=== PATIENT | female | born 1985 | race Two or more races ===

== ENCOUNTER 2023-12-24 13:05 | Inpatient (IN) | payer OTHER ==
[~2023-12-24] VITALS: Ht 172.7 cm; Wt 76.5 kg
--- NOTE | 2023-12-24 13:19 | ED.PDOC ---
GI ASSESSMENT HPI Comments HPI: Poor Historian.P 38-year-old female presents with a chief complaint of left lower quadrant pelvic pain x 1 month. Pain is constant. Patient has been taking ibuprofen at home for pain control most recently this morning, but denies any relief of symptoms. Patient denies chance of and reports that her IUD was removed x 7 months ago. Patient denies any history of sexual transmitted infections. PMHx: None PSHx: Cholecystectomy, Left Wrist Allergies: None Initial Vital Signs BP: 124/81 HR: 128 Temp: 98.9F SpO2: 97% RR: 18 REVIEW OF SYSTEMS: CONSTITUTIONAL: Denies acute: diaphoresis, HEAD: Denies acute: headache, photophobia Eyes: Denies acute: Double vision, vision loss, eye pain, eye discharge. EARS: Denies acute: tinnitus, hearing loss, ear discharge, ear pain, THROAT: Denies acute: sore throat, swelling, difficulty swallowing , pain with swallowing, change in voice. NECK: Denies acute: neck pain, neck swelling, stiff neck. HEART: Denies acute : chest pain, palpitations, LUNGS: Denies acute: SOB, wheezing, cough, hemoptysis ABDOMEN: Denies acute: diarrhea, melena , hematemesis, hematochezia SKIN: Denies acute: rash, redness, lesions, itchiness. EXTREMITIES: Denies acute: calf pain, numbness, tingling, weakness, denies pain in extremity. Denies acute: Low back pain. Neuro: Denies acute: focal neurological deficit, motor or sensory focal neurological deficit, tremors, seizure like activity, confusion, dizziness, change in mental status, loss of bowel or bladder function, cauda equina like symptoms. : Denies acute: dysuria, hematuria, flank pain, PSYCH: Denies acute: hallucination, suicidal ideation, homicidal ideation. FEMALE: Denies acute: abnormal vaginal bleeding, foul odor, unusual discharge. PHYSICAL EXAM: General: mild to moderate acute distress, awake and alert. Head: normocephalic, atraumatic. Neck: supple, trachea is midline, no swelling. Throat: Normal phonation. Eyes:, no erythema, no purulent discharge, no proptosis, no icterus. Heart: regular tachycardic, no significant murmur appreciated. Lungs: no apparent respiratory distress, Able to speak in full sentences. No wheezing, no rhonchi, no crackles. No stridors Clear to auscultation bilaterally. Abdomen: Left lower quadrant and suprapubic tender to palpation, non distended, soft, no guarding, no rebound, + bowel sounds. Neuro: Awake, Alert, oriented to name, self, situation, follows commands GCS=15. Speech is normal. Skin: no petechia, no purpura, no cyanosis, non-pale, not jaundice. Lower extremities: --no - Pitting edema no deformity, no focal swelling, no calf TTP. Makes eye contact. moves all four extremities. Face: no apparent facial droop. No CVA tenderness to percussion bilaterally. Ambulating in the ED independently. Chief Complaint: Pelvic Pain Time Seen by MD: 13:09 Reviewed Notes: Medications, Allergies Allergies: Coded Allergies: NO KNOWN ALLERGIES (Unverified , 12/24/23) Information Source: Patient Mode of Arrival: Ambulatory Was a procedure done? Was a procedure done?: No GI differential Dx Differential Diagnosis: Other (DDX include Diverticulitis, colitis, gastroenteritis, acute abdomen, SBO, enteritis, constipation, volvulus, appendicitis, Gallbladder disease, choledocolithiasis, ascending cholangitis, pancreatitis, intraAbdominal mass/neoplasm, hepatitis, UTI, pylonephritis, kidney stone, aneurysm, dissection, Inflammatory bowel disease, gastroparesis, ischemic bowel, ovarian torsion, ovarian cyst/mass, tubo-ovarian abscess, , ectopic , PID, STD.) X-Ray, Labs, Meds, VS Vital Signs Date Time Temp Pulse Resp B/P (MAP) Pulse Ox O2 Delivery O2 Flow Rate FiO2 12/24/23 19:26 102.7 12/24/23 19:00 102.7 99 16 109/68 (82) 100 102.7 12/24/23 18:25 118/71 12/24/23 15:46 106 16 100 Room Air 12/24/23 15:46 100.8 106 16 120/72 (88) 100 100.8 12/24/23 13:55 98.9 117 18 110/75 (87) 100 98.9 12/24/23 13:55 117 18 100 Room Air* 0 21 12/24/23 13:12 98.9 129 18 124/81 (95) 97 Lab Test 12/24/23 15:12 12/24/23 13:50 12/24/23 13:20 Range/Units Urine Color Yellow Yellow Urine Clarity Turbid H Clear Urine pH 6.5 5.0-9.0 Urine Specific [place] 1.021 1.001-1.035 Urine Protein Trace H Negative Urine Ketones Trace Negative Urine Blood Negative Negative /uL Urine Nitrite Negative Negative Urine Bilirubin Negative Negative Urine Urobilinogen 4 H Negative mg/dL Urine Leukocyte Esterase 1+ Negative /uL Urine RBC 3 0 - 4 /hpf Urine WBC 4 0 - 5 /hpf Urine Squamous Epithelial Cells Few <5 /hpf Urine Bacteria None seen None Seen /hpf Urine Mucus Few None Seen Urine Glucose Normal Normal mg/dL Urine Test Negative Negative Urine Opiates Screen Neg NEGATIVE Urine Fentanyl Screen Neg NEGATIVE Urine Barbiturates Screen Neg NEGATIVE Urine Phencyclidine Screen Neg NEGATIVE Urine Amphetamines Screen Neg NEGATIVE Urine Benzodiazepines Screen Neg NEGATIVE Urine Cocaine Screen Neg NEGATIVE Urine Cannabinoids Screen Pos NEGATIVE Chlamydia trachomatis (AYSHA) Pending Neisseria gonorrhoeae (AYSHA) Pending White Blood Count 23.8 H 4.4-10.8 10^3/uL Red Blood Count 3.66 L 4.0-5.20 10^6/uL Hemoglobin 9.8 L 12.2-16.2 g/dL Hematocrit 30.4 L 36.0-46.0 % Mean Corpuscular Volume 82.9 80.0-100.0 fL Mean Corpuscular Hemoglobin 26.8 L 28.0-32.0 pg Mean Corpuscular Hemoglobin Concent 32.4 32.0-36.0 g/dL Red Cell Distribution Width 14.1 11.8-14.3 % Platelet Count 466 H 140-450 10^3/uL Mean Platelet Volume 7.8 6.9-10.8 fL Neutrophils (%) (Auto) 89.6 H 37.0-80.0 % Lymphocytes (%) (Auto) 5.4 L 10.0-50.0 % Monocytes (%) (Auto) 4.3 0.0-12.0 % Eosinophils (%) (Auto) 0.4 0.0-7.0 % Basophils (%) (Auto) 0.3 0.0-2.0 % Neutrophils # (Auto) 21.3 H 1.6-8.6 10 ^3/uL Lymphocytes # (Auto) 1.3 0.4-5.4 10 ^3/uL Monocytes # (Auto) 1.0 0-1.3 10 ^3/uL Eosinophils # (Auto) 0.1 0-0.8 10 ^3/uL Basophils # (Auto) 0.1 0-0.2 10 ^3/uL Nucleated Red Blood Cells 0.0 % Erythrocyte Sedimentation Rate 105 H 0-20 mm/hr Prothrombin Time 12.1 H 9.3-11.8 sec Prothrombin Time INR 1.15 0.9-1.15 Activated Partial Thromboplast Time 32.5 24.5-34.5 SEC Sodium Level 135 L 136-145 mmol/L Potassium Level 3.8 3.5-5.1 mmol/L Chloride Level 102 98-107 mmol/L Carbon Dioxide Level 27 20-31 mmol/L Anion Gap 6 5-15 Blood Urea Nitrogen 6 L 9-23 mg/dL Creatinine 0.68 0.550-1.02 mg/dL Glomerular Filtration Rate Calc 116 >90 mL/min BUN/Creatinine Ratio 8.8 L 10.0-20.0 Serum Glucose 97 74-106 mg/dL Calcium Level 9.3 8.7-10.4 mg/dL Total Bilirubin 0.5 0.2-1.0 mg/dL Aspartate Amino Transferase (AST) 18 13-40 U/L Alanine Aminotransferase (ALT) 16 7-40 U/L Alkaline Phosphatase 101 46-116 U/L Total Protein 8.5 H 5.7-8.2 g/dL Albumin 3.8 3.2-4.8 g/dL Lipase 32 12-53 U/L Beta HCG, Quantitative 0.1 L 1.5-4.2 mIU/mL Plasma/Serum Blood Alcohol 3.3 <10 mg/dL Lactic Acid Level 0.8 0.4-2.0 mmol/L Current Medications Medications (Trade) Dose Ordered Sig/Sadia Route Start Time Stop Time Status Last Admin Sodium Chloride 1,000 ml @ 1,000 mls/hr Q1H ONCE IV 12/24/23 13:15 12/24/23 14:14 DC 12/24/23 13:53 Sodium Chloride 1,000 ml @ 1,000 mls/hr Q1H ONCE IV 12/24/23 14:45 12/24/23 15:44 DC 12/24/23 16:03 Ceftriaxone Sodium 50 ml @ 100 mls/hr ONCE ONCE IV 12/24/23 15:15 12/24/23 15:44 DC 12/24/23 16:02 Fentanyl Citrate 100 mcg ONCE ONCE IV 12/24/23 16:45 12/24/23 16:46 DC 12/24/23 18:25 Piperacillin Sod/ Tazobactam Sod 100 ml @ 100 mls/hr Q6HR IV 12/24/23 18:00 12/24/23 18:49 Acetaminophen (Tylenol Tablet) 500 mg ONCE ONCE PO 12/24/23 19:15 12/24/23 19:16 DC 12/24/23 19:26 [place] [address] Ph: [phone] DIAGNOSTIC IMAGING Diagnostic Imaging Report : [id number] Signed PATIENT: ANTON BONILLA ACCT: [id number] UNIT: [id number] : 1985 LOC: ER ROOM / BED: / AGE / SEX: 38 / F ADM STATUS: REG ER SERVICE [id number] ORDERING PHYSICIAN: GRACE CARRERO DO PROCEDURE(s): PELUS - PELVIC REASON: LLQ pain ORDER NUMBER(s): [id number], ACCESSION NUMBER(s): [id number] CLINICAL HISTORY: Lower quadrant pain. COMPARISON: None TECHNIQUE: Transabdominal grayscale sonographic imaging of the uterus and ovaries was performed, assisted by color Doppler technique. Duplex Doppler ultra sound of both ovaries was also performed. FINDINGS: The uterus measures 10.6 x 6.2 x 7.5 cm. There is mildly heterogeneous echogenicity. Endometrial thickness measures 1.2 cm, within normal limits. Right ovary measures 4.5 x 3.5 x 4.0 cm. Arterial and venous blood flow demonstrated. Simple cyst in the right ovary measures up to 2.2 cm. Heterogeneous structure in the left adnexal region measures up to 8.1 x 6.2 x 5.5 cm. There are prominent echogenic areas within the structure. Arterial and venous blood flow demonstrated. IMPRESSION: 1. Left adnexal structure, possible mass or collection. Infectious etiology not excluded. Correlate with same day CT findings and clinical findings. 2. Simple cyst in the right ovary. 3. Additional findings as described above. ATED BY: MAXIMILIANO GTZ DO DICTATED DATE/TIME: 12/24/238 SIGNED BY: MAXIMILIANO GTZ DO SIGNED DATE/TIME: 12/24/[address] [address] Ph: [phone] DIAGNOSTIC IMAGING Diagnostic Imaging Report : [id number] Signed PATIENT: ANTON BONILLA ACCT: [id number] UNIT: [id number] : 1985 LOC: ER ROOM / BED: / AGE / SEX: 38 / F ADM STATUS: REG ER SERVICE 1333 ORDERING PHYSICIAN: GRACE CARRERO DO PROCEDURE(s): ABPL - CT AB PEL WO CON-NO ORAL OR IV REASON: LLQ pain ORDER NUMBER(s): [id number], ACCESSION NUMBER(s): [id number] Exam: CT CT AB PEL WO CON-NO ORAL OR IV History: LLQ pain Comparison Study: None TECHNIQUE: Multidetector CT of the abdomen and pelvis was performed from lung bases to pubic symphysis. Imaging was performed without IV contrast. Axial, coronal, and sagittal multiplanar reformats were obtained from the axial data set by the technologist. RADIATION DOSE: DLP 435.52 mGy.cm; CTDI vol 7.89 mGy. Findings: Lungs: The lung bases are clear. Heart: The visualized heart is unremarkable. No cardiomegaly or pericardial effusion. Liver: Unremarkable. Gallbladder: Cholecystectomy. Spleen: Unremarkable Pancreas: Unremarkable Adrenals: Unremarkable Kidneys: Punctate nonobstructive left nephrolithiasis. GI tract: Unremarkable : 5.6 x 5.1 cm left adnexal lesion with thickened wall and multilocular morphology. Vasculature: Unremarkable Lymphadenopathy: Absent Peritoneum: No ascites Musculoskeletal: Unremarkable Soft tissues: Unremarkable Impression: 1. 5.6 x 5.1 cm thick walled, multilocular lesion in the left adnexa which is suspicious for a pyosalpinx, other etiologies not excluded. 2. Punctate nonobstructive left nephrolithiasis. ATED BY: MISSY LOPEZ DO DICTATED DATE/TIME: 12/24/23 1608 SIGNED BY: MISSY LOPEZ DO SIGNED DATE/TIME: 12/24/23 1608 Time of 1ST Reevaluation: 13:39 Reevaluation 1ST: Unchanged Time of 2ND Reevaluation: 16:17 (The case was discussed with the OB Gyne team (HPI, physical exam, labs and diagnostic tests that were available at the time of disposition, ED course, treatment plan) on the phone. They agreed to follow up with the patient in consult. They recommended additional doxycycline 100 mg IV and NPO after midnight at admit to the hospitalist team and they will follow in consult. Dr. Schuster. He also requested to add labs for CBC in the morning and ESR.) Time of 3RD Reevaluation: 19:50 Reevaluation 3RD: Improved Patient Education/Counseling: Diagnosis, Treatment Family Education/Counseling: No Family Present Comments Patient presented with the above HPI.--pelvic pain----workup was initiated. patient was found with the above mentioned diagnosis. Patient was given: Rocephin, doxycycline IV, pain medications, fluids, Zofran. Patient ED course and VS have been stabilized. Patient has been reassessed in the ED and remained in a stable condition. Patient/family voices understanding and is agreeable with plan. Patient has been observed in the ED adequate length of time to insure improvement/stability. patient was admitted to the medicine team for further evaluation and treatment of their presentation. OB Gyne were consulted and will follow in consult. They later added gentamicin as well. All the reports of any imaging studies that were ordered by myself were reviewed by myself. Departure 1 Departure Time of Disposition: 15:07 Impression: Primary Impression: Leukocytosis Additional Impressions: Left lower quadrant abdominal pain Adnexal mass Left pyosalpinx Disposition: ADMITTED INPATIENT Admit to: Tele Condition: Guarded Discharged With: Self Critical Care Note Critical Care Time?: Yes (45 min-critical care time only) I personally scribed for GRACE CARRERO DO ([email or web address]) on 12/24/23 at 13:19. Electronically submitted by Fritz Whitaker ([email or web address]). I personally scribed for GRACE CARRERO DO ([email or web address]) on 12/24/23 at 16:04. Electronically submitted by Fritz Whitaker ([email or web address]). I personally scribed for GRACE CARRERO DO ([email or web address]) on 12/24/23 at 16:08. Electronically submitted by Fritz Whitaker ([email or web address]). I personally scribed for GRACE CARRERO DO ([facility] on 12/24/23 at 16:11. Electronically submitted by Fritz Whitaker ([email or web address]). I personally scribed for GRACE CARRERO DO ([facility] on 12/24/23 at 16:42. Electronically submitted by Fritz Whitaker ([email or web address]). GRACE CARRERO DO Dec 24, 2023 13:19
[2023-12-24] MEDS: SODIUM CHLORIDE 0.9% 1,000 ML IV ONE ×2 (13:53→16:03)
[2023-12-24] MEDS: ONDANSETRON HCL 4 MG/2 ML VIAL IV ONE (13:54)
[2023-12-24 13:55] VITALS: PULSE 117; RESP 18; O2SAT 100
[2023-12-24 14:16] LABS: Basophils # (auto) 0.1 10 ^3/uL (0-0.2); Eosinophils # (auto) 0.1 10 ^3/uL (0-0.8); Eosinophils % (auto) 0.4 % (0.0-7.0); Neutrophils # (auto) 21.3 10 ^3/uL (1.6-8.6); Red Blood Cells 3.66 10^6/uL (4.0-5.20); Red Cell Distribution Width 14.1 % (11.8-14.3)
[2023-12-24 14:19] LABS: Basophils % (auto) 0.3 % (0.0-2.0); Hematocrit 30.4 % (36.0-46.0); Hemoglobin 9.8 g/dL (12.2-16.2); Lymphocytes # (auto) 1.3 10 ^3/uL (0.4-5.4); Lymphocytes % (auto) 5.4 % (10.0-50.0); Mean Corpuscular Hemoglobin 26.8 pg (28.0-32.0); Mean Corpuscular Hgb Conc. 32.4 g/dL (32.0-36.0); Mean Corpuscular Volume 82.9 fL (80.0-100.0); Monocytes % (auto) 4.3 % (0.0-12.0); Neutrophils % (auto) 89.6 % (37.0-80.0); Platelet Count (auto) 466 10^3/uL (140-450); White Blood Cell 23.8 10^3/uL (4.4-10.8)
[2023-12-24 14:25] LABS: Alanine Aminotransferase 16 U/L (7-40); Albumin 3.8 g/dL (3.2-4.8); Alkaline Phosphatase 101 U/L (46-116); Anion Gap 6 (5-15); Aspartate Aminotransferase 18 U/L (13-40); BUN/Creatinine Ratio 8.8 (10.0-20.0); Blood Alcohol 3.3 mg/dL (<10); Blood Urea Nitrogen 6 mg/dL (9-23); Calcium 9.3 mg/dL (8.7-10.4); Carbon Dioxide 27 mmol/L (20-31); Chloride 102 mmol/L (98-107); Glucose 97 mg/dL (74-106); Potassium 3.8 mmol/L (3.5-5.1); Sodium 135 mmol/L (136-145)
[2023-12-24 14:26] LABS: Bilirubin, Total 0.5 mg/dL (0.2-1.0); Total Protein 8.5 g/dL (5.7-8.2)
[2023-12-24 14:38] LABS: Lipase 32 U/L (12-53)
[2023-12-24 15:13] LABS: Urine Bacteria None Seen /hpf (None Seen)
[2023-12-24 15:31] LABS: Urine Blood Negative /uL (Negative); Urine Clarity Turbid (Clear); Urine Color Yellow (Yellow); Urine Mucus FEW (None Seen); Urine Protein, UAD TRACE (Negative); Urine Specific Gravity 1.021 (1.001-1.035); Urine Urobilinogen 4 mg/dL (Negative); Urine WBC 4 /hpf (0 - 5); Urine pH 6.5 (5.0-9.0)
[2023-12-24 15:50] LABS: Amphetamine Screen, Urine Neg (NEGATIVE)
[2023-12-24 15:51] LABS: Barbiturate Scree,Urine Neg (NEGATIVE); Benzodiazephine Screen, Urine Neg (NEGATIVE); Cannabinoid Screen, Urine Pos (NEGATIVE); Cocaine Screen, Urine Neg (NEGATIVE); Opiate Scree,Urine Neg (NEGATIVE); Phencyclidine Screen, Urine Neg (NEGATIVE)
--- NOTE | 2023-12-24 16:00 | DVH ---
CLINICAL HISTORY: Lower quadrant pain. COMPARISON: None TECHNIQUE: Transabdominal grayscale sonographic imaging of the uterus and ovaries was performed, assi sted by color Doppler technique. Duplex Doppler ultrasound of both ovaries was also performed. FINDINGS: The uterus measures 10.6 x 6.2 x 7.5 cm. There is mildly heterogeneous echogenicity. Endome trial thickness measures 1.2 cm, within normal limits. Right ovary measures 4.5 x 3.5 x 4.0 cm. Arterial and venous blood flow demonstrated. Simple cyst in the right ovary measures up to 2.2 cm. Heterogeneous structure in the left adnexal region measures up to 8.1 x 6.2 x 5.5 cm. There are promi nent echogenic areas within the structure. Arterial and venous blood flow demonstrated. IMPRESSION: 1. Left adnexal structure, possible mass or collection. Infectious etiology not excluded. Correlate w ith same day CT findings and clinical findings. 2. Simple cyst in the right ovary. 3. Additional findings as described above.
[2023-12-24] MEDS: cefTRIAXone 1GM/50ML D5W 50 ML IV ONE (16:02)
--- NOTE | 2023-12-24 16:10 | DVH ---
Exam: CT CT AB PEL WO CON-NO ORAL OR IV History: LLQ pain Comparison Study: None TECHNIQUE: Multidetector CT of the abdomen and pelvis was performed from lung bases to pubic symphysi s. Imaging was performed without IV contrast. Axial, coronal, and sagittal multiplanar reformats were obtained from the axial data set by the technologist. RADIATION DOSE: DLP 435.52 mGy.cm; CTDI vol 7.89 mGy. Findings: Lungs: The lung bases are clear. Heart: The visualized heart is unremarkable. No cardiomegaly or pericardial effusion. Liver: Unremarkable. Gallbladder: Cholecystectomy. Spleen: Unremarkable Pancreas: Unremarkable Adrenals: Unremarkable Kidneys: Punctate nonobstructive left nephrolithiasis. GI tract: Unremarkable : 5.6 x 5.1 cm left adnexal lesion with thickened wall and multilocular morphology. Vasculature: Unremarkable Lymphadenopathy: Absent Peritoneum: No ascites Musculoskeletal: Unremarkable Soft tissues: Unremarkable Impression: 1. 5.6 x 5.1 cm thick walled, multilocular lesion in the left adnexa which is suspicious for a pyosal pinx, other etiologies not excluded. 2. Punctate nonobstructive left nephrolithiasis.
[2023-12-24] MEDS ORDERED: DOXYCYCLINE 100MG/250ML 250 ML IV ONE (16:30)
[2023-12-24 17:12] LABS: INR 1.15 (0.9-1.15); Partial Thromboplastin Time 32.5 SEC (24.5-34.5); Prothrombin Time 12.1 sec (9.3-11.8)
[2023-12-24 17:42] LABS: Erythrocyte Sedimentation Rate 105 mm/hr (0-20)
[2023-12-24] MEDS: GENTAMICIN SULFATE 80 MG in D5W 5% 100 ML IV ONE (18:00)
[2023-12-24] MEDS ORDERED: GENTAMICIN PER PHARMACY 0 ML IV SCH (18:00)
[2023-12-24] MEDS: fentaNYL CITRATE 100 MCG/2 ML VL IV ONE (18:25)
[2023-12-24] MEDS: PIPERACILLIN-TAZOB 3.375GM 100 ML IV SCH (18:49)
[2023-12-24] MEDS: ACETAMINOPHEN 500 MG TAB PO ONE (19:26)
[2023-12-24] MEDS: GENTAMICIN SULFATE 100 MG in D5W 5% 100 ML IV SCH (21:00)
[2023-12-24] MEDS ORDERED: NITROGLYCERIN 0.4 MG SL TAB SL PRN (21:30)
[2023-12-24] MEDS ORDERED: MORPHINE SULFATE INJ 2 MG/ml SYRG IV PRN (21:30)
[2023-12-24] MEDS: SODIUM CHLOR 0.9% PF (SALINE LOCK) 10ML VIAL/SYR IV SCH (22:23)
[2023-12-24] MEDS: SODIUM CHLORIDE 0.9% 1,000 ML IV SCH (22:23)
--- NOTE | 2023-12-24 22:27 | DVHHPRES ---
History of Present Illness Resident Creating Document: CHRISTAINO BALLESTEROS RESIDENT History of Present Illness This is a 38-year-old female with past medical history of kidney stone presented to the ED with a chief complaint of intermittent left lower quadrant abdominal pain and yellowish vaginal discharge for last 1 month prior to this admission. According to the patient the left lower quadrant abdominal pain is colicky in nature 9/10 localized with no aggravating or relieving factors and associated with yellowish vaginal discharge. She had an IUD for 5 years and removed 1 month ago. She had no history of STD or multiple sexual partner before and her last Pap test was few months ago and was normal study according to the patient. She also mentioned she had history of kidney stone 3 years ago and passed 3 stones but no imaging or follow up was done after that. She denies fever, chills, sweating, nausea, vomiting, chest pain, dizziness or any change in the bowel and bladder habit. Past Medical History Kidney stone Past Surgical History None Family History None Smoke: No ALCOHOL: none Drugs: None, Marijuana Past Social History Nonsmoker, nonalcoholic and smoke weeds and lives with boyfriend Review of Systems Constitutional: No: Fever, Chills, Sweats, Weakness, Malaise, Other Eyes: No: Pain, Vision change, Conjunctivae inflammation, Eyelid inflammation, Other, Redness ENT: No: Ear pain, Ear discharge, Nose pain, Nose discharge, Nose congestion, Mouth pain, Mouth swelling, Throat pain, Throat swelling, Other Gastrointestinal: Constipation; No: Nausea, Vomiting, Abdominal Pain, Diarrhea, Melena, Hematochezia, Other Genitourinary: No Dysuria, No Frequency, No Incontinence, No Hematuria, No Ret ention, No Other Musculoskeletal: No: other, neck pain, shoulder pain, arm pain, back pain, hand pain, leg pain, foot pain Skin: No: Rash, Lesions, Jaundice, Bruising, Other Neurological: No: Weakness, Numbness, Incoordination, Change in speech, Confusion, Seizures, Other Allergies: Coded Allergies: NO KNOWN ALLERGIES (Unverified , 12/24/23) Medications Current Medications Medications Dose Ordered Sig/Sadia Route Start Time Stop Time Status Last Admin Dose Admin Piperacillin Sod/ Tazobactam Sod 100 ml @ 100 mls/hr Q6HR IV 12/24/23 18:00 12/24/23 18:49 100 MLS/HR Gentamicin Sulfate 0 ml @ 0 mls/hr PER PHARMACY IV 12/24/23 18:00 Gentamicin Sulfate 100 mg/ Dextrose 102.5 ml @ 100 mls/hr Q8H IV 12/24/23 20:00 12/24/23 21:00 100 MLS/HR Sodium Chloride 10 ml Q8HR IV 12/24/23 22:00 12/24/23 22:23 10 ML Sodium Chloride 1,000 ml @ 75 mls/hr [id number] IV 12/24/23 21:30 12/24/23 22:23 75 MLS/HR Acetaminophen 325 mg Q4HP PRN PO 12/24/23 21:30 Acetaminophen/ Hydrocodone Bitart 1 tab Q4HP PRN PO 12/24/23 21:30 Ondansetron HCl 4 mg Q4HP PRN IV 12/24/23 21:30 Nitroglycerin 0.4 mg Q5MINP PRN SL 12/24/23 21:30 Morphine Sulfate 2 mg Q30M PRN IV 12/24/23 21:30 Exam Vital Signs Vital Signs Date Time Temp Pulse Resp B/P (MAP) Pulse Ox O2 Delivery O2 Flow Rate FiO2 12/24/23 19:30 Room Air* 0 21 12/24/23 19:26 102.7 12/24/23 19:00 99 16 109/68 (82) 100 Exam Physical examination: General Appearance: Alert, Oriented X3, Cooperative, No acute distress HEENT: Atraumatic, PERRLA, EOMI, Mucous membrane moist/pink Respiratory: Clear to auscultation, Normal air movement Cardiovascular: Regular rate, Normal S1, Normal S2, No murmurs, no chest wall tenderness Abdominal: Abdomen soft and tenderness present in the left lower quadrant, no CVA tenderness, normal bowel sounds, No hepatospenomegaly, No masses Extremities: No clubbing, No cyanosis, No edema, Normal pulses, No tenderness/swelling Skin: No rashes, No breakdown, No significant lesion Neuro: Normal gait, Normal speech, Strength at 5/5 X4 ext, Normal tone, Sensation intact. Psych/Mental Status: Mental status NL, Mood NL Labs/Xrays Labs Test 12/24/23 15:12 12/24/23 13:50 12/24/23 13:20 Range/Units Urine Color Yellow Yellow Urine Clarity Turbid H Clear Urine pH 6.5 5.0-9.0 Urine Specific [place] 1.021 1.001-1.035 Urine Protein Trace H Negative Urine Ketones Trace Negative Urine Blood Negative Negative /uL Urine Nitrite Negative Negative Urine Bilirubin Negative Negative Urine Urobilinogen 4 H Negative mg/dL Urine Leukocyte Esterase 1+ Negative /uL Urine RBC 3 0 - 4 /hpf Urine WBC 4 0 - 5 /hpf Urine Squamous Epithelial Cells Few <5 /hpf Urine Bacteria None seen None Seen /hpf Urine Mucus Few None Seen Urine Glucose Normal Normal mg/dL Urine Test Negative Negative Urine Opiates Screen Neg NEGATIVE Urine Fentanyl Screen Neg NEGATIVE Urine Barbiturates Screen Neg NEGATIVE Urine Phencyclidine Screen Neg NEGATIVE Urine Amphetamines Screen Neg NEGATIVE Urine Benzodiazepines Screen Neg NEGATIVE Urine Cocaine Screen Neg NEGATIVE Urine Cannabinoids Screen Pos NEGATIVE White Blood Count 23.8 H 4.4-10.8 10^3/uL Red Blood Count 3.66 L 4.0-5.20 10^6/uL Hemoglobin 9.8 L 12.2-16.2 g/dL Hematocrit 30.4 L 36.0-46.0 % Mean Corpuscular Volume 82.9 80.0-100.0 fL Mean Corpuscular Hemoglobin 26.8 L 28.0-32.0 pg Mean Corpuscular Hemoglobin Concent 32.4 32.0-36.0 g/dL Red Cell Distribution Width 14.1 11.8-14.3 % Platelet Count 466 H 140-450 10^3/uL Mean Platelet Volume 7.8 6.9-10.8 fL Neutrophils (%) (Auto) 89.6 H 37.0-80.0 % Lymphocytes (%) (Auto) 5.4 L 10.0-50.0 % Monocytes (%) (Auto) 4.3 0.0-12.0 % Eosinophils (%) (Auto) 0.4 0.0-7.0 % Basophils (%) (Auto) 0.3 0.0-2.0 % Neutrophils # (Auto) 21.3 H 1.6-8.6 10 ^3/uL Lymphocytes # (Auto) 1.3 0.4-5.4 10 ^3/uL Monocytes # (Auto) 1.0 0-1.3 10 ^3/uL Eosinophils # (Auto) 0.1 0-0.8 10 ^3/uL Basophils # (Auto) 0.1 0-0.2 10 ^3/uL Nucleated Red Blood Cells 0.0 % Erythrocyte Sedimentation Rate 105 H 0-20 mm/hr Prothrombin Time 12.1 H 9.3-11.8 sec Prothrombin Time INR 1.15 0.9-1.15 Activated Partial Thromboplast Time 32.5 24.5-34.5 SEC Sodium Level 135 L 136-145 mmol/L Potassium Level 3.8 3.5-5.1 mmol/L Chloride Level 102 98-107 mmol/L Carbon Dioxide Level 27 20-31 mmol/L Anion Gap 6 5-15 Blood Urea Nitrogen 6 L 9-23 mg/dL Creatinine 0.68 0.550-1.02 mg/dL Glomerular Filtration Rate Calc 116 >90 mL/min BUN/Creatinine Ratio 8.8 L 10.0-20.0 Serum Glucose 97 74-106 mg/dL Calcium Level 9.3 8.7-10.4 mg/dL Total Bilirubin 0.5 0.2-1.0 mg/dL Aspartate Amino Transferase (AST) 18 13-40 U/L Alanine Aminotransferase (ALT) 16 7-40 U/L Alkaline Phosphatase 101 46-116 U/L Total Protein 8.5 H 5.7-8.2 g/dL Albumin 3.8 3.2-4.8 g/dL Lipase 32 12-53 U/L Beta HCG, Quantitative 0.1 L 1.5-4.2 mIU/mL Plasma/Serum Blood Alcohol 3.3 <10 mg/dL Lactic Acid Level 0.8 0.4-2.0 mmol/L Assessment/Plan Assessment/Plan Assessment and plan: # Left lower quadrant abdominal pain likely due to left tubo-ovarian abscess - Patient had history of IUD for 5 years and removed 1 month ago - CT abdomen demonstrated 5.6 x 5.1 cm thick walled, multilocular lesion in the left adnexa, possible left pyosalpinx - WBC is 23.8 and ESR is 105 - Pending NAAT for chlamydia and gonorrhea - pending blood culture - Ceftriaxone 2 g IV daily and doxycycline 100 mg IV b.i.d. - Consulted OBGYN # Left-sided nonobstructing renal stone - CT abdomen revealed punctating nonobstructing left sided nephrolithiasis - Follow up with outpatient urology # Possible pyuria without bacteriuria Goal of care discussed with the patient for more than 20 minutes full code Plan of treatment discussed with Dr. Joy Plan discussed with: Patient, Other My Orders Orders - CHRISTIANO BALLESTEROS RESIDENT Procedure Category Date Status Time Admit ADMIT 12/24/23 Transmitted 21:29 Allergies RHIANNA 12/24/23 In Process 21:29 Code Status CODE 12/24/23 Transmitted 21:29 Sodium Chloride Lock PHA 12/24/23 In Process (Saline Lock Ns) 22:00 Sodium Chloride 0.9% PHA 12/24/23 In Process 21:30 Oxygen Per Hour RT 12/24/23 Transmitted 21:29 Acetaminophen Tablet PHA 12/24/23 In Process (Tylenol Tablet) 21:30 Hydrocodone-Acet PHA 12/24/23 In Process 5/325mg Tab ([place] 21:30 Ondansetron Hcl PHA 12/24/23 In Process (Zofran) 21:30 Complete Blood Count LAB 12/25/23 Verified 04:00 Comprehensive LAB 12/25/23 Verified Metabolic Panel 04:00 Clear Liq Diet DIET 12/25/23 Transmitted Breakfast Nitroglycerin PHA 12/24/23 In Process Sublingual (Ntrostat 21:30 Morphine Sulfate PHA 12/24/23 In Process Injection 21:30 Oxygen By Nasal RT 12/24/23 Transmitted Cannula 21:29 Stat Ekg For Chest RHIANNA 12/24/23 In Process Pain 21:29 Notify Of Changes RHIANNA 12/24/23 In Process From Base 21:29 Branch Service Associate For RHIANNA 12/24/23 In Process 24 Hours 21:29 Emergency Dysrhythmia RHIANNA 12/24/23 In Process Protocol 21:29 Rhythm Strips Once [facility] 12/24/23 In Process Every Shift 21:29 CHRISTIANO BALLESTEROS RESIDENT Dec 24, 2023 22:27
[2023-12-25] MEDS: HYDROcodone-ACET 5/325MG TAB PO PRN (01:03)
[2023-12-25] MEDS: DOXYCYCLINE 100MG/250ML 250 ML IV SCH (01:05)
[2023-12-25 04:43] LABS: Basophils # (auto) 0 10 ^3/uL (0-0.2); Basophils % (auto) 0.2 % (0.0-2.0); Eosinophils % (auto) 0.2 % (0.0-7.0); Hematocrit 25.1 % (36.0-46.0); Neutrophils # (auto) 20.4 10 ^3/uL (1.6-8.6); Red Cell Distribution Width 14.4 % (11.8-14.3)
[2023-12-25 04:44] LABS: Eosinophils # (auto) 0.1 10 ^3/uL (0-0.8); Hemoglobin 7.9 g/dL (12.2-16.2); Lymphocytes # (auto) 1.7 10 ^3/uL (0.4-5.4); Lymphocytes % (auto) 7.2 % (10.0-50.0); Mean Corpuscular Hemoglobin 26.2 pg (28.0-32.0); Mean Corpuscular Hgb Conc. 31.4 g/dL (32.0-36.0); Mean Corpuscular Volume 83.5 fL (80.0-100.0); Monocytes # (auto) 1.3 10 ^3/uL (0-1.3); Monocytes % (auto) 5.3 % (0.0-12.0); Neutrophils % (auto) 87.1 % (37.0-80.0); Platelet Count (auto) 395 10^3/uL (140-450); Red Blood Cells 3.01 10^6/uL (4.0-5.20); White Blood Cell 23.5 10^3/uL (4.4-10.8)
[2023-12-25 05:03] LABS: Alanine Aminotransferase 12 U/L (7-40); Albumin 3.4 g/dL (3.2-4.8); Alkaline Phosphatase 86 U/L (46-116); Anion Gap 6 (5-15); Aspartate Aminotransferase 16 U/L (13-40); Calcium 8.6 mg/dL (8.7-10.4); Carbon Dioxide 26 mmol/L (20-31); Chloride 106 mmol/L (98-107); Glucose 102 mg/dL (74-106); Potassium 3.7 mmol/L (3.5-5.1); Sodium 138 mmol/L (136-145)
[2023-12-25 05:04] LABS: Bilirubin, Total 0.5 mg/dL (0.2-1.0)
[2023-12-25 05:09] LABS: BUN/Creatinine Ratio 7.7 (10.0-20.0); Blood Urea Nitrogen < 5 mg/dL (9-23)
--- NOTE | 2023-12-25 07:47 | DVHINCON2 ---
Date of service: Dec 25, 2023 Reason for Consultation TOA History of Present Illness HPI 38-year-old female, Go with past medical history of kidney stone presented to the ED with a chief complaint of intermittent left lower quadrant abdominal pain and yellowish vaginal discharge for last 1 month. She has left lower quadrant abdominal pain, colicky in nature, 9/10, localized with no aggravating or relieving factors and associated with yellowish vaginal discharge. She had an IUD for 5 years and removed 1 month ago. She has no history of STD, denies any new sexual partner or multiple sexual partners. Last Pap test was few months ago and was normal study according to the patient. . She endorses fever, chills. Denies nausea, vomiting, chest pain, dizziness or any change in bowel or bladder habits. Pelvic US and CT scan show a large approx. 8cm left adnexal inflammatory mass consistent with pyosalpinx, tubo-ovarian complex. She has been started on broad spectrum antibiotics since last night but still experiencing high fever, 102.7F and leukocytosis. Past Medical History Kidney stone Past Surgical History Family History None Smoke: No ALCOHOL: none Drugs: Marijuana use + Past Social History neg Review of Systems Review of Systems Constitutional: FEVER+ Chills, NO Sweats, Weakness, Malaise Eyes: No: Pain, Vision change, Conjunctivae inflammation, Eyelid inflammation, Other, Redness ENT: No: Ear pain, Ear discharge, Nose pain, Nose discharge, Nose congestion, Mouth pain, Mouth swelling, Throat pain, Throat swelling, Other Gastrointestinal: Constipation; No: Nausea, Vomiting, Abdominal Pain+, NO Diarrhea, Melena, Hematochezia Genitourinary: No Dysuria, No Frequency, No Incontinence, No Hematuria, No Retention Musculoskeletal: No: other, neck pain, shoulder pain, arm pain, back pain, hand pain, leg pain, foot pain Skin: No: Rash, Lesions, Jaundice, Bruising, Other Neurological: No: Weakness, Numbness, Incoordination, Change in speech, Confusion, Seizures, Other Allergies: NKDA Home Meds Reported Medications Ibuprofen (Ibuprofen) 800 Mg Tab, 800 MG PO 6XD, MG 12/25/23 Review of Systems Constitutional: Fever Ears, Nose, & Throat: No symptom reported Eyes: No symptom reported Pulmonary/Respiratory: No symptom reported Cardiovascular: No symptom reported Gastrointestinal: Abdominal Pain Genitourinary: No symptom reported Musculoskeletal: No symptom reported Skin: No symptom reported Psychiatric: No symptom reported Endocrine: No symptom reported Hemotologic/Lymphatic: No symptom reported H&P Exam Vital Signs Vital Signs Date Time Temp Pulse Resp B/P (MAP) Pulse Ox O2 Delivery O2 Flow Rate FiO2 12/25/23 07:26 98.9 119 18 121/65 (83) 96 98.9 12/24/23 19:30 Room Air* 0 21 General Appeara: Well developed, Normal Appearance, Mild distress Head Exam: Normal inspection Neck Exam: Normal inspection Eye Exam: bilateral eye PERRL Pulmonary/Respiratory: Normal inspection, Normal breath sounds Cardiovascular/Chest: Normal inspection Abdominal Exam: Other (Tenderness in LLQ on deep palpation, no peritoneal signs) Rectal Exam: Deferred Pelvic Exam: Not done [employer] Exam: Normal hearing Appearance: Appropriate appearance Eye contact/ Speech: Good eye contact, Normal speech Labs/Xrays PATIENT: ANTON BONILLA PACCT: [id number] UNIT: [id number] 3 : 1985 LOC: ER ROOM / BED: / AGE / SEX: 38 / F ADM STATUS: REG ER SERVICE 1310 ORDERING PHYSICIAN: GRACE CARRERO DO PROCEDURE(s): PELUS - PELVIC REASON: LLQ pain ORDER NUMBER(s): [id number], ACCESSION NUMBER(s): [id number] CLINICAL HISTORY: Lower quadrant pain. COMPARISON: None TECHNIQUE: Transabdominal grayscale sonographic imaging of the uterus and ovaries was performed, assisted by color Doppler technique. Duplex Doppler ultrasound of both ovaries was also performed. FINDINGS: The uterus measures 10.6 x 6.2 x 7.5 cm. There is mildly heterogeneous echogenicity. Endometrial thickness measures 1.2 cm, within normal limits. Right ovary measures 4.5 x 3.5 x 4.0 cm. Arterial and venous blood flow demon strated. Simple cyst in the right ovary measures up to 2.2 cm. Heterogeneous structure in the left adnexal region measures up to 8.1 x 6.2 x 5.5 cm. There are prominent echogenic areas within the structure. Arterial and venous blood flow demonstrated. IMPRESSION: 1. Left adnexal structure, possible mass or collection. Infectious etiology not excluded. Correlate with same day CT findings and clinical findings. (Heterogeneous structure in the left adnexal region measures up to 8.1 x 6.2 x 5.5 cm. There are prominent echogenic areas within the structure) 2. Simple cyst in the right ovary. 3. Additional findings as described above. Labs Test 12/25/23 04:19 12/24/23 15:12 12/24/23 13:50 12/24/23 13:20 Range/Units White Blood Count 23.5 H 4.4-10.8 10^3/uL Red Blood Count 3.01 L 4.0-5.20 10^6/uL Hemoglobin 7.9 #L 12.2-16.2 g/dL Hematocrit 25.1 #L 36.0-46.0 % Mean Corpuscular Volume 83.5 80.0-100.0 fL Mean Corpuscular Hemoglobin 26.2 L 28.0-32.0 pg Mean Corpuscular Hemoglobin Concent 31.4 L 32.0-36.0 g/dL Red Cell Distribution Width 14.4 H 11.8-14.3 % Platelet Count 395 140-450 10^3/uL Mean Platelet Volume 7.2 6.9-10.8 fL Neutrophils (%) (Auto) 87.1 H 37.0-80.0 % Lymphocytes (%) (Auto) 7.2 L 10.0-50.0 % Monocytes (%) (Auto) 5.3 0.0-12.0 % Eosinophils (%) (Auto) 0.2 0.0-7.0 % Basophils (%) (Auto) 0.2 0.0-2.0 % Neutrophils # (Auto) 20.4 H 1.6-8.6 10 ^3/uL Lymphocytes # (Auto) 1.7 0.4-5.4 10 ^3/uL Monocytes # (Auto) 1.3 0-1.3 10 ^3/uL Eosinophils # (Auto) 0.1 0-0.8 10 ^3/uL Basophils # (Auto) 0 0-0.2 10 ^3/uL Nucleated Red Blood Cells 0.0 % Sodium Level 138 136-145 mmol/L Potassium Level 3.7 3.5-5.1 mmol/L Chloride Level 106 98-107 mmol/L Carbon Dioxide Level 26 20-31 mmol/L Anion Gap 6 5-15 Blood Urea Nitrogen < 5 L 9-23 mg/dL Creatinine 0.65 0.550-1.02 mg/dL Glomerular Filtration Rate Calc 117 >90 mL/min BUN/Creatinine Ratio 7.7 L 10.0-20.0 Serum Glucose 102 74-106 mg/dL Calcium Level 8.6 L 8.7-10.4 mg/dL Total Bilirubin 0.5 0.2-1.0 mg/dL Aspartate Amino Transferase (AST) 16 13-40 U/L Alanine Aminotransferase (ALT) 12 7-40 U/L Alkaline Phosphatase 86 46-116 U/L Total Protein 7.0 5.7-8.2 g/dL Albumin 3.4 3.2-4.8 g/dL Urine Color Yellow Yellow Urine Clarity Turbid H Clear Urine pH 6.5 5.0-9.0 Urine Specific [place] 1.021 1.001-1.035 Urine Protein Trace H Negative Urine Ketones Trace Negative Urine Blood Negative Negative /uL Urine Nitrite Negative Negative Urine Bilirubin Negative Negative Urine Urobilinogen 4 H Negative mg/dL Urine Leukocyte Esterase 1+ Negative /uL Urine RBC 3 0 - 4 /hpf Urine WBC 4 0 - 5 /hpf Urine Squamous Epithelial Cells Few <5 /hpf Urine Bacteria None seen None Seen /hpf Urine Mucus Few None Seen Urine Glucose Normal Normal mg/dL Urine Test Negative Negative Urine Opiates Screen Neg NEGATIVE Urine Fentanyl Screen Neg NEGATIVE Urine Barbiturates Screen Neg NEGATIVE Urine Phencyclidine Screen Neg NEGATIVE Urine Amphetamines Screen Neg NEGATIVE Urine Benzodiazepines Screen Neg NEGATIVE Urine Cocaine Screen Neg NEGATIVE Urine Cannabinoids Screen Pos NEGATIVE Erythrocyte Sedimentation Rate 105 H 0-20 mm/hr Prothrombin Time 12.1 H 9.3-11.8 sec Prothrombin Time INR 1.15 0.9-1.15 Activated Partial Thromboplast Time 32.5 24.5-34.5 SEC Lipase 32 12-53 U/L Beta HCG, Quantitative 0.1 L 1.5-4.2 mIU/mL Plasma/Serum Blood Alcohol 3.3 <10 mg/dL Lactic Acid Level 0.8 0.4-2.0 mmol/L Assessment/Plan Admitting Diagnosis: 1. Sepsis due to Left adnexal 8cm TOA/Pyosalpinx (PID) 2. Normocytic anemia Plan The patient has been started on broad spectrum antibiotics (Rocephin/Doxycycline and Flagyl) Multiple therapeutic options were discussed with the patient including medical treatment with IV antibiotics until afebrile and clinically improved, followed by long-term oral antibiotics with repeat imaging in a few weeks Option for interventional procedure by IR with possible percutaneous drainage. Finally, surgical exploration with unilateral (left) salpingo-oophorectomy discussed as definitive and recommended treatment options. The patient would like to avoid surgery at this time. She would like to continue with medical management with IV antibiotics. We will consult IR for drainage. Patient declined surgery at this time. Will follow with you. Check daily CBC Plan discussed with: Patient Date of Service: Dec 25, 2023 Billing Provider: ANNALISA MANCINI DO Common Visit Codes: 00635-JWD/[id number] SAME DATE (HIGH) ANNALISA MANCINI DO Dec 25, 2023 07:47
[2023-12-25 08:21] VITALS: BP 112/64; PULSE 110; RESP 16; TEMP 99; O2SAT 97
[2023-12-25 08:27] LABS: Triglycerides 65 mg/dL (< 150)
[2023-12-25 08:28] LABS: LDL Cholesterol 66 mg/dL (< 100)
[2023-12-25 08:29] LABS: Cholesterol 99 mg/dL (< 200); HDL Cholesterol 24 mg/dL (40-59)
[2023-12-25] MEDS: ONDANSETRON HCL 4 MG/2 ML VIAL IV PRN (08:36)
[2023-12-25] MEDS: metroNIDAZOLE 500MG/100ML 100 ML IV SCH (08:39)
[2023-12-25 08:53] VITALS: BP 112/64; PULSE 110; RESP 16; TEMP 99.2; O2SAT 97
[2023-12-25] MEDS ORDERED: IBUP-1456 PO (09:45)
--- NOTE | 2023-12-25 10:46 | DVHPNRES ---
Progress Note Date Seen: Dec 25, 2023 Resident Creating Document: SHARON RAJPUT RESIDENT Has the PT tested + for MRSA If YES, has PT been informed?: No Medical Necessity Reason Pt with a Central, PICC or Fol: No Subjective Review of Systems This is a 38-year-old female with past medical history of kidney stones, who presented to the ED with a chief complaint of intermittent left lower quadrant abdominal pain and yellowish vaginal discharge for last 1 month prior to this admission. According to the patient the left lower quadrant abdominal pain is colicky in nature 9/10 localized with no specific pattern of radiation and no aggravating or relieving factors and associated with yellowish vaginal discharge. She had an IUD for 5 years and removed 1 month ago. She had no history of STD or multiple sexual partner before and her last Pap test was few months ago and was normal study according to the patient. She also mentioned she had history of kidney stone 3 years ago and passed 3 stones but no imaging or follow up was done after that. She denies fever, chills, sweating, nausea, vomiting, chest pain, dizziness or any change in the bowel and bladder habit. on my examination, the patient denies any vaginal discharge at this point. The patient is having left suprapubic abdominal tenderness rated now as 7/10 on the pain scale after pain medications were given. OBGYN was consulted which assessed and evaluated the patient. Pelvic ultrasound showed left adnexal structure, possible mass/collection. There was also a simple cyst in the right ovary. CT scan of the abdomen and pelvis showed a 5.6 x 5.1 cm thick wall multilocular lesion in the left adnexa which is suspicion for a pyosalpinx. The patient was started on IV ceftriaxone, doxycycline and IV fluids at 75 cc/hour. Patient will be admitted for further assessment and management. Patient seen and examined at bedside. The patient still complaining of moderate to severe pain localized in the left suprapubic area with no specific pattern of radiation. Patient denies nausea/vomiting or vaginal discharge at this time. OBGYN assessed and evaluated the patient and recommended possible surgical exploration with laparoscopy/laparotomy with possible unilateral left salpingo- oophorectomy. Other option of continue IV antibiotics with a possible IR drainage was mentioned it as well. Patient is currently thinking about current decision regarding surgery. We also ordered chlamydia trachomatis and Neisseria gonorrhea which are still pending. WBC is significantly elevated at 23.5 rest of the labs are grossly unremarkable. ROS Constitutional: Denies weight loss, fever and chills. HEENT: Denies changes in vision and hearing. Respiratory: Denies shortness of breath and cough Cardiovascular: Denies chest discomfort or palpitations GI: Denies abdominal pain, nausea, vomiting and diarrhea. : Reports moderate to severe left suprapubic pain. Denies vaginal discharge, dysuria, urgency Musculoskeletal: Denies myalgias and joint pain Skin: Denies rash and pruritus. Neurological: Denies dizziness, headache, vision or hearing problems Objective vital signs Vital Sign Date Time Temp Pulse Resp B/P (MAP) Pulse Ox O2 Delivery O2 Flow Rate FiO2 12/25/23 08:53 99.2 110 16 112/64 (80) 97 99.2 12/24/23 19:30 Room Air* 0 21 Total Intake and Output 12/24/23 12/24/23 12/25/23 15:00 23:00 07:00 Intake Total 200 ml 500 ml Balance 200 ml 500 ml medications Current Medications Medications Dose Ordered Sig/Sadia Route Start Time Stop Time Status Last Admin Dose Admin Sodium Chloride 10 ml Q8HR IV 12/24/23 22:00 12/25/23 05:52 10 ML Sodium Chloride 1,000 ml @ 75 mls/hr [id number] IV 12/24/23 21:30 12/25/23 08:39 75 MLS/HR Acetaminophen 325 mg Q4HP PRN PO 12/24/23 21:30 Acetaminophen/ Hydrocodone Bitart 1 tab Q4HP PRN PO 12/24/23 21:30 12/25/23 08:38 1 TAB Ondansetron HCl 4 mg Q4HP PRN IV 12/24/23 21:30 12/25/23 08:36 4 MG Nitroglycerin 0.4 mg Q5MINP PRN SL 12/24/23 21:30 Morphine Sulfate 2 mg Q30M PRN IV 12/24/23 21:30 Ceftriaxone Sodium/Dextrose 50 ml @ 50 mls/hr DAILY@1600 IV 12/25/23 16:00 Doxycycline Hyclate 250 ml @ 125 mls/hr Q12H IV 12/24/23 11:00 12/25/23 01:50 125 MLS/HR Metronidazole 100 ml @ 100 mls/hr Q12H IV 12/25/23 09:00 12/25/23 08:39 100 MLS/HR Examination Physical Examination General: Patient alert and oriented in person, place and time. Patient following commands. HEENT: Normocephalic, atraumatic, moist mucous membranes Respiratory/pulmonary: Clear lungs bilaterally, no associated crackles or wheezes. Cardiovascular: Normal heart sounds S1 and S2 with no associated murmurs Abdomen: Abdomen nondistended, there severe tenderness to palpation in the left suprapubic region, pain is localized with no specific pattern of radiation. No masses palpable at this time. Extremities: There is no peripheral edema present at the lower extremities. Peripheral Pulses: 3+ Radial (R). 3+ Radial (L). 3+ Dorsalis pedis (R). 3+ Dorsalis pedis(L) Skin: No rashes or pruritus, there is no sacral edema present at this time. Neurological: Intact cranial nerves with no focal neurologic deficits laboratory and microbiology Laboratory Tests 12/25/23 04:19 Test 12/25/23 04:19 Range/Units Serum Glucose 102 74-106 mg/dL Problem List/Assessment/Plan Problem List/Assessment/Plan Assessment/Plan Acute left suprapubic pain likely due to left tubo-ovarian abscess/pyosalpinx Possible pelvic inflammatory disease Sepsis likely due to tubo-ovarian abscess/pyosalpinx (PID) -initial WBC was 23.8, today is 23.5., patient also had fever, tachycardia -patient has a history of IUD for five years that was removed one month ago -CT of the abdomen showed a 5.6 x 5.1 cm thick walled multilocular lesion in the left adnexa which is suspicious for a pyosalpinx -continue IV ceftriaxone 2 g -continue IV doxycycline -start IV metronidazole -continue IV fluids at 75 cc/hour -NAAT for chlamydia and gonorrhea, still pending -OBGYN on board, which recommended possible surgical exploration with laparoscopy or laparotomy with possible unilateral left salpingo-oophorectomy -patient was placed NPO Left-sided nonobstructing renal stone -continue IV fluids at 75 cc/hour -CT abdomen revealed punctating nonobstructing left sided nephrolithiasis -strain urine and monitor closely -follow-up with urology as an outpatient Normocytic hypochromic anemia -ordered iron panel -ordered ferritin -last hemoglobin was 7.9 -monitor H&H closely Polysubstance abuse (cannabinoids) -urine drug screen came back positive for cannabis -senior counsel patient on drug cessation Goals of care discussed with the patient at bedside for >23min, FULL CODE Plan discussed with Dr. Olson Plan discussed with: Patient Date of Service: Dec 25, 2023 Billing Provider: NILAM OLSON MD Common Visit Codes: [id number] INP/OBS CARE(HIGH) Secondary Visit Codes: [id number] CARE PLAN 30 MINUTES SHARON RAJPUT RESIDENT Dec 25, 2023 10:46 NILAM OLSON MD Dec 25, 2023 21:42
[2023-12-25 13:00] VITALS: BP 102/67; PULSE 96; RESP 15; TEMP 98.8; O2SAT 100
[2023-12-25] MEDS: cefTRIAXone 2GM/50ML D5W 50 ML IV SCH (16:13)
[2023-12-25 17:43] VITALS: BP 123/71; PULSE 114; RESP 16; TEMP 102; O2SAT 99
[2023-12-25 20:00] VITALS: PULSE 107; RESP 18; O2SAT 97
[2023-12-25 21:00] VITALS: BP 132/69; PULSE 107; RESP 18; TEMP 99.5; O2SAT 97
[2023-12-26 01:00] VITALS: BP 122/68; PULSE 111; RESP 18; TEMP 100.9; O2SAT 96
[2023-12-26 05:12] VITALS: BP 120/63; PULSE 106; RESP 18; TEMP 100.4; O2SAT 93
[2023-12-26 05:53] LABS: Calcium 8.9 mg/dL (8.7-10.4); Chloride 104 mmol/L (98-107); Potassium 3.6 mmol/L (3.5-5.1); Sodium 135 mmol/L (136-145)
[2023-12-26 05:54] LABS: Anion Gap 5 (5-15); Carbon Dioxide 26 mmol/L (20-31); Hemoglobin 8.2 g/dL (12.2-16.2); Red Blood Cells 3.15 10^6/uL (4.0-5.20)
[2023-12-26 05:58] LABS: Hematocrit 26.2 % (36.0-46.0); Mean Corpuscular Hemoglobin 26.1 pg (28.0-32.0); Mean Corpuscular Hgb Conc. 31.4 g/dL (32.0-36.0); Mean Corpuscular Volume 83.1 fL (80.0-100.0); Platelet Count (auto) 334 10^3/uL (140-450); Red Cell Distribution Width 14.5 % (11.8-14.3)
[2023-12-26 06:16] LABS: Band Neutrophils % (manual) 0; Basophils % (manual) 0 (0.0-2.0); Blast Cells 0; Eosinophils % (manual) 0 (0-7); Metamyelocytes % 0; Myelocytes % 0; Promyelocytes % 0; Reactive Lymphocytes 0
[2023-12-26 06:48] LABS: Lymphocytes % (manual) 6 (10.0-50.0); Monocytes % (manual) 4 (0-12); Platelet Estimate Adequate
[2023-12-26 06:49] LABS: Stomatocytes Few
[2023-12-26 06:51] LABS: Glucose 97 mg/dL (74-106)
[2023-12-26 06:52] LABS: BUN/Creatinine Ratio 7.7 (10.0-20.0); Blood Urea Nitrogen < 5 mg/dL (9-23)
[2023-12-26 07:06] LABS: Chlamydia Trachomatis, NAA Negative (Negative); Neisseria gonorrhoeae, NAA Negative (Negative)
[2023-12-26 08:00] VITALS: RESP 18
[2023-12-26 08:06] LABS: RPR Non Reactive (Non Reactive)
[2023-12-26 08:40] VITALS: BP 111/63; PULSE 115; RESP 19; TEMP 97.9; O2SAT 100
[2023-12-26] MEDS: ACETAMINOPHEN 325 MG TAB PO PRN (09:50)
[2023-12-26] MEDS: GADOTERATE MEG 10 MMOL/20ml INJ (0.5MMOL/ml) IV ONE (10:23)
--- NOTE | 2023-12-26 10:33 | DVHPNRES ---
Progress Note Date Seen: Dec 26, 2023 Resident Creating Document: SHARON RAJPUT RESIDENT Has the PT tested + for MRSA If YES, has PT been informed?: No Medical Necessity Reason Pt with a Central, PICC or Fol: No Subjective Review of Systems This is a 38-year-old female with past medical history of kidney stones, who presented to the ED with a chief complaint of intermittent left lower quadrant abdominal pain and yellowish vaginal discharge for last 1 month prior to this admission. According to the patient the left lower quadrant abdominal pain is colicky in nature 9/10 localized with no specific pattern of radiation and no aggravating or relieving factors and associated with yellowish vaginal discharge. She had an IUD for 5 years and removed 1 month ago. She had no history of STD or multiple sexual partner before and her last Pap test was few months ago and was normal study according to the patient. She also mentioned she had history of kidney stone 3 years ago and passed 3 stones but no imaging or follow up was done after that. She denies fever, chills, sweating, nausea, vomiting, chest pain, dizziness or any change in the bowel and bladder habit. on my examination, the patient denies any vaginal discharge at this point. The patient is having left suprapubic abdominal tenderness rated now as 7/10 on the pain scale after pain medications were given. OBGYN was consulted which assessed and evaluated the patient. Pelvic ultrasound showed left adnexal structure, possible mass/collection. There was also a simple cyst in the right ovary. CT scan of the abdomen and pelvis showed a 5.6 x 5.1 cm thick wall multilocular lesion in the left adnexa which is suspicion for a pyosalpinx. The patient was started on IV ceftriaxone, doxycycline and IV fluids at 75 cc/hour. Patient will be admitted for further assessment and management. Patient seen and examined at bedside. Patient reports very mild left suprapubic tenderness that has improved slightly compared to yesterday. [place] [id number] despite of being on ceftriaxone, doxycycline and metronidazole. OBGYN is on board, we will continue with IV antibiotics at this time. The patient reports episode of fever overnight. MRI of the abdomen was performed showing a multiloculated cystic mass in the left adnexa likely representing tubo-ovarian abscess. Interventional Radiology was consulted for possible drainage which could be most likely performed today. Procedure was explained to the patient at bedside which agreed and understand at this time. ROS Constitutional: Denies weight loss, fever and chills. HEENT: Denies changes in vision and hearing. Respiratory: Denies shortness of breath and cough Cardiovascular: Denies chest discomfort or palpitations GI: Reports mild abdominal tenderness at the left suprapubic region. Denies nausea, vomiting or diarrhea. : Denies dysuria and urinary frequency. Musculoskeletal: Denies myalgias and joint pain Skin: Denies rash and pruritus. Neurological: Denies dizziness, headache, vision or hearing problems Objective vital signs Vital Sign Date Time Temp Pulse Resp B/P (MAP) Pulse Ox O2 Delivery O2 Flow Rate FiO2 12/26/23 08:40 97.9 115 19 111/63 (79) 100 97.9 12/25/23 20:00 Room Air* 0 21 Total Intake and Output 12/25/23 12/25/23 12/26/23 15:00 23:00 07:00 Intake Total 425 ml 1225 ml 1225 ml Balance 425 ml 1225 ml 1225 ml medications Current Medications Medications Dose Ordered Sig/Sadia Route Start Time Stop Time Status Last Admin Dose Admin Sodium Chloride 10 ml Q8HR IV 12/24/23 22:00 12/26/23 06:00 10 ML Sodium Chloride 1,000 ml @ 75 mls/hr [id number] IV 12/24/23 21:30 12/26/23 00:46 75 MLS/HR Acetaminophen 325 mg Q4HP PRN PO 12/24/23 21:30 12/26/23 09:50 325 MG Acetaminophen/ Hydrocodone Bitart 1 tab Q4HP PRN PO 12/24/23 21:30 12/26/23 00:46 1 TAB Ondansetron HCl 4 mg Q4HP PRN IV 12/24/23 21:30 12/26/23 10:04 4 MG Nitroglycerin 0.4 mg Q5MINP PRN SL 12/24/23 21:30 Morphine Sulfate 2 mg Q30M PRN IV 12/24/23 21:30 Ceftriaxone Sodium/Dextrose 50 ml @ 50 mls/hr DAILY@1600 IV 12/25/23 16:00 12/25/23 16:13 50 MLS/HR Doxycycline Hyclate 250 ml @ 125 mls/hr Q12H IV 12/24/23 11:00 12/25/23 22:36 125 MLS/HR Metronidazole 100 ml @ 100 mls/hr Q12H IV 12/25/23 09:00 12/26/23 09:50 100 MLS/HR Examination Physical Examination General: Patient alert and oriented in person, place and time. Patient following commands. HEENT: Normocephalic, atraumatic, moist mucous membranes Respiratory/pulmonary: Clear lungs bilaterally, no associated crackles or wheezes. Cardiovascular: Normal heart sounds S1 and S2 with no associated murmurs Abdomen: Abdomen nondistended, there mild to moderate tenderness to palpation in the left suprapubic region, pain is localized with no specific pattern of radiation. No masses palpable at this time. Extremities: There is no peripheral edema present at the lower extremities. Peripheral Pulses: 3+ Radial (R). 3+ Radial (L). 3+ Dorsalis pedis (R). 3+ Dorsalis pedis(L) Skin: No rashes or pruritus, there is no sacral edema present at this time. Neurological: Intact cranial nerves with no focal neurologic deficits laboratory and microbiology Laboratory Tests 12/26/23 04:40 Test 12/26/23 04:40 Range/Units Serum Glucose 97 74-106 mg/dL Microbiology Date/Time Source Procedure Growth Status 12/24/23 16:12 Blood Blood Culture - Preliminary NO GROWTH AFTER 24 HOURS OF INCUBATION. Resulted Problem List/Assessment/Plan Problem List/Assessment/Plan Assessment/Plan Acute left suprapubic pain likely due to left tubo-ovarian abscess/pyosalpinx Possible pelvic inflammatory disease Sepsis likely due to tubo-ovarian abscess/pyosalpinx (PID) -initial WBC was 23.8, 23.5., patient also had fever, tachycardia -WBC today increased to 26.000 -patient has a history of IUD for five years that was removed one month ago -CT of the abdomen showed a 5.6 x 5.1 cm thick walled multilocular lesion in the left adnexa which is suspicious for a pyosalpinx -Discontinue IV ceftriaxone 2 g -continue IV doxycycline -Continue IV metronidazole -continue IV fluids at 75 cc/hour -NAAT for chlamydia and gonorrhea, which both came back negative -OBGYN on board, which recommended possible surgical exploration with laparoscopy or laparotomy with possible unilateral left salpingo-oophorectomy -MRI of the abdomen showed a multiloculated cystic mass in the left adnexa likely representing tubo-ovarian abscess. -IR was consulted for tubo-ovarian abscess drainage which most likely will be performed today -Regular diet at this time Left-sided nonobstructing renal stone -continue IV fluids at 75 cc/hour -CT abdomen revealed punctating nonobstructing left sided nephrolithiasis -strain urine and monitor closely -follow-up with urology as an outpatient Normocytic hypochromic anemia -ordered iron panel, still pending -ordered ferritin which came back on normal range -last hemoglobin was 8.2 -monitor H&H closely Polysubstance abuse (cannabinoids) -urine drug screen came back positive for cannabis -personnel counselor patient on drug cessation Goals of care discussed with the patient at bedside for >23min, FULL CODE Plan discussed with Dr. Wise Plan discussed with: Patient My Orders My Orders Orders - SHARON RAJPUT Procedure Category Date Status Time Regular Diet DIET 12/25/23 Transmitted Dinner Date of Service: Dec 26, 2023 Billing Provider: KIRT WISE MD Common Visit Codes: [id number] INP/OBS CARE(HIGH) SHARON RAJPUT RESIDENT Dec 26, 2023 10:33 KIRT WISE MD Dec 31, 2023 07:12
--- NOTE | 2023-12-26 11:40 | DVH ---
Exam: MRI PELVIS WO W CONTRAST MRI History: PELVIC ABSCESS Comparison: None Technique: Multisequence multiplanar MRI images of the pelvis were performed. CONTRAST: Type of contrast: Gadavist Contrast injected: 10 ml Contrast ingested: 0 ml Findings: Bladder: Unremarkable. Visualized bowel: Visualized portion of the bowel is grossly unremarkable without evidence for obstru ction. Pelvic organs: The uterus appears unremarkable. There is a left adnexal multiloculated cystic mass me asuring up to 62 mm with extensive adjacent mesenteric stranding and enhancement. There is a small am ount of air in one of the fluid collections. Right ovary appears unremarkable. Lymphadenopathy: There are few prominent left iliac chain lymph nodes, largest measuring up to 10 mm in short axis. Vasculature: There is normal enhancement of the pelvic vasculature. Ascites: Small amount of free fluid in the pelvis. Musculoskeletal: The bone marrow signal is preserved. IMPRESSION: 1. Multiloculated cystic mass in the left adnexa likely represents a tubo-ovarian abscess. A maligna nt lesion with necrosis is not entirely excluded. Recommend clinical correlation and continued follo w-up. Recommend gynecologic evaluation and possible resection. HS:Y
[2023-12-26 13:06] VITALS: BP 115/68; PULSE 97; RESP 17; TEMP 98.3; O2SAT 98
[2023-12-26] MEDS: GASTROGRAFIN 30 ML SOL ONE (14:27)
[2023-12-26] MEDS: MIDAZOLAM HCL 2MG/2ML 2ml VIAL (1mg/ml) IV ONE (15:00)
[2023-12-26] MEDS: fentaNYL CITRATE 100 MCG/2 ML VL IV ONE (15:00)
--- NOTE | 2023-12-26 17:13 | DVHPN2 ---
Subjective Progress Notes Subjective PID/ Left TOA S: Patient c/o mild pain, not constant. Fever/Chills+. No N/V Planned procedure today, IR drainage of Abscess Objective PHYSICAL EXAM Physical Exam: Alert, NAD Abd: Soft, NO rebound/guarding, no peritoneal signs Ext: Neg [place]anto sign Vital Signs and I&O Vital Signs Date Time Temp Pulse Resp B/P (MAP) Pulse Ox O2 Delivery O2 Flow Rate FiO2 12/26/23 13:06 98.3 97 17 115/68 (84) 98 98.3 12/26/23 08:00 Room Air* 0 21 Intake and Output 12/26/23 07:00 Intake Total 2875 ml Balance 2875 ml Intake Oral 1050 ml IV Total 1825 ml # Voids 12 Lab results Laboratory Tests Test 12/24/23 13:20 12/24/23 13:50 12/24/23 15:12 12/25/23 04:19 Range/Units Lactic Acid Level 0.8 0.4-2.0 mmol/L White Blood Count 23.8 H 23.5 H 4.4-10.8 10^3/uL Red Blood Count 3.66 L 3.01 L 4.0-5.20 10^6/uL Hemoglobin 9.8 L 7.9 #L 12.2-16.2 g/dL Hematocrit 30.4 L 25.1 #L 36.0-46.0 % Mean Corpuscular Volume 82.9 83.5 80.0-100.0 fL Mean Corpuscular Hemoglobin 26.8 L 26.2 L 28.0-32.0 pg Mean Corpuscular Hemoglobin Concent 32.4 31.4 L 32.0-36.0 g/dL Red Cell Distribution Width 14.1 14.4 H 11.8-14.3 % Platelet Count 466 H 395 140-450 10^3/uL Mean Platelet Volume 7.8 7.2 6.9-10.8 fL Neutrophils (%) (Auto) 89.6 H 87.1 H 37.0-80.0 % Lymphocytes (%) (Auto) 5.4 L 7.2 L 10.0-50.0 % Monocytes (%) (Auto) 4.3 5.3 0.0-12.0 % Eosinophils (%) (Auto) 0.4 0.2 0.0-7.0 % Basophils (%) (Auto) 0.3 0.2 0.0-2.0 % Neutrophils # (Auto) 21.3 H 20.4 H 1.6-8.6 10 ^3/uL Lymphocytes # (Auto) 1.3 1.7 0.4-5.4 10 ^3/uL Monocytes # (Auto) 1.0 1.3 0-1.3 10 ^3/uL Eosinophils # (Auto) 0.1 0.1 0-0.8 10 ^3/uL Basophils # (Auto) 0.1 0 0-0.2 10 ^3/uL Nucleated Red Blood Cells 0.0 0.0 % Erythrocyte Sedimentation Rate 105 H 0-20 mm/hr Prothrombin Time 12.1 H 9.3-11.8 sec Prothrombin Time INR 1.15 0.9-1.15 Activated Partial Thromboplast Time 32.5 24.5-34.5 SEC Sodium Level 135 L 138 136-145 mmol/L Potassium Level 3.8 3.7 3.5-5.1 mmol/L Chloride Level 102 106 98-107 mmol/L Carbon Dioxide Level 27 26 20-31 mmol/L Anion Gap 6 6 5-15 Blood Urea Nitrogen 6 L < 5 L 9-23 mg/dL Creatinine 0.68 0.65 0.550-1.02 mg/dL Glomerular Filtration Rate Calc 116 117 >90 mL/min BUN/Creatinine Ratio 8.8 L 7.7 L 10.0-20.0 Serum Glucose 97 102 74-106 mg/dL Calcium Level 9.3 8.6 L 8.7-10.4 mg/dL Total Bilirubin 0.5 0.5 0.2-1.0 mg/dL Aspartate Amino Transferase (AST) 18 16 13-40 U/L Alanine Aminotransferase (ALT) 16 12 7-40 U/L Alkaline Phosphatase 101 86 46-116 U/L Total Protein 8.5 H 7.0 5.7-8.2 g/dL Albumin 3.8 3.4 3.2-4.8 g/dL Lipase 32 12-53 U/L Beta HCG, Quantitative 0.1 L 1.5-4.2 mIU/mL Plasma/Serum Blood Alcohol 3.3 <10 mg/dL Urine Color Yellow Yellow Urine Clarity Turbid H Clear Urine pH 6.5 5.0-9.0 Urine Specific [place] 1.021 1.001-1.035 Urine Protein Trace H Negative Urine Ketones Trace Negative Urine Blood Negative Negative /uL Urine Nitrite Negative Negative Urine Bilirubin Negative Negative Urine Urobilinogen 4 H Negative mg/dL Urine Leukocyte Esterase 1+ Negative /uL Urine RBC 3 0 - 4 /hpf Urine WBC 4 0 - 5 /hpf Urine Squamous Epithelial Cells Few <5 /hpf Urine Bacteria None seen None Seen /hpf Urine Mucus Few None Seen Urine Glucose Normal Normal mg/dL Urine Test Negative Negative Urine Opiates Screen Neg NEGATIVE Urine Fentanyl Screen Neg NEGATIVE Urine Barbiturates Screen Neg NEGATIVE Urine Phencyclidine Screen Neg NEGATIVE Urine Amphetamines Screen Neg NEGATIVE Urine Benzodiazepines Screen Neg NEGATIVE Urine Cocaine Screen Neg NEGATIVE Urine Cannabinoids Screen Pos NEGATIVE Chlamydia trachomatis (AYSHA) Negative Negative Neisseria gonorrhoeae (AYSHA) Negative Negative Ferritin 183.1 10-291 ng/mL Triglycerides Level 65 < 150 mg/dL Cholesterol Level 99 < 200 mg/dL LDL Cholesterol 66 < 100 mg/dL HDL Cholesterol 24 L 40-59 mg/dL Hepatitis C Antibody Negative Negative HIV (1&2) Antibody Negative Negative Test 12/25/23 13:42 12/26/23 04:40 Range/Units Rapid Plasma Reagin Non reactive Non Reactive White Blood Count 26.0 H 4.4-10.8 10^3/uL Red Blood Count 3.15 L 4.0-5.20 10^6/uL Hemoglobin 8.2 L 12.2-16.2 g/dL Hematocrit 26.2 L 36.0-46.0 % Mean Corpuscular Volume 83.1 80.0-100.0 fL Mean Corpuscular Hemoglobin 26.1 L 28.0-32.0 pg Mean Corpuscular Hemoglobin Concent 31.4 L 32.0-36.0 g/dL Red Cell Distribution Width 14.5 H 11.8-14.3 % Platelet Count 334 140-450 10^3/uL Mean Platelet Volume 7.4 6.9-10.8 fL Neutrophils (%) (Auto) 37.0-80.0 % Lymphocytes (%) (Auto) 10.0-50.0 % Monocytes (%) (Auto) 0.0-12.0 % Basophils (%) (Auto) 0.0-2.0 % Neutrophils # (Auto) 1.6-8.6 10 ^3/uL Lymphocytes # (Auto) 0.4-5.4 10 ^3/uL Monocytes # (Auto) 0-1.3 10 ^3/uL Differential Total Cells Counted 100.0 100 Neutrophils % (Manual) 90 H 37.0-80.0 Band Neutrophils % (Manual) 0 Lymphocytes % (Manual) 6 L 10.0-50.0 Monocytes % (Manual) 4 0-12 Eosinophils % (Manual) 0 0-7 Basophils % (Manual) 0 0.0-2.0 Metamyelocytes % (manual) 0 Myelocytes % (Manual) 0 Promyelocytes % (Manual) 0 Blast Cells % (Manual) 0 Reactive Lymphocytes 0 Platelet Estimate Adequate Clumped Platelets Moderate Stomatocytes Few Sodium Level 135 L 136-145 mmol/L Potassium Level 3.6 3.5-5.1 mmol/L Chloride Level 104 98-107 mmol/L Carbon Dioxide Level 26 20-31 mmol/L Anion Gap 5 5-15 Blood Urea Nitrogen < 5 L 9-23 mg/dL Creatinine 0.65 0.550-1.02 mg/dL Glomerular Filtration Rate Calc 117 >90 mL/min BUN/Creatinine Ratio 7.7 L 10.0-20.0 Serum Glucose 97 74-106 mg/dL Calcium Level 8.9 8.7-10.4 mg/dL Assessment and Plan ASSESSMENT AND PLAN Assessment and Plan DX: TOA/PID Plan: Continue Triple IV Abx therapy until afebrile x 48-72hr, then switch to PO Abx to complete 14d treatment IR drainage of abscess today If unable to do IR drainage, or if patient does not improve, I have advised laparoscopy poss laparotomy w/ LSO and abscess drainage. My orders: Orders - ANNALISA MANCINI DO * Area Loss Prevention Manager Consultation (12/25/23 07:08) Obtain Consent For Anesthesia (12/25/23 07:47) Metronidazole 500mg/100ml (Flagyl 500mg/ (12/25/23 09:00) * Radiologist Consult (12/25/23 12:29) Plan discussed with: Patient Date of Service: Dec 26, 2023 Billing Provider: ANNALISA MANCINI DO Common Visit Codes: [id number] INP/OBS CARE(MOD) ANNALISA MANCINI DO Dec 26, 2023 17:13
[2023-12-26] MEDS ORDERED: HYDROmorphone HCL 2 MG/ML VL/or syr IV PRN (17:15)
[2023-12-26] MEDS: HYDROmorphone HCL 2 MG/ML VL/or syr IV PRN (18:08)
--- NOTE | 2023-12-26 18:40 | DVH ---
CT GUIDED ABSCESS DRAINAGE, HISTORY: PELVIC ABSCESS DRAINAGE COMPARISON: None PROCEDURE: Informed consent was obtained. Oral contrast was given to the patient prior to the CT. The patient was placed supine on the CT scanner. IV sedation was administered. The fluid collection was localized under CT scan and the overlying skin prepped with chlorhexidine which was allowed to dry an d draped in the usual sterile fashion and infiltrated with Xylocaine. Time out was performed. With CT guidance, a 19-gauge centesis needle catheter was advanced via trans-peritoneal approach into the tyler spected tubo-ovarian abscess. Following aspiration of a small amount of fluid, a 0.035 wire was advan patricio into the fluid collection. Placement was confirmed with CT scan. After serial dilatation, a 8.5 F rench multipurpose pigtail drain was placed into the collection. Approximately 25 cc of thick foul pu rulent fluid with slight green color was aspirated, with specimen sent for appropriate laboratory/cyt ology/laboratory and cytology evaluation. The drain was sutured at the skin surface and connected to suction drainage. No immediate complication was noted. Post procedure CT imaging through the drain si te was obtained. DLP =2123 mGy-cm. SEDATION: Dr. Christiano Goldstein was personally responsible for the administration of moderate sedation during the procedure performed, including the use of an independent trained observer who had no other duties during the procedure. The drugs utilized were IV fentanyl and versed (see nursing log for details). The total time of supervision by the attending physician was approximately 45 minutes. FINDINGS: Limited CT scan of through the pelvis demonstrates a moderate sized suspected tubo-ovarian abscessfluid collection in the left hemipelvis. Collection appears complex. Post procedure scan shows pigtail drain within the collection , which is decreased in size. No immediate complication was iden tified. IMPRESSION: CT guided placement of 8.5 [place] pigtail drain into a complex suspected tubo-ovarian abscess in the left hemipelvis. 25 mL of thick foul purulent fluid with slight green color was aspirated. Interval development of a complex appearing air filled structure in the left extra-peritoneal hemipel vis, new compared to prior CT.
[2023-12-26 21:00] VITALS: BP 118/67; PULSE 125; RESP 20; TEMP 100.9; O2SAT 93
[2023-12-27 01:00] VITALS: BP 110/60; PULSE 125; RESP 19; TEMP 102.5; O2SAT 90
[2023-12-27] MEDS ORDERED: ACETAMINOPHEN 325 MG TAB PO PRN ×2 (03:30→03:45)
--- NOTE | 2023-12-27 03:53 | DVHPN2 ---
Subjective Progress Notes Subjective Patient feels better. S/P IR drainage of Left TOA Objective PHYSICAL EXAM Physical Exam: Alert, NAD Abd: Soft, NT, percutaneous drain in place Ext neg adalid sign Vital Signs and I&O Vital Signs Date Time Temp Pulse Resp B/P (MAP) Pulse Ox O2 Delivery O2 Flow Rate FiO2 12/27/23 02:56 97 20 114/64 12/27/23 01:00 102.5 90 102.5 12/26/23 20:00 Room Air* 0 21 Intake and Output 12/27/23 07:00 Intake Total 1450 ml Balance 1450 ml Intake Oral 500 ml IV Total 950 ml # Voids 5 Lab results Laboratory Tests Test 12/24/23 13:20 12/24/23 13:50 12/24/23 15:12 12/25/23 04:19 Range/Units Lactic Acid Level 0.8 0.4-2.0 mmol/L White Blood Count 23.8 H 23.5 H 4.4-10.8 10^3/uL Red Blood Count 3.66 L 3.01 L 4.0-5.20 10^6/uL Hemoglobin 9.8 L 7.9 #L 12.2-16.2 g/dL Hematocrit 30.4 L 25.1 #L 36.0-46.0 % Mean Corpuscular Volume 82.9 83.5 80.0-100.0 fL Mean Corpuscular Hemoglobin 26.8 L 26.2 L 28.0-32.0 pg Mean Corpuscular Hemoglobin Concent 32.4 31.4 L 32.0-36.0 g/dL Red Cell Distribution Width 14.1 14.4 H 11.8-14.3 % Platelet Count 466 H 395 140-450 10^3/uL Mean Platelet Volume 7.8 7.2 6.9-10.8 fL Neutrophils (%) (Auto) 89.6 H 87.1 H 37.0-80.0 % Lymphocytes (%) (Auto) 5.4 L 7.2 L 10.0-50.0 % Monocytes (%) (Auto) 4.3 5.3 0.0-12.0 % Eosinophils (%) (Auto) 0.4 0.2 0.0-7.0 % Basophils (%) (Auto) 0.3 0.2 0.0-2.0 % Neutrophils # (Auto) 21.3 H 20.4 H 1.6-8.6 10 ^3/uL Lymphocytes # (Auto) 1.3 1.7 0.4-5.4 10 ^3/uL Monocytes # (Auto) 1.0 1.3 0-1.3 10 ^3/uL Eosinophils # (Auto) 0.1 0.1 0-0.8 10 ^3/uL Basophils # (Auto) 0.1 0 0-0.2 10 ^3/uL Nucleated Red Blood Cells 0.0 0.0 % Erythrocyte Sedimentation Rate 105 H 0-20 mm/hr Prothrombin Time 12.1 H 9.3-11.8 sec Prothrombin Time INR 1.15 0.9-1.15 Activated Partial Thromboplast Time 32.5 24.5-34.5 SEC Sodium Level 135 L 138 136-145 mmol/L Potassium Level 3.8 3.7 3.5-5.1 mmol/L Chloride Level 102 106 98-107 mmol/L Carbon Dioxide Level 27 26 20-31 mmol/L Anion Gap 6 6 5-15 Blood Urea Nitrogen 6 L < 5 L 9-23 mg/dL Creatinine 0.68 0.65 0.550-1.02 mg/dL Glomerular Filtration Rate Calc 116 117 >90 mL/min BUN/Creatinine Ratio 8.8 L 7.7 L 10.0-20.0 Serum Glucose 97 102 74-106 mg/dL Calcium Level 9.3 8.6 L 8.7-10.4 mg/dL Total Bilirubin 0.5 0.5 0.2-1.0 mg/dL Aspartate Amino Transferase (AST) 18 16 13-40 U/L Alanine Aminotransferase (ALT) 16 12 7-40 U/L Alkaline Phosphatase 101 86 46-116 U/L Total Protein 8.5 H 7.0 5.7-8.2 g/dL Albumin 3.8 3.4 3.2-4.8 g/dL Lipase 32 12-53 U/L Beta HCG, Quantitative 0.1 L 1.5-4.2 mIU/mL Plasma/Serum Blood Alcohol 3.3 <10 mg/dL Urine Color Yellow Yellow Urine Clarity Turbid H Clear Urine pH 6.5 5.0-9.0 Urine Specific [place] 1.021 1.001-1.035 Urine Protein Trace H Negative Urine Ketones Trace Negative Urine Blood Negative Negative /uL Urine Nitrite Negative Negative Urine Bilirubin Negative Negative Urine Urobilinogen 4 H Negative mg/dL Urine Leukocyte Esterase 1+ Negative /uL Urine RBC 3 0 - 4 /hpf Urine WBC 4 0 - 5 /hpf Urine Squamous Epithelial Cells Few <5 /hpf Urine Bacteria None seen None Seen /hpf Urine Mucus Few None Seen Urine Glucose Normal Normal mg/dL Urine Test Negative Negative Urine Opiates Screen Neg NEGATIVE Urine Fentanyl Screen Neg NEGATIVE Urine Barbiturates Screen Neg NEGATIVE Urine Phencyclidine Screen Neg NEGATIVE Urine Amphetamines Screen Neg NEGATIVE Urine Benzodiazepines Screen Neg NEGATIVE Urine Cocaine Screen Neg NEGATIVE Urine Cannabinoids Screen Pos NEGATIVE Chlamydia trachomatis (AYSHA) Negative Negative Neisseria gonorrhoeae (AYSHA) Negative Negative Ferritin 183.1 10-291 ng/mL Triglycerides Level 65 < 150 mg/dL Cholesterol Level 99 < 200 mg/dL LDL Cholesterol 66 < 100 mg/dL HDL Cholesterol 24 L 40-59 mg/dL Hepatitis C Antibody Negative Negative HIV (1&2) Antibody Negative Negative Test 12/25/23 13:42 12/26/23 04:40 Range/Units Rapid Plasma Reagin Non reactive Non Reactive White Blood Count 26.0 H 4.4-10.8 10^3/uL Red Blood Count 3.15 L 4.0-5.20 10^6/uL Hemoglobin 8.2 L 12.2-16.2 g/dL Hematocrit 26.2 L 36.0-46.0 % Mean Corpuscular Volume 83.1 80.0-100.0 fL Mean Corpuscular Hemoglobin 26.1 L 28.0-32.0 pg Mean Corpuscular Hemoglobin Concent 31.4 L 32.0-36.0 g/dL Red Cell Distribution Width 14.5 H 11.8-14.3 % Platelet Count 334 140-450 10^3/uL Mean Platelet Volume 7.4 6.9-10.8 fL Neutrophils (%) (Auto) 37.0-80.0 % Lymphocytes (%) (Auto) 10.0-50.0 % Monocytes (%) (Auto) 0.0-12.0 % Basophils (%) (Auto) 0.0-2.0 % Neutrophils # (Auto) 1.6-8.6 10 ^3/uL Lymphocytes # (Auto) 0.4-5.4 10 ^3/uL Monocytes # (Auto) 0-1.3 10 ^3/uL Differential Total Cells Counted 100.0 100 Neutrophils % (Manual) 90 H 37.0-80.0 Band Neutrophils % (Manual) 0 Lymphocytes % (Manual) 6 L 10.0-50.0 Monocytes % (Manual) 4 0-12 Eosinophils % (Manual) 0 0-7 Basophils % (Manual) 0 0.0-2.0 Metamyelocytes % (manual) 0 Myelocytes % (Manual) 0 Promyelocytes % (Manual) 0 Blast Cells % (Manual) 0 Reactive Lymphocytes 0 Platelet Estimate Adequate Clumped Platelets Moderate Stomatocytes Few Sodium Level 135 L 136-145 mmol/L Potassium Level 3.6 3.5-5.1 mmol/L Chloride Level 104 98-107 mmol/L Carbon Dioxide Level 26 20-31 mmol/L Anion Gap 5 5-15 Blood Urea Nitrogen < 5 L 9-23 mg/dL Creatinine 0.65 0.550-1.02 mg/dL Glomerular Filtration Rate Calc 117 >90 mL/min BUN/Creatinine Ratio 7.7 L 10.0-20.0 Serum Glucose 97 74-106 mg/dL Calcium Level 8.9 8.7-10.4 mg/dL Assessment and Plan ASSESSMENT AND PLAN Assessment and Plan TOA s/p IR drainage, size decreased Plan: F/U gram stain, and culture of drained TOA fluid Pain control Continue antibiotics. My orders: Orders - ANNALISA MANCINI DO * Fireworks Maker Consultation (12/25/23 07:08) Obtain Consent For Anesthesia (12/25/23 07:47) Metronidazole 500mg/100ml (Flagyl 500mg/ (12/25/23 09:00) * Radiologist Consult (12/25/23 12:29) Plan discussed with: Patient Date of Service: Dec 27, 2023 Billing Provider: ANNALISA MANCINI DO Common Visit Codes: [id number] INP/OBS CARE(MOD) ANNALISA MANCINI DO Dec 27, 2023 03:53
[2023-12-27 05:00] VITALS: BP 102/59; PULSE 119; RESP 18; TEMP 100.3; O2SAT 92
[2023-12-27 06:34] LABS: Chloride 101 mmol/L (98-107); Potassium 3.4 mmol/L (3.5-5.1); Sodium 135 mmol/L (136-145)
[2023-12-27 06:35] LABS: Anion Gap 9 (5-15); Calcium 8.6 mg/dL (8.7-10.4); Carbon Dioxide 25 mmol/L (20-31)
[2023-12-27 06:37] LABS: Basophils # (auto) 0 10 ^3/uL (0-0.2); Basophils % (auto) 0.2 % (0.0-2.0); Eosinophils # (auto) 0 10 ^3/uL (0-0.8); Neutrophils # (auto) 26.3 10 ^3/uL (1.6-8.6); White Blood Cell 28.4 10^3/uL (4.4-10.8)
[2023-12-27 06:40] LABS: Glucose 106 mg/dL (74-106)
[2023-12-27 06:41] LABS: BUN/Creatinine Ratio 8.1 (10.0-20.0); Blood Urea Nitrogen < 5 mg/dL (9-23); Magnesium 1.8 mg/dL (1.6-2.6)
[2023-12-27 06:42] LABS: Hematocrit 26.8 % (36.0-46.0); Hemoglobin 8.6 g/dL (12.2-16.2); Lymphocytes % (auto) 3.4 % (10.0-50.0); Mean Corpuscular Hemoglobin 26.3 pg (28.0-32.0); Mean Corpuscular Hgb Conc. 31.9 g/dL (32.0-36.0); Mean Corpuscular Volume 82.5 fL (80.0-100.0); Monocytes % (auto) 3.7 % (0.0-12.0); Neutrophils % (auto) 92.7 % (37.0-80.0); Platelet Count (auto) 338 10^3/uL (140-450); Red Blood Cells 3.25 10^6/uL (4.0-5.20); Red Cell Distribution Width 14.4 % (11.8-14.3)
[2023-12-27] MEDS: POTASSIUM CHL 20 Meq TABLET PO ONE ×2 (06:57→10:18)
[2023-12-27 08:19] VITALS: BP 102/70; PULSE 107; RESP 17; TEMP 97.7; O2SAT 98
--- NOTE | 2023-12-27 10:52 | DVHPNRES ---
Progress Note Date Seen: Dec 27, 2023 Resident Creating Document: SHARON RAJPUT RESIDENT Has the PT tested + for MRSA If YES, has PT been informed?: No Medical Necessity Reason Pt with a Central, PICC or Fol: No Subjective Review of Systems This is a 38-year-old female with past medical history of kidney stones, who presented to the ED with a chief complaint of intermittent left lower quadrant abdominal pain and yellowish vaginal discharge for last 1 month prior to this admission. According to the patient the left lower quadrant abdominal pain is colicky in nature 9/10 localized with no specific pattern of radiation and no aggravating or relieving factors and associated with yellowish vaginal discharge. She had an IUD for 5 years and removed 1 month ago. She had no history of STD or multiple sexual partner before and her last Pap test was few months ago and was normal study according to the patient. She also mentioned she had history of kidney stone 3 years ago and passed 3 stones but no imaging or follow up was done after that. She denies fever, chills, sweating, nausea, vomiting, chest pain, dizziness or any change in the bowel and bladder habit. on my examination, the patient denies any vaginal discharge at this point. The patient is having left suprapubic abdominal tenderness rated now as 7/10 on the pain scale after pain medications were given. OBGYN was consulted which assessed and evaluated the patient. Pelvic ultrasound showed left adnexal structure, possible mass/collection. There was also a simple cyst in the right ovary. CT scan of the abdomen and pelvis showed a 5.6 x 5.1 cm thick wall multilocular lesion in the left adnexa which is suspicion for a pyosalpinx. The patient was started on IV ceftriaxone, doxycycline and IV fluids at 75 cc/hour. Patient will be admitted for further assessment and management. Patient seen and examined at bedside. The patient is status post drainage of Left tubo-ovarian abscess day 1. Patient still reporting moderate to severe pain in the left suprapubic region. Incision wound was not opened since it was recently package by IR team. Gauze look clean and dry with no evidence of serosanguineous fluid or any type of secretions at this time. Nurse reported episodes of fever overnight and WBC today came back higher at 28.4. We will continue IV metronidazole and doxycycline at this time. OBGYN and IR around the case, we will continue monitoring WBC clinical status if patient does not improve, she might need further surgical intervention. ROS Constitutional: Denies weight loss, fever and chills. HEENT: Denies changes in vision and hearing. Respiratory: Denies shortness of breath and cough Cardiovascular: Denies chest discomfort or palpitations GI: Reports moderate to severe left suprapubic pain. Denies nausea, vomiting or diarrhea : Denies dysuria and urinary frequency. Musculoskeletal: Denies myalgias and joint pain Skin: Denies rash and pruritus. Neurological: Denies dizziness, headache, vision or hearing problems Objective vital signs Vital Sign Date Time Temp Pulse Resp B/P (MAP) Pulse Ox O2 Delivery O2 Flow Rate FiO2 12/27/23 08:19 97.7 107 17 102/70 (81) 98 97.7 12/26/23 20:00 Room Air* 0 21 Total Intake and Output 12/26/23 12/26/23 12/27/23 15:00 23:00 07:00 Intake Total 1450 ml 800 ml Balance 1450 ml 800 ml medications Current Medications Medications Dose Ordered Sig/Sadia Route Start Time Stop Time Status Last Admin Dose Admin Sodium Chloride 10 ml Q8HR IV 12/24/23 22:00 12/27/23 06:58 10 ML Sodium Chloride 1,000 ml @ 75 mls/hr [id number] IV 12/24/23 21:30 12/27/23 02:57 75 MLS/HR Acetaminophen/ Hydrocodone Bitart 1 tab Q4HP PRN PO 12/24/23 21:30 12/26/23 00:46 1 TAB Ondansetron HCl 4 mg Q4HP PRN IV 12/24/23 21:30 12/26/23 10:04 4 MG Nitroglycerin 0.4 mg Q5MINP PRN SL 12/24/23 21:30 Morphine Sulfate 2 mg Q30M PRN IV 12/24/23 21:30 Doxycycline Hyclate 250 ml @ 125 mls/hr Q12H IV 12/24/23 11:00 12/26/23 22:44 125 MLS/HR Metronidazole 100 ml @ 100 mls/hr Q12H IV 12/25/23 09:00 12/27/23 10:17 100 MLS/HR Hydromorphone HCl 0.5 mg Q4HPRN PRN IV 12/26/23 17:45 12/27/23 07:01 0.5 MG Acetaminophen 650 mg Q4HP PRN PO 12/27/23 09:00 Examination Physical Examination General: Patient alert and oriented in person, place and time. Patient looks weak and in moderate pain. Patient following commands. HEENT: Normocephalic, atraumatic, moist mucous membranes Respiratory/pulmonary: Clear lungs bilaterally, no associated crackles or wheezes. Cardiovascular: Normal heart sounds S1 and S2 with no associated murmurs Abdomen: Abdomen nondistended, there severe tenderness to palpation in the left suprapubic region, pain is localized with no specific pattern of radiation. No masses palpable at this time. Extremities: There is no peripheral edema present at the lower extremities. Peripheral Pulses: 3+ Radial (R). 3+ Radial (L). 3+ Dorsalis pedis (R). 3+ Dorsalis pedis(L) Skin: No rashes or pruritus, there is no sacral edema present at this time. Neurological: Intact cranial nerves with no focal neurologic deficits laboratory and microbiology Laboratory Tests 12/27/23 05:04 Test 12/27/23 05:04 Range/Units Serum Glucose 106 74-106 mg/dL Microbiology Date/Time Source Procedure Growth Status 12/24/23 16:12 Blood Blood Culture - Preliminary NO GROWTH AFTER 48 HOURS OF INCUBATION. Resulted Problem List/Assessment/Plan Problem List/Assessment/Plan Assessment/Plan Acute left suprapubic pain likely due to left tubo-ovarian abscess/pyosalpinx Possible pelvic inflammatory disease Sepsis likely due to tubo-ovarian abscess/pyosalpinx (PID) S/P drainage of left tubo-ovarian abscess day 1 -initial WBC was 23.8, 23.5., patient also had fever, tachycardia -WBC today increased to 28.4 -patient has a history of IUD for five years that was removed one month ago -CT of the abdomen showed a 5.6 x 5.1 cm thick walled multilocular lesion in the left adnexa which is suspicious for a pyosalpinx -continue IV doxycycline -Continue IV metronidazole -continue IV fluids at 75 cc/hour -NAAT for chlamydia and gonorrhea, which both came back negative -OBGYN on board, which recommended possible surgical exploration with laparoscopy or laparotomy with possible unilateral left salpingo-oophorectomy if patient does not improve after drainage. -MRI of the abdomen showed a multiloculated cystic mass in the left adnexa likely representing tubo-ovarian abscess. -IR was consulted for tubo-ovarian abscess drainage which was performed yesterday, fluid was sent for culture. -Regular diet at this time Left-sided nonobstructing renal stone -continue IV fluids at 75 cc/hour -CT abdomen revealed punctating nonobstructing left sided nephrolithiasis -strain urine and monitor closely -follow-up with urology as an outpatient Normocytic hypochromic anemia -ordered iron panel, still pending -ordered ferritin which came back on normal range -last hemoglobin was 8.6 -monitor H&H closely Polysubstance abuse (cannabinoids) -urine drug screen came back positive for cannabis -senior vice president & general counsel patient on drug cessation Will continue IV abs and monitor clinical status and WBC, waiting for fluid cultures after drainage. If patient does not improve, might need further surgical intervention. Goals of care discussed with the patient at bedside for >23min, FULL CODE Plan discussed with Dr. Wise Plan discussed with: Patient My Orders My Orders Orders - SHARON RAJPUT Procedure Category Date Status Time Communication Order ORDERS 12/26/23 Transmitted 14:33 Body Fluid Culture W/ KENDRA 12/26/23 Logged GS 14:34 Hydromorphone PHA 12/26/23 In Process Injection (Dilaudid 17:45 Date of Service: Dec 27, 2023 Billing Provider: KIRT WISE MD Common Visit Codes: [id number] INP/OBS CARE(HIGH) SHARON RAJPUT RESIDENT Dec 27, 2023 10:52 KIRT WISE MD Dec 31, 2023 07:13
[2023-12-27 11:51] VITALS: BP 101/63; PULSE 107; RESP 18; TEMP 98; O2SAT 96
[2023-12-27 16:45] VITALS: BP 104/61; PULSE 112; RESP 17; TEMP 99.6; O2SAT 96
--- NOTE | 2023-12-27 17:15 | MEDREC ---
REPLACED BY [facility] Intervention Section I REPLACED BY [facility] Intervention: Review courses of therapy (PATIENT HAS HAD FEVER FOR 4 DAYS (12/23-12/26). WBC REMAINED ELEVATED. PLEASE CONSIDER ESCALATING ANTIBIOTICS TO BROAD SPECTRUM FOR BETTER EMPIRIC TREATMENTS IF NEEDED) MARLO SUGGS PHA Dec 27, 2023 17:15
[2023-12-27 22:00] VITALS: BP 112/70; PULSE 110; RESP 18; TEMP 99.6; O2SAT 96
[2023-12-28 01:00] VITALS: BP 106/66; PULSE 113; RESP 18; TEMP 99.7; O2SAT 94
[2023-12-28 04:35] LABS: Basophils # (auto) 0 10 ^3/uL (0-0.2); Basophils % (auto) 0.1 % (0.0-2.0); Hemoglobin 8.2 g/dL (12.2-16.2); Mean Corpuscular Volume 82.8 fL (80.0-100.0)
[2023-12-28 04:37] LABS: Eosinophils # (auto) 0.1 10 ^3/uL (0-0.8); Eosinophils % (auto) 0.3 % (0.0-7.0); Hematocrit 25.9 % (36.0-46.0); Lymphocytes # (auto) 1.6 10 ^3/uL (0.4-5.4); Mean Corpuscular Hemoglobin 26.3 pg (28.0-32.0); Mean Corpuscular Hgb Conc. 31.8 g/dL (32.0-36.0); Monocytes # (auto) 1.1 10 ^3/uL (0-1.3); Monocytes % (auto) 4.1 % (0.0-12.0); Neutrophils # (auto) 23.8 10 ^3/uL (1.6-8.6); Neutrophils % (auto) 89.5 % (37.0-80.0); Platelet Count (auto) 409 10^3/uL (140-450); Red Blood Cells 3.13 10^6/uL (4.0-5.20); Red Cell Distribution Width 14.8 % (11.8-14.3); White Blood Cell 26.6 10^3/uL (4.4-10.8)
[2023-12-28 04:39] LABS: Albumin 3.1 g/dL (3.2-4.8); Alkaline Phosphatase 88 U/L (46-116); Anion Gap 8 (5-15); Aspartate Aminotransferase 13 U/L (13-40); Bilirubin, Total 0.4 mg/dL (0.2-1.0); Calcium 8.7 mg/dL (8.7-10.4); Carbon Dioxide 25 mmol/L (20-31); Chloride 102 mmol/L (98-107); Glucose 92 mg/dL (74-106); Magnesium 1.9 mg/dL (1.6-2.6); Potassium 3.4 mmol/L (3.5-5.1); Sodium 135 mmol/L (136-145); Total Protein 6.7 g/dL (5.7-8.2)
[2023-12-28 04:40] LABS: Alanine Aminotransferase < 9 U/L (7-40); BUN/Creatinine Ratio 9.8 (10.0-20.0); Blood Urea Nitrogen < 5 mg/dL (9-23)
[2023-12-28 05:00] VITALS: BP 109/62; PULSE 110; RESP 17; TEMP 98.8; O2SAT 94
[2023-12-28] MEDS: POTASSIUM CHL 20 Meq TABLET PO ONE (08:06)
[2023-12-28 08:27] VITALS: BP 120/67; PULSE 104; RESP 19; TEMP 98.7; O2SAT 91
--- NOTE | 2023-12-28 10:43 | DVHPN2 ---
Chief Complaints Patient reports: Feels worse Nursing reports: No new complaints Objective Vitals Vital Signs Date Time Temp Pulse Resp B/P (MAP) Pulse Ox O2 Delivery O2 Flow Rate FiO2 12/28/23 08:30 Room Air* 0 21 12/28/23 08:27 98.7 104 19 120/67 (84) 91 98.7 Lungs: Normal Cardiovascular: Normal Abdominal: Soft Studies Laboratory Tests 12/28/23 03:28 Test 12/28/23 03:28 Range/Units Serum Glucose 92 74-106 mg/dL Ass/Plan Assessment TOA Plan NPO AFTER MIDNIGHT ,PT IS ON OR SCHED AND NOW SHE AGREES TO HAVING THE SURGERY. TRIXIE CASTILLO DO Dec 28, 2023 10:43
[2023-12-28 11:50] VITALS: BP 111/67; PULSE 92; RESP 18; TEMP 98.9; O2SAT 96
--- NOTE | 2023-12-28 14:04 | DVHPNRES ---
Progress Note Date Seen: Dec 28, 2023 Resident Creating Document: MIRELLA PARRY RESIDENT Has the PT tested + for MRSA If YES, has PT been informed?: No Medical Necessity Reason Pt with a Central, PICC or Fol: No Subjective Review of Systems This is a 38-year-old female with past medical history of kidney stones, who presented to the ED with a chief complaint of intermittent left lower quadrant abdominal pain and yellowish vaginal discharge for last 1 month prior to this admission. According to the patient the left lower quadrant abdominal pain is colicky in nature 9/10 localized with no specific pattern of radiation and no aggravating or relieving factors and associated with yellowish vaginal discharge. She had an IUD for 5 years and removed 1 month ago. She had no history of STD or multiple sexual partner before and her last Pap test was few months ago and was normal study according to the patient. She also mentioned she had history of kidney stone 3 years ago and passed 3 stones but no imaging or follow up was done after that. She denies fever, chills, sweating, nausea, vomiting, chest pain, dizziness or any change in the bowel and bladder habit. on my examination, the patient denies any vaginal discharge at this point. The patient is having left suprapubic abdominal tenderness rated now as 7/10 on the pain scale after pain medications were given. OBGYN was consulted which assessed and evaluated the patient. Pelvic ultrasound showed left adnexal structure, possible mass/collection. There was also a simple cyst in the right ovary. CT scan of the abdomen and pelvis showed a 5.6 x 5.1 cm thick wall multilocular lesion in the left adnexa which is suspicion for a pyosalpinx. The patient was started on IV ceftriaxone, doxycycline and IV fluids at 75 cc/hour. Patient will be admitted for further assessment and management. Patient was seen today for clinical evaluation. Less than chart reviewed. Patient with leukocytosis, WBC 26.6, anemia, hemoglobin 8.2. Patient still complaining of left lower quadrant pain. The patient is status post drainage of Left tubo-ovarian abscess day 2. Patient is seen by OBGYN, recommended to transfuse 2 units of blood before surgical intervention tomorrow. Plan of care was discussed with the patient and patient verbalized understanding. Order for NPO after midnight is in place. Patient on IV doxycycline and metronidazole. Tolerating well, no side effect noted. Ordered for 2 units of packed red blood cell transfusion is in place. ROS Constitutional: Denies weight loss, fever and chills. HEENT: Denies changes in vision and hearing. Respiratory: Denies shortness of breath and cough Cardiovascular: Denies chest discomfort or palpitations GI: Reports moderate to severe left suprapubic pain. Denies nausea, vomiting or diarrhea : Denies dysuria and urinary frequency. Musculoskeletal: Denies myalgias and joint pain Skin: Denies rash and pruritus. Neurological: Denies dizziness, headache, vision or hearing problems Objective vital signs Vital Sign Date Time Temp Pulse Resp B/P (MAP) Pulse Ox O2 Delivery O2 Flow Rate FiO2 12/28/23 13:30 105 16 111/73 12/28/23 11:50 98.9 96 98.9 12/28/23 08:30 Room Air* 0 21 Total Intake and Output 12/27/23 12/27/23 12/28/23 15:00 23:00 07:00 Intake Total 100 ml 2350 ml 950 ml Output Total 1000 ml Balance 100 ml 1350 ml 950 ml medications Current Medications Medications Dose Ordered Sig/Sadia Route Start Time Stop Time Status Last Admin Dose Admin Sodium Chloride 10 ml Q8HR IV 12/24/23 22:00 12/28/23 13:11 10 ML Sodium Chloride 1,000 ml @ 75 mls/hr [id number] IV 12/24/23 21:30 12/28/23 13:12 75 MLS/HR Acetaminophen/ Hydrocodone Bitart 1 tab Q4HP PRN PO 12/24/23 21:30 12/28/23 13:47 1 TAB Ondansetron HCl 4 mg Q4HP PRN IV 12/24/23 21:30 12/26/23 10:04 4 MG Nitroglycerin 0.4 mg Q5MINP PRN SL 12/24/23 21:30 Morphine Sulfate 2 mg Q30M PRN IV 12/24/23 21:30 Doxycycline Hyclate 250 ml @ 125 mls/hr Q12H IV 12/24/23 11:00 12/27/23 23:11 125 MLS/HR Metronidazole 100 ml @ 100 mls/hr Q12H IV 12/25/23 09:00 12/28/23 13:02 100 MLS/HR Hydromorphone HCl 0.5 mg Q4HPRN PRN IV 12/26/23 17:45 12/28/23 13:04 0.5 MG Acetaminophen 650 mg Q4HP PRN PO 12/27/23 09:00 Examination Physical Examination General: Patient is anemic, Patient alert and oriented in person, place and time. Patient looks weak and in moderate pain. Patient following commands. HEENT: Normocephalic, atraumatic, moist mucous membranes Respiratory/pulmonary: Clear lungs bilaterally, no associated crackles or wheezes. Cardiovascular: Normal heart sounds S1 and S2 with no associated murmurs Abdomen: Abdomen nondistended, there severe tenderness to palpation in the left lower quadrant,, pain is localized with no specific pattern of radiation. No masses palpable at this time. Extremities: There is no peripheral edema present at the lower extremities. Peripheral Pulses: 3+ Radial (R). 3+ Radial (L). 3+ Dorsalis pedis (R). 3+ Dorsalis pedis(L) Skin: No rashes or pruritus, there is no sacral edema present at this time. Neurological: Intact cranial nerves with no focal neurologic deficits laboratory and microbiology Laboratory Tests 12/28/23 03:28 Test 12/28/23 03:28 Range/Units Serum Glucose 92 74-106 mg/dL Microbiology Date/Time Source Procedure Growth Status 12/24/23 16:12 Blood Blood Culture - Preliminary NO GROWTH AFTER 72 HOURS OF INCUBATION. Resulted Problem List/Assessment/Plan Problem List/Assessment/Plan Assessment/Plan Acute left suprapubic pain likely due to left tubo-ovarian abscess/pyosalpinx Possible pelvic inflammatory disease Sepsis likely due to tubo-ovarian abscess/pyosalpinx (PID) S/P drainage of left tubo-ovarian abscess day 2 -initial WBC was 23.8, 23.5., patient also had fever, tachycardia -WBC 26.6< 28.4 -patient has a history of IUD for five years that was removed one month ago -CT of the abdomen showed a 5.6 x 5.1 cm thick walled multilocular lesion in the left adnexa which is suspicious for a pyosalpinx -continue IV doxycycline -Continue IV metronidazole -continue IV fluids at 75 cc/hour -NAAT for chlamydia and gonorrhea, which both came back negative -OBGYN on board, which recommended possible surgical exploration with laparoscopy or laparotomy with possible unilateral left salpingo-oophorectomy if patient does not improve after drainage. Recommended 2 units of blood transfusion today on 12/28/2023 before surgical intervention. -MRI of the abdomen showed a multiloculated cystic mass in the left adnexa likely representing tubo-ovarian abscess. -IR was consulted for tubo-ovarian abscess drainage which was performed on 12/26/23, fluid was sent for culture. -Regular diet at this time Left-sided nonobstructing renal stone -continue IV fluids at 75 cc/hour -CT abdomen revealed punctating nonobstructing left sided nephrolithiasis -strain urine and monitor closely -follow-up with urology as an outpatient Normocytic hypochromic anemia -ordered iron panel, still pending -ordered ferritin which came back on normal range -last hemoglobin was 8.6 -monitor H&H closely Polysubstance abuse (cannabinoids) -urine drug screen came back positive for cannabis -[facility]orial counselor patient on drug cessation Will continue IV abs and monitor clinical status and WBC, waiting for fluid cultures after drainage. Scheduled for surgical intervention tomorrow Goals of care discussed with the patient at bedside for >23min, FULL CODE Plan discussed with Dr. Wise Plan discussed with: Patient Plan discussed with: Patient (RN), Other My Orders My Orders Orders - MIRELLA PARRY Procedure Category Date Status Time Npo After Midnight DIET 12/28/23 Transmitted Breakfast Obtain Consent For: ORDERS 12/28/23 Transmitted 10:24 Type And Screen BBK 12/28/23 In Process 10:24 Administer Blood RHIANNA 12/28/23 In Process Products 10:24 Date of Service: Dec 28, 2023 Billing Provider: KIRT WISE MD Common Visit Codes: [id number] INP/OBS CARE(HIGH) MIRELLA PARRY Dec 28, 2023 14:04 KIRT WISE MD Dec 31, 2023 07:14
[2023-12-28 16:00] VITALS: BP 119/71; PULSE 101; RESP 17; TEMP 97.7; O2SAT 97
[2023-12-28 22:00] VITALS: BP 114/72; PULSE 111; RESP 18; TEMP 98.7; O2SAT 97
[2023-12-28] MEDS: ACETAMINOPHEN 325 MG TAB PO PRN (23:37)
[2023-12-29] VITALS (12 sets, daily range): BP systolic 98–115; BP diastolic 65–72; PULSE 74–109; RESP 14–18; TEMP 97.1–100; O2SAT 93–98
[2023-12-29] MEDS: ceFAZolin 2 GM/D5W100ml 100 ML IV ONE (08:28)
[2023-12-29] MEDS ORDERED: fentaNYL CITRATE 100 MCG/2 ML VL ONE ×2 (09:23→10:37)
[2023-12-29] MEDS ORDERED: MEPERIDINE HCL (50 MG/ML) 1 ML VIAL ONE ×2 (09:23→11:00)
[2023-12-29] MEDS ORDERED: MIDAZOLAM HCL 2MG/2ML 2ml VIAL (1mg/ml) ONE (09:23)
[2023-12-29] MEDS ORDERED: DexAMETHasone SOD PHOS 10MG/1ML VIAL INJ ONE (09:54)
[2023-12-29] MEDS ORDERED: PROPOFOL 10 MG/ML 20 ML IV ONE (09:54)
[2023-12-29] MEDS ORDERED: ONDANSETRON HCL 4 MG/2 ML VIAL ONE (09:54)
[2023-12-29] MEDS ORDERED: fentaNYL CITRATE 100 MCG/2 ML VL IV PRN (10:15)
[2023-12-29] MEDS ORDERED: ePHEDrine SULFATE 50 MG/ML AMP IV PRN (10:15)
[2023-12-29] MEDS: ONDANSETRON HCL 4 MG/2 ML VIAL IV ONE (10:15)
[2023-12-29] MEDS ORDERED: hydrALAZINE HCL 20 MG/ML VL IV PRN (10:15)
[2023-12-29] MEDS ORDERED: MIDAZOLAM HCL 2MG/2ML 2ml VIAL (1mg/ml) IV PRN (10:15)
[2023-12-29] MEDS: KETOROLAC TROMETH 30 MG/ML 1ML VIAL IV ONE (10:15)
[2023-12-29] MEDS ORDERED: ROCURONIUM 10MG/ML 10ML VIAL IV ONE (10:22)
[2023-12-29] MEDS ORDERED: SUGAMMADEX 200mg/2ml Vial (100MG/ML) IV ONE (12:31)
[2023-12-29] MEDS: BUPIVACAINE HCL 0.25% P/F 10 ML VIAL ONE (13:00)
[2023-12-29] MEDS: LIDOCAINE W/ EPINEPHRINE 1% 20ML VIAL ONE (13:00)
[2023-12-29] MEDS: HYDROmorphone HCL 2 MG/ML VL/or syr IV PRN ×2 (13:33→20:34)
--- NOTE | 2023-12-29 13:54 | DVHOP ---
DATE OF SURGERY: 12/29/2023 PREOPERATIVE DIAGNOSES: * Acute pelvic pain. * Left Tubo-ovarian abscess, unresponsive to IV Antibiotics and percutaneous drainage. FINAL DIAGNOSES: * Acute pelvic pain. * Left Tubo-ovarian abscess, unresponsive to IV Antibiotics and percutaneous drainage. PROCEDURES PERFORMED: * Diagnostic laparoscopy. * Exploratory laparotomy via midline incision. * Left oophorectomy. * Partial omentectomy. * Partial colon resection with primary anastomosis by Dr. Thomas, general surgeon. * Appendectomy by General Surgery. DESCRIPTION OF FINDINGS: A frozen pelvis. A large 8cm inflammatory mass in the left lower quadrant. Omental adhesions to the anterior abdominal wall. Unable to access the pelvis through laparoscopy, therefore converted to laparotomy. Involvement of the rectosigmoid colon to the inflammatory mass, necessitating partial bowel resection with primary anastomosis. Please refer to the general surgeon's dictation for that portion of the surgery. The right fallopian tube was edematous. The right ovary appeared normal. The uterus appeared normal. TECHNICAL PROCEDURE: After informed consent was obtained, the patient was taken to the operating room where she underwent smooth induction with general anesthesia. The patient was placed in dorsal lithotomy position in Dimitrios stirrups. The vagina, perineum and abdomen were thoroughly prepped and the patient sterilely draped in the usual fashion. A pelvic exam was performed under anesthesia with the above-noted findings. A weighted speculum was placed into the patient's vagina. The anterior lip of the cervix was grasped with a single-tooth tenaculum. Uterine cavity sounded to 8 cm. A HUMI uterine manipulator was placed transcervically and the balloon inflated. A transurethral Trent was placed. All instrumentation was removed from the patient's vagina. Attention was then placed to the patient's abdomen, where a 5 mm incision was made at Rodriges's point in the left upper quadrant. A 5 mm Optiview trocar was inserted through the abdominal wall, visualizing every layer of the abdomen until entry into the peritoneal cavity was confirmed directly with the laparoscope. Carbon dioxide gas was infused and pneumoperitoneum obtained. Survey of the abdomen and pelvis revealed the above-noted findings. Two additional 5mm ports were placed in the midline and to the right of midline under direct visualization. The chemist assistant and I performed sharp and blunt adhesiolysis. We removed most of the omental adhesions that was attached to the anterior abdominal wall in the left upper quadrant. However, the mass in the lower left pelvis could not be mobilized sufficiently enough to get access to the pelvis. Therefore, decision was made to convert to a laparotomy. A midline incision was made with the scalpel. The incision was carried down to the underlying fascia and peritoneum. The peritoneal incision was extended superiorly and inferiorly with good visualization of underlying organs. Upon entering the abdomen, there was a large inflammatory mass. The greater omentum contained severely infected and indurated tissue. The omentum was divided and excised using the LigaSure device, obtaining excellent hemostasis. Next, the small bowel was inspected and it appeared to be intact; There was a large inflammatory mass in the left lower quadrant. Through blunt and sharp dissection, the mass was freed. It was densely adherent to the rectosigmoid. Division of the mass with the LigaSure device demonstrated entry into the large bowel lumen. The general surgeon, Dr. Thomas was consulted and he performed a resection of the inflammatory mass in the left lower quadrant including resection of the rectosigmoid colon that was involved in the inflammatory mass. He performed a primary anastomosis, please refer to that dictation. General surgeon also performed an appendectomy, please refer to that dictation separately. We then irrigated the abdomen copiously. The abdomen was inspected for hemostasis. A OLU drain was placed in pelvis. The specimen containing the sigmoid, part of the left fallopian tube and ovary were submitted to pathology. Next, the peritoneum was closed with 2-0 Monocryl in running fashion. The rectus fascia was closed with double loop #1 PDS in continuous running fashion with good tissue approximation. The subcutaneous tissue was irrigated. Bleeding points controlled with cautery. The subcutaneous tissue was approximated with 2-0 plain gut in continuous running fashion. Next, the midline incision was closed vertically with gabriel. The OLU drain was anchored with the 2-0 Prolene stitch. The 3 laparoscopy skin incisions were closed with 3-0 Monocryl and dermabond. The incision was injected with 0.25% Marcaine, approximately 20 mL used. Finally, the uterine manipulator was removed from the patient's cervix with no bleeding noted. The patient was then taken out of lithotomy position, awakened, and taken to recovery room in stable condition. INTRAOPERATIVE COMPLICATIONS: None. ESTIMATED BLOOD LOSS: 300 mL. POSTOPERATIVE CONDITION: Guarded. SPECIMENS: * Left ovary with abscess and part of colon. * Appendix. * Part of greater omentum. * Cultures of the peritoneal fluid and abscess. DO VLADISLAV Mata/ABELARDO TID: [id number] RECEIPT: [id number] MTDD
--- NOTE | 2023-12-29 14:31 | DVHPNRES ---
Progress Note Date Seen: Dec 29, 2023 Resident Creating Document: SHARON RAJPUT RESIDENT Has the PT tested + for MRSA If YES, has PT been informed?: No Medical Necessity Reason Pt with a Central, PICC or Fol: No Subjective Review of Systems This is a 38-year-old female with past medical history of kidney stones, who presented to the ED with a chief complaint of intermittent left lower quadrant abdominal pain and yellowish vaginal discharge for last 1 month prior to this admission. According to the patient the left lower quadrant abdominal pain is colicky in nature 9/10 localized with no specific pattern of radiation and no aggravating or relieving factors and associated with yellowish vaginal discharge. She had an IUD for 5 years and removed 1 month ago. She had no history of STD or multiple sexual partner before and her last Pap test was few months ago and was normal study according to the patient. She also mentioned she had history of kidney stone 3 years ago and passed 3 stones but no imaging or follow up was done after that. She denies fever, chills, sweating, nausea, vomiting, chest pain, dizziness or any change in the bowel and bladder habit. on my examination, the patient denies any vaginal discharge at this point. The patient is having left suprapubic abdominal tenderness rated now as 7/10 on the pain scale after pain medications were given. OBGYN was consulted which assessed and evaluated the patient. Pelvic ultrasound showed left adnexal structure, possible mass/collection. There was also a simple cyst in the right ovary. CT scan of the abdomen and pelvis showed a 5.6 x 5.1 cm thick wall multilocular lesion in the left adnexa which is suspicion for a pyosalpinx. The patient was started on IV ceftriaxone, doxycycline and IV fluids at 75 cc/hour. Patient will be admitted for further assessment and management. Patient seen and examined at bedside. Patient was placed NPO after midnight yesterday for procedure today. The patient was taken to the OR by OBGYN for possible left salpingoopherectomy. Metronidazole and doxycycline were discontinued and we started IV zosyn. The patient was also started on Lactate ringer at 125cc/hr and dilaudid for pain modulation. Surgery was performed and left oophorectomy was performed, appendix and part of greater omentum were removed as well as part of the colon with anastomosis without complications. ROS Constitutional: Denies weight loss, fever and chills. HEENT: Denies changes in vision and hearing. Respiratory: Denies shortness of breath and cough Cardiovascular: Denies chest discomfort or palpitations GI: Reports lower abdominal soreness. Denies nausea, vomiting and diarrhea. : Denies dysuria and urinary frequency. Musculoskeletal: Denies myalgias and joint pain Skin: Denies rash and pruritus. Neurological: Denies dizziness, headache, vision or hearing problems Objective vital signs Vital Sign Date Time Temp Pulse Resp B/P (MAP) Pulse Ox O2 Delivery O2 Flow Rate FiO2 12/29/23 13:40 99 25 114/73 (87) 99 12/29/23 13:25 Nasal Cannula 2.0 12/29/23 13:15 98.9 98.9 12/28/23 20:00 21 Total Intake and Output 12/28/23 12/28/23 12/29/23 15:00 23:00 07:00 Intake Total 350 ml 3000 ml 600 ml Output Total 1000 ml 4 ml Balance 350 ml 2000 ml 596 ml medications Current Medications Medications Dose Ordered Sig/Sadia Route Start Time Stop Time Status Last Admin Dose Admin Sodium Chloride 10 ml Q8HR IV 12/24/23 22:00 12/29/23 06:00 10 ML Acetaminophen/ Hydrocodone Bitart 1 tab Q4HP PRN PO 12/24/23 21:30 12/28/23 22:45 1 TAB Ondansetron HCl 4 mg Q4HP PRN IV 12/24/23 21:30 12/29/23 03:36 4 MG Nitroglycerin 0.4 mg Q5MINP PRN SL 12/24/23 21:30 Hydromorphone HCl 0.5 mg Q4HPRN PRN IV 12/26/23 17:45 12/29/23 03:42 0.5 MG Acetaminophen 650 mg Q4HP PRN PO 12/27/23 09:00 12/29/23 07:28 650 MG Lactated Ringer's 1,000 ml @ 125 mls/hr Q8H IV 12/29/23 13:15 Hydromorphone HCl 1 mg Q2HPRN PRN IV 12/29/23 13:15 Piperacillin Sod/ Tazobactam Sod 100 ml @ 25 mls/hr Q6HR IV 12/29/23 18:00 Examination Physical Examination General: Patient alert and oriented in person, place and time. Patient looks weak. Patient following commands. HEENT: Normocephalic, atraumatic, moist mucous membranes Respiratory/pulmonary: Clear lungs bilaterally, no associated crackles or wheezes. Cardiovascular: Normal heart sounds S1 and S2 with no associated murmurs Abdomen: Abdomen nondistended, there severe tenderness to palpation in the left suprapubic region, pain is localized with no specific pattern of radiation. No masses palpable at this time. Extremities: There is no peripheral edema present at the lower extremities. Peripheral Pulses: 3+ Radial (R). 3+ Radial (L). 3+ Dorsalis pedis (R). 3+ Dorsalis pedis(L) Skin: No rashes or pruritus, there is no sacral edema present at this time. Neurological: Intact cranial nerves with no focal neurologic deficits laboratory and microbiology Laboratory Tests 12/28/23 03:28 Test 12/28/23 03:28 Range/Units Serum Glucose 92 74-106 mg/dL Microbiology Date/Time Source Procedure Growth Status 12/24/23 16:12 Blood Blood Culture - Preliminary NO GROWTH AFTER 72 HOURS OF INCUBATION. Resulted Problem List/Assessment/Plan Problem List/Assessment/Plan Assessment/Plan Acute left suprapubic pain likely due to left tubo-ovarian abscess/pyosalpinx Possible pelvic inflammatory disease Sepsis likely due to tubo-ovarian abscess/pyosalpinx (PID) -initial WBC was 23.8, 23.5., patient also had fever, tachycardia -Last WBC was 26.6 -patient has a history of IUD for five years that was removed one month ago -CT of the abdomen showed a 5.6 x 5.1 cm thick walled multilocular lesion in the left adnexa which is suspicious for a pyosalpinx -Discontinue IV doxycycline -Discontinue IV metronidazole -Start IV zosyn -Start lactate ringer at 125cc/hr -NAAT for chlamydia and gonorrhea, which both came back negative -IR attempted drainage of left tubo-ovarian abscess but patient kept septic so patient was escalated to surgery on 12/29/23 -OBGYN on board, which performed left oopherectomy with removal of appendix and part of greater omentum, as well as part of the colon with anastomosis without complications on 11/11/24. -MRI of the abdomen showed a multiloculated cystic mass in the left adnexa likely representing tubo-ovarian abscess. -Regular diet at this time Left-sided nonobstructing renal stone -Start IV fluids lactate ringer at 125 cc/hour -CT abdomen revealed punctating nonobstructing left sided nephrolithiasis -strain urine and monitor closely -follow-up with urology as an outpatient Normocytic hypochromic anemia -ordered iron panel, still pending -ordered ferritin which came back on normal range -last hemoglobin was 8.2 -monitor H&H closely Polysubstance abuse (cannabinoids) -urine drug screen came back positive for cannabis -certified substance abuse counselor patient on drug cessation Goals of care discussed with the patient at bedside for >23min, FULL CODE Plan discussed with Dr. Olson Plan discussed with: Patient Date of Service: Dec 29, 2023 Billing Provider: NILAM OLSON MD Common Visit Codes: [id number] INP/OBS CARE(HIGH) SHARON RAJPUT RESIDENT Dec 29, 2023 14:31 NILAM OLSON MD Dec 29, 2023 20:48
[2023-12-29] MEDS: MORPHINE SULFATE INJ 2 MG/ml SYRG ONE (14:56)
[2023-12-29] MEDS: MORPHINE SULFATE 4 MG/ML SYR/VIAL IV PRN (14:58)
[2023-12-29 16:34] LABS: Hematocrit 28.3 % (36.0-46.0); Hemoglobin 9.2 g/dL (12.2-16.2); Mean Corpuscular Hemoglobin 27.6 pg (28.0-32.0); Mean Corpuscular Hgb Conc. 32.6 g/dL (32.0-36.0); Mean Corpuscular Volume 84.6 fL (80.0-100.0); Platelet Count (auto) 380 10^3/uL (140-450); Red Blood Cells 3.34 10^6/uL (4.0-5.20); Red Cell Distribution Width 15.2 % (11.8-14.3)
[2023-12-29 16:36] LABS: Basophils % (manual) 0 (0.0-2.0); Blast Cells 0; Eosinophils % (manual) 0 (0-7); Myelocytes % 0; Promyelocytes % 0; Reactive Lymphocytes 0
[2023-12-29 16:47] LABS: Potassium 3.7 mmol/L (3.5-5.1); Sodium 139 mmol/L (136-145)
[2023-12-29 16:48] LABS: Anion Gap 3 (5-15); Carbon Dioxide 24 mmol/L (20-31)
[2023-12-29 16:49] LABS: Calcium 7.4 mg/dL (8.7-10.4)
[2023-12-29 16:53] LABS: Glucose 141 mg/dL (74-106)
[2023-12-29 16:55] LABS: BUN/Creatinine Ratio 13.2 (10.0-20.0); Blood Urea Nitrogen < 5 mg/dL (9-23); Chloride 112 mmol/L (98-107)
[2023-12-29 17:00] LABS: Band Neutrophils % (manual) 21; Lymphocytes % (manual) 1 (10.0-50.0); Metamyelocytes % 2; Monocytes % (manual) 1 (0-12)
[2023-12-29 17:01] LABS: Large Platelets FEW; Platelet Estimate Adequate
[2023-12-29] MEDS ORDERED: TPN PER PHARMACY 0 ML IV SCH (19:00)
[2023-12-29] MEDS: PIPERACILLIN-TAZOB 3.375GM 100 ML IV SCH (20:09)
[2023-12-29] MEDS: LACTATED RINGER'S 1,000 ML IV SCH (20:10)
[2023-12-29] MEDS: AMINO ACID INFUSION IN D5W 1,000 ML IV SCH (22:29)
[2023-12-30] VITALS (8 sets, daily range): BP systolic 22–110; BP diastolic 58–110; PULSE 85–110; RESP 16–22; TEMP 96.9–97.6; O2SAT 91–100
--- NOTE | 2023-12-30 00:47 | DVHPN2 ---
Subjective Progress Notes Subjective POD#1 s/p EX LAP for TOA with Left OOPHORECTOMY, appendectomy and Large Bowel Resection w/ anastomosis S: Moderate pain. No flatus no emesis. NO fever reported. Patient has NG tube and is to remain NPO Objective PHYSICAL EXAM Physical Exam: Gen: mild distress, NG tube in place Abd: Soft, NT, Non Distended. Incision C/D/I, OLU output bloody fluid Ext: Soft, neg Santo sign Vital Signs and I&O Vital Signs Date Time Temp Pulse Resp B/P (MAP) Pulse Ox O2 Delivery O2 Flow Rate FiO2 12/30/23 05:00 97.5 96 22 22/110 (81) 96 97.5 12/29/23 20:00 Room Air* 0 21 Intake and Output 12/30/23 07:00 Intake Total 1300 ml Output Total 470 ml Balance 830 ml Intake Oral 1200 ml IV Total 100 ml Output Urine Total 425 ml Drainage Total 45 ml # Voids 1 Lab results Laboratory Tests Test 12/24/23 13:20 12/24/23 13:50 12/24/23 15:12 12/25/23 04:19 Range/Units Lactic Acid Level 0.8 0.4-2.0 mmol/L White Blood Count 23.8 H 23.5 H 4.4-10.8 10^3/uL Red Blood Count 3.66 L 3.01 L 4.0-5.20 10^6/uL Hemoglobin 9.8 L 7.9 #L 12.2-16.2 g/dL Hematocrit 30.4 L 25.1 #L 36.0-46.0 % Mean Corpuscular Volume 82.9 83.5 80.0-100.0 fL Mean Corpuscular Hemoglobin 26.8 L 26.2 L 28.0-32.0 pg Mean Corpuscular Hemoglobin Concent 32.4 31.4 L 32.0-36.0 g/dL Red Cell Distribution Width 14.1 14.4 H 11.8-14.3 % Platelet Count 466 H 395 140-450 10^3/uL Mean Platelet Volume 7.8 7.2 6.9-10.8 fL Neutrophils (%) (Auto) 89.6 H 87.1 H 37.0-80.0 % Lymphocytes (%) (Auto) 5.4 L 7.2 L 10.0-50.0 % Monocytes (%) (Auto) 4.3 5.3 0.0-12.0 % Eosinophils (%) (Auto) 0.4 0.2 0.0-7.0 % Basophils (%) (Auto) 0.3 0.2 0.0-2.0 % Neutrophils # (Auto) 21.3 H 20.4 H 1.6-8.6 10 ^3/uL Lymphocytes # (Auto) 1.3 1.7 0.4-5.4 10 ^3/uL Monocytes # (Auto) 1.0 1.3 0-1.3 10 ^3/uL Eosinophils # (Auto) 0.1 0.1 0-0.8 10 ^3/uL Basophils # (Auto) 0.1 0 0-0.2 10 ^3/uL Nucleated Red Blood Cells 0.0 0.0 % Erythrocyte Sedimentation Rate 105 H 0-20 mm/hr Prothrombin Time 12.1 H 9.3-11.8 sec Prothrombin Time INR 1.15 0.9-1.15 Activated Partial Thromboplast Time 32.5 24.5-34.5 SEC Sodium Level 135 L 138 136-145 mmol/L Potassium Level 3.8 3.7 3.5-5.1 mmol/L Chloride Level 102 106 98-107 mmol/L Carbon Dioxide Level 27 26 20-31 mmol/L Anion Gap 6 6 5-15 Blood Urea Nitrogen 6 L < 5 L 9-23 mg/dL Creatinine 0.68 0.65 0.550-1.02 mg/dL Glomerular Filtration Rate Calc 116 117 >90 mL/min BUN/Creatinine Ratio 8.8 L 7.7 L 10.0-20.0 Serum Glucose 97 102 74-106 mg/dL Calcium Level 9.3 8.6 L 8.7-10.4 mg/dL Total Bilirubin 0.5 0.5 0.2-1.0 mg/dL Aspartate Amino Transferase (AST) 18 16 13-40 U/L Alanine Aminotransferase (ALT) 16 12 7-40 U/L Alkaline Phosphatase 101 86 46-116 U/L Total Protein 8.5 H 7.0 5.7-8.2 g/dL Albumin 3.8 3.4 3.2-4.8 g/dL Lipase 32 12-53 U/L Beta HCG, Quantitative 0.1 L 1.5-4.2 mIU/mL Plasma/Serum Blood Alcohol 3.3 <10 mg/dL Urine Color Yellow Yellow Urine Clarity Turbid H Clear Urine pH 6.5 5.0-9.0 Urine Specific Coleman 1.021 1.001-1.035 Urine Protein Trace H Negative Urine Ketones Trace Negative Urine Blood Negative Negative /uL Urine Nitrite Negative Negative Urine Bilirubin Negative Negative Urine Urobilinogen 4 H Negative mg/dL Urine Leukocyte Esterase 1+ Negative /uL Urine RBC 3 0 - 4 /hpf Urine WBC 4 0 - 5 /hpf Urine Squamous Epithelial Cells Few <5 /hpf Urine Bacteria None seen None Seen /hpf Urine Mucus Few None Seen Urine Glucose Normal Normal mg/dL Urine Test Negative Negative Urine Opiates Screen Neg NEGATIVE Urine Fentanyl Screen Neg NEGATIVE Urine Barbiturates Screen Neg NEGATIVE Urine Phencyclidine Screen Neg NEGATIVE Urine Amphetamines Screen Neg NEGATIVE Urine Benzodiazepines Screen Neg NEGATIVE Urine Cocaine Screen Neg NEGATIVE Urine Cannabinoids Screen Pos NEGATIVE Chlamydia trachomatis (AYSHA) Negative Negative Neisseria gonorrhoeae (AYSHA) Negative Negative Ferritin 183.1 10-291 ng/mL Triglycerides Level 65 < 150 mg/dL Cholesterol Level 99 < 200 mg/dL LDL Cholesterol 66 < 100 mg/dL HDL Cholesterol 24 L 40-59 mg/dL Hepatitis C Antibody Negative Negative HIV (1&2) Antibody Negative Negative Test 12/25/23 13:42 12/26/23 04:40 12/27/23 05:04 12/28/23 03:28 Range/Units Rapid Plasma Reagin Non reactive Non Reactive White Blood Count 26.0 H 28.4 H 26.6 H 4.4-10.8 10^3/uL Red Blood Count 3.15 L 3.25 L 3.13 L 4.0-5.20 10^6/uL Hemoglobin 8.2 L 8.6 L 8.2 L 12.2-16.2 g/dL Hematocrit 26.2 L 26.8 L 25.9 L 36.0-46.0 % Mean Corpuscular Volume 83.1 82.5 82.8 80.0-100.0 fL Mean Corpuscular Hemoglobin 26.1 L 26.3 L 26.3 L 28.0-32.0 pg Mean Corpuscular Hemoglobin Concent 31.4 L 31.9 L 31.8 L 32.0-36.0 g/dL Red Cell Distribution Width 14.5 H 14.4 H 14.8 H 11.8-14.3 % Platelet Count 334 338 409 140-450 10^3/uL Mean Platelet Volume 7.4 7.6 7.6 6.9-10.8 fL Neutrophils (%) (Auto) 92.7 H 89.5 H 37.0-80.0 % Lymphocytes (%) (Auto) 3.4 L 6.0 L 10.0-50.0 % Monocytes (%) (Auto) 3.7 4.1 0.0-12.0 % Basophils (%) (Auto) 0.2 0.1 0.0-2.0 % Neutrophils # (Auto) 26.3 H 23.8 H 1.6-8.6 10 ^3/uL Lymphocytes # (Auto) 1.0 1.6 0.4-5.4 10 ^3/uL Monocytes # (Auto) 1.0 1.1 0-1.3 10 ^3/uL Differential Total Cells Counted 100.0 100 Neutrophils % (Manual) 90 H 37.0-80.0 Band Neutrophils % (Manual) 0 Lymphocytes % (Manual) 6 L 10.0-50.0 Monocytes % (Manual) 4 0-12 Eosinophils % (Manual) 0 0-7 Basophils % (Manual) 0 0.0-2.0 Metamyelocytes % (manual) 0 Myelocytes % (Manual) 0 Promyelocytes % (Manual) 0 Blast Cells % (Manual) 0 Reactive Lymphocytes 0 Platelet Estimate Adequate Clumped Platelets Moderate Stomatocytes Few Sodium Level 135 L 135 L 135 L 136-145 mmol/L Potassium Level 3.6 3.4 L 3.4 L 3.5-5.1 mmol/L Chloride Level 104 101 102 98-107 mmol/L Carbon Dioxide Level 26 25 25 20-31 mmol/L Anion Gap 5 9 8 5-15 Blood Urea Nitrogen < 5 L < 5 L < 5 L 9-23 mg/dL Creatinine 0.65 0.62 0.51 L 0.550-1.02 mg/dL Glomerular Filtration Rate Calc 117 118 124 >90 mL/min BUN/Creatinine Ratio 7.7 L 8.1 L 9.8 L 10.0-20.0 Serum Glucose 97 106 92 74-106 mg/dL Calcium Level 8.9 8.6 L 8.7 8.7-10.4 mg/dL Eosinophils (%) (Auto) 0.0 0.3 0.0-7.0 % Eosinophils # (Auto) 0 0.1 0-0.8 10 ^3/uL Basophils # (Auto) 0 0 0-0.2 10 ^3/uL Nucleated Red Blood Cells 0.0 0.0 % Magnesium Level 1.8 1.9 1.6-2.6 mg/dL Total Bilirubin 0.4 0.2-1.0 mg/dL Aspartate Amino Transferase (AST) 13 13-40 U/L Alanine Aminotransferase (ALT) < 9 7-40 U/L Alkaline Phosphatase 88 46-116 U/L Total Protein 6.7 5.7-8.2 g/dL Albumin 3.1 L 3.2-4.8 g/dL Test 12/29/23 10:10 12/29/23 16:01 12/30/23 05:05 Range/Units Body Fluid Source Pending Body Fluid pH Pending Body Fluid WBC (Manual) Pending Body Fluid RBC (Manual) Pending Body Fluid Mononuclear Cells Pending Body Fluid Polymorphonuclear Cells Pending White Blood Count 29.0 H 28.0 H 4.4-10.8 10^3/uL Red Blood Count 3.34 L 3.12 L 4.0-5.20 10^6/uL Hemoglobin 9.2 L 8.3 L 12.2-16.2 g/dL Hematocrit 28.3 L 26.5 L 36.0-46.0 % Mean Corpuscular Volume 84.6 84.9 80.0-100.0 fL Mean Corpuscular Hemoglobin 27.6 L 26.6 L 28.0-32.0 pg Mean Corpuscular Hemoglobin Concent 32.6 31.4 L 32.0-36.0 g/dL Red Cell Distribution Width 15.2 H 15.4 H 11.8-14.3 % Platelet Count 380 433 140-450 10^3/uL Mean Platelet Volume 7.6 7.6 6.9-10.8 fL Neutrophils (%) (Auto) 37.0-80.0 % Lymphocytes (%) (Auto) 10.0-50.0 % Monocytes (%) (Auto) 0.0-12.0 % Basophils (%) (Auto) 0.0-2.0 % Neutrophils # (Auto) 1.6-8.6 10 ^3/uL Lymphocytes # (Auto) 0.4-5.4 10 ^3/uL Monocytes # (Auto) 0-1.3 10 ^3/uL Differential Total Cells Counted 100.0 Pending Neutrophils % (Manual) 75 Pending Band Neutrophils % (Manual) 21 Pending Lymphocytes % (Manual) 1 L Pending Monocytes % (Manual) 1 Pending Eosinophils % (Manual) 0 Pending Basophils % (Manual) 0 Pending Metamyelocytes % (manual) 2 Pending Myelocytes % (Manual) 0 Pending Promyelocytes % (Manual) 0 Pending Blast Cells % (Manual) 0 Pending Reactive Lymphocytes 0 Pending Platelet Estimate Adequate Pending Large Platelets Few Sodium Level 139 142 136-145 mmol/L Potassium Level 3.7 3.7 3.5-5.1 mmol/L Chloride Level 112 #H 108 H 98-107 mmol/L Carbon Dioxide Level 24 30 20-31 mmol/L Anion Gap 3 L 4 L 5-15 Blood Urea Nitrogen < 5 L 8 L 9-23 mg/dL Creatinine 0.38 L 0.45 L 0.550-1.02 mg/dL Glomerular Filtration Rate Calc 133 128 >90 mL/min BUN/Creatinine Ratio 13.2 17.8 10.0-20.0 Serum Glucose 141 H 140 H 74-106 mg/dL Calcium Level 7.4 L 8.3 L 8.7-10.4 mg/dL Phosphorus Level 4.8 2.4-5.1 mg/dL Magnesium Level 1.7 1.6-2.6 mg/dL Total Bilirubin 0.3 0.2-1.0 mg/dL Aspartate Amino Transferase (AST) 19 13-40 U/L Alanine Aminotransferase (ALT) < 9 7-40 U/L Alkaline Phosphatase 59 46-116 U/L Total Protein 5.6 L 5.7-8.2 g/dL Albumin 2.5 L 3.2-4.8 g/dL Triglycerides Level 81 < 150 mg/dL Assessment and Plan ASSESSMENT AND PLAN Assessment and Plan POD#1 s/p ex lap for TOA, bowel resection w/ anastomosis, appendectomy, left oophorectomy Plan: continue strict NPO - Nutrition consult for TPN NG tube - Check KUB today IV fluids, replace electrolytes as needed Check daily CBC, BMP Continue IV Zosyn, pending ID consult for recommendations on antibiotics - gram stain, wound culture results microbiology pending Pain control Incentive spirometry DVT prophylaxis w/ SCD's My orders: Orders - ANNALISA MANCINI DO * Sheet Layer Consultation (12/25/23 07:08) Obtain Consent For Anesthesia (12/25/23 07:47) * Radiologist Consult (12/25/23 12:29) Obtain Consent For: (12/29/23 07:27) Gram Stain (12/29/23 10:10) Routine Bacterial Culture (12/29/23 10:10) Anaerobic Culture (12/29/23 10:10) Strict I & O QSHIFT (12/29/23 13:06) Discontinue Trent Catheter (12/29/23 13:06) Notify L&D Md If: (12/29/23 13:06) Is At Bedside. (12/29/23 13:06) Lactated Ringer's (12/29/23 13:15) Incentive Spirometry (12/29/23 13:06) Hydromorphone Injection (Dilaudid Inject (12/29/23 13:15) Ng/Orogastric Tube To Lis (12/29/23 13:06) Piperacillin-Tazob 3.375gm (Zosyn 3.375g (12/29/23 18:00) * Infectious [place]- Dr. Lanre Castillo (12/29/23 13:18) Parenteral Nutrition (12/30/23 Breakfast) Consult For Nutrition (12/29/23 18:40) Kub Abdomen Single View (12/30/23 04:00) Plan discussed with: Patient Date of Service: Dec 30, 2023 Billing Provider: ANNALISA MANCINI DO Common Visit Codes: [id number] INP/OBS CARE(HIGH) ANNALISA MANCINI DO Dec 30, 2023 00:47
[2023-12-30 05:44] LABS: Hemoglobin 8.3 g/dL (12.2-16.2); Red Cell Distribution Width 15.4 % (11.8-14.3)
[2023-12-30 05:45] LABS: Hematocrit 26.5 % (36.0-46.0); Mean Corpuscular Hemoglobin 26.6 pg (28.0-32.0); Mean Corpuscular Hgb Conc. 31.4 g/dL (32.0-36.0); Mean Corpuscular Volume 84.9 fL (80.0-100.0); Platelet Count (auto) 433 10^3/uL (140-450); Red Blood Cells 3.12 10^6/uL (4.0-5.20)
[2023-12-30 05:52] LABS: Basophils % (manual) 0 (0.0-2.0); Blast Cells 0; Eosinophils % (manual) 0 (0-7); Monocytes % (manual) 0 (0-12); Myelocytes % 0; Promyelocytes % 0; Reactive Lymphocytes 0
--- NOTE | 2023-12-30 06:16 | DVHOP ---
DATE OF SURGERY: 12/29/2023 SURGICAL PROCEDURE PREOPERATIVE INDICATIONS: The patient is a 38-year-old female being operated on for tubo-ovarian abscess of the left adnexa by Dr. Briggs and Dr. Briggs called me and requested my assistance custodial through the procedure. DESCRIPTION OF PROCEDURE: When I reached the operating room, the patient had a laparotomy incision and there was a complete transection of the rectosigmoid colon. The distal part of the colon was inseparable from a mass that apparently is the tubo-ovarian abscess, an attempt at these structures, was unsuccessful. The pelvis was "frozen" due to much inflammatory tissue. The patient's lysis of adhesions was accomplished and the distal rectosigmoid colon was mobilized. The patient's rectosigmoid colon was placed on tension and the sigmoid colon, which was densely adherent to the colon and to the abscess mass was transected above a right angle bowel clamp, which was placed at the rectus bowel clamp, which was placed distal to this mass. The proximal bowel was mobilized. The entire length of the bowel was inspected. It appeared that the small bowel was intact. The ileocecal junction was intact. The appendix was scarred and it was removed and appendicectomy was performed. The appendiceal stump mucosa was cauterized. The appendix was amputated above ligature and removed from the field. At this point, the colon was palpated and inspected. It appeared to collapse. There was no fecal matter in the descending colon. The patient's descending sigmoid colon was then anastomosed to the remaining rectal stump with a 2-layered handsewn anastomosis utilizing 3-0 Monocryl and 3-0 Prolene sutures for the inner and outer layer respectively. The mesenteric defect was approximated using 2-0 Monocryl suture. The pelvis and abdomen were profusely irrigated, irrigant was aspirated. Hemostasis was meticulously accomplished and a size 10 mm Miky-Boetllo drain was placed to the vicinity, but not abutting against the suture line. A diverting colostomy was considered; however, due to the empty nature of the colon with no fecal material and to the fact that the patient had not been previously consented for colostomy. I decided to proceed with just primary anastomosis and asked Dr. Briggs to explain to the patient after the operation that there is a potential for a second operation needed in order to establish diversion should there be a leak from this anastomosis. The patient is to remain n.p.o. with an NG tube in place and we placed on TPN until she resumes normal bowel movements. I will follow the patient postoperatively. Marcio Thomas MD PF TID: [id number] RECEIPT: [id number]
[2023-12-30 06:47] LABS: Albumin 2.5 g/dL (3.2-4.8); Alkaline Phosphatase 59 U/L (46-116); Anion Gap 4 (5-15); Aspartate Aminotransferase 19 U/L (13-40); BUN/Creatinine Ratio 17.8 (10.0-20.0); Blood Urea Nitrogen 8 mg/dL (9-23); Calcium 8.3 mg/dL (8.7-10.4); Carbon Dioxide 30 mmol/L (20-31); Chloride 108 mmol/L (98-107); Glucose 140 mg/dL (74-106); Magnesium 1.7 mg/dL (1.6-2.6); Potassium 3.7 mmol/L (3.5-5.1); Sodium 142 mmol/L (136-145); Triglycerides 81 mg/dL (< 150)
[2023-12-30 06:49] LABS: Bilirubin, Total 0.3 mg/dL (0.2-1.0); Phosphorus 4.8 mg/dL (2.4-5.1); Total Protein 5.6 g/dL (5.7-8.2)
[2023-12-30 06:50] LABS: Alanine Aminotransferase < 9 U/L (7-40)
[2023-12-30 07:46] LABS: Band Neutrophils % (manual) 25; Lymphocytes % (manual) 3 (10.0-50.0); Metamyelocytes % 1; Platelet Estimate Adequate
--- NOTE | 2023-12-30 07:58 | DVH ---
Exam: XY KUB ABDOMEN SINGLE VIEW Indication: post op ileus Comparison: None Technique: 1 radiographic views of the abdomen. Findings: Surgical drain overlies the pelvis. Nonobstructive bowel gas pattern noted. There is no definite evidence for pneumoperitoneum. No abnormal calcifications noted. Impression: Nonobstructive bowel gas pattern noted.
[2023-12-30 08:09] LABS: INR 1.22 (0.9-1.15); Partial Thromboplastin Time 31.8 SEC (24.5-34.5); Prothrombin Time 12.7 sec (9.3-11.8)
--- NOTE | 2023-12-30 10:08 | DVHINCON2 ---
"Date of service: Dec 29, 2023 Family History: Patient reports no known family medical history. Allergies: Coded Allergies: NO KNOWN ALLERGIES (Unverified , 12/24/23) Home Meds Reported Medications Ibuprofen (Ibuprofen) 800 Mg Tab, 800 MG PO 6XD, MG 12/25/23 Current Medications Current Medications Medications (Trade) Dose Ordered Sig/Sadia Route PRN Reason Start Time Stop Time Status Last Admin Hydralazine HCl (Apresoline Injection) 5 mg Q10M PRN IV SBP>160 12/29/23 10:15 12/29/23 11:06 DC Morphine Sulfate 2 mg Q2HPRN PRN IV BREAKTHROUGH PAIN (7-10) 12/29/23 10:15 12/29/23 10:36 DC 12/29/23 14:58 Midazolam HCl (Versed Injection) 1 mg Q10M PRN IV ANXIETY 12/29/23 10:15 12/29/23 10:56 DC Ephedrine Sulfate (ePHEDrine SULFATE) 10 mg Q10M PRN IV SBP LESS THAN 90 12/29/23 10:15 12/29/23 10:56 DC Fentanyl Citrate 25 mcg Q1HP PRN IV BREAKTHROUGH PAIN (7-10) 12/29/23 10:15 12/29/23 10:36 DC Hydromorphone HCl (Dilaudid Injection) 0.5 mg Q10M PRN IV SEVERE PAIN (7-10 PAIN SCALE) 12/29/23 10:15 12/29/23 10:56 DC 12/29/23 14:42 Lactated Ringer's 1,000 ml @ 125 mls/hr Q8H IV 12/29/23 13:15 12/29/23 20:10 Hydromorphone HCl (Dilaudid Injection) 1 mg Q2HPRN PRN IV SEVERE PAIN (7-10 PAIN SCALE) 12/29/23 13:15 12/30/23 08:47 Piperacillin Sod/ Tazobactam Sod 100 ml @ 25 mls/hr Q6HR IV 12/29/23 18:00 12/30/23 06:17 Amino Acids 0 ml @ 0 mls/hr PER PHARMACY IV 12/29/23 19:00 UNV Amino Acids 1,000 ml @ 42 mls/hr [id number] IV 12/29/23 22:00 12/30/23 21:59 12/29/23 22:29 Vital Signs Vital Signs Date Time Temp Pulse Resp B/P (MAP) Pulse Ox O2 Delivery O2 Flow Rate FiO2 12/30/23 08:47 110 18 125/76 12/30/23 05:00 97.5 96 97.5 12/29/23 20:00 Room Air* 0 21 Labs/Diagnostic Data Labs Test 12/30/23 05:05 12/29/23 16:01 12/29/23 10:10 12/28/23 03:28 Range/Units White Blood Count 28.0 H 4.4-10.8 10^3/uL Red Blood Count 3.12 L 4.0-5.20 10^6/uL Hemoglobin 8.3 L 12.2-16.2 g/dL Hematocrit 26.5 L 36.0-46.0 % Mean Corpuscular Volume 84.9 80.0-100.0 fL Mean Corpuscular Hemoglobin 26.6 L 28.0-32.0 pg Mean Corpuscular Hemoglobin Concent 31.4 L 32.0-36.0 g/dL Red Cell Distribution Width 15.4 H 11.8-14.3 % Platelet Count 433 140-450 10^3/uL Mean Platelet Volume 7.6 6.9-10.8 fL Neutrophils (%) (Auto) 37.0-80.0 % Lymphocytes (%) (Auto) 10.0-50.0 % Monocytes (%) (Auto) 0.0-12.0 % Basophils (%) (Auto) 0.0-2.0 % Neutrophils # (Auto) 1.6-8.6 10 ^3/uL Lymphocytes # (Auto) 0.4-5.4 10 ^3/uL Monocytes # (Auto) 0-1.3 10 ^3/uL Differential Total Cells Counted 100.0 100 Neutrophils % (Manual) 71 37.0-80.0 Band Neutrophils % (Manual) 25 Lymphocytes % (Manual) 3 L 10.0-50.0 Monocytes % (Manual) 0 0-12 Eosinophils % (Manual) 0 0-7 Basophils % (Manual) 0 0.0-2.0 Metamyelocytes % (manual) 1 Myelocytes % (Manual) 0 Promyelocytes % (Manual) 0 Blast Cells % (Manual) 0 Reactive Lymphocytes 0 Platelet Estimate Adequate Prothrombin Time 12.7 H 9.3-11.8 sec Prothrombin Time INR 1.22 H 0.9-1.15 Activated Partial Thromboplast Time 31.8 24.5-34.5 SEC Sodium Level 142 136-145 mmol/L Potassium Level 3.7 3.5-5.1 mmol/L Chloride Level 108 H 98-107 mmol/L Carbon Dioxide Level 30 20-31 mmol/L Anion Gap 4 L 5-15 Blood Urea Nitrogen 8 L 9-23 mg/dL Creatinine 0.45 L 0.550-1.02 mg/dL Glomerular Filtration Rate Calc 128 >90 mL/min BUN/Creatinine Ratio 17.8 10.0-20.0 Serum Glucose 140 H 74-106 mg/dL Calcium Level 8.3 L 8.7-10.4 mg/dL Phosphorus Level 4.8 2.4-5.1 mg/dL Magnesium Level 1.7 1.6-2.6 mg/dL Total Bilirubin 0.3 0.2-1.0 mg/dL Aspartate Amino Transferase (AST) 19 13-40 U/L Alanine Aminotransferase (ALT) < 9 7-40 U/L Alkaline Phosphatase 59 46-116 U/L Total Protein 5.6 L 5.7-8.2 g/dL Albumin 2.5 L 3.2-4.8 g/dL Triglycerides Level 81 < 150 mg/dL Large Platelets Few Eosinophils (%) (Auto) 0.3 0.0-7.0 % Eosinophils # (Auto) 0.1 0-0.8 10 ^3/uL Basophils # (Auto) 0 0-0.2 10 ^3/uL Nucleated Red Blood Cells 0.0 % Test 12/26/23 04:40 12/25/23 13:42 12/25/23 04:19 12/24/23 15:12 Range/Units Clumped Platelets Moderate Stomatocytes Few Rapid Plasma Reagin Non reactive Non Reactive Ferritin 183.1 10-291 ng/mL Cholesterol Level 99 < 200 mg/dL LDL Cholesterol 66 < 100 mg/dL HDL Cholesterol 24 L 40-59 mg/dL Hepatitis C Antibody Negative Negative HIV (1&2) Antibody Negative Negative Urine Color Yellow Yellow Urine Clarity Turbid H Clear Urine pH 6.5 5.0-9.0 Urine Specific [place] 1.021 1.001-1.035 Urine Protein Trace H Negative Urine Ketones Trace Negative Urine Blood Negative Negative /uL Urine Nitrite Negative Negative Urine Bilirubin Negative Negative Urine Urobilinogen 4 H Negative mg/dL Urine Leukocyte Esterase 1+ Negative /uL Urine RBC 3 0 - 4 /hpf Urine WBC 4 0 - 5 /hpf Urine Squamous Epithelial Cells Few <5 /hpf Urine Bacteria None seen None Seen /hpf Urine Mucus Few None Seen Urine Glucose Normal Normal mg/dL Urine Test Negative Negative Urine Opiates Screen Neg NEGATIVE Urine Fentanyl Screen Neg NEGATIVE Urine Barbiturates Screen Neg NEGATIVE Urine Phencyclidine Screen Neg NEGATIVE Urine Amphetamines Screen Neg NEGATIVE Urine Benzodiazepines Screen Neg NEGATIVE Urine Cocaine Screen Neg NEGATIVE Urine Cannabinoids Screen Pos NEGATIVE Chlamydia trachomatis (AYSHA) Negative Negative Neisseria gonorrhoeae (AYSHA) Negative Negative Test 12/24/23 13:50 12/24/23 13:20 Range/Units Erythrocyte Sedimentation Rate 105 H 0-20 mm/hr Lipase 32 12-53 U/L Beta HCG, Quantitative 0.1 L 1.5-4.2 mIU/mL Plasma/Serum Blood Alcohol 3.3 <10 mg/dL Lactic Acid Level 0.8 0.4-2.0 mmol/L Microbiology Date/Time Source Procedure Growth Status 12/24/23 16:12 Blood Blood Culture - Final NO GROWTH AFTER 5 DAYS OF INCUBATION. Complete Problems(with codes): (1) Left pyosalpinx (2) Leukocytosis (3) Adnexal mass (4) Left lower quadrant abdominal pain Plan/Recommendation ASSESSMENT AND PLAN: ID Problem List: - Pyosalpinx - Tubo-ovarian abscess - Persistent leukocytosis - Anemia - History of kidney stones Assessment This is a 38 y.o. female with a past medical history of kidney stones (last occurrence three years ago), who presents with intermittent left lower quadrant pain and yellowish vaginal discharge for the last month. She had an intrauterine device (IUD) inserted five years ago, which was removed one month ago. She reports no multiple sexual partners and denies concern for sexually transmitted diseases. The pain is cramping in nature, rated 9 out of 10. She denies hematuria, fevers, or chills. No history of smoking or alcohol use; however, she does use marijuana occasionally. She lives with her boyfriend. Vital signs on admission revealed a temperature of 102.7F, respiratory rate of 16, blood pressure 102/68 mmHg, and oxygen saturation of 100% on room air. Physical examination was notable for tenderness in the left lower quadrant. Imaging studies include: - Pelvic ultrasound showing a left adnexal structurepossible mass or collection; infectious etiology not excluded. A simple cyst was noted in the right ovary. - CT abdomen and pelvis revealing a 5.6 x 5.1 cm thick-walled multilocular lesion of the left adnexa, suspicious for pyosalpinx; other etiologies not excluded. - Pelvic MRI demonstrating a multiloculated cystic mass in the left adnexa, likely representing a tubo-ovarian abscess; malignant lesion with necrosis not entirely excluded. On December 25, a CT-guided placement of an 8.5 mm pigtail drain was performed, yielding 25 cc of thick, foul, purulent fluid with slight green discoloration, sent for cytology and cultures. Cultures have shown no growth to date. Laboratory studies reveal a persistently elevated white blood cell count of 28,000/mm, hemoglobin of 8.2 g/dL, and platelet count of 344,000/mm. Despite drainage, the abscess remains sizable with minimal output, and the patient continues to have persistent leukocytosis. It is unclear if antibiotics alone will suffice in treating the infection. Plan: - Antibiotics: - Continue doxycycline and Flagyl (metronidazole). - Discontinue Zosyn (piperacillin-tazobactam) and initiate ceftriaxone. - Monitoring: - Monitor OLU drain output closely. - Follow up on blood cultures, cytology results, and aspirated culture results. - Interventions: - Consider additional drainage procedures. - Evaluate the need for surgical intervention if no improvement is observed. - Consults: - Coordinate with gynecology for potential surgical management. Isolation Precautions: Standard Assessment and plan were discussed with the patient as written above. Plan is subject to change pending incorporation of new incoming information/diagnostics. Updates may be added as addendum at the bottom (OR TOP) of this note. Thank you for this consult. We will continue to follow. Please contact us for any questions or concerns. Felicity Castillo M.D. [facility] Ph: ? History: The patient's chart and medications were reviewed in detail, and the patient was seen and examined. History obtained from: patient Sulma White is a 38 y.o. female with a past medical history of kidney stones (last occurrence three years ago), presenting with intermittent left lower quadrant pain and yellowish vaginal discharge for the past month. She had an IUD placed five years ago, which was removed one month prior to admission. She reports no multiple sexual partners and denies concerns for sexually transmitted diseases. The pain is cramping in nature, rated 9/10. She denies hematuria, fevers, or chills. She does not smoke or consume alcohol but does use marijuana occasionally. She lives with her boyfriend. She was started empirically on Zosyn (piperacillin-tazobactam) and gentamicin upon admission. Review of Systems: A complete 10-system review of systems was completed and negative except as noted in the HPI or here. ROS: - CONSTITUTIONAL: Denies weight loss, fevers, and chills. - HEENT: Denies changes in vision and hearing. - RESPIRATORY: Denies shortness of breath and cough. - CV: Denies palpitations and chest pain. - GI: Denies nausea, vomiting, and diarrhea. - : Reports left lower quadrant pain and yellowish vaginal discharge. - MSK: Denies myalgia and joint pain. - SKIN: Denies rash and pruritus. - NEUROLOGICAL: Denies headache and syncope. - PSYCHIATRIC: Denies recent changes in mood, anxiety, and depression. Past Medical History: Diagnosis | Date - | Kidney stones | Last occurrence 3 years ago Past Surgical History: History reviewed. No pertinent surgical history. Home Medications: Prior to Admission medications Medication | Sig - | No medications reported. | Allergies: No Known Allergies Family History: No significant family history reported. Social History: Socioeconomic History - Marital status: Lives with boyfriend - Number of children: Not on file - Years of education: Not on file - Highest education level: Not on file Occupational History - Not on file Tobacco Use - Smoking status: Never - Smokeless tobacco: Never Vaping Use - Vaping status: Never used Substance and Sexual Activity - Alcohol use: Never - Drug use: Occasional marijuana use - Sexual activity: Active; monogamous relationship Social History Narrative - Lives with boyfriend. Social Determinants of Health Objective: Vital Signs on Arrival: - Temp: 102.7F - BP: 102/68 mmHg - Pulse: [Not specified] - Resp: 16 breaths/min - SpO?: 100% on room air Most Recent Vital Signs: - Temp: 97.5F - BP: 108/64 mmHg - Pulse: 78 bpm - Resp: 16 breaths/min - SpO?: 100% on room air Admission Weight: Not provided Physical Exam: - General: No acute distress - Neck: Supple. No masses. - HEENT: PERRL. Normal lids and conjunctiva. Moist mucous membranes. Oropharynx without lesions, exudates, or excessive erythema. Normal appearance of the external aspects of the nose and ears. - Heart: Regular rhythm, normal rate. No murmur. No lower extremity edema. - Lungs: Normal respiratory effort. Clear to auscultation bilaterally. No wheezes. No crackles. - Abdomen: Soft. Tenderness in the left lower quadrant. Non-distended. No masses or abdominal hernia. - Musculoskeletal: No digital cyanosis. Normal strength and tone in all 4 limbs. - Skin: Warm and dry, no rashes. - Neuro: Alert. No facial droop or slurred speech. Extra-ocular movements intact. Sensation intact to soft touch in all 4 limbs. - Psych: Appropriate mood. Full affect. Oriented to person, place, time, and situation. Lines: Active Lines Line Type | Date/Time Placed | Location | Gauge | Duration - | - | - | - | Peripheral IV Line | [Date/Time] | [Location] | [Gauge] | [Duration] Diagnostic Studies: Available diagnostic studies were reviewed personally. Significant relevant results and findings are outlined below or addressed in the Assessment and Plan above. Pertinent Imaging: Ultrasound Pelvis - Impression: - Left adnexal structurepossible mass or collection; infectious etiology not excluded. - Simple cyst in the right ovary. CT Abdomen and Pelvis - Impression: - 5.6 x 5.1 cm thick-walled multilocular lesion of the left adnexa, suspicious for pyosalpinx; other etiologies not excluded. Pelvic MRI - Impression: - Multiloculated cystic mass in the left adnexa, likely representing a tubo- ovarian abscess. - Malignant lesion with necrosis not entirely excluded. CT-Guided Drainage - On 12/26/2023, an 8.5 mm pigtail drain was placed into the left adnexal mass under CT guidance. - Findings: - Drainage of 25 cc of thick, foul, purulent fluid with slight green color. - Fluid sent for cytology and cultures. Laboratory Studies: - White Blood Cell Count: 28,000/mm (elevated) - Hemoglobin: 8.2 g/dL (low) - Platelets: 344,000/mm (within normal limits) - Blood Cultures: No growth to date Additional Notes: - Cultures from drainage: Pending results - Cytology: Pending results - [End of Note] Plan discussed with: Patient FELICITY CASTILLO MD Dec 30, 2023 10:08"
--- NOTE | 2023-12-30 13:35 | DVHPNRES ---
Progress Note Date Seen: Dec 30, 2023 Resident Creating Document: SHARON RAJPUT RESIDENT Has the PT tested + for MRSA If YES, has PT been informed?: No Medical Necessity Reason Pt with a Central, PICC or Fol: No Subjective Review of Systems This is a 38-year-old female with past medical history of kidney stones, who presented to the ED with a chief complaint of intermittent left lower quadrant abdominal pain and yellowish vaginal discharge for last 1 month prior to this admission. According to the patient the left lower quadrant abdominal pain is colicky in nature 9/10 localized with no specific pattern of radiation and no aggravating or relieving factors and associated with yellowish vaginal discharge. She had an IUD for 5 years and removed 1 month ago. She had no history of STD or multiple sexual partner before and her last Pap test was few months ago and was normal study according to the patient. She also mentioned she had history of kidney stone 3 years ago and passed 3 stones but no imaging or follow up was done after that. She denies fever, chills, sweating, nausea, vomiting, chest pain, dizziness or any change in the bowel and bladder habit. on my examination, the patient denies any vaginal discharge at this point. The patient is having left suprapubic abdominal tenderness rated now as 7/10 on the pain scale after pain medications were given. OBGYN was consulted which assessed and evaluated the patient. Pelvic ultrasound showed left adnexal structure, possible mass/collection. There was also a simple cyst in the right ovary. CT scan of the abdomen and pelvis showed a 5.6 x 5.1 cm thick wall multilocular lesion in the left adnexa which is suspicion for a pyosalpinx. The patient was started on IV ceftriaxone, doxycycline and IV fluids at 75 cc/hour. Patient will be admitted for further assessment and management. Patient seen and examined at bedside. The patient is status post left oophorectomy with appendectomy and portion of large bowel resection with anastomosis of the descending colon with the rest of the rectum. OLU drainage was placed which is draining 125 cc in the last 24 hours. The patient is complaining of moderate to severe soreness in the lower portion of the abdomen which is suspected after surgical procedure. Infectious Disease was consulted which recommended stopping IV Zosyn and restarting back the patient on metronidazole, doxycycline and ceftriaxone. We added ketorolac 15 mg IV q.6 p.r.n. to modulate pain with Dilaudid as well. Kidney function is unremarkable. The patient is currently NPO and we will be NPO until bowel movement start to occur. Meanwhile we will continue the patient on TPN. Patient denies bowel movements at this point. ROS Constitutional: Denies weight loss, fever and chills. HEENT: Denies changes in vision and hearing. Respiratory: Denies shortness of breath and cough Cardiovascular: Denies chest discomfort or palpitations GI: Reports moderate to severe lower abdominal soreness/tenderness. Denies nausea/vomiting or diarrhea. : Denies dysuria and urinary frequency. Musculoskeletal: Denies myalgias and joint pain Skin: Denies rash and pruritus. Neurological: Denies dizziness, headache, vision or hearing problems Objective vital signs Vital Sign Date Time Temp Pulse Resp B/P (MAP) Pulse Ox O2 Delivery O2 Flow Rate FiO2 12/30/23 11:45 90 16 108/70 12/30/23 09:00 96 12/30/23 05:00 97.5 97.5 12/29/23 20:00 Room Air* 0 21 Total Intake and Output 12/29/23 12/29/23 12/30/23 15:00 23:00 07:00 Intake Total 100 ml 0 ml 1550 ml Output Total 205 ml 15 ml 250 ml Balance -105 ml -15 ml 1300 ml medications Current Medications Medications Dose Ordered Sig/Sadia Route Start Time Stop Time Status Last Admin Dose Admin Sodium Chloride 10 ml Q8HR IV 12/24/23 22:00 12/30/23 06:17 10 ML Ondansetron HCl 4 mg Q4HP PRN IV 12/24/23 21:30 12/29/23 03:36 4 MG Nitroglycerin 0.4 mg Q5MINP PRN SL 12/24/23 21:30 Lactated Ringer's 1,000 ml @ 125 mls/hr Q8H IV 12/29/23 13:15 12/29/23 20:10 125 MLS/HR Hydromorphone HCl 1 mg Q2HPRN PRN IV 12/29/23 13:15 12/30/23 11:45 1 MG Amino Acids 0 ml @ 0 mls/hr PER PHARMACY IV 12/29/23 19:00 Amino Acids 1,000 ml @ 42 mls/hr [id number] IV 12/29/23 22:00 12/30/23 21:59 12/29/23 22:29 42 MLS/HR Metronidazole 100 ml @ 100 mls/hr Q8HR IV 12/30/23 14:00 Doxycycline Hyclate 250 ml @ 125 mls/hr Q12H IV 12/30/23 12:45 UNV Fat Emulsion Intravenous 50 ml/ Potassium Chloride 20 meq/ Magnesium Sulfate 10 meq/ Multivitamins 10 ml/Chromium/ Copper/Manganese/ Zinc 1 ml/Amino Acids/Dextrose 873.5 ml @ 36 mls/hr [id number] IV 12/30/23 22:00 12/31/23 22:15 Examination Physical Examination General: Patient alert and oriented in person, place and time. Patient looks weak. Patient following commands. HEENT: Normocephalic, atraumatic, moist mucous membranes Respiratory/pulmonary: Clear lungs bilaterally, no associated crackles or wheezes. Cardiovascular: Normal heart sounds S1 and S2 with no associated murmurs Abdomen: Abdomen nondistended, there severe moderate to tenderness in the lower abdomen which is expected after surgical procedure. Abdominal incisions covered with gauze which looked clean and dry on inspection, wounds not exposed at this time since was recently placed. No masses palpable at this time. Extremities: There is no peripheral edema present at the lower extremities. Peripheral Pulses: 3+ Radial (R). 3+ Radial (L). 3+ Dorsalis pedis (R). 3+ Dorsalis pedis(L) Skin: No rashes or pruritus, there is no sacral edema present at this time. Neurological: Intact cranial nerves with no focal neurologic deficits laboratory and microbiology Laboratory Tests 12/30/23 05:05 Test 12/30/23 05:05 Range/Units Serum Glucose 140 H 74-106 mg/dL Microbiology Date/Time Source Procedure Growth Status 12/29/23 10:10 Peritoneal Fluid Gram Stain - Final Resulted 12/29/23 10:10 Peritoneal Fluid Anaerobic Culture Pending Resulted 12/29/23 10:10 Peritoneal Fluid Aerobic Culture - Preliminary Resulted 12/24/23 16:12 Blood Blood Culture - Final NO GROWTH AFTER 5 DAYS OF INCUBATION. Complete Problem List/Assessment/Plan Problem List/Assessment/Plan Assessment/Plan Acute left suprapubic pain likely due to left tubo-ovarian abscess/pyosalpinx Possible pelvic inflammatory disease Sepsis likely due to tubo-ovarian abscess/pyosalpinx (PID) S/P left oophorectomy with appendectomy and bowel resection with anastomosis of the descending colon with rectum Day 1 -initial WBC was 23.8, 23.5., patient also had fever, tachycardia -Last WBC was 28.0 -patient has a history of IUD for five years that was removed one month ago -CT of the abdomen showed a 5.6 x 5.1 cm thick walled multilocular lesion in the left adnexa which is suspicious for a pyosalpinx -Start IV metronidazole -Start IV doxycycline -Start ceftriaxone -Discontinue IV zosyn -continue lactate ringer at 125cc/hr -NAAT for chlamydia and gonorrhea, which both came back negative -IR attempted drainage of left tubo-ovarian abscess but patient kept septic so patient was escalated to surgery on 12/29/23 -OBGYN on board, which performed left oopherectomy with removal of appendix and part of greater omentum, as well as part of the colon with anastomosis without complications on 12/29/23. -MRI of the abdomen showed a multiloculated cystic mass in the left adnexa likely representing tubo-ovarian abscess. -patient is NPO -continue TPN -infectious disease on board which recommended restarting the patient back on metronidazole, doxycycline and ceftriaxone -OLU drainage, draining aprox 125cc/24hr -continue nasogastric negative suction. -patient still reports no bowel movements. Left-sided nonobstructing renal stone -continue IV fluids lactate ringer at 125 cc/hour -CT abdomen revealed punctating nonobstructing left sided nephrolithiasis -strain urine and monitor closely -follow-up with urology as an outpatient Normocytic hypochromic anemia -ordered iron panel, still pending -ordered ferritin which came back on normal range -last hemoglobin was 8.3 -monitor H&H closely Polysubstance abuse (cannabinoids) -urine drug screen came back positive for cannabis -genetic counsellor patient on drug cessation Goals of care discussed with the patient at bedside for >23min, FULL CODE Plan discussed with Dr. Olson Plan discussed with: Patient My Orders My Orders Orders - SHARON RAJPUT RESIDENT Procedure Category Date Status Time Npo (Nothing By DIET 12/30/23 Transmitted Mouth) Diet Lunch Metronidazole PHA 12/30/23 In Process 500mg/100ml (Flagyl 14:00 Doxycycline PHA 12/30/23 Logged 100mg/250ml 12:45 Ceftriaxone 2gm/50ml PHA 12/30/23 In Process D5w (Rocephin 2gm/5 12:45 Date of Service: Dec 30, 2023 Billing Provider: NILAM OLSON MD Common Visit Codes: 84501-[id number] INP/OBS CARE(HIGH) SHARON RAJPUT RESIDENT Dec 30, 2023 13:35 NILAM OLSON MD Dec 30, 2023 20:52
--- NOTE | 2023-12-30 13:59 | DVHPN2 ---
Progress Note Date Seen: Dec 30, 2023 Has the PT tested + for MRSA If YES, has PT been informed?: No Medical Necessity Reason Pt with a Central, PICC or Fol: No Objective vital signs Vital Sign Date Time Temp Pulse Resp B/P (MAP) Pulse Ox O2 Delivery O2 Flow Rate FiO2 12/30/23 11:45 90 16 108/70 12/30/23 09:00 96 12/30/23 05:00 97.5 97.5 12/29/23 20:00 Room Air* 0 21 Total Intake and Output 12/29/23 12/29/23 12/30/23 15:00 23:00 07:00 Intake Total 100 ml 0 ml 1550 ml Output Total 205 ml 15 ml 250 ml Balance -105 ml -15 ml 1300 ml medications Current Medications Medications Dose Ordered Sig/Sadia Route Start Time Stop Time Status Last Admin Dose Admin Sodium Chloride 10 ml Q8HR IV 12/24/23 22:00 12/30/23 06:17 10 ML Ondansetron HCl 4 mg Q4HP PRN IV 12/24/23 21:30 12/29/23 03:36 4 MG Nitroglycerin 0.4 mg Q5MINP PRN SL 12/24/23 21:30 Lactated Ringer's 1,000 ml @ 125 mls/hr Q8H IV 12/29/23 13:15 12/29/23 20:10 125 MLS/HR Hydromorphone HCl 1 mg Q2HPRN PRN IV 12/29/23 13:15 12/30/23 11:45 1 MG Amino Acids 0 ml @ 0 mls/hr PER PHARMACY IV 12/29/23 19:00 Amino Acids 1,000 ml @ 42 mls/hr [id number] IV 12/29/23 22:00 12/30/23 21:59 12/29/23 22:29 42 MLS/HR Metronidazole 100 ml @ 100 mls/hr Q8HR IV 12/30/23 14:00 Doxycycline Hyclate 250 ml @ 125 mls/hr Q12H IV 12/30/23 12:45 Fat Emulsion Intravenous 50 ml/ Potassium Chloride 20 meq/ Magnesium Sulfate 10 meq/ Multivitamins 10 ml/Chromium/ Copper/Manganese/ Zinc 1 ml/Amino Acids/Dextrose 873.5 ml @ 36 mls/hr [id number] IV 12/30/23 22:00 12/31/23 22:15 Ketorolac Tromethamine 15 mg Q6HPRN PRN IV 12/30/23 13:30 01/04/24 13:29 UNV Sodium Chloride 10 ml QSHIFT@10,22 IV 12/30/23 22:00 UNV laboratory and microbiology Laboratory Tests 12/30/23 05:05 Test 12/30/23 05:05 Range/Units Serum Glucose 140 H 74-106 mg/dL Problem List/Assessment/Plan Problem List/Assessment/Plan 12/30/23 patient's mother qat bedside. operative findings explained, patient understands that colostomy is a possibility if the anastomosis does not heal properly. ngt needs to remain till patient has a bowel movement Plan discussed with: Patient, Other ZAINA PEARCE MD Dec 30, 2023 13:59
[2023-12-30] MEDS: metroNIDAZOLE 500MG/100ML 100 ML IV SCH (14:23)
[2023-12-30] MEDS: MAGNESIUM SULFATE 1GM/100ML 100 ML IV ONE (14:33)
[2023-12-30] MEDS: cefTRIAXone 2GM/50ML D5W 50 ML IV ONE (15:56)
[2023-12-30] MEDS: DOXYCYCLINE 100MG/250ML 250 ML IV SCH (15:59)
--- NOTE | 2023-12-30 19:47 | DVH ---
CHEST RADIOGRAPH Indication:correct NG tube placement Technique: Single frontal view of the chest was obtained Comparison: None FINDINGS: Lines and Tubes: Enteric tube within the stomach however the proximal side port is at the gastroesoph ageal junction recommend advancement 2-3 cm. Lungs: No focal consolidation. Pleura: No effusion. No pneumothorax. Cardiomediastinal contours: Unremarkable Bones: No acute osseous abnormality. IMPRESSION: 1. Enteric tube in the stomach however the proximal side port is at the GE junction recommend advance ment 2-3 cm.
--- NOTE | 2023-12-30 21:18 | DVHPN2 ---
Consult Progress Note Date Seen: Dec 30, 2023 Subjective Patient reports: Feels worse (back after surgery and is still lethargic and tired, NPO , required 2 units of blood after procedure. Wound is clean dry and intact, OLU drain in the lower left quadrant thats draining bloody output) Objective vital signs Vital Sign Date Time Temp Pulse Resp B/P (MAP) Pulse Ox O2 Delivery O2 Flow Rate FiO2 12/30/23 20:58 97.6 86 19 91/62 (72) 100 97.6 12/30/23 08:00 Room Air* 0 21 Total Intake and Output 12/29/23 12/29/23 12/30/23 15:00 23:00 07:00 Intake Total 100 ml 0 ml 1550 ml Output Total 205 ml 15 ml 250 ml Balance -105 ml -15 ml 1300 ml medications Current Medications Medications Dose Ordered Sig/Sadia Route Start Time Stop Time Status Last Admin Dose Admin Sodium Chloride 10 ml Q8HR IV 12/24/23 22:00 12/30/23 14:00 10 ML Ondansetron HCl 4 mg Q4HP PRN IV 12/24/23 21:30 12/29/23 03:36 4 MG Nitroglycerin 0.4 mg Q5MINP PRN SL 12/24/23 21:30 Lactated Ringer's 1,000 ml @ 125 mls/hr Q8H IV 12/29/23 13:15 12/29/23 20:10 125 MLS/HR Hydromorphone HCl 1 mg Q2HPRN PRN IV 12/29/23 13:15 12/30/23 19:05 1 MG Amino Acids 0 ml @ 0 mls/hr PER PHARMACY IV 12/29/23 19:00 Amino Acids 1,000 ml @ 42 mls/hr [id number] IV 12/29/23 22:00 12/30/23 21:59 12/29/23 22:29 42 MLS/HR Metronidazole 100 ml @ 100 mls/hr Q8HR IV 12/30/23 14:00 12/30/23 14:23 100 MLS/HR Doxycycline Hyclate 250 ml @ 125 mls/hr Q12H IV 12/30/23 12:45 12/30/23 15:59 125 MLS/HR Fat Emulsion Intravenous 50 ml/ Potassium Chloride 20 meq/ Magnesium Sulfate 10 meq/ Multivitamins 10 ml/Chromium/ Copper/Manganese/ Zinc 1 ml/Amino Acids/Dextrose 873.5 ml @ 36 mls/hr [id number] IV 12/30/23 22:00 12/31/23 22:15 Ketorolac Tromethamine 15 mg Q6HPRN PRN IV 12/30/23 13:30 01/04/24 13:29 Sodium Chloride 10 ml QSHIFT@10,22 IV 12/30/23 22:00 Ceftriaxone Sodium/Dextrose 50 ml @ 50 mls/hr DAILY IV 12/31/23 10:00 Physical Exam: - General: No acute distress - Neck: Supple. No masses. - HEENT: PERRL. Normal lids and conjunctiva. Moist mucous membranes. Oropharynx without lesions, exudates, or excessive erythema. Normal appearance of the external aspects of the nose and ears. - Heart: Regular rhythm, normal rate. No murmur. No lower extremity edema. - Lungs: Normal respiratory effort. Clear to auscultation bilaterally. No wheezes. No crackles. - Abdomen: Soft. Tenderness in the left lower quadrant. distended. No masses or abdominal hernia. - Musculoskeletal: No digital cyanosis. Normal strength and tone in all 4 limbs. - Skin: Warm and dry, no rashes. - Neuro: Alert. No facial droop or slurred speech. Extra-ocular movements intact. Sensation intact to soft touch in all 4 limbs. - Psych: Appropriate mood. Full affect. Oriented to person, place, time, and situation. laboratory and microbiology Laboratory Tests 12/30/23 05:05 Test 12/30/23 05:05 Range/Units Serum Glucose 140 H 74-106 mg/dL Problem List/Assessment/Plan Problems(with codes): (1) Left pyosalpinx (2) Leukocytosis (3) Adnexal mass (4) Left lower quadrant abdominal pain Problem List/Assessment/Plan ASSESSMENT AND PLAN: ID Problem List: - Pyosalpinx - Tubo-ovarian abscess - Persistent leukocytosis - Anemia - History of kidney stones Assessment This is a 38 y.o. female with a past medical history of kidney stones (last occurrence three years ago), who presents with intermittent left lower quadrant pain and yellowish vaginal discharge for the last month. She had an intrauterine device (IUD) inserted five years ago, which was removed one month ago. She reports no multiple sexual partners and denies concern for sexually transmitted diseases. The pain is cramping in nature, rated 9 out of 10. She denies hematuria, fevers, or chills. No history of smoking or alcohol use; however, she does use marijuana occasionally. She lives with her boyfriend. Vital signs on admission revealed a temperature of 102.7F, respiratory rate of 16, blood pressure 102/68 mmHg, and oxygen saturation of 100% on room air. Physical examination was notable for tenderness in the left lower quadrant. Imaging studies include: - Pelvic ultrasound showing a left adnexal structurepossible mass or collection; infectious etiology not excluded. A simple cyst was noted in the right ovary. - CT abdomen and pelvis revealing a 5.6 x 5.1 cm thick-walled multilocular lesion of the left adnexa, suspicious for pyosalpinx; other etiologies not excluded. - Pelvic MRI demonstrating a multiloculated cystic mass in the left adnexa, likely representing a tubo-ovarian abscess; malignant lesion with necrosis not entirely excluded. On December 25, a CT-guided placement of an 8.5 mm pigtail drain was performed, yielding 25 cc of thick, foul, purulent fluid with slight green discoloration, sent for cytology and cultures. Cultures have shown no growth to date. Laboratory studies reveal a persistently elevated white blood cell count of 28,000/mm, hemoglobin of 8.2 g/dL, and platelet count of 344,000/mm. Despite drainage, the abscess remains sizable with minimal output, and the patient continues to have persistent leukocytosis. It is unclear if antibiotics alone will suffice in treating the infection. 12/29: Post op day 1 from diagnostic exploratory laparoscopy via midline incision , a left oophorectomy , a partial omentectomy, partial colon resection with primary anastomosis my Dr Strauss and an appendectomy. They found omental adhesions in the abdominal cavity , a mass in the left pelvis which could not be mobilized until the converted to an laparotomy. They found a large inflammatory mass . The greater momentum contained severely infected and indurated tissue , the momentum was divided and excised. mass was adherent to rectosigmoid and Dr Strauss was consulted. Olu drain was placed. Cultures from 12/28 and aspirated cultures from 12/25 show no growth. White count is still elevated but hemoglobin is stable Plan: - Antibiotics: - Continue doxycycline and Flagyl (metronidazole). - Continue ceftriaxone. - Monitoring: - Monitor OLU drain output closely. - Follow up on operative cultures as well as OLU drain output - blood pressure support as needed Plan discussed with: FELICITY Back MD Dec 30, 2023 21:18
[2023-12-30] MEDS: TPN PER PHARMACY IV NR (22:55)
[2023-12-30] MEDS: SODIUM CHLOR 0.9% PF (SALINE LOCK) 10ML VIAL/SYR IV SCH (23:24)
[2023-12-31] VITALS (8 sets, daily range): BP systolic 96–108; BP diastolic 61–68; PULSE 93–111; RESP 18–20; TEMP 97.5–98.6; O2SAT 91–100
[2023-12-31 07:07] LABS: Basophils # (auto) 0 10 ^3/uL (0-0.2); Basophils % (auto) 0.2 % (0.0-2.0); Eosinophils # (auto) 0 10 ^3/uL (0-0.8); Eosinophils % (auto) 0.3 % (0.0-7.0); Hemoglobin 7.9 g/dL (12.2-16.2); Lymphocytes # (auto) 1.8 10 ^3/uL (0.4-5.4); Lymphocytes % (auto) 9.3 % (10.0-50.0); Mean Corpuscular Hemoglobin 27.5 pg (28.0-32.0); Mean Corpuscular Hgb Conc. 32.8 g/dL (32.0-36.0); Mean Corpuscular Volume 83.8 fL (80.0-100.0); Monocytes # (auto) 0.9 10 ^3/uL (0-1.3); Monocytes % (auto) 4.6 % (0.0-12.0); Neutrophils # (auto) 16.8 10 ^3/uL (1.6-8.6); Neutrophils % (auto) 85.6 % (37.0-80.0); Nucleated Red Blood Cells % 0.1 %; Platelet Count (auto) 437 10^3/uL (140-450); Red Blood Cells 2.86 10^6/uL (4.0-5.20); Red Cell Distribution Width 15.8 % (11.8-14.3); White Blood Cell 19.7 10^3/uL (4.4-10.8)
[2023-12-31 07:33] LABS: Albumin 2.6 g/dL (3.2-4.8); Alkaline Phosphatase 54 U/L (46-116); Anion Gap 7 (5-15); Aspartate Aminotransferase 18 U/L (13-40); Bilirubin, Total 0.2 mg/dL (0.2-1.0); Blood Urea Nitrogen 7 mg/dL (9-23); Calcium 8.3 mg/dL (8.7-10.4); Carbon Dioxide 29 mmol/L (20-31); Chloride 104 mmol/L (98-107); Magnesium 1.9 mg/dL (1.6-2.6); Phosphorus 2.1 mg/dL (2.4-5.1); Sodium 140 mmol/L (136-145); Total Protein 5.8 g/dL (5.7-8.2)
[2023-12-31 07:42] LABS: Glucose 135 mg/dL (74-106)
[2023-12-31 07:44] LABS: Alanine Aminotransferase 9 U/L (7-40)
[2023-12-31] MEDS: cefTRIAXone 2GM/50ML D5W 50 ML IV SCH (09:58)
--- NOTE | 2023-12-31 10:25 | DVHPNRES ---
Progress Note Date Seen: Dec 31, 2023 Resident Creating Document: SHARON RAJPUT RESIDENT Has the PT tested + for MRSA If YES, has PT been informed?: No Medical Necessity Reason Pt with a Central, PICC or Fol: No Subjective Review of Systems This is a 38-year-old female with past medical history of kidney stones, who presented to the ED with a chief complaint of intermittent left lower quadrant abdominal pain and yellowish vaginal discharge for last 1 month prior to this admission. According to the patient the left lower quadrant abdominal pain is colicky in nature 9/10 localized with no specific pattern of radiation and no aggravating or relieving factors and associated with yellowish vaginal discharge. She had an IUD for 5 years and removed 1 month ago. She had no history of STD or multiple sexual partner before and her last Pap test was few months ago and was normal study according to the patient. She also mentioned she had history of kidney stone 3 years ago and passed 3 stones but no imaging or follow up was done after that. She denies fever, chills, sweating, nausea, vomiting, chest pain, dizziness or any change in the bowel and bladder habit. on my examination, the patient denies any vaginal discharge at this point. The patient is having left suprapubic abdominal tenderness rated now as 7/10 on the pain scale after pain medications were given. OBGYN was consulted which assessed and evaluated the patient. Pelvic ultrasound showed left adnexal structure, possible mass/collection. There was also a simple cyst in the right ovary. CT scan of the abdomen and pelvis showed a 5.6 x 5.1 cm thick wall multilocular lesion in the left adnexa which is suspicion for a pyosalpinx. The patient was started on IV ceftriaxone, doxycycline and IV fluids at 75 cc/hour. Patient will be admitted for further assessment and management. Patient seen and examined at bedside. The patient still reports moderate to severe abdominal tenderness in the periumbilical and hypogastric region. The patient also reports feeling minimal abdominal distention. Today, WBC came down from 20/8 to 19.7. Hemoglobin is also low at 7.9, CMP showed hypokalemia at 3.0 which was replaced. Rest of morning labs were grossly unremarkable. We will continue on IV ceftriaxone, doxycycline and metronidazole. OLU drainage is draining approximately 75cc/24hr serosanguineous fluid. Infectious Disease and OBGYN are both on board. We will continue to monitor patient closely. ROS Constitutional: Denies weight loss, fever and chills. HEENT: Denies changes in vision and hearing. Respiratory: Denies shortness of breath and cough Cardiovascular: Denies chest discomfort or palpitations GI: Reports moderate to severe abdominal tenderness at the periumbilical and hypogastric regions. Denies nausea, vomiting and diarrhea. : Denies dysuria and urinary frequency. Musculoskeletal: Denies myalgias and joint pain Skin: Denies rash and pruritus. Neurological: Denies dizziness, headache, vision or hearing problems Objective vital signs Vital Sign Date Time Temp Pulse Resp B/P (MAP) Pulse Ox O2 Delivery O2 Flow Rate FiO2 12/31/23 09:52 93 20 102/65 12/31/23 09:00 98.0 95 98.0 12/30/23 20:00 Nasal Cannula* 1 24 Total Intake and Output 12/30/23 12/30/23 12/31/23 15:00 23:00 07:00 Intake Total 2250 ml 1274 ml Balance 2250 ml 1274 ml medications Current Medications Medications Dose Ordered Sig/Sadia Route Start Time Stop Time Status Last Admin Dose Admin Sodium Chloride 10 ml Q8HR IV 12/24/23 22:00 12/31/23 06:06 10 ML Ondansetron HCl 4 mg Q4HP PRN IV 12/24/23 21:30 12/29/23 03:36 4 MG Nitroglycerin 0.4 mg Q5MINP PRN SL 12/24/23 21:30 Lactated Ringer's 1,000 ml @ 125 mls/hr Q8H IV 12/29/23 13:15 12/30/23 21:15 125 MLS/HR Hydromorphone HCl 1 mg Q2HPRN PRN IV 12/29/23 13:15 12/31/23 09:52 1 MG Amino Acids 0 ml @ 0 mls/hr PER PHARMACY IV 12/29/23 19:00 Metronidazole 100 ml @ 100 mls/hr Q8HR IV 12/30/23 14:00 12/31/23 06:16 100 MLS/HR Doxycycline Hyclate 250 ml @ 125 mls/hr Q12H IV 12/30/23 12:45 12/31/23 00:31 125 MLS/HR Fat Emulsion Intravenous 50 ml/ Potassium Chloride 20 meq/ Magnesium Sulfate 10 meq/ Multivitamins 10 ml/Chromium/ Copper/Manganese/ Zinc 1 ml/Amino Acids/Dextrose 873.5 ml @ 36 mls/hr [id number] IV 12/30/23 22:00 12/31/23 22:15 12/30/23 22:55 36 MLS/HR Ketorolac Tromethamine 15 mg Q6HPRN PRN IV 12/30/23 13:30 01/04/24 13:29 Sodium Chloride 10 ml QSHIFT@10,22 IV 12/30/23 22:00 12/30/23 23:24 10 ML Ceftriaxone Sodium/Dextrose 50 ml @ 50 mls/hr DAILY IV 12/31/23 10:00 12/31/23 09:58 50 MLS/HR Examination Physical Examination General: Patient alert and oriented in person, place and time. Patient looks weak. Patient following commands. HEENT: Normocephalic, atraumatic, moist mucous membranes Respiratory/pulmonary: Clear lungs bilaterally, no associated crackles or wheezes. Cardiovascular: Normal heart sounds S1 and S2 with no associated murmurs Abdomen: Abdomen nondistended, there severe moderate to tenderness in the lower abdomen which is expected after surgical procedure. Abdominal incisions covered with gauze which was minimally impregnated on serosanguineous fluid. No masses palpable at this time. Extremities: There is no peripheral edema present at the lower extremities. Peripheral Pulses: 3+ Radial (R). 3+ Radial (L). 3+ Dorsalis pedis (R). 3+ Dorsalis pedis(L) Skin: No rashes or pruritus, there is no sacral edema present at this time. Neurological: Intact cranial nerves with no focal neurologic deficits laboratory and microbiology Laboratory Tests 12/31/23 06:40 Test 12/31/23 06:40 Range/Units Serum Glucose 135 H 74-106 mg/dL Microbiology Date/Time Source Procedure Growth Status 12/29/23 10:10 Peritoneal Fluid Gram Stain - Final Resulted 12/29/23 10:10 Peritoneal Fluid Anaerobic Culture - Preliminary Resulted 12/29/23 10:10 Peritoneal Fluid Aerobic Culture - Preliminary Resulted 12/24/23 16:12 Blood Blood Culture - Final NO GROWTH AFTER 5 DAYS OF INCUBATION. Complete Problem List/Assessment/Plan Problem List/Assessment/Plan Assessment/Plan Acute left suprapubic pain likely due to left tubo-ovarian abscess/pyosalpinx Possible pelvic inflammatory disease Sepsis likely due to tubo-ovarian abscess/pyosalpinx (PID) S/P left oophorectomy with appendectomy and bowel resection with anastomosis of the descending colon with rectum Day 2 -initial WBC was 23.8, 23.5., patient also had fever, tachycardia -Last WBC was 28.0 -patient has a history of IUD for five years that was removed one month ago -CT of the abdomen showed a 5.6 x 5.1 cm thick walled multilocular lesion in the left adnexa which is suspicious for a pyosalpinx -continue IV metronidazole -continue IV doxycycline -continue ceftriaxone -continue lactate ringer at 125cc/hr -NAAT for chlamydia and gonorrhea, which both came back negative -IR attempted drainage of left tubo-ovarian abscess but patient kept septic so patient was escalated to surgery on 12/29/23 -OBGYN on board, which performed left oopherectomy with removal of appendix and part of greater omentum, as well as part of the colon with anastomosis without complications on 12/29/23. -MRI of the abdomen showed a multiloculated cystic mass in the left adnexa likely representing tubo-ovarian abscess. -patient is NPO -continue TPN -infectious disease on board which recommended restarting the patient back on metronidazole, doxycycline and ceftriaxone -OLU drainage, draining aprox 75cc/24hr -continue nasogastric negative suction. Left-sided nonobstructing renal stone -continue IV fluids lactate ringer at 125 cc/hour -CT abdomen revealed punctating nonobstructing left sided nephrolithiasis -strain urine and monitor closely -follow-up with urology as an outpatient Normocytic hypochromic anemia -ordered iron panel, still pending -ordered ferritin which came back on normal range -last hemoglobin was 7.9 -monitor H&H closely Polysubstance abuse (cannabinoids) -urine drug screen came back positive for cannabis -cancer genetic counselor patient on drug cessation Goals of care discussed with the patient at bedside for >23min, FULL CODE Plan discussed with Dr. Olson Plan discussed with: Patient My Orders My Orders Orders - SHARON RAJPUT RESIDENT Procedure Category Date Status Time Npo (Nothing By DIET 12/30/23 Transmitted Mouth) Diet Lunch Metronidazole [facility] 12/30/23 In Process 500mg/100ml (Flagyl 14:00 Doxycycline [facility] 12/30/23 In Process 100mg/250ml 12:45 Ketorolac Injection [facility] 12/30/23 In Process (Toradol Injection) 13:30 Change Dressing Prn [facility] 12/30/23 In Process 13:34 Sodium Chloride Lock [facility] 12/30/23 In Process (Saline Lock Ns) 22:00 Do Not Use Picc For [facility] 12/30/23 In Process Blood Cult 13:34 May Draw Blood From [facility] 12/30/23 In Process Picc 13:34 Ok To Use Picc [facility] 12/30/23 In Process 13:34 Change Picc Dressing [facility] 12/30/23 In Process Q7 Days 13:34 Us Guided Vascular US 12/30/23 Taken Access 13:34 Chest Xray 1 View XY 12/30/23 Resulted 18:52 Date of Service: Dec 31, 2023 Billing Provider: NILAM OLSON MD Common Visit Codes: [id number] INP/OBS CARE(HIGH) SHARON RAJPUT RESIDENT Dec 31, 2023 10:25 NILAM OLSON MD Jan 03, 2024 04:42
[2023-12-31] MEDS: POTASSIUM CHL 20MEQ/100ML 100 ML IV SCH (10:30)
[2023-12-31] MEDS ORDERED: DEXTROSE (50%) 50ML SYRG IV SCH (10:30)
[2023-12-31] MEDS: ACCU-CHEK COMFORT CURVE STRIP VI SCH (12:03)
[2023-12-31] MEDS: InsuLIN REG 1unit/0.01ml Soln (100units/ml) SC SCH (12:15)
--- NOTE | 2023-12-31 13:47 | DVHPN2 ---
Subjective Progress Notes Subjective POD#2 S: Patient denies flatus or BM yet TPN started yesterday. Has NG tube in place Patient is NOT ambulating yet, has SCD order for DVT prophylaxis NO N/V or fever since surgery. Objective PHYSICAL EXAM Physical Exam: Alert, NAD Abd: Incision C/D/I Abdomen non distended, soft Ext: Neg adalid sign, no edema, non tender OLU drain serosang. fluid Vital Signs and I&O Vital Signs Date Time Temp Pulse Resp B/P (MAP) Pulse Ox O2 Delivery O2 Flow Rate FiO2 12/31/23 13:11 98.6 96 20 96/61 (73) 91 98.6 12/30/23 20:00 Nasal Cannula* 1 24 Intake and Output0 12/31/23 07:00 Intake Total 3524 ml Balance 3524 ml Intake Oral 0 ml IV Total 3524 ml # Voids 2 Lab results Laboratory Tests Test 12/24/23 13:20 12/24/23 13:50 12/24/23 15:12 12/25/23 04:19 Range/Units Lactic Acid Level 0.8 0.4-2.0 mmol/L White Blood Count 23.8 H 23.5 H 4.4-10.8 10^3/uL Red Blood Count 3.66 L 3.01 L 4.0-5.20 10^6/uL Hemoglobin 9.8 L 7.9 #L 12.2-16.2 g/dL Hematocrit 30.4 L 25.1 #L 36.0-46.0 % Mean Corpuscular Volume 82.9 83.5 80.0-100.0 fL Mean Corpuscular Hemoglobin 26.8 L 26.2 L 28.0-32.0 pg Mean Corpuscular Hemoglobin Concent 32.4 31.4 L 32.0-36.0 g/dL Red Cell Distribution Width 14.1 14.4 H 11.8-14.3 % Platelet Count 466 H 395 140-450 10^3/uL Mean Platelet Volume 7.8 7.2 6.9-10.8 fL Neutrophils (%) (Auto) 89.6 H 87.1 H 37.0-80.0 % Lymphocytes (%) (Auto) 5.4 L 7.2 L 10.0-50.0 % Monocytes (%) (Auto) 4.3 5.3 0.0-12.0 % Eosinophils (%) (Auto) 0.4 0.2 0.0-7.0 % Basophils (%) (Auto) 0.3 0.2 0.0-2.0 % Neutrophils # (Auto) 21.3 H 20.4 H 1.6-8.6 10 ^3/uL Lymphocytes # (Auto) 1.3 1.7 0.4-5.4 10 ^3/uL Monocytes # (Auto) 1.0 1.3 0-1.3 10 ^3/uL Eosinophils # (Auto) 0.1 0.1 0-0.8 10 ^3/uL Basophils # (Auto) 0.1 0 0-0.2 10 ^3/uL Nucleated Red Blood Cells 0.0 0.0 % Erythrocyte Sedimentation Rate 105 H 0-20 mm/hr Prothrombin Time 12.1 H 9.3-11.8 sec Prothrombin Time INR 1.15 0.9-1.15 Activated Partial Thromboplast Time 32.5 24.5-34.5 SEC Sodium Level 135 L 138 136-145 mmol/L Potassium Level 3.8 3.7 3.5-5.1 mmol/L Chloride Level 102 106 98-107 mmol/L Carbon Dioxide Level 27 26 20-31 mmol/L Anion Gap 6 6 5-15 Blood Urea Nitrogen 6 L < 5 L 9-23 mg/dL Creatinine 0.68 0.65 0.550-1.02 mg/dL Glomerular Filtration Rate Calc 116 117 >90 mL/min BUN/Creatinine Ratio 8.8 L 7.7 L 10.0-20.0 Serum Glucose 97 102 74-106 mg/dL Calcium Level 9.3 8.6 L 8.7-10.4 mg/dL Total Bilirubin 0.5 0.5 0.2-1.0 mg/dL Aspartate Amino Transferase (AST) 18 16 13-40 U/L Alanine Aminotransferase (ALT) 16 12 7-40 U/L Alkaline Phosphatase 101 86 46-116 U/L Total Protein 8.5 H 7.0 5.7-8.2 g/dL Albumin 3.8 3.4 3.2-4.8 g/dL Lipase 32 12-53 U/L Beta HCG, Quantitative 0.1 L 1.5-4.2 mIU/mL Plasma/Serum Blood Alcohol 3.3 <10 mg/dL Urine Color Yellow Yellow Urine Clarity Turbid H Clear Urine pH 6.5 5.0-9.0 Urine Specific [place] 1.021 1.001-1.035 Urine Protein Trace H Negative Urine Ketones Trace Negative Urine Blood Negative Negative /uL Urine Nitrite Negative Negative Urine Bilirubin Negative Negative Urine Urobilinogen 4 H Negative mg/dL Urine Leukocyte Esterase 1+ Negative /uL Urine RBC 3 0 - 4 /hpf Urine WBC 4 0 - 5 /hpf Urine Squamous Epithelial Cells Few <5 /hpf Urine Bacteria None seen None Seen /hpf Urine Mucus Few None Seen Urine Glucose Normal Normal mg/dL Urine Test Negative Negative Urine Opiates Screen Neg NEGATIVE Urine Fentanyl Screen Neg NEGATIVE Urine Barbiturates Screen Neg NEGATIVE Urine Phencyclidine Screen Neg NEGATIVE Urine Amphetamines Screen Neg NEGATIVE Urine Benzodiazepines Screen Neg NEGATIVE Urine Cocaine Screen Neg NEGATIVE Urine Cannabinoids Screen Pos NEGATIVE Chlamydia trachomatis (AYSHA) Negative Negative Neisseria gonorrhoeae (AYSHA) Negative Negative Ferritin 183.1 10-291 ng/mL Triglycerides Level 65 < 150 mg/dL Cholesterol Level 99 < 200 mg/dL LDL Cholesterol 66 < 100 mg/dL HDL Cholesterol 24 L 40-59 mg/dL Hepatitis C Antibody Negative Negative HIV (1&2) Antibody Negative Negative Test 12/25/23 13:42 12/26/23 04:40 12/27/23 05:04 12/28/23 03:28 Range/Units Rapid Plasma Reagin Non reactive Non Reactive White Blood Count 26.0 H 28.4 H 26.6 H 4.4-10.8 10^3/uL Red Blood Count 3.15 L 3.25 L 3.13 L 4.0-5.20 10^6/uL Hemoglobin 8.2 L 8.6 L 8.2 L 12.2-16.2 g/dL Hematocrit 26.2 L 26.8 L 25.9 L 36.0-46.0 % Mean Corpuscular Volume 83.1 82.5 82.8 80.0-100.0 fL Mean Corpuscular Hemoglobin 26.1 L 26.3 L 26.3 L 28.0-32.0 pg Mean Corpuscular Hemoglobin Concent 31.4 L 31.9 L 31.8 L 32.0-36.0 g/dL Red Cell Distribution Width 14.5 H 14.4 H 14.8 H 11.8-14.3 % Platelet Count 334 338 409 140-450 10^3/uL Mean Platelet Volume 7.4 7.6 7.6 6.9-10.8 fL Neutrophils (%) (Auto) 92.7 H 89.5 H 37.0-80.0 % Lymphocytes (%) (Auto) 3.4 L 6.0 L 10.0-50.0 % Monocytes (%) (Auto) 3.7 4.1 0.0-12.0 % Basophils (%) (Auto) 0.2 0.1 0.0-2.0 % Neutrophils # (Auto) 26.3 H 23.8 H 1.6-8.6 10 ^3/uL Lymphocytes # (Auto) 1.0 1.6 0.4-5.4 10 ^3/uL Monocytes # (Auto) 1.0 1.1 0-1.3 10 ^3/uL Differential Total Cells Counted 100.0 100 Neutrophils % (Manual) 90 H 37.0-80.0 Band Neutrophils % (Manual) 0 Lymphocytes % (Manual) 6 L 10.0-50.0 Monocytes % (Manual) 4 0-12 Eosinophils % (Manual) 0 0-7 Basophils % (Manual) 0 0.0-2.0 Metamyelocytes % (manual) 0 Myelocytes % (Manual) 0 Promyelocytes % (Manual) 0 Blast Cells % (Manual) 0 Reactive Lymphocytes 0 Platelet Estimate Adequate Clumped Platelets Moderate Stomatocytes Few Sodium Level 135 L 135 L 135 L 136-145 mmol/L Potassium Level 3.6 3.4 L 3.4 L 3.5-5.1 mmol/L Chloride Level 104 101 102 98-107 mmol/L Carbon Dioxide Level 26 25 25 20-31 mmol/L Anion Gap 5 9 8 5-15 Blood Urea Nitrogen < 5 L < 5 L < 5 L 9-23 mg/dL Creatinine 0.65 0.62 0.51 L 0.550-1.02 mg/dL Glomerular Filtration Rate Calc 117 118 124 >90 mL/min BUN/Creatinine Ratio 7.7 L 8.1 L 9.8 L 10.0-20.0 Serum Glucose 97 106 92 74-106 mg/dL Calcium Level 8.9 8.6 L 8.7 8.7-10.4 mg/dL Eosinophils (%) (Auto) 0.0 0.3 0.0-7.0 % Eosinophils # (Auto) 0 0.1 0-0.8 10 ^3/uL Basophils # (Auto) 0 0 0-0.2 10 ^3/uL Nucleated Red Blood Cells 0.0 0.0 % Magnesium Level 1.8 1.9 1.6-2.6 mg/dL Total Bilirubin 0.4 0.2-1.0 mg/dL Aspartate Amino Transferase (AST) 13 13-40 U/L Alanine Aminotransferase (ALT) < 9 7-40 U/L Alkaline Phosphatase 88 46-116 U/L Total Protein 6.7 5.7-8.2 g/dL Albumin 3.1 L 3.2-4.8 g/dL Test 12/29/23 10:10 12/29/23 16:01 12/30/23 05:05 12/31/23 06:40 Range/Units Body Fluid Source Pending Body Fluid pH Pending Body Fluid WBC (Manual) Pending Body Fluid RBC (Manual) Pending Body Fluid Mononuclear Cells Pending Body Fluid Polymorphonuclear Cells Pending White Blood Count 29.0 H 28.0 H 19.7 #H 4.4-10.8 10^3/uL Red Blood Count 3.34 L 3.12 L 2.86 L 4.0-5.20 10^6/uL Hemoglobin 9.2 L 8.3 L 7.9 L 12.2-16.2 g/dL Hematocrit 28.3 L 26.5 L 24.0 L 36.0-46.0 % Mean Corpuscular Volume 84.6 84.9 83.8 80.0-100.0 fL Mean Corpuscular Hemoglobin 27.6 L 26.6 L 27.5 L 28.0-32.0 pg Mean Corpuscular Hemoglobin Concent 32.6 31.4 L 32.8 32.0-36.0 g/dL Red Cell Distribution Width 15.2 H 15.4 H 15.8 H 11.8-14.3 % Platelet Count 380 433 437 140-450 10^3/uL Mean Platelet Volume 7.6 7.6 7.5 6.9-10.8 fL Neutrophils (%) (Auto) 85.6 H 37.0-80.0 % Lymphocytes (%) (Auto) 9.3 L 10.0-50.0 % Monocytes (%) (Auto) 4.6 0.0-12.0 % Basophils (%) (Auto) 0.2 0.0-2.0 % Neutrophils # (Auto) 16.8 H 1.6-8.6 10 ^3/uL Lymphocytes # (Auto) 1.8 0.4-5.4 10 ^3/uL Monocytes # (Auto) 0.9 0-1.3 10 ^3/uL Differential Total Cells Counted 100.0 100.0 100 Neutrophils % (Manual) 75 71 37.0-80.0 Band Neutrophils % (Manual) 21 25 Lymphocytes % (Manual) 1 L 3 L 10.0-50.0 Monocytes % (Manual) 1 0 0-12 Eosinophils % (Manual) 0 0 0-7 Basophils % (Manual) 0 0 0.0-2.0 Metamyelocytes % (manual) 2 1 Myelocytes % (Manual) 0 0 Promyelocytes % (Manual) 0 0 Blast Cells % (Manual) 0 0 Reactive Lymphocytes 0 0 Platelet Estimate Adequate Adequate Large Platelets Few Sodium Level 139 142 140 136-145 mmol/L Potassium Level 3.7 3.7 3.0 L 3.5-5.1 mmol/L Chloride Level 112 #H 108 H 104 98-107 mmol/L Carbon Dioxide Level 24 30 29 20-31 mmol/L Anion Gap 3 L 4 L 7 5-15 Blood Urea Nitrogen < 5 L 8 L 7 L 9-23 mg/dL Creatinine 0.38 L 0.45 L 0.35 L 0.550-1.02 mg/dL Glomerular Filtration Rate Calc 133 128 136 >90 mL/min BUN/Creatinine Ratio 13.2 17.8 20.0 10.0-20.0 Serum Glucose 141 H 140 H 135 H 74-106 mg/dL Calcium Level 7.4 L 8.3 L 8.3 L 8.7-10.4 mg/dL Prothrombin Time 12.7 H 9.3-11.8 sec Prothrombin Time INR 1.22 H 0.9-1.15 Activated Partial Thromboplast Time 31.8 24.5-34.5 SEC Phosphorus Level 4.8 2.1 L 2.4-5.1 mg/dL Magnesium Level 1.7 1.9 1.6-2.6 mg/dL Total Bilirubin 0.3 0.2 0.2-1.0 mg/dL Aspartate Amino Transferase (AST) 19 18 13-40 U/L Alanine Aminotransferase (ALT) < 9 9 7-40 U/L Alkaline Phosphatase 59 54 46-116 U/L Total Protein 5.6 L 5.8 5.7-8.2 g/dL Albumin 2.5 L 2.6 L 3.2-4.8 g/dL Triglycerides Level 81 < 150 mg/dL Eosinophils (%) (Auto) 0.3 0.0-7.0 % Eosinophils # (Auto) 0 0-0.8 10 ^3/uL Basophils # (Auto) 0 0-0.2 10 ^3/uL Nucleated Red Blood Cells 0.1 % Test 12/31/23 11:42 Range/Units POC Glucose 141 H 70-106 mg/dl Assessment and Plan ASSESSMENT AND PLAN Assessment and Plan s/p Ex LAP , Left OOphorectomy, Removal of TOA/Bowel w/ anastamosis Plan: Continue current care NPO and IV fluids/ TPN, NG tube Pain control Appreciate ID consult; IV antibiotics per ID recommendations. My orders: Orders - ANNALISA MANCINI DO * Technical Training Specialist Consultation (12/25/23 07:08) Obtain Consent For Anesthesia (12/25/23 07:47) * Radiologist Consult (12/25/23 12:29) Obtain Consent For: (12/29/23 07:27) Gram Stain (12/29/23 10:10) Routine Bacterial Culture (12/29/23 10:10) Anaerobic Culture (12/29/23 10:10) Strict I & O QSHIFT (12/29/23 13:06) Discontinue Trent Catheter (12/29/23 13:06) Notify L&D Md If: (12/29/23 13:06) Is At Bedside. (12/29/23 13:06) Incentive Spirometry (12/29/23 13:06) Hydromorphone Injection (Dilaudid Inject (12/29/23 13:15) Ng/Orogastric Tube To Lis (12/29/23 13:06) * Infectious [place]- Dr. Lanre Castillo (12/29/23 13:18) Consult For Nutrition (12/29/23 18:40) Kub Abdomen Single View (12/30/23 04:00) Plan discussed with: Patient Date of Service: Dec 31, 2023 Billing Provider: ANNALISA MANCINI DO Common Visit Codes: [id number] INP/OBS CARE(MOD) ANNALISA MANCINI DO Dec 31, 2023 13:47
[2023-12-31] MEDS: TPN PER PHARMACY IV NR (21:18)
--- NOTE | 2023-12-31 22:10 | DVHPN2 ---
Consult Progress Note Date Seen: Dec 31, 2023 Subjective Patient reports: Feels better (doing well on TPN , tolerating it but no bowel movements, hypoactive bowel sounds no pain . GP drain has about another 45ccs of fluid) Objective vital signs Vital Sign Date Time Temp Pulse Resp B/P (MAP) Pulse Ox O2 Delivery O2 Flow Rate FiO2 12/31/23 19:51 99 18 100 Room Air* 0 21 12/31/23 19:00 100/68 12/31/23 17:19 97.9 97.9 Total Intake and Output 12/30/23 12/30/23 12/31/23 15:00 23:00 07:00 Intake Total 2250 ml 1274 ml Balance 2250 ml 1274 ml medications Current Medications Medications Dose Ordered Sig/Sadia Route Start Time Stop Time Status Last Admin Dose Admin Sodium Chloride 10 ml Q8HR IV 12/24/23 22:00 12/31/23 21:19 10 ML Ondansetron HCl 4 mg Q4HP PRN IV 12/24/23 21:30 12/29/23 03:36 4 MG Nitroglycerin 0.4 mg Q5MINP PRN SL 12/24/23 21:30 Hydromorphone HCl 1 mg Q2HPRN PRN IV 12/29/23 13:15 12/31/23 18:29 1 MG Amino Acids 0 ml @ 0 mls/hr PER PHARMACY IV 12/29/23 19:00 Metronidazole 100 ml @ 100 mls/hr Q8HR IV 12/30/23 14:00 12/31/23 21:32 100 MLS/HR Doxycycline Hyclate 250 ml @ 125 mls/hr Q12H IV 12/30/23 12:45 12/31/23 12:09 125 MLS/HR Fat Emulsion Intravenous 50 ml/ Potassium Chloride 20 meq/ Magnesium Sulfate 10 meq/ Multivitamins 10 ml/Chromium/ Copper/Manganese/ Zinc 1 ml/Amino Acids/Dextrose 873.5 ml @ 36 mls/hr [id number] IV 12/30/23 22:00 12/31/23 22:15 12/30/23 22:55 36 MLS/HR Ketorolac Tromethamine 15 mg Q6HPRN PRN IV 12/30/23 13:30 01/04/24 13:29 Sodium Chloride 10 ml QSHIFT@10,22 IV 12/30/23 22:00 12/31/23 21:19 10 ML Ceftriaxone Sodium/Dextrose 50 ml @ 50 mls/hr DAILY IV 12/31/23 10:00 12/31/23 09:58 50 MLS/HR Diagnostic Test (Pha) 1 strip Q6HR 12/31/23 12:00 12/31/23 18:00 1 STRIP Insulin Human Regular FOLLOW SLIDING SCALE Q6HR SC 12/31/23 12:00 12/31/23 12:15 2 UNITS Dextrose 50 ml UD IV 12/31/23 10:30 Fat Emulsion Intravenous 100 ml/Sodium Phosphate 40 meq/ Potassium Chloride 40 meq/ Magnesium Sulfate 14 meq/ Multivitamins 10 ml/Chromium/ Copper/Manganese/ Zinc 1 ml/Amino Acids/Dextrose 1,094.5 ml @ 45 mls/hr [id number] IV 12/31/23 22:00 01/01/24 22:19 12/31/23 21:18 45 MLS/HR Physical Exam: - General: No acute distress - Neck: Supple. No masses. - HEENT: PERRL. Normal lids and conjunctiva. Moist mucous membranes. Oropharynx without lesions, exudates, or excessive erythema. Normal appearance of the external aspects of the nose and ears. - Heart: Regular rhythm, normal rate. No murmur. No lower extremity edema. - Lungs: Normal respiratory effort. Clear to auscultation bilaterally. No wheezes. No crackles. - Abdomen: Soft. Tenderness in the left lower quadrant. distended. No masses or abdominal hernia. - Musculoskeletal: No digital cyanosis. Normal strength and tone in all 4 limbs. - Skin: Warm and dry, no rashes. - Neuro: Alert. No facial droop or slurred speech. Extra-ocular movements intact. Sensation intact to soft touch in all 4 limbs. - Psych: Appropriate mood. Full affect. Oriented to person, place, time, and situation. laboratory and microbiology Laboratory Tests 12/31/23 20:58 12/31/23 06:40 Test 12/31/23 06:40 Range/Units Serum Glucose 135 H 74-106 mg/dL Problem List/Assessment/Plan Problems(with codes): (1) Left pyosalpinx (2) Leukocytosis (3) Adnexal mass (4) Left lower quadrant abdominal pain Problem List/Assessment/Plan ASSESSMENT AND PLAN: ID Problem List: - Pyosalpinx - Tubo-ovarian abscess - Persistent leukocytosis - Anemia - History of kidney stones - itraabdominal mass -inflammed appendix Assessment This is a 38 y.o. female with a past medical history of kidney stones (last occurrence three years ago), who presents with intermittent left lower quadrant pain and yellowish vaginal discharge for the last month. She had an intrauterine device (IUD) inserted five years ago, which was removed one month ago. She reports no multiple sexual partners and denies concern for sexually transmitted diseases. The pain is cramping in nature, rated 9 out of 10. She denies hematuria, fevers, or chills. No history of smoking or alcohol use; however, she does use marijuana occasionally. She lives with her boyfriend. Vital signs on admission revealed a temperature of 102.7F, respiratory rate of 16, blood pressure 102/68 mmHg, and oxygen saturation of 100% on room air. Physical examination was notable for tenderness in the left lower quadrant. Imaging studies include: - Pelvic ultrasound showing a left adnexal structurepossible mass or collection; infectious etiology not excluded. A simple cyst was noted in the right ovary. - CT abdomen and pelvis revealing a 5.6 x 5.1 cm thick-walled multilocular lesion of the left adnexa, suspicious for pyosalpinx; other etiologies not excluded. - Pelvic MRI demonstrating a multiloculated cystic mass in the left adnexa, likely representing a tubo-ovarian abscess; malignant lesion with necrosis not entirely excluded. On December 25, a CT-guided placement of an 8.5 mm pigtail drain was performed, yielding 25 cc of thick, foul, purulent fluid with slight green discoloration, sent for cytology and cultures. Cultures have shown no growth to date. Laboratory studies reveal a persistently elevated white blood cell count of 28,000/mm, hemoglobin of 8.2 g/dL, and platelet count of 344,000/mm. Despite drainage, the abscess remains sizable with minimal output, and the patient continues to have persistent leukocytosis. It is unclear if antibiotics alone will suffice in treating the infection. 12/29: Post op day 1 from diagnostic exploratory laparoscopy via midline incision , a left oophorectomy , a partial omentectomy, partial colon resection with primary anastomosis my Dr Strauss and an appendectomy. They found omental adhesions in the abdominal cavity , a mass in the left pelvis which could not be mobilized until the converted to an laparotomy. They found a large inflammatory mass . The greater momentum contained severely infected and indurated tissue , the momentum was divided and excised. mass was adherent to rectosigmoid and Dr Strauss was consulted. Olu drain was placed. Cultures from 12/28 and aspirated cultures from 12/25 show no growth. White count is still elevated but hemoglobin is stable 12/30: white count has gone down to 19.7, chest x-ray shows a need to advance anterior tube in the stomach about 2 cm. cultures from asprite from the IR drainage revealed anerococcus and the peritoneal fluid cultures are still pending Plan: - follow up on biopsy results of mass - Antibiotics: - Continue doxycycline and Flagyl (metronidazole). - Continue ceftriaxone. - Monitoring: - Monitor OLU drain output closely. - Follow up on operative cultures as well as OLU drain output - blood pressure support as needed Plan discussed with: Other Dietary Evaluation Review Comments: 1) Increase TPN to meet at least 75% of estimated needs 2) Advance pt diet when medically feasible 3) Continue current plan of care Expected Outcomes/Goals: 1) Pt diet to advance 2) F/U in 2-3 days FELICITY MEMBRENO MD Dec 31, 2023 22:10
[2023-12-31] MEDS: POTASSIUM PHOSPHATE 26.4 MEQ in SODIUM CHL 0.9% 100 ML IV ONE (23:05)
[2024-01-01] VITALS (11 sets, daily range): BP systolic 107–118; BP diastolic 53–75; PULSE 97–111; RESP 16–20; TEMP 97.6–98.5; O2SAT 90–100
[2024-01-01 06:30] LABS: Basophils # (auto) 0 10 ^3/uL (0-0.2); Eosinophils # (auto) 0.1 10 ^3/uL (0-0.8); Neutrophils # (auto) 14.6 10 ^3/uL (1.6-8.6); Red Cell Distribution Width 15.9 % (11.8-14.3)
[2024-01-01 06:33] LABS: Basophils % (auto) 0.2 % (0.0-2.0); Eosinophils % (auto) 0.7 % (0.0-7.0); Hematocrit 25.2 % (36.0-46.0); Hemoglobin 8.2 g/dL (12.2-16.2); Lymphocytes # (auto) 1.9 10 ^3/uL (0.4-5.4); Lymphocytes % (auto) 10.7 % (10.0-50.0); Mean Corpuscular Hemoglobin 27.5 pg (28.0-32.0); Mean Corpuscular Hgb Conc. 32.4 g/dL (32.0-36.0); Mean Corpuscular Volume 84.9 fL (80.0-100.0); Monocytes % (auto) 5.6 % (0.0-12.0); Neutrophils % (auto) 82.8 % (37.0-80.0); Nucleated Red Blood Cells % 0.2 %; Platelet Count (auto) 506 10^3/uL (140-450); Red Blood Cells 2.97 10^6/uL (4.0-5.20); White Blood Cell 17.6 10^3/uL (4.4-10.8)
[2024-01-01 06:50] LABS: Alanine Aminotransferase 10 U/L (7-40); Albumin 2.9 g/dL (3.2-4.8); Alkaline Phosphatase 71 U/L (46-116); Anion Gap 10 (5-15); Aspartate Aminotransferase 31 U/L (13-40); BUN/Creatinine Ratio 21.6 (10.0-20.0); Bilirubin, Total 0.2 mg/dL (0.2-1.0); Blood Urea Nitrogen 8 mg/dL (9-23); Calcium 8.2 mg/dL (8.7-10.4); Carbon Dioxide 27 mmol/L (20-31); Chloride 105 mmol/L (98-107); Glucose 100 mg/dL (74-106); Magnesium 2.1 mg/dL (1.6-2.6); Phosphorus 3.4 mg/dL (2.4-5.1); Potassium 3.3 mmol/L (3.5-5.1); Sodium 142 mmol/L (136-145); Total Protein 6.1 g/dL (5.7-8.2)
--- NOTE | 2024-01-01 08:45 | DVHPN2 ---
Progress Note Date Seen: Jan 01, 2024 Has the PT tested + for MRSA If YES, has PT been informed?: No Medical Necessity Reason Pt with a Central, PICC or Fol: No Objective vital signs Vital Sign Date Time Temp Pulse Resp B/P (MAP) Pulse Ox O2 Delivery O2 Flow Rate FiO2 01/01/24 05:00 98.0 103 20 110/60 (77) 97 98.0 12/31/23 19:51 Room Air* 0 21 Total Intake and Output 12/31/23 12/31/23 01/01/24 15:00 23:00 07:00 Intake Total 600 ml 849.5 ml 456 ml Balance 600 ml 849.5 ml 456 ml medications Current Medications Medications Dose Ordered Sig/Sadia Route Start Time Stop Time Status Last Admin Dose Admin Sodium Chloride 10 ml Q8HR IV 12/24/23 22:00 01/01/24 05:22 10 ML Ondansetron HCl 4 mg Q4HP PRN IV 12/24/23 21:30 12/29/23 03:36 4 MG Nitroglycerin 0.4 mg Q5MINP PRN SL 12/24/23 21:30 Hydromorphone HCl 1 mg Q2HPRN PRN IV 12/29/23 13:15 01/01/24 01:14 1 MG Amino Acids 0 ml @ 0 mls/hr PER PHARMACY IV 12/29/23 19:00 Metronidazole 100 ml @ 100 mls/hr Q8HR IV 12/30/23 14:00 01/01/24 05:22 100 MLS/HR Doxycycline Hyclate 250 ml @ 125 mls/hr Q12H IV 12/30/23 12:45 01/01/24 01:02 125 MLS/HR Ketorolac Tromethamine 15 mg Q6HPRN PRN IV 12/30/23 13:30 01/04/24 13:29 Sodium Chloride 10 ml QSHIFT@10,22 IV 12/30/23 22:00 12/31/23 21:19 10 ML Ceftriaxone Sodium/Dextrose 50 ml @ 50 mls/hr DAILY IV 12/31/23 10:00 12/31/23 09:58 50 MLS/HR Diagnostic Test (Pha) 1 strip Q6HR 12/31/23 12:00 01/01/24 05:22 1 STRIP Insulin Human Regular FOLLOW SLIDING SCALE Q6HR SC 12/31/23 12:00 12/31/23 12:15 2 UNITS Dextrose 50 ml UD IV 12/31/23 10:30 Fat Emulsion Intravenous 100 ml/Sodium Phosphate 40 meq/ Potassium Chloride 40 meq/ Magnesium Sulfate 14 meq/ Multivitamins 10 ml/Chromium/ Copper/Manganese/ Zinc 1 ml/Amino Acids/Dextrose 1,094.5 ml @ 45 mls/hr [id number] IV 12/31/23 22:00 01/01/24 22:19 12/31/23 21:18 45 MLS/HR laboratory and microbiology Laboratory Tests 01/01/24 05:40 Test 01/01/24 05:40 Range/Units Serum Glucose 100 74-106 mg/dL Problem List/Assessment/Plan Problem List/Assessment/Plan 12/30/23 patient's mother qat bedside. operative findings explained, patient understands that colostomy is a possibility if the anastomosis does not heal properly. ngt needs to remain till patient has a bowel movement 01/01/24 PATIENT GAGGING AND RETCHING DUE TO NGT IRRITATION, WILL DC NGT BUT SHE MUST REMAIN NPO. ABDOMEN APPROPRIATELY TENDER, WOUND CLEAN AND WELL APPROXIMATED. NEEDS TO AMBULATE Plan discussed with: Patient Dietary Evaluation Review Comments: 1) Increase TPN to meet at least 75% of estimated needs 2) Advance pt diet when medically feasible 3) Continue current plan of care Expected Outcomes/Goals: 1) Pt diet to advance 2) F/U in 2-3 days ZAINA PEARCE MD Jan 01, 2024 08:45
--- NOTE | 2024-01-01 10:25 | DVHPNRES ---
Progress Note Date Seen: Jan 01, 2024 Resident Creating Document: SHARON RAJPUT RESIDENT Has the PT tested + for MRSA If YES, has PT been informed?: No Medical Necessity Reason Pt with a Central, PICC or Fol: No Subjective Review of Systems This is a 38-year-old female with past medical history of kidney stones, who presented to the ED with a chief complaint of intermittent left lower quadrant abdominal pain and yellowish vaginal discharge for last 1 month prior to this admission. According to the patient the left lower quadrant abdominal pain is colicky in nature 9/10 localized with no specific pattern of radiation and no aggravating or relieving factors and associated with yellowish vaginal discharge. She had an IUD for 5 years and removed 1 month ago. She had no history of STD or multiple sexual partner before and her last Pap test was few months ago and was normal study according to the patient. She also mentioned she had history of kidney stone 3 years ago and passed 3 stones but no imaging or follow up was done after that. She denies fever, chills, sweating, nausea, vomiting, chest pain, dizziness or any change in the bowel and bladder habit. on my examination, the patient denies any vaginal discharge at this point. The patient is having left suprapubic abdominal tenderness rated now as 7/10 on the pain scale after pain medications were given. OBGYN was consulted which assessed and evaluated the patient. Pelvic ultrasound showed left adnexal structure, possible mass/collection. There was also a simple cyst in the right ovary. CT scan of the abdomen and pelvis showed a 5.6 x 5.1 cm thick wall multilocular lesion in the left adnexa which is suspicion for a pyosalpinx. The patient was started on IV ceftriaxone, doxycycline and IV fluids at 75 cc/hour. Patient will be admitted for further assessment and management. Patient seen and examined at bedside. The patient still reporting moderate to severe abdominal tenderness to palpation in the area of the incisions. OLU drain is in place draining approximately 45 cc in the last 12 hours. Patient states that she has not passed any bowel movements or gasses at this time. We will continue TPN, ceftriaxone, metronidazole and doxycycline. For pain modulation we will continue on Dilaudid and ketorolac p.r.n.. The WBC keeps coming down, today was 17.7. Potassium was slightly low which was replaced and rest of morning labs were grossly unremarkable. We will continue current medical management and monitor the patient closely. Dressing was took out this morning, wound looks dry and clean, surgery recommended no further dressings at this time. ROS Constitutional: Denies weight loss, fever and chills. HEENT: Denies changes in vision and hearing. Respiratory: Denies shortness of breath and cough Cardiovascular: Denies chest discomfort or palpitations GI: Reports moderate to severe abdominal tenderness at the level of the incision. Denies bowel movement, passing gases, nausea, vomiting or diarrhea. : Denies dysuria and urinary frequency. Musculoskeletal: Denies myalgias and joint pain Skin: Denies rash and pruritus. Neurological: Denies dizziness, headache, vision or hearing problems Objective vital signs Vital Sign Date Time Temp Pulse Resp B/P (MAP) Pulse Ox O2 Delivery O2 Flow Rate FiO2 01/01/24 08:53 98.0 99 18 113/53 (73) 90 98.0 12/31/23 19:51 Room Air* 0 21 Total Intake and Output 12/31/23 12/31/23 01/01/24 15:00 23:00 07:00 Intake Total 600 ml 849.5 ml 456 ml Balance 600 ml 849.5 ml 456 ml medications Current Medications Medications Dose Ordered Sig/Sadia Route Start Time Stop Time Status Last Admin Dose Admin Sodium Chloride 10 ml Q8HR IV 12/24/23 22:00 01/01/24 05:22 10 ML Ondansetron HCl 4 mg Q4HP PRN IV 12/24/23 21:30 12/29/23 03:36 4 MG Nitroglycerin 0.4 mg Q5MINP PRN SL 12/24/23 21:30 Hydromorphone HCl 1 mg Q2HPRN PRN IV 12/29/23 13:15 01/01/24 01:14 1 MG Amino Acids 0 ml @ 0 mls/hr PER PHARMACY IV 12/29/23 19:00 Metronidazole 100 ml @ 100 mls/hr Q8HR IV 12/30/23 14:00 01/01/24 05:22 100 MLS/HR Doxycycline Hyclate 250 ml @ 125 mls/hr Q12H IV 12/30/23 12:45 01/01/24 01:02 125 MLS/HR Ketorolac Tromethamine 15 mg Q6HPRN PRN IV 12/30/23 13:30 01/04/24 13:29 Sodium Chloride 10 ml QSHIFT@10,22 IV 12/30/23 22:00 01/01/24 10:06 10 ML Ceftriaxone Sodium/Dextrose 50 ml @ 50 mls/hr DAILY IV 12/31/23 10:00 12/31/23 09:58 50 MLS/HR Diagnostic Test (Pha) 1 strip Q6HR 12/31/23 12:00 01/01/24 05:22 1 STRIP Insulin Human Regular FOLLOW SLIDING SCALE Q6HR SC 12/31/23 12:00 12/31/23 12:15 2 UNITS Dextrose 50 ml UD IV 12/31/23 10:30 Fat Emulsion Intravenous 100 ml/Sodium Phosphate 40 meq/ Potassium Chloride 40 meq/ Magnesium Sulfate 14 meq/ Multivitamins 10 ml/Chromium/ Copper/Manganese/ Zinc 1 ml/Amino Acids/Dextrose 1,094.5 ml @ 45 mls/hr [id number] IV 12/31/23 22:00 01/01/24 22:19 12/31/23 21:18 45 MLS/HR Examination Physical Examination General: Patient alert and oriented in person, place and time. Patient looks weak. Patient following commands. HEENT: Normocephalic, atraumatic, moist mucous membranes Respiratory/pulmonary: Clear lungs bilaterally, no associated crackles or wheezes. Cardiovascular: Normal heart sounds S1 and S2 with no associated murmurs Abdomen: Abdomen nondistended, there is moderate to severe tenderness in the lower abdomen. Abdominal incisions look dry and clean. No masses palpable at this time. Extremities: There is no peripheral edema present at the lower extremities. Peripheral Pulses: 3+ Radial (R). 3+ Radial (L). 3+ Dorsalis pedis (R). 3+ Dorsalis pedis(L) Skin: No rashes or pruritus, there is no sacral edema present at this time. Neurological: Intact cranial nerves with no focal neurologic deficits laboratory and microbiology Laboratory Tests 01/01/24 05:40 Test 01/01/24 05:40 Range/Units Serum Glucose 100 74-106 mg/dL Microbiology Date/Time Source Procedure Growth Status 12/29/23 10:10 Peritoneal Fluid Gram Stain - Final Resulted 12/29/23 10:10 Peritoneal Fluid Anaerobic Culture - Preliminary Resulted 12/29/23 10:10 Peritoneal Fluid Aerobic Culture - Preliminary Resulted 12/24/23 16:12 Blood Blood Culture - Final NO GROWTH AFTER 5 DAYS OF INCUBATION. Complete Problem List/Assessment/Plan Problem List/Assessment/Plan Assessment/Plan Acute left suprapubic pain likely due to left tubo-ovarian abscess/pyosalpinx Possible pelvic inflammatory disease Sepsis likely due to tubo-ovarian abscess/pyosalpinx (PID) S/P left oophorectomy with appendectomy and bowel resection with anastomosis of the descending colon with rectum Day 3 -initial WBC was 23.8, 23.5., patient also had fever, tachycardia -Last WBC is trending down to 17.6 -patient has a history of IUD for five years that was removed one month ago -CT of the abdomen showed a 5.6 x 5.1 cm thick walled multilocular lesion in the left adnexa which is suspicious for a pyosalpinx -continue IV metronidazole -continue IV doxycycline -continue ceftriaxone -Discontinue lactate ringer -NAAT for chlamydia and gonorrhea, which both came back negative -IR attempted drainage of left tubo-ovarian abscess but patient kept septic so patient was escalated to surgery on 12/29/23 -OBGYN on board, which performed left oopherectomy with removal of appendix and part of greater omentum, as well as part of the colon with anastomosis without complications on 12/29/23. -MRI of the abdomen showed a multiloculated cystic mass in the left adnexa likely representing tubo-ovarian abscess. -patient is NPO -continue TPN -infectious disease on board which recommended restarting the patient back on metronidazole, doxycycline and ceftriaxone -OLU drainage, draining aprox 45cc/12hr -continue nasogastric negative suction. Left-sided nonobstructing renal stone -Discontinue fluids -CT abdomen revealed punctating nonobstructing left sided nephrolithiasis -strain urine and monitor closely -follow-up with urology as an outpatient Normocytic hypochromic anemia -ordered iron panel, still pending -ordered ferritin which came back on normal range -last hemoglobin was 8.2 -monitor H&H closely Polysubstance abuse (cannabinoids) -urine drug screen came back positive for cannabis -residential treatment counselor patient on drug cessation Goals of care discussed with the patient at bedside for >23min, FULL CODE Plan discussed with Dr. Olson Plan discussed with: Patient Dietary Evaluation Review Comments: 1) Increase TPN to meet at least 75% of estimated needs 2) Advance pt diet when medically feasible 3) Continue current plan of care Expected Outcomes/Goals: 1) Pt diet to advance 2) F/U in 2-3 days Date of Service: Jan 01, 2024 Billing Provider: NILMA OLSON MD Common Visit Codes: [id number] INP/OBS CARE(HIGH) SHARON RAJPUT RESIDENT Jan 01, 2024 10:25 NILAM OLSON MD Jan 03, 2024 04:42
--- NOTE | 2024-01-01 12:44 | DVHPN2 ---
Subjective Progress Notes Subjective POD#3 S: NG removed per General Surgeon's recommendation. On TPN and strict NPO Pain controlled. NO BM yet Objective PHYSICAL EXAM Physical Exam: Abdomen soft, non distended. Incision C/D/I OLU serosang. output Ext No edema or signs of DVT Vital Signs and I&O Vital Signs Date Time Temp Pulse Resp B/P (MAP) Pulse Ox O2 Delivery O2 Flow Rate FiO2 01/01/24 08:53 98.0 99 18 113/53 (73) 90 98.0 12/31/23 19:51 Room Air* 0 21 Intake and Output 01/01/24 07:00 Intake Total 1905.5 ml Balance 1905.5 ml Intake Oral 0 ml IV Total 1905.5 ml # Voids 1 Lab results Laboratory Tests Test 12/24/23 13:20 12/24/23 13:50 12/24/23 15:12 12/25/23 04:19 Range/Units Lactic Acid Level 0.8 0.4-2.0 mmol/L White Blood Count 23.8 H 23.5 H 4.4-10.8 10^3/uL Red Blood Count 3.66 L 3.01 L 4.0-5.20 10^6/uL Hemoglobin 9.8 L 7.9 #L 12.2-16.2 g/dL Hematocrit 30.4 L 25.1 #L 36.0-46.0 % Mean Corpuscular Volume 82.9 83.5 80.0-100.0 fL Mean Corpuscular Hemoglobin 26.8 L 26.2 L 28.0-32.0 pg Mean Corpuscular Hemoglobin Concent 32.4 31.4 L 32.0-36.0 g/dL Red Cell Distribution Width 14.1 14.4 H 11.8-14.3 % Platelet Count 466 H 395 140-450 10^3/uL Mean Platelet Volume 7.8 7.2 6.9-10.8 fL Neutrophils (%) (Auto) 89.6 H 87.1 H 37.0-80.0 % Lymphocytes (%) (Auto) 5.4 L 7.2 L 10.0-50.0 % Monocytes (%) (Auto) 4.3 5.3 0.0-12.0 % Eosinophils (%) (Auto) 0.4 0.2 0.0-7.0 % Basophils (%) (Auto) 0.3 0.2 0.0-2.0 % Neutrophils # (Auto) 21.3 H 20.4 H 1.6-8.6 10 ^3/uL Lymphocytes # (Auto) 1.3 1.7 0.4-5.4 10 ^3/uL Monocytes # (Auto) 1.0 1.3 0-1.3 10 ^3/uL Eosinophils # (Auto) 0.1 0.1 0-0.8 10 ^3/uL Basophils # (Auto) 0.1 0 0-0.2 10 ^3/uL Nucleated Red Blood Cells 0.0 0.0 % Erythrocyte Sedimentation Rate 105 H 0-20 mm/hr Prothrombin Time 12.1 H 9.3-11.8 sec Prothrombin Time INR 1.15 0.9-1.15 Activated Partial Thromboplast Time 32.5 24.5-34.5 SEC Sodium Level 135 L 138 136-145 mmol/L Potassium Level 3.8 3.7 3.5-5.1 mmol/L Chloride Level 102 106 98-107 mmol/L Carbon Dioxide Level 27 26 20-31 mmol/L Anion Gap 6 6 5-15 Blood Urea Nitrogen 6 L < 5 L 9-23 mg/dL Creatinine 0.68 0.65 0.550-1.02 mg/dL Glomerular Filtration Rate Calc 116 117 >90 mL/min BUN/Creatinine Ratio 8.8 L 7.7 L 10.0-20.0 Serum Glucose 97 102 74-106 mg/dL Calcium Level 9.3 8.6 L 8.7-10.4 mg/dL Total Bilirubin 0.5 0.5 0.2-1.0 mg/dL Aspartate Amino Transferase (AST) 18 16 13-40 U/L Alanine Aminotransferase (ALT) 16 12 7-40 U/L Alkaline Phosphatase 101 86 46-116 U/L Total Protein 8.5 H 7.0 5.7-8.2 g/dL Albumin 3.8 3.4 3.2-4.8 g/dL Lipase 32 12-53 U/L Beta HCG, Quantitative 0.1 L 1.5-4.2 mIU/mL Plasma/Serum Blood Alcohol 3.3 <10 mg/dL Urine Color Yellow Yellow Urine Clarity Turbid H Clear Urine pH 6.5 5.0-9.0 Urine Specific [place] 1.021 1.001-1.035 Urine Protein Trace H Negative Urine Ketones Trace Negative Urine Blood Negative Negative /uL Urine Nitrite Negative Negative Urine Bilirubin Negative Negative Urine Urobilinogen 4 H Negative mg/dL Urine Leukocyte Esterase 1+ Negative /uL Urine RBC 3 0 - 4 /hpf Urine WBC 4 0 - 5 /hpf Urine Squamous Epithelial Cells Few <5 /hpf Urine Bacteria None seen None Seen /hpf Urine Mucus Few None Seen Urine Glucose Normal Normal mg/dL Urine Test Negative Negative Urine Opiates Screen Neg NEGATIVE Urine Fentanyl Screen Neg NEGATIVE Urine Barbiturates Screen Neg NEGATIVE Urine Phencyclidine Screen Neg NEGATIVE Urine Amphetamines Screen Neg NEGATIVE Urine Benzodiazepines Screen Neg NEGATIVE Urine Cocaine Screen Neg NEGATIVE Urine Cannabinoids Screen Pos NEGATIVE Chlamydia trachomatis (AYSHA) Negative Negative Neisseria gonorrhoeae (AYSHA) Negative Negative Ferritin 183.1 10-291 ng/mL Triglycerides Level 65 < 150 mg/dL Cholesterol Level 99 < 200 mg/dL LDL Cholesterol 66 < 100 mg/dL HDL Cholesterol 24 L 40-59 mg/dL Hepatitis C Antibody Negative Negative HIV (1&2) Antibody Negative Negative Test 12/25/23 13:42 12/26/23 04:40 12/27/23 05:04 12/28/23 03:28 Range/Units Rapid Plasma Reagin Non reactive Non Reactive White Blood Count 26.0 H 28.4 H 26.6 H 4.4-10.8 10^3/uL Red Blood Count 3.15 L 3.25 L 3.13 L 4.0-5.20 10^6/uL Hemoglobin 8.2 L 8.6 L 8.2 L 12.2-16.2 g/dL Hematocrit 26.2 L 26.8 L 25.9 L 36.0-46.0 % Mean Corpuscular Volume 83.1 82.5 82.8 80.0-100.0 fL Mean Corpuscular Hemoglobin 26.1 L 26.3 L 26.3 L 28.0-32.0 pg Mean Corpuscular Hemoglobin Concent 31.4 L 31.9 L 31.8 L 32.0-36.0 g/dL Red Cell Distribution Width 14.5 H 14.4 H 14.8 H 11.8-14.3 % Platelet Count 334 338 409 140-450 10^3/uL Mean Platelet Volume 7.4 7.6 7.6 6.9-10.8 fL Neutrophils (%) (Auto) 92.7 H 89.5 H 37.0-80.0 % Lymphocytes (%) (Auto) 3.4 L 6.0 L 10.0-50.0 % Monocytes (%) (Auto) 3.7 4.1 0.0-12.0 % Basophils (%) (Auto) 0.2 0.1 0.0-2.0 % Neutrophils # (Auto) 26.3 H 23.8 H 1.6-8.6 10 ^3/uL Lymphocytes # (Auto) 1.0 1.6 0.4-5.4 10 ^3/uL Monocytes # (Auto) 1.0 1.1 0-1.3 10 ^3/uL Differential Total Cells Counted 100.0 100 Neutrophils % (Manual) 90 H 37.0-80.0 Band Neutrophils % (Manual) 0 Lymphocytes % (Manual) 6 L 10.0-50.0 Monocytes % (Manual) 4 0-12 Eosinophils % (Manual) 0 0-7 Basophils % (Manual) 0 0.0-2.0 Metamyelocytes % (manual) 0 Myelocytes % (Manual) 0 Promyelocytes % (Manual) 0 Blast Cells % (Manual) 0 Reactive Lymphocytes 0 Platelet Estimate Adequate Clumped Platelets Moderate Stomatocytes Few Sodium Level 135 L 135 L 135 L 136-145 mmol/L Potassium Level 3.6 3.4 L 3.4 L 3.5-5.1 mmol/L Chloride Level 104 101 102 98-107 mmol/L Carbon Dioxide Level 26 25 25 20-31 mmol/L Anion Gap 5 9 8 5-15 Blood Urea Nitrogen < 5 L < 5 L < 5 L 9-23 mg/dL Creatinine 0.65 0.62 0.51 L 0.550-1.02 mg/dL Glomerular Filtration Rate Calc 117 118 124 >90 mL/min BUN/Creatinine Ratio 7.7 L 8.1 L 9.8 L 10.0-20.0 Serum Glucose 97 106 92 74-106 mg/dL Calcium Level 8.9 8.6 L 8.7 8.7-10.4 mg/dL Eosinophils (%) (Auto) 0.0 0.3 0.0-7.0 % Eosinophils # (Auto) 0 0.1 0-0.8 10 ^3/uL Basophils # (Auto) 0 0 0-0.2 10 ^3/uL Nucleated Red Blood Cells 0.0 0.0 % Magnesium Level 1.8 1.9 1.6-2.6 mg/dL Total Bilirubin 0.4 0.2-1.0 mg/dL Aspartate Amino Transferase (AST) 13 13-40 U/L Alanine Aminotransferase (ALT) < 9 7-40 U/L Alkaline Phosphatase 88 46-116 U/L Total Protein 6.7 5.7-8.2 g/dL Albumin 3.1 L 3.2-4.8 g/dL Test 12/29/23 10:10 12/29/23 16:01 12/30/23 05:05 12/31/23 06:40 Range/Units Body Fluid Source Pending Body Fluid pH Pending Body Fluid WBC (Manual) Pending Body Fluid RBC (Manual) Pending Body Fluid Mononuclear Cells Pending Body Fluid Polymorphonuclear Cells Pending White Blood Count 29.0 H 28.0 H 19.7 #H 4.4-10.8 10^3/uL Red Blood Count 3.34 L 3.12 L 2.86 L 4.0-5.20 10^6/uL Hemoglobin 9.2 L 8.3 L 7.9 L 12.2-16.2 g/dL Hematocrit 28.3 L 26.5 L 24.0 L 36.0-46.0 % Mean Corpuscular Volume 84.6 84.9 83.8 80.0-100.0 fL Mean Corpuscular Hemoglobin 27.6 L 26.6 L 27.5 L 28.0-32.0 pg Mean Corpuscular Hemoglobin Concent 32.6 31.4 L 32.8 32.0-36.0 g/dL Red Cell Distribution Width 15.2 H 15.4 H 15.8 H 11.8-14.3 % Platelet Count 380 433 437 140-450 10^3/uL Mean Platelet Volume 7.6 7.6 7.5 6.9-10.8 fL Neutrophils (%) (Auto) 85.6 H 37.0-80.0 % Lymphocytes (%) (Auto) 9.3 L 10.0-50.0 % Monocytes (%) (Auto) 4.6 0.0-12.0 % Basophils (%) (Auto) 0.2 0.0-2.0 % Neutrophils # (Auto) 16.8 H 1.6-8.6 10 ^3/uL Lymphocytes # (Auto) 1.8 0.4-5.4 10 ^3/uL Monocytes # (Auto) 0.9 0-1.3 10 ^3/uL Differential Total Cells Counted 100.0 100.0 100 Neutrophils % (Manual) 75 71 37.0-80.0 Band Neutrophils % (Manual) 21 25 Lymphocytes % (Manual) 1 L 3 L 10.0-50.0 Monocytes % (Manual) 1 0 0-12 Eosinophils % (Manual) 0 0 0-7 Basophils % (Manual) 0 0 0.0-2.0 Metamyelocytes % (manual) 2 1 Myelocytes % (Manual) 0 0 Promyelocytes % (Manual) 0 0 Blast Cells % (Manual) 0 0 Reactive Lymphocytes 0 0 Platelet Estimate Adequate Adequate Large Platelets Few Sodium Level 139 142 140 136-145 mmol/L Potassium Level 3.7 3.7 3.0 L 3.5-5.1 mmol/L Chloride Level 112 #H 108 H 104 98-107 mmol/L Carbon Dioxide Level 24 30 29 20-31 mmol/L Anion Gap 3 L 4 L 7 5-15 Blood Urea Nitrogen < 5 L 8 L 7 L 9-23 mg/dL Creatinine 0.38 L 0.45 L 0.35 L 0.550-1.02 mg/dL Glomerular Filtration Rate Calc 133 128 136 >90 mL/min BUN/Creatinine Ratio 13.2 17.8 20.0 10.0-20.0 Serum Glucose 141 H 140 H 135 H 74-106 mg/dL Calcium Level 7.4 L 8.3 L 8.3 L 8.7-10.4 mg/dL Prothrombin Time 12.7 H 9.3-11.8 sec Prothrombin Time INR 1.22 H 0.9-1.15 Activated Partial Thromboplast Time 31.8 24.5-34.5 SEC Phosphorus Level 4.8 2.1 L 2.4-5.1 mg/dL Magnesium Level 1.7 1.9 1.6-2.6 mg/dL Total Bilirubin 0.3 0.2 0.2-1.0 mg/dL Aspartate Amino Transferase (AST) 19 18 13-40 U/L Alanine Aminotransferase (ALT) < 9 9 7-40 U/L Alkaline Phosphatase 59 54 46-116 U/L Total Protein 5.6 L 5.8 5.7-8.2 g/dL Albumin 2.5 L 2.6 L 3.2-4.8 g/dL Triglycerides Level 81 < 150 mg/dL Eosinophils (%) (Auto) 0.3 0.0-7.0 % Eosinophils # (Auto) 0 0-0.8 10 ^3/uL Basophils # (Auto) 0 0-0.2 10 ^3/uL Nucleated Red Blood Cells 0.1 % Test 12/31/23 11:42 12/31/23 20:58 01/01/24 01:06 01/01/24 05:40 Range/Units POC Glucose 141 H 99 70-106 mg/dl Potassium Level 3.7 3.3 L 3.5-5.1 mmol/L White Blood Count 17.6 H 4.4-10.8 10^3/uL Red Blood Count 2.97 L 4.0-5.20 10^6/uL Hemoglobin 8.2 L 12.2-16.2 g/dL Hematocrit 25.2 L 36.0-46.0 % Mean Corpuscular Volume 84.9 80.0-100.0 fL Mean Corpuscular Hemoglobin 27.5 L 28.0-32.0 pg Mean Corpuscular Hemoglobin Concent 32.4 32.0-36.0 g/dL Red Cell Distribution Width 15.9 H 11.8-14.3 % Platelet Count 506 H 140-450 10^3/uL Mean Platelet Volume 7.6 6.9-10.8 fL Neutrophils (%) (Auto) 82.8 H 37.0-80.0 % Lymphocytes (%) (Auto) 10.7 10.0-50.0 % Monocytes (%) (Auto) 5.6 0.0-12.0 % Eosinophils (%) (Auto) 0.7 0.0-7.0 % Basophils (%) (Auto) 0.2 0.0-2.0 % Neutrophils # (Auto) 14.6 H 1.6-8.6 10 ^3/uL Lymphocytes # (Auto) 1.9 0.4-5.4 10 ^3/uL Monocytes # (Auto) 1.0 0-1.3 10 ^3/uL Eosinophils # (Auto) 0.1 0-0.8 10 ^3/uL Basophils # (Auto) 0 0-0.2 10 ^3/uL Nucleated Red Blood Cells 0.2 % Sodium Level 142 136-145 mmol/L Chloride Level 105 98-107 mmol/L Carbon Dioxide Level 27 20-31 mmol/L Anion Gap 10 5-15 Blood Urea Nitrogen 8 L 9-23 mg/dL Creatinine 0.37 L 0.550-1.02 mg/dL Glomerular Filtration Rate Calc 134 >90 mL/min BUN/Creatinine Ratio 21.6 H 10.0-20.0 Serum Glucose 100 74-106 mg/dL Calcium Level 8.2 L 8.7-10.4 mg/dL Phosphorus Level 3.4 2.4-5.1 mg/dL Magnesium Level 2.1 1.6-2.6 mg/dL Total Bilirubin 0.2 0.2-1.0 mg/dL Aspartate Amino Transferase (AST) 31 13-40 U/L Alanine Aminotransferase (ALT) 10 7-40 U/L Alkaline Phosphatase 71 46-116 U/L Total Protein 6.1 5.7-8.2 g/dL Albumin 2.9 L 3.2-4.8 g/dL Assessment and Plan ASSESSMENT AND PLAN Assessment and Plan POD#3 TOA s/p Ex Lap w/ Left OOphorectomy, bowel resection and 1' Anastomosis WBC improving and no more fever since surgery Keep NPO Ambulate Supportive care. Continue IV Abx per ID consult recommendations My orders: Orders - ANNALISA MANCINI DO * Claim Agent Consultation (12/25/23 07:08) Obtain Consent For Anesthesia (12/25/23 07:47) * Radiologist Consult (12/25/23 12:29) Obtain Consent For: (12/29/23 07:27) Gram Stain (12/29/23 10:10) Routine Bacterial Culture (12/29/23 10:10) Anaerobic Culture (12/29/23 10:10) Strict I & O QSHIFT (12/29/23 13:06) Discontinue Trent Catheter (12/29/23 13:06) Notify L&D Md If: (12/29/23 13:06) Is At Bedside. (12/29/23 13:06) Incentive Spirometry (12/29/23 13:06) Hydromorphone Injection (Dilaudid Inject (12/29/23 13:15) Ng/Orogastric Tube To Lis (12/29/23 13:06) * Infectious Evi- Dr. Lanre Castillo (12/29/23 13:18) Consult For Nutrition (12/29/23 18:40) Kub Abdomen Single View (12/30/23 04:00) Plan discussed with: Patient Date of Service: Jan 01, 2024 Billing Provider: ANNALISA MANCINI DO Common Visit Codes: [id number] INP/OBS CARE(MOD) ANNALISA MANCINI DO Jan 01, 2024 12:44
[2024-01-01] MEDS: POTASSIUM CHL 20MEQ/100ML 100 ML IV SCH (15:49)
[2024-01-01] MEDS: KETOROLAC TROMETH 30 MG/ML 1ML VIAL IV PRN (18:24)
--- NOTE | 2024-01-01 21:44 | DVHPN2 ---
Consult Progress Note Date Seen: Jan 01, 2024 Subjective Patient reports: No new complaints (no bowel movements yet, tolerating TPN , having 25ccs of NG tube drain out, white count is trending down , no longer tachycardic ) Objective vital signs Vital Sign Date Time Temp Pulse Resp B/P (MAP) Pulse Ox O2 Delivery O2 Flow Rate FiO2 01/01/24 21:17 100 20 115/70 01/01/24 17:13 97.7 98 97.7 01/01/24 08:00 Room Air* 0 21 Total Intake and Output 12/31/23 12/31/23 01/01/24 15:00 23:00 07:00 Intake Total 600 ml 849.5 ml 456 ml Balance 600 ml 849.5 ml 456 ml medications Current Medications Medications Dose Ordered Sig/Sadia Route Start Time Stop Time Status Last Admin Dose Admin Sodium Chloride 10 ml Q8HR IV 12/24/23 22:00 01/01/24 14:00 10 ML Ondansetron HCl 4 mg Q4HP PRN IV 12/24/23 21:30 12/29/23 03:36 4 MG Nitroglycerin 0.4 mg Q5MINP PRN SL 12/24/23 21:30 Hydromorphone HCl 1 mg Q2HPRN PRN IV 12/29/23 13:15 01/01/24 20:47 1 MG Amino Acids 0 ml @ 0 mls/hr PER PHARMACY IV 12/29/23 19:00 Metronidazole 100 ml @ 100 mls/hr Q8HR IV 12/30/23 14:00 01/01/24 15:47 100 MLS/HR Doxycycline Hyclate 250 ml @ 125 mls/hr Q12H IV 12/30/23 12:45 01/01/24 13:17 125 MLS/HR Ketorolac Tromethamine 15 mg Q6HPRN PRN IV 12/30/23 13:30 01/04/24 13:29 01/01/24 18:24 15 MG Sodium Chloride 10 ml QSHIFT@ IV 12/30/23 22:00 01/01/24 10:06 10 ML Ceftriaxone Sodium/Dextrose 50 ml @ 50 mls/hr DAILY IV 12/31/23 10:00 01/01/24 10:00 50 MLS/HR Diagnostic Test (Pha) 1 strip Q6HR 12/31/23 12:00 01/01/24 05:22 1 STRIP Insulin Human Regular FOLLOW SLIDING SCALE Q6HR SC 12/31/23 12:00 12/31/23 12:15 2 UNITS Dextrose 50 ml UD IV 12/31/23 10:30 Fat Emulsion Intravenous 100 ml/Sodium Phosphate 40 meq/ Potassium Chloride 40 meq/ Magnesium Sulfate 14 meq/ Multivitamins 10 ml/Chromium/ Copper/Manganese/ Zinc 1 ml/Amino Acids/Dextrose 1,094.5 ml @ 45 mls/hr [id number] IV 12/31/23 22:00 01/01/24 22:19 12/31/23 21:18 45 MLS/HR Fat Emulsion Intravenous 150 ml/Potassium Chloride 40 meq/ Potassium Acetate 20 meq/Potassium Phosphate 20 meq/ Calcium Gluconate 2.3 meq/Magnesium Sulfate 12 meq/ Multivitamins 10 ml/Chromium/ Copper/Manganese/ Zinc 1 ml/Amino Acids/Dextrose 1,303.4917 ml @ 54 mls/hr Q24H9M IV 01/01/24 22:00 01/02/24 21:59 Physical Exam: - General: No acute distress - Neck: Supple. No masses. - HEENT: PERRL. Normal lids and conjunctiva. Moist mucous membranes. Oropharynx without lesions, exudates, or excessive erythema. Normal appearance of the external aspects of the nose and ears. - Heart: Regular rhythm, normal rate. No murmur. No lower extremity edema. - Lungs: Normal respiratory effort. Clear to auscultation bilaterally. No wheezes. No crackles. - Abdomen: Soft. Tenderness in the left lower quadrant. distended. No masses or abdominal hernia. - Musculoskeletal: No digital cyanosis. Normal strength and tone in all 4 limbs. - Skin: Warm and dry, no rashes. - Neuro: Alert. No facial droop or slurred speech. Extra-ocular movements intact. Sensation intact to soft touch in all 4 limbs. - Psych: Appropriate mood. Full affect. Oriented to person, place, time, and situation. laboratory and microbiology Laboratory Tests 01/01/24 05:40 Test 01/01/24 05:40 Range/Units Serum Glucose 100 74-106 mg/dL Problem List/Assessment/Plan Problems(with codes): (1) Left pyosalpinx (2) Leukocytosis (3) Adnexal mass (4) Left lower quadrant abdominal pain Problem List/Assessment/Plan ASSESSMENT AND PLAN: ID Problem List: - Pyosalpinx - Tubo-ovarian abscess - Persistent leukocytosis - Anemia - History of kidney stones - itraabdominal mass -inflammed appendix Assessment This is a 38 y.o. female with a past medical history of kidney stones (last occurrence three years ago), who presents with intermittent left lower quadrant pain and yellowish vaginal discharge for the last month. She had an intrauterine device (IUD) inserted five years ago, which was removed one month ago. She reports no multiple sexual partners and denies concern for sexually transmitted diseases. The pain is cramping in nature, rated 9 out of 10. She denies hematuria, fevers, or chills. No history of smoking or alcohol use; however, she does use marijuana occasionally. She lives with her boyfriend. Vital signs on admission revealed a temperature of 102.7F, respiratory rate of 16, blood pressure 102/68 mmHg, and oxygen saturation of 100% on room air. Physical examination was notable for tenderness in the left lower quadrant. Imaging studies include: - Pelvic ultrasound showing a left adnexal structurepossible mass or collection; infectious etiology not excluded. A simple cyst was noted in the right ovary. - CT abdomen and pelvis revealing a 5.6 x 5.1 cm thick-walled multilocular lesion of the left adnexa, suspicious for pyosalpinx; other etiologies not excluded. - Pelvic MRI demonstrating a multiloculated cystic mass in the left adnexa, likely representing a tubo-ovarian abscess; malignant lesion with necrosis not entirely excluded. On December 25, a CT-guided placement of an 8.5 mm pigtail drain was performed, yielding 25 cc of thick, foul, purulent fluid with slight green discoloration, sent for cytology and cultures. Cultures have shown no growth to date. Laboratory studies reveal a persistently elevated white blood cell count of 28,000/mm, hemoglobin of 8.2 g/dL, and platelet count of 344,000/mm. Despite drainage, the abscess remains sizable with minimal output, and the patient continues to have persistent leukocytosis. It is unclear if antibiotics alone will suffice in treating the infection. 12/29: Post op day 1 from diagnostic exploratory laparoscopy via midline incision , a left oophorectomy , a partial omentectomy, partial colon resection with primary anastomosis my Dr Strauss and an appendectomy. They found omental adhesions in the abdominal cavity , a mass in the left pelvis which could not be mobilized until the converted to an laparotomy. They found a large inflammatory mass . The greater momentum contained severely infected and indurated tissue , the momentum was divided and excised. mass was adherent to rectosigmoid and Dr Strauss was consulted. Olu drain was placed. Cultures from 12/28 and aspirated cultures from 12/25 show no growth. White count is still elevated but hemoglobin is stable 12/30: white count has gone down to 19.7, chest x-ray shows a need to advance anterior tube in the stomach about 2 cm. cultures from asprite from the IR drainage revealed anerococcus and the peritoneal fluid cultures are still pending 12/31: Aspric cultures are growing inner coccus , peritoneal fluids are growing clostridioforme Plan: - follow up on biopsy results of mass - Antibiotics: - Continue doxycycline and Flagyl (metronidazole). - Continue ceftriaxone. - Monitoring: - Monitor OLU drain output closely. - Follow up on operative cultures as well as OLU drain output - blood pressure support as needed Plan discussed with: Other Dietary Evaluation Review Comments: 1) Increase TPN to meet at least 75% of estimated needs 2) Advance pt diet when medically feasible 3) Continue current plan of care Expected Outcomes/Goals: 1) Pt diet to advance 2) F/U in 2-3 days FELICITY MEMBRENO MD Jan 01, 2024 21:44
[2024-01-01] MEDS: TPN PER PHARMACY IV NR (21:45)
[2024-01-02] VITALS (7 sets, daily range): BP systolic 106–144; BP diastolic 68–73; PULSE 92–106; RESP 18–21; TEMP 97.8–98.6; O2SAT 94–100
[2024-01-02 05:22] LABS: Basophils # (auto) 0 10 ^3/uL (0-0.2); Basophils % (auto) 0.3 % (0.0-2.0); Lymphocytes # (auto) 1.5 10 ^3/uL (0.4-5.4); Lymphocytes % (auto) 9.7 % (10.0-50.0)
[2024-01-02 05:26] LABS: Eosinophils # (auto) 0.2 10 ^3/uL (0-0.8); Eosinophils % (auto) 1.4 % (0.0-7.0); Hematocrit 22.8 % (36.0-46.0); Hemoglobin 7.5 g/dL (12.2-16.2); Mean Corpuscular Hgb Conc. 33.1 g/dL (32.0-36.0); Mean Corpuscular Volume 84.7 fL (80.0-100.0); Monocytes # (auto) 0.7 10 ^3/uL (0-1.3); Monocytes % (auto) 4.8 % (0.0-12.0); Neutrophils # (auto) 12.7 10 ^3/uL (1.6-8.6); Neutrophils % (auto) 83.8 % (37.0-80.0); Platelet Count (auto) 471 10^3/uL (140-450); Red Blood Cells 2.69 10^6/uL (4.0-5.20); White Blood Cell 15.2 10^3/uL (4.4-10.8)
[2024-01-02 05:41] LABS: Alanine Aminotransferase 15 U/L (7-40); Albumin 2.6 g/dL (3.2-4.8); Alkaline Phosphatase 75 U/L (46-116); Anion Gap 7 (5-15); Aspartate Aminotransferase 35 U/L (13-40); BUN/Creatinine Ratio 19.5 (10.0-20.0); Blood Urea Nitrogen 8 mg/dL (9-23); Calcium 8.2 mg/dL (8.7-10.4); Carbon Dioxide 28 mmol/L (20-31); Chloride 107 mmol/L (98-107); Glucose 111 mg/dL (74-106); Magnesium 2.1 mg/dL (1.6-2.6); Sodium 142 mmol/L (136-145)
[2024-01-02 05:42] LABS: Bilirubin, Total 0.2 mg/dL (0.2-1.0); Phosphorus 3.5 mg/dL (2.4-5.1); Total Protein 5.8 g/dL (5.7-8.2)
--- NOTE | 2024-01-02 10:59 | DVHPN2 ---
Progress Note Date Seen: Jan 02, 2024 Has the PT tested + for MRSA If YES, has PT been informed?: No Medical Necessity Reason Pt with a Central, PICC or Fol: No Objective vital signs Vital Sign Date Time Temp Pulse Resp B/P (MAP) Pulse Ox O2 Delivery O2 Flow Rate FiO2 01/02/24 09:54 97 18 140/55 01/02/24 05:00 98.6 94 98.6 01/01/24 20:00 Room Air* 0 21 Total Intake and Output 01/01/24 01/01/24 01/02/24 15:00 23:00 07:00 Intake Total 1300 ml 890 ml Output Total 25 ml Balance 1300 ml 865 ml medications Current Medications Medications Dose Ordered Sig/Sadia Route Start Time Stop Time Status Last Admin Dose Admin Sodium Chloride 10 ml Q8HR IV 12/24/23 22:00 01/02/24 05:33 10 ML Ondansetron HCl 4 mg Q4HP PRN IV 12/24/23 21:30 12/29/23 03:36 4 MG Nitroglycerin 0.4 mg Q5MINP PRN SL 12/24/23 21:30 Hydromorphone HCl 1 mg Q2HPRN PRN IV 12/29/23 13:15 01/02/24 09:54 1 MG Amino Acids 0 ml @ 0 mls/hr PER PHARMACY IV 12/29/23 19:00 Metronidazole 100 ml @ 100 mls/hr Q8HR IV 12/30/23 14:00 01/02/24 05:34 100 MLS/HR Doxycycline Hyclate 250 ml @ 125 mls/hr Q12H IV 12/30/23 12:45 01/02/24 01:09 125 MLS/HR Ketorolac Tromethamine 15 mg Q6HPRN PRN IV 12/30/23 13:30 01/04/24 13:29 01/01/24 18:24 15 MG Sodium Chloride 10 ml QSHIFT@10,22 IV 12/30/23 22:00 01/02/24 10:00 10 ML Ceftriaxone Sodium/Dextrose 50 ml @ 50 mls/hr DAILY IV 12/31/23 10:00 01/02/24 10:45 50 MLS/HR Diagnostic Test (Pha) 1 strip Q6HR 12/31/23 12:00 01/02/24 05:34 1 STRIP Insulin Human Regular FOLLOW SLIDING SCALE Q6HR SC 12/31/23 12:00 12/31/23 12:15 2 UNITS Dextrose 50 ml UD IV 12/31/23 10:30 Fat Emulsion Intravenous 150 ml/Potassium Chloride 40 meq/ Potassium Acetate 20 meq/Potassium Phosphate 20 meq/ Calcium Gluconate 2.3 meq/Magnesium Sulfate 12 meq/ Multivitamins 10 ml/Chromium/ Copper/Manganese/ Zinc 1 ml/Amino Acids/Dextrose 1,303.4917 ml @ 54 mls/hr Q24H9M IV 01/01/24 22:00 01/02/24 21:59 01/01/24 21:45 54 MLS/HR laboratory and microbiology Laboratory Tests 01/02/24 04:50 Test 01/02/24 04:50 Range/Units Serum Glucose 111 H 74-106 mg/dL Problem List/Assessment/Plan Problem List/Assessment/Plan 12/30/23 patient's mother qat bedside. operative findings explained, patient understands that colostomy is a possibility if the anastomosis does not heal properly. ngt needs to remain till patient has a bowel movement 01/01/24 PATIENT GAGGING AND RETCHING DUE TO NGT IRRITATION, WILL DC NGT BUT SHE MUST REMAIN NPO. ABDOMEN APPROPRIATELY TENDER, WOUND CLEAN AND WELL APPROXIMATED. NEEDS TO AMBULATE 01/02/24 passing flatus and had a BM, abdomen non distended, appropriately tender, drainage serosanguineous, start po clear liquids Plan discussed with: Patient Dietary Evaluation Review Comments: 1) Increase TPN to meet at least 75% of estimated needs 2) Advance pt diet when medically feasible 3) Continue current plan of care Expected Outcomes/Goals: 1) Pt diet to advance 2) F/U in 2-3 days ZAINA PEARCE MD Jan 02, 2024 10:59
--- NOTE | 2024-01-02 11:49 | DVHPNRES ---
Progress Note Date Seen: Jan 02, 2024 Resident Creating Document: SHRAON RAJPUT RESIDENT Has the PT tested + for MRSA If YES, has PT been informed?: No Medical Necessity Reason Pt with a Central, PICC or Fol: No Subjective Review of Systems This is a 38-year-old female with past medical history of kidney stones, who presented to the ED with a chief complaint of intermittent left lower quadrant abdominal pain and yellowish vaginal discharge for last 1 month prior to this admission. According to the patient the left lower quadrant abdominal pain is colicky in nature 9/10 localized with no specific pattern of radiation and no aggravating or relieving factors and associated with yellowish vaginal discharge. She had an IUD for 5 years and removed 1 month ago. She had no history of STD or multiple sexual partner before and her last Pap test was few months ago and was normal study according to the patient. She also mentioned she had history of kidney stone 3 years ago and passed 3 stones but no imaging or follow up was done after that. She denies fever, chills, sweating, nausea, vomiting, chest pain, dizziness or any change in the bowel and bladder habit. on my examination, the patient denies any vaginal discharge at this point. The patient is having left suprapubic abdominal tenderness rated now as 7/10 on the pain scale after pain medications were given. OBGYN was consulted which assessed and evaluated the patient. Pelvic ultrasound showed left adnexal structure, possible mass/collection. There was also a simple cyst in the right ovary. CT scan of the abdomen and pelvis showed a 5.6 x 5.1 cm thick wall multilocular lesion in the left adnexa which is suspicion for a pyosalpinx. The patient was started on IV ceftriaxone, doxycycline and IV fluids at 75 cc/hour. Patient will be admitted for further assessment and management. Patient seen and examined at bedside. Patient still feeling moderate abdominal tenderness at the hypogastric region but states that he is mildly better compared to previous days. There was no fever overnight and WBC keeps improving, today WBC was 15.2. We will continue on IV ceftriaxone, metronidazole and doxycycline. We will continue surgery recommendations and keep patient NPO with TPN at this time. Patient is currently working with physical therapy ambulating q.4 hours. OLU drainage is draining approximately 75 cc in the last 24 hours. The patient states that he is passing gases and had bowel movement but small in quantity. ROS Constitutional: Denies weight loss, fever and chills. HEENT: Denies changes in vision and hearing. Respiratory: Denies shortness of breath and cough Cardiovascular: Denies chest discomfort or palpitations GI: Reports moderate abdominal tenderness at the hypogastric region, denies nausea, vomiting or diarrhea. : Denies dysuria and urinary frequency. Musculoskeletal: Denies myalgias and joint pain Skin: Denies rash and pruritus. Neurological: Denies dizziness, headache, vision or hearing problems Objective vital signs Vital Sign Date Time Temp Pulse Resp B/P (MAP) Pulse Ox O2 Delivery O2 Flow Rate FiO2 01/02/24 09:54 97 18 140/55 01/02/24 05:00 98.6 94 98.6 01/01/24 20:00 Room Air* 0 21 Total Intake and Output 01/01/24 01/01/24 01/02/24 15:00 23:00 07:00 Intake Total 1300 ml 890 ml Output Total 25 ml Balance 1300 ml 865 ml medications Current Medications Medications Dose Ordered Sig/Sadia Route Start Time Stop Time Status Last Admin Dose Admin Sodium Chloride 10 ml Q8HR IV 12/24/23 22:00 01/02/24 05:33 10 ML Ondansetron HCl 4 mg Q4HP PRN IV 12/24/23 21:30 12/29/23 03:36 4 MG Nitroglycerin 0.4 mg Q5MINP PRN SL 12/24/23 21:30 Hydromorphone HCl 1 mg Q2HPRN PRN IV 12/29/23 13:15 01/02/24 09:54 1 MG Amino Acids 0 ml @ 0 mls/hr PER PHARMACY IV 12/29/23 19:00 Metronidazole 100 ml @ 100 mls/hr Q8HR IV 12/30/23 14:00 01/02/24 05:34 100 MLS/HR Doxycycline Hyclate 250 ml @ 125 mls/hr Q12H IV 12/30/23 12:45 01/02/24 01:09 125 MLS/HR Ketorolac Tromethamine 15 mg Q6HPRN PRN IV 12/30/23 13:30 01/04/24 13:29 01/01/24 18:24 15 MG Sodium Chloride 10 ml QSHIFT@10,22 IV 12/30/23 22:00 01/02/24 10:00 10 ML Ceftriaxone Sodium/Dextrose 50 ml @ 50 mls/hr DAILY IV 12/31/23 10:00 01/02/24 10:45 50 MLS/HR Diagnostic Test (Pha) 1 strip Q6HR 12/31/23 12:00 01/02/24 05:34 1 STRIP Insulin Human Regular FOLLOW SLIDING SCALE Q6HR SC 12/31/23 12:00 12/31/23 12:15 2 UNITS Dextrose 50 ml UD IV 12/31/23 10:30 Fat Emulsion Intravenous 150 ml/Potassium Chloride 40 meq/ Potassium Acetate 20 meq/Potassium Phosphate 20 meq/ Calcium Gluconate 2.3 meq/Magnesium Sulfate 12 meq/ Multivitamins 10 ml/Chromium/ Copper/Manganese/ Zinc 1 ml/Amino Acids/Dextrose 1,303.4917 ml @ 54 mls/hr Q24H9M IV 01/01/24 22:00 01/02/24 21:59 01/01/24 21:45 54 MLS/HR Examination Physical Examination General: Patient alert and oriented in person, place and time. Patient looks weak. Patient following commands. HEENT: Normocephalic, atraumatic, moist mucous membranes Respiratory/pulmonary: Clear lungs bilaterally, no associated crackles or wheezes. Cardiovascular: Normal heart sounds S1 and S2 with no associated murmurs Abdomen: Abdomen nondistended, there is moderate tenderness in the lower abdomen. Abdominal incisions look dry and clean. No masses palpable at this time. Extremities: There is no peripheral edema present at the lower extremities. Peripheral Pulses: 3+ Radial (R). 3+ Radial (L). 3+ Dorsalis pedis (R). 3+ Dorsalis pedis(L) Skin: No rashes or pruritus, there is no sacral edema present at this time. Neurological: Intact cranial nerves with no focal neurologic deficits laboratory and microbiology Laboratory Tests 01/02/24 04:50 Test 01/02/24 04:50 Range/Units Serum Glucose 111 H 74-106 mg/dL Microbiology Date/Time Source Procedure Growth Status 12/29/23 10:10 Peritoneal Fluid Gram Stain - Final Resulted 12/29/23 10:10 Anaerobic Culture - Final Clostridium clostridioforme Resulted 12/29/23 10:10 Peritoneal Fluid Aerobic Culture - Preliminary Resulted 12/24/23 16:12 Blood Blood Culture - Final NO GROWTH AFTER 5 DAYS OF INCUBATION. Complete Problem List/Assessment/Plan Problem List/Assessment/Plan Assessment/Plan Acute left suprapubic pain likely due to left tubo-ovarian abscess/pyosalpinx Possible pelvic inflammatory disease Sepsis likely due to tubo-ovarian abscess/pyosalpinx (PID) S/P left oophorectomy with appendectomy and bowel resection with anastomosis of the descending colon with rectum Day 4 -initial WBC was 23.8, 23.5., patient also had fever, tachycardia -Last WBC is trending down to 15.2 -patient has a history of IUD for five years that was removed one month ago -CT of the abdomen showed a 5.6 x 5.1 cm thick walled multilocular lesion in the left adnexa which is suspicious for a pyosalpinx -continue IV metronidazole -continue IV doxycycline -continue ceftriaxone -Discontinue lactate ringer -NAAT for chlamydia and gonorrhea, which both came back negative -IR attempted drainage of left tubo-ovarian abscess but patient kept septic so patient was escalated to surgery on 12/29/23 -OBGYN on board, which performed left oopherectomy with removal of appendix and part of greater omentum, as well as part of the colon with anastomosis without complications on 12/29/23. -MRI of the abdomen showed a multiloculated cystic mass in the left adnexa likely representing tubo-ovarian abscess. -Continue NPO and follow SX recommendations on diet -continue TPN -infectious disease on board which recommended restarting the patient back on metronidazole, doxycycline and ceftriaxone -OLU drainage, draining aprox 75cc/24hr -continue nasogastric negative suction. Left-sided nonobstructing renal stone -Discontinue fluids -CT abdomen revealed punctating nonobstructing left sided nephrolithiasis -strain urine and monitor closely -follow-up with urology as an outpatient Normocytic hypochromic anemia -ordered iron panel, still pending -ordered ferritin which came back on normal range -last hemoglobin was 7.5 -monitor H&H closely Polysubstance abuse (cannabinoids) -urine drug screen came back positive for cannabis -rehabilitation counsellor patient on drug cessation Goals of care discussed with the patient at bedside for >23min, FULL CODE Plan discussed with Dr. Olson Plan discussed with: Patient My Orders My Orders Orders - SHARON RAJPUT Procedure Category Date Status Time Pt Request For Service PT 01/01/24 Logged 11:51 Dietary Evaluation Review Comments: 1) Increase TPN to meet at least 75% of estimated needs 2) Advance pt diet when medically feasible 3) Continue current plan of care Expected Outcomes/Goals: 1) Pt diet to advance 2) F/U in 2-3 days Date of Service: Jan 02, 2024 Billing Provider: NILAM OLSON MD Common Visit Codes: [id number] INP/OBS CARE(HIGH) SHARON RAJPUT RESIDENT Jan 02, 2024 11:49 NILAM OLSON MD Jan 03, 2024 04:43
[2024-01-02 12:07] LABS: % Iron Saturation 8.9 % (15-50)
--- NOTE | 2024-01-02 16:43 | DVHPN2 ---
Subjective Progress Notes Subjective Patient doing better. Passing flatus and tolerating PO clear liquids Pain is under control. Denies fever/chills or vaginal bleeding. No N/V Objective PHYSICAL EXAM Physical Exam: Afeb VS stable Alert, NAD, comfortable Abd: Incision midline w/ gabriel, C/D/I. OLU output serosang fluid, minimal. Abdomen non distended, mild to moderate tenderness w/ palpation (appropriate) Ext No Cyanosis, edema, Neg Santo sign Vital Signs and I&O Vital Signs Date Time Temp Pulse Resp B/P (MAP) Pulse Ox O2 Delivery O2 Flow Rate FiO2 01/02/24 16:25 92 18 122/77 01/02/24 13:00 98.6 98 98.6 01/02/24 08:00 Room Air* 0 21 Intake and Output 01/02/24 07:00 Intake Total 2190 ml Output Total 25 ml Balance 2165 ml Intake Oral 0 ml IV Total 2190 ml Gastric Drainage Total 25 ml # Voids 5 # Bowel Movements 1 Lab results Laboratory Tests Test 12/24/23 13:20 12/24/23 13:50 12/24/23 15:12 12/25/23 04:19 Range/Units Lactic Acid Level 0.8 0.4-2.0 mmol/L White Blood Count 23.8 H 23.5 H 4.4-10.8 10^3/uL Red Blood Count 3.66 L 3.01 L 4.0-5.20 10^6/uL Hemoglobin 9.8 L 7.9 #L 12.2-16.2 g/dL Hematocrit 30.4 L 25.1 #L 36.0-46.0 % Mean Corpuscular Volume 82.9 83.5 80.0-100.0 fL Mean Corpuscular Hemoglobin 26.8 L 26.2 L 28.0-32.0 pg Mean Corpuscular Hemoglobin Concent 32.4 31.4 L 32.0-36.0 g/dL Red Cell Distribution Width 14.1 14.4 H 11.8-14.3 % Platelet Count 466 H 395 140-450 10^3/uL Mean Platelet Volume 7.8 7.2 6.9-10.8 fL Neutrophils (%) (Auto) 89.6 H 87.1 H 37.0-80.0 % Lymphocytes (%) (Auto) 5.4 L 7.2 L 10.0-50.0 % Monocytes (%) (Auto) 4.3 5.3 0.0-12.0 % Eosinophils (%) (Auto) 0.4 0.2 0.0-7.0 % Basophils (%) (Auto) 0.3 0.2 0.0-2.0 % Neutrophils # (Auto) 21.3 H 20.4 H 1.6-8.6 10 ^3/uL Lymphocytes # (Auto) 1.3 1.7 0.4-5.4 10 ^3/uL Monocytes # (Auto) 1.0 1.3 0-1.3 10 ^3/uL Eosinophils # (Auto) 0.1 0.1 0-0.8 10 ^3/uL Basophils # (Auto) 0.1 0 0-0.2 10 ^3/uL Nucleated Red Blood Cells 0.0 0.0 % Erythrocyte Sedimentation Rate 105 H 0-20 mm/hr Prothrombin Time 12.1 H 9.3-11.8 sec Prothrombin Time INR 1.15 0.9-1.15 Activated Partial Thromboplast Time 32.5 24.5-34.5 SEC Sodium Level 135 L 138 136-145 mmol/L Potassium Level 3.8 3.7 3.5-5.1 mmol/L Chloride Level 102 106 98-107 mmol/L Carbon Dioxide Level 27 26 20-31 mmol/L Anion Gap 6 6 5-15 Blood Urea Nitrogen 6 L < 5 L 9-23 mg/dL Creatinine 0.68 0.65 0.550-1.02 mg/dL Glomerular Filtration Rate Calc 116 117 >90 mL/min BUN/Creatinine Ratio 8.8 L 7.7 L 10.0-20.0 Serum Glucose 97 102 74-106 mg/dL Calcium Level 9.3 8.6 L 8.7-10.4 mg/dL Total Bilirubin 0.5 0.5 0.2-1.0 mg/dL Aspartate Amino Transferase (AST) 18 16 13-40 U/L Alanine Aminotransferase (ALT) 16 12 7-40 U/L Alkaline Phosphatase 101 86 46-116 U/L Total Protein 8.5 H 7.0 5.7-8.2 g/dL Albumin 3.8 3.4 3.2-4.8 g/dL Lipase 32 12-53 U/L Beta HCG, Quantitative 0.1 L 1.5-4.2 mIU/mL Plasma/Serum Blood Alcohol 3.3 <10 mg/dL Urine Color Yellow Yellow Urine Clarity Turbid H Clear Urine pH 6.5 5.0-9.0 Urine Specific [place] 1.021 1.001-1.035 Urine Protein Trace H Negative Urine Ketones Trace Negative Urine Blood Negative Negative /uL Urine Nitrite Negative Negative Urine Bilirubin Negative Negative Urine Urobilinogen 4 H Negative mg/dL Urine Leukocyte Esterase 1+ Negative /uL Urine RBC 3 0 - 4 /hpf Urine WBC 4 0 - 5 /hpf Urine Squamous Epithelial Cells Few <5 /hpf Urine Bacteria None seen None Seen /hpf Urine Mucus Few None Seen Urine Glucose Normal Normal mg/dL Urine Test Negative Negative Urine Opiates Screen Neg NEGATIVE Urine Fentanyl Screen Neg NEGATIVE Urine Barbiturates Screen Neg NEGATIVE Urine Phencyclidine Screen Neg NEGATIVE Urine Amphetamines Screen Neg NEGATIVE Urine Benzodiazepines Screen Neg NEGATIVE Urine Cocaine Screen Neg NEGATIVE Urine Cannabinoids Screen Pos NEGATIVE Chlamydia trachomatis (AYSHA) Negative Negative Neisseria gonorrhoeae (AYSHA) Negative Negative Ferritin 183.1 10-291 ng/mL Triglycerides Level 65 < 150 mg/dL Cholesterol Level 99 < 200 mg/dL LDL Cholesterol 66 < 100 mg/dL HDL Cholesterol 24 L 40-59 mg/dL Hepatitis C Antibody Negative Negative HIV (1&2) Antibody Negative Negative Test 12/25/23 13:42 12/26/23 04:40 12/27/23 05:04 12/28/23 03:28 Range/Units Rapid Plasma Reagin Non reactive Non Reactive White Blood Count 26.0 H 28.4 H 26.6 H 4.4-10.8 10^3/uL Red Blood Count 3.15 L 3.25 L 3.13 L 4.0-5.20 10^6/uL Hemoglobin 8.2 L 8.6 L 8.2 L 12.2-16.2 g/dL Hematocrit 26.2 L 26.8 L 25.9 L 36.0-46.0 % Mean Corpuscular Volume 83.1 82.5 82.8 80.0-100.0 fL Mean Corpuscular Hemoglobin 26.1 L 26.3 L 26.3 L 28.0-32.0 pg Mean Corpuscular Hemoglobin Concent 31.4 L 31.9 L 31.8 L 32.0-36.0 g/dL Red Cell Distribution Width 14.5 H 14.4 H 14.8 H 11.8-14.3 % Platelet Count 334 338 409 140-450 10^3/uL Mean Platelet Volume 7.4 7.6 7.6 6.9-10.8 fL Neutrophils (%) (Auto) 92.7 H 89.5 H 37.0-80.0 % Lymphocytes (%) (Auto) 3.4 L 6.0 L 10.0-50.0 % Monocytes (%) (Auto) 3.7 4.1 0.0-12.0 % Basophils (%) (Auto) 0.2 0.1 0.0-2.0 % Neutrophils # (Auto) 26.3 H 23.8 H 1.6-8.6 10 ^3/uL Lymphocytes # (Auto) 1.0 1.6 0.4-5.4 10 ^3/uL Monocytes # (Auto) 1.0 1.1 0-1.3 10 ^3/uL Differential Total Cells Counted 100.0 100 Neutrophils % (Manual) 90 H 37.0-80.0 Band Neutrophils % (Manual) 0 Lymphocytes % (Manual) 6 L 10.0-50.0 Monocytes % (Manual) 4 0-12 Eosinophils % (Manual) 0 0-7 Basophils % (Manual) 0 0.0-2.0 Metamyelocytes % (manual) 0 Myelocytes % (Manual) 0 Promyelocytes % (Manual) 0 Blast Cells % (Manual) 0 Reactive Lymphocytes 0 Platelet Estimate Adequate Clumped Platelets Moderate Stomatocytes Few Sodium Level 135 L 135 L 135 L 136-145 mmol/L Potassium Level 3.6 3.4 L 3.4 L 3.5-5.1 mmol/L Chloride Level 104 101 102 98-107 mmol/L Carbon Dioxide Level 26 25 25 20-31 mmol/L Anion Gap 5 9 8 5-15 Blood Urea Nitrogen < 5 L < 5 L < 5 L 9-23 mg/dL Creatinine 0.65 0.62 0.51 L 0.550-1.02 mg/dL Glomerular Filtration Rate Calc 117 118 124 >90 mL/min BUN/Creatinine Ratio 7.7 L 8.1 L 9.8 L 10.0-20.0 Serum Glucose 97 106 92 74-106 mg/dL Calcium Level 8.9 8.6 L 8.7 8.7-10.4 mg/dL Eosinophils (%) (Auto) 0.0 0.3 0.0-7.0 % Eosinophils # (Auto) 0 0.1 0-0.8 10 ^3/uL Basophils # (Auto) 0 0 0-0.2 10 ^3/uL Nucleated Red Blood Cells 0.0 0.0 % Magnesium Level 1.8 1.9 1.6-2.6 mg/dL Total Bilirubin 0.4 0.2-1.0 mg/dL Aspartate Amino Transferase (AST) 13 13-40 U/L Alanine Aminotransferase (ALT) < 9 7-40 U/L Alkaline Phosphatase 88 46-116 U/L Total Protein 6.7 5.7-8.2 g/dL Albumin 3.1 L 3.2-4.8 g/dL Test 12/29/23 10:10 12/29/23 16:01 12/30/23 05:05 12/31/23 06:40 Range/Units Body Fluid Source Pending Body Fluid pH Pending Body Fluid WBC (Manual) Pending Body Fluid RBC (Manual) Pending Body Fluid Mononuclear Cells Pending Body Fluid Polymorphonuclear Cells Pending White Blood Count 29.0 H 28.0 H 19.7 #H 4.4-10.8 10^3/uL Red Blood Count 3.34 L 3.12 L 2.86 L 4.0-5.20 10^6/uL Hemoglobin 9.2 L 8.3 L 7.9 L 12.2-16.2 g/dL Hematocrit 28.3 L 26.5 L 24.0 L 36.0-46.0 % Mean Corpuscular Volume 84.6 84.9 83.8 80.0-100.0 fL Mean Corpuscular Hemoglobin 27.6 L 26.6 L 27.5 L 28.0-32.0 pg Mean Corpuscular Hemoglobin Concent 32.6 31.4 L 32.8 32.0-36.0 g/dL Red Cell Distribution Width 15.2 H 15.4 H 15.8 H 11.8-14.3 % Platelet Count 380 433 437 140-450 10^3/uL Mean Platelet Volume 7.6 7.6 7.5 6.9-10.8 fL Neutrophils (%) (Auto) 85.6 H 37.0-80.0 % Lymphocytes (%) (Auto) 9.3 L 10.0-50.0 % Monocytes (%) (Auto) 4.6 0.0-12.0 % Basophils (%) (Auto) 0.2 0.0-2.0 % Neutrophils # (Auto) 16.8 H 1.6-8.6 10 ^3/uL Lymphocytes # (Auto) 1.8 0.4-5.4 10 ^3/uL Monocytes # (Auto) 0.9 0-1.3 10 ^3/uL Differential Total Cells Counted 100.0 100.0 100 Neutrophils % (Manual) 75 71 37.0-80.0 Band Neutrophils % (Manual) 21 25 Lymphocytes % (Manual) 1 L 3 L 10.0-50.0 Monocytes % (Manual) 1 0 0-12 Eosinophils % (Manual) 0 0 0-7 Basophils % (Manual) 0 0 0.0-2.0 Metamyelocytes % (manual) 2 1 Myelocytes % (Manual) 0 0 Promyelocytes % (Manual) 0 0 Blast Cells % (Manual) 0 0 Reactive Lymphocytes 0 0 Platelet Estimate Adequate Adequate Large Platelets Few Sodium Level 139 142 140 136-145 mmol/L Potassium Level 3.7 3.7 3.0 L 3.5-5.1 mmol/L Chloride Level 112 #H 108 H 104 98-107 mmol/L Carbon Dioxide Level 24 30 29 20-31 mmol/L Anion Gap 3 L 4 L 7 5-15 Blood Urea Nitrogen < 5 L 8 L 7 L 9-23 mg/dL Creatinine 0.38 L 0.45 L 0.35 L 0.550-1.02 mg/dL Glomerular Filtration Rate Calc 133 128 136 >90 mL/min BUN/Creatinine Ratio 13.2 17.8 20.0 10.0-20.0 Serum Glucose 141 H 140 H 135 H 74-106 mg/dL Calcium Level 7.4 L 8.3 L 8.3 L 8.7-10.4 mg/dL Prothrombin Time 12.7 H 9.3-11.8 sec Prothrombin Time INR 1.22 H 0.9-1.15 Activated Partial Thromboplast Time 31.8 24.5-34.5 SEC Phosphorus Level 4.8 2.1 L 2.4-5.1 mg/dL Magnesium Level 1.7 1.9 1.6-2.6 mg/dL Total Bilirubin 0.3 0.2 0.2-1.0 mg/dL Aspartate Amino Transferase (AST) 19 18 13-40 U/L Alanine Aminotransferase (ALT) < 9 9 7-40 U/L Alkaline Phosphatase 59 54 46-116 U/L Total Protein 5.6 L 5.8 5.7-8.2 g/dL Albumin 2.5 L 2.6 L 3.2-4.8 g/dL Triglycerides Level 81 < 150 mg/dL Eosinophils (%) (Auto) 0.3 0.0-7.0 % Eosinophils # (Auto) 0 0-0.8 10 ^3/uL Basophils # (Auto) 0 0-0.2 10 ^3/uL Nucleated Red Blood Cells 0.1 % Test 12/31/23 11:42 12/31/23 20:58 01/01/24 01:06 01/01/24 05:40 Range/Units POC Glucose 141 H 99 70-106 mg/dl Potassium Level 3.7 3.3 L 3.5-5.1 mmol/L White Blood Count 17.6 H 4.4-10.8 10^3/uL Red Blood Count 2.97 L 4.0-5.20 10^6/uL Hemoglobin 8.2 L 12.2-16.2 g/dL Hematocrit 25.2 L 36.0-46.0 % Mean Corpuscular Volume 84.9 80.0-100.0 fL Mean Corpuscular Hemoglobin 27.5 L 28.0-32.0 pg Mean Corpuscular Hemoglobin Concent 32.4 32.0-36.0 g/dL Red Cell Distribution Width 15.9 H 11.8-14.3 % Platelet Count 506 H 140-450 10^3/uL Mean Platelet Volume 7.6 6.9-10.8 fL Neutrophils (%) (Auto) 82.8 H 37.0-80.0 % Lymphocytes (%) (Auto) 10.7 10.0-50.0 % Monocytes (%) (Auto) 5.6 0.0-12.0 % Eosinophils (%) (Auto) 0.7 0.0-7.0 % Basophils (%) (Auto) 0.2 0.0-2.0 % Neutrophils # (Auto) 14.6 H 1.6-8.6 10 ^3/uL Lymphocytes # (Auto) 1.9 0.4-5.4 10 ^3/uL Monocytes # (Auto) 1.0 0-1.3 10 ^3/uL Eosinophils # (Auto) 0.1 0-0.8 10 ^3/uL Basophils # (Auto) 0 0-0.2 10 ^3/uL Nucleated Red Blood Cells 0.2 % Sodium Level 142 136-145 mmol/L Chloride Level 105 98-107 mmol/L Carbon Dioxide Level 27 20-31 mmol/L Anion Gap 10 5-15 Blood Urea Nitrogen 8 L 9-23 mg/dL Creatinine 0.37 L 0.550-1.02 mg/dL Glomerular Filtration Rate Calc 134 >90 mL/min BUN/Creatinine Ratio 21.6 H 10.0-20.0 Serum Glucose 100 74-106 mg/dL Calcium Level 8.2 L 8.7-10.4 mg/dL Phosphorus Level 3.4 2.4-5.1 mg/dL Magnesium Level 2.1 1.6-2.6 mg/dL Total Bilirubin 0.2 0.2-1.0 mg/dL Aspartate Amino Transferase (AST) 31 13-40 U/L Alanine Aminotransferase (ALT) 10 7-40 U/L Alkaline Phosphatase 71 46-116 U/L Total Protein 6.1 5.7-8.2 g/dL Albumin 2.9 L 3.2-4.8 g/dL Test 01/02/24 04:50 01/02/24 05:35 01/02/24 11:07 Range/Units White Blood Count 15.2 H 4.4-10.8 10^3/uL Red Blood Count 2.69 L 4.0-5.20 10^6/uL Hemoglobin 7.5 L 12.2-16.2 g/dL Hematocrit 22.8 L 36.0-46.0 % Mean Corpuscular Volume 84.7 80.0-100.0 fL Mean Corpuscular Hemoglobin 28.0 28.0-32.0 pg Mean Corpuscular Hemoglobin Concent 33.1 32.0-36.0 g/dL Red Cell Distribution Width 16.0 H 11.8-14.3 % Platelet Count 471 H 140-450 10^3/uL Mean Platelet Volume 7.3 6.9-10.8 fL Neutrophils (%) (Auto) 83.8 H 37.0-80.0 % Lymphocytes (%) (Auto) 9.7 L 10.0-50.0 % Monocytes (%) (Auto) 4.8 0.0-12.0 % Eosinophils (%) (Auto) 1.4 0.0-7.0 % Basophils (%) (Auto) 0.3 0.0-2.0 % Neutrophils # (Auto) 12.7 H 1.6-8.6 10 ^3/uL Lymphocytes # (Auto) 1.5 0.4-5.4 10 ^3/uL Monocytes # (Auto) 0.7 0-1.3 10 ^3/uL Eosinophils # (Auto) 0.2 0-0.8 10 ^3/uL Basophils # (Auto) 0 0-0.2 10 ^3/uL Nucleated Red Blood Cells 0.0 % Sodium Level 142 136-145 mmol/L Potassium Level 4.0 3.5-5.1 mmol/L Chloride Level 107 98-107 mmol/L Carbon Dioxide Level 28 20-31 mmol/L Anion Gap 7 5-15 Blood Urea Nitrogen 8 L 9-23 mg/dL Creatinine 0.41 L 0.550-1.02 mg/dL Glomerular Filtration Rate Calc 131 >90 mL/min BUN/Creatinine Ratio 19.5 10.0-20.0 Serum Glucose 111 H 74-106 mg/dL Calcium Level 8.2 L 8.7-10.4 mg/dL Phosphorus Level 3.5 2.4-5.1 mg/dL Magnesium Level 2.1 1.6-2.6 mg/dL Iron Level 17 L 50-170 ug/dL Total Iron Binding Capacity 190 L 250-425 ug/dL Percent Iron Saturation 8.9 L 15-50 % Total Bilirubin 0.2 0.2-1.0 mg/dL Aspartate Amino Transferase (AST) 35 13-40 U/L Alanine Aminotransferase (ALT) 15 7-40 U/L Alkaline Phosphatase 75 46-116 U/L Total Protein 5.8 5.7-8.2 g/dL Albumin 2.6 L 3.2-4.8 g/dL POC Glucose 112 H 97 70-106 mg/dl Assessment and Plan ASSESSMENT AND PLAN Assessment and Plan POD#4 Ex Lap, Left Oophorectomy and sigmoid resection w/ anastomosis for large TOA Plan: Advance orders Ambulate Pain control Continue Antibiotics per ID recommendations. My orders: Orders - ANNALISA MANCINI DO * Senior Engineering Team Leader Consultation (12/25/23 07:08) Obtain Consent For Anesthesia (12/25/23 07:47) * Radiologist Consult (12/25/23 12:29) Obtain Consent For: (12/29/23 07:27) Gram Stain (12/29/23 10:10) Routine Bacterial Culture (12/29/23 10:10) Anaerobic Culture (12/29/23 10:10) Strict I & O QSHIFT (12/29/23 13:06) Discontinue Trent Catheter (12/29/23 13:06) Notify L&D Md If: (12/29/23 13:06) Is At Bedside. (12/29/23 13:06) Incentive Spirometry (12/29/23 13:06) Hydromorphone Injection (Dilaudid Inject (12/29/23 13:15) Ng/Orogastric Tube To Lis (12/29/23 13:06) * Infectious [place]- Dr. Lanre Castillo (12/29/23 13:18) Consult For Nutrition (12/29/23 18:40) Kub Abdomen Single View (12/30/23 04:00) Plan discussed with: Patient Date of Service: Jan 02, 2024 Billing Provider: ANNALISA MANCINI DO Common Visit Codes: [id number] INP/OBS CARE(MOD) ANNALISA MANCINI DO Jan 02, 2024 16:43
[2024-01-02] MEDS: TPN PER PHARMACY IV NR (21:14)
[2024-01-02] MEDS: DOXYCYCLINE 100 MG TAB/CAP PO SCH (21:20)
[2024-01-02] MEDS ORDERED: TPN PER PHARMACY IV NR (22:00)
--- NOTE | 2024-01-02 22:05 | DVHPN2 ---
Consult Progress Note Date Seen: Jan 02, 2024 Subjective Patient reports: Feels better (advanced to clear liquid diet and tolerating it well , had a bowel movement. Olu drain is still putting out 55ccs of fluid) Objective vital signs Vital Sign Date Time Temp Pulse Resp B/P (MAP) Pulse Ox O2 Delivery O2 Flow Rate FiO2 01/02/24 19:33 85 18 114/71 01/02/24 17:00 98.4 99 98.4 01/02/24 08:00 Room Air* 0 21 Total Intake and Output 01/01/24 01/01/24 01/02/24 15:00 23:00 07:00 Intake Total 1300 ml 890 ml Output Total 25 ml Balance 1300 ml 865 ml medications Current Medications Medications Dose Ordered Sig/Sadia Route Start Time Stop Time Status Last Admin Dose Admin Ondansetron HCl 4 mg Q4HP PRN IV 12/24/23 21:30 12/29/23 03:36 4 MG Nitroglycerin 0.4 mg Q5MINP PRN SL 12/24/23 21:30 Hydromorphone HCl 1 mg Q2HPRN PRN IV 12/29/23 13:15 01/02/24 19:03 1 MG Amino Acids 0 ml @ 0 mls/hr PER PHARMACY IV 12/29/23 19:00 Metronidazole 100 ml @ 100 mls/hr Q8HR IV 12/30/23 14:00 01/02/24 21:20 100 MLS/HR Ketorolac Tromethamine 15 mg Q6HPRN PRN IV 12/30/23 13:30 01/04/24 13:29 01/01/24 18:24 15 MG Sodium Chloride 10 ml QSHIFT@10,22 IV 12/30/23 22:00 01/02/24 21:20 10 ML Ceftriaxone Sodium/Dextrose 50 ml @ 50 mls/hr DAILY IV 12/31/23 10:00 01/02/24 10:45 50 MLS/HR Diagnostic Test (Pha) 1 strip Q6HR 12/31/23 12:00 01/02/24 12:00 1 STRIP Insulin Human Regular FOLLOW SLIDING SCALE Q6HR SC 12/31/23 12:00 12/31/23 12:15 2 UNITS Dextrose 50 ml UD IV 12/31/23 10:30 Fat Emulsion Intravenous 150 ml/Potassium Acetate 20 meq/ Potassium Phosphate 22 meq/ Calcium Gluconate 2.3 meq/Magnesium Sulfate 12 meq/ Multivitamins 10 ml/Chromium/ Copper/Manganese/ Zinc 1 ml/Amino Acids/Dextrose 1,383.9462 ml @ 58 mls/hr [id number] IV 01/02/24 22:00 01/03/24 21:59 Cancel Fat Emulsion Intravenous 150 ml/Potassium Acetate 20 meq/ Potassium Phosphate 22 meq/ Calcium Gluconate 2.3 meq/Magnesium Sulfate 12 meq/ Multivitamins 10 ml/Chromium/ Copper/Manganese/ Zinc 1 ml/Amino Acids/Dextrose 1,383.9462 ml @ 58 mls/hr [id number] IV 01/02/24 22:00 01/03/24 21:51 01/02/24 21:14 58 MLS/HR Doxycycline Monohydrate 100 mg Q12HR PO 01/02/24 22:00 01/02/24 21:20 100 MG Physical Exam: - General: No acute distress - Neck: Supple. No masses. - HEENT: PERRL. Normal lids and conjunctiva. Moist mucous membranes. Oropharynx without lesions, exudates, or excessive erythema. Normal appearance of the external aspects of the nose and ears. - Heart: Regular rhythm, normal rate. No murmur. No lower extremity edema. - Lungs: Normal respiratory effort. Clear to auscultation bilaterally. No wheezes. No crackles. - Abdomen: Soft. Tenderness in the left lower quadrant. distended. No masses or abdominal hernia. - Musculoskeletal: No digital cyanosis. Normal strength and tone in all 4 limbs. - Skin: Warm and dry, no rashes. - Neuro: Alert. No facial droop or slurred speech. Extra-ocular movements intact. Sensation intact to soft touch in all 4 limbs. - Psych: Appropriate mood. Full affect. Oriented to person, place, time, and situation. laboratory and microbiology Laboratory Tests 01/02/24 04:50 Test 01/02/24 04:50 Range/Units Serum Glucose 111 H 74-106 mg/dL Problem List/Assessment/Plan Problems(with codes): (1) Left pyosalpinx (2) Leukocytosis (3) Adnexal mass (4) Left lower quadrant abdominal pain Problem List/Assessment/Plan ASSESSMENT AND PLAN: ID Problem List: - Pyosalpinx - Tubo-ovarian abscess - Persistent leukocytosis - Anemia - History of kidney stones - itraabdominal mass -inflammed appendix Assessment This is a 38 y.o. female with a past medical history of kidney stones (last occurrence three years ago), who presents with intermittent left lower quadrant pain and yellowish vaginal discharge for the last month. She had an intrauterine device (IUD) inserted five years ago, which was removed one month ago. She reports no multiple sexual partners and denies concern for sexually transmitted diseases. The pain is cramping in nature, rated 9 out of 10. She denies hematuria, fevers, or chills. No history of smoking or alcohol use; however, she does use marijuana occasionally. She lives with her boyfriend. Vital signs on admission revealed a temperature of 102.7F, respiratory rate of 16, blood pressure 102/68 mmHg, and oxygen saturation of 100% on room air. Physical examination was notable for tenderness in the left lower quadrant. Imaging studies include: - Pelvic ultrasound showing a left adnexal structurepossible mass or collection; infectious etiology not excluded. A simple cyst was noted in the right ovary. - CT abdomen and pelvis revealing a 5.6 x 5.1 cm thick-walled multilocular lesion of the left adnexa, suspicious for pyosalpinx; other etiologies not excluded. - Pelvic MRI demonstrating a multiloculated cystic mass in the left adnexa, likely representing a tubo-ovarian abscess; malignant lesion with necrosis not entirely excluded. On December 25, a CT-guided placement of an 8.5 mm pigtail drain was performed, yielding 25 cc of thick, foul, purulent fluid with slight green discoloration, sent for cytology and cultures. Cultures have shown no growth to date. Laboratory studies reveal a persistently elevated white blood cell count of 28,000/mm, hemoglobin of 8.2 g/dL, and platelet count of 344,000/mm. Despite drainage, the abscess remains sizable with minimal output, and the patient continues to have persistent leukocytosis. It is unclear if antibiotics alone will suffice in treating the infection. 12/29: Post op day 1 from diagnostic exploratory laparoscopy via midline incision , a left oophorectomy , a partial omentectomy, partial colon resection with primary anastomosis my Dr Strauss and an appendectomy. They found omental adhesions in the abdominal cavity , a mass in the left pelvis which could not be mobilized until the converted to an laparotomy. They found a large inflammatory mass . The greater momentum contained severely infected and indurated tissue , the momentum was divided and excised. mass was adherent to rectosigmoid and Dr Strauss was consulted. Olu drain was placed. Cultures from 12/28 and aspirated cultures from 12/25 show no growth. White count is still elevated but hemoglobin is stable 12/30: white count has gone down to 19.7, chest x-ray shows a need to advance anterior tube in the stomach about 2 cm. cultures from asprite from the IR drainage revealed anerococcus and the peritoneal fluid cultures are still pending 12/31: Aspric cultures are growing inner coccus , peritoneal fluids are growing clostridioforme 01/01: white count continues to downtrend, continue antibiotics for 14 more days Plan: - continue antibiotics , slowly transition to oral versions of these medications and assess for tolerance . First of which would be transitioning to Oral Doxycycline - follow up on biopsy results of mass - Continue doxycycline and Flagyl (metronidazole). - Continue ceftriaxone. - Monitoring: - Monitor OLU drain output closely. - Follow up on operative cultures as well as OLU drain output - blood pressure support as needed Plan discussed with: Other Dietary Evaluation Review Comments: 1) Increase TPN to meet at least 75% of estimated needs 2) Advance pt diet when medically feasible 3) Continue current plan of care Expected Outcomes/Goals: 1) Pt diet to advance 2) F/U in 2-3 days FELICITY MEMBRENO MD Jan 02, 2024 22:05
[2024-01-03] VITALS (8 sets, daily range): BP systolic 101–112; BP diastolic 60–71; PULSE 79–104; RESP 18–20; TEMP 97.7–98.7; O2SAT 95–99
[2024-01-03 07:31] LABS: Lymphocytes # (auto) 1.6 10 ^3/uL (0.4-5.4); Nucleated Red Blood Cells % 0.1 %; Red Cell Distribution Width 16.5 % (11.8-14.3); White Blood Cell 21.4 10^3/uL (4.4-10.8)
[2024-01-03 07:32] LABS: Basophils # (auto) 0 10 ^3/uL (0-0.2); Basophils % (auto) 0.2 % (0.0-2.0); Eosinophils # (auto) 0.4 10 ^3/uL (0-0.8); Hematocrit 24.7 % (36.0-46.0); Lymphocytes % (auto) 7.6 % (10.0-50.0); Mean Corpuscular Hemoglobin 28.1 pg (28.0-32.0); Mean Corpuscular Hgb Conc. 32.5 g/dL (32.0-36.0); Mean Corpuscular Volume 86.6 fL (80.0-100.0); Monocytes # (auto) 1.2 10 ^3/uL (0-1.3); Monocytes % (auto) 5.5 % (0.0-12.0); Neutrophils # (auto) 18.2 10 ^3/uL (1.6-8.6); Neutrophils % (auto) 84.7 % (37.0-80.0); Platelet Count (auto) 526 10^3/uL (140-450); Red Blood Cells 2.85 10^6/uL (4.0-5.20)
[2024-01-03 07:46] LABS: Alanine Aminotransferase 14 U/L (7-40); Alkaline Phosphatase 75 U/L (46-116); Anion Gap 7 (5-15); Aspartate Aminotransferase 27 U/L (13-40); BUN/Creatinine Ratio 15.9 (10.0-20.0); Bilirubin, Total 0.3 mg/dL (0.2-1.0); Blood Urea Nitrogen 7 mg/dL (9-23); Calcium 8.6 mg/dL (8.7-10.4); Carbon Dioxide 26 mmol/L (20-31); Chloride 105 mmol/L (98-107); Glucose 119 mg/dL (74-106); Magnesium 2.2 mg/dL (1.6-2.6); Phosphorus 3.6 mg/dL (2.4-5.1); Potassium 4.1 mmol/L (3.5-5.1); Sodium 138 mmol/L (136-145); Total Protein 6.5 g/dL (5.7-8.2)
[2024-01-03] MEDS ORDERED: VANCOMYCIN HCL 125 MG CAP PO ONE (11:00)
[2024-01-03] MEDS: GASTROGRAFIN 30 ML SOL ONE (11:12)
[2024-01-03] MEDS: IOHEXOL 300 MG/ML 100ML BOTTLE IJ ONE (11:38)
[2024-01-03] MEDS ORDERED: VANCOMYCIN HCL 125 MG CAP PO SCH (12:00)
--- NOTE | 2024-01-03 13:28 | DVH ---
Exam: CT CT AB PEL WITH IV CON ONLY History: R/O RESIDUAL INTRA ABD ABSCESS Comparison Study: CT CT AB PEL WITH ORAL CON ONLY on DOS: 12/26/23, CT CT AB PEL WO CON-NO ORAL OR IV on DOS: 12/24/23 Technique: Multidetector spiral CT of the abdomen was performed from lung bases to pubic symphysis. Imaging was performed without IV contrast. Axial, coronal and sagittal multiplanar reformats were ob tained from the axial data set by the technologist. Radiation Dose : 1. Abdomen/Pelvis: CTDIvol 22 mGy, DLP 1227.8 mGy*cm. Findings: Evaluation of solid organs is limited due to lack of intravenous contrast use. Lung Bases: No acute or significant lung base finding. Normal heart size. No pleural or pericardial effusion. Liver: The liver is normal in size. No focal lesions. Gallbladder and Biliary Tree: Gallbladder is surgically absent. Spleen: Unremarkable Pancreas: The pancreas is grossly normal in appearance. Adrenal Glands: Unremarkable Kidneys: Kidneys are grossly normal without hydronephrosis. Stable punctate left nephrolithiasis. Bladder: Grossly unremarkable for degree of distention. Bowel: The stomach is grossly normal in appearance. Small bowel and colon are normal in caliber and d istribution. The appendix is not visualized; however, no secondary findings of acute appendicitis id entified. Ascites: Absent Lymphadenopathy: No mesenteric, retroperitoneal or periportal lymphadenopathy. Abdominal Wall and Mesentery: Drainage catheter is seen in the lower midline abdomen with tip curled in the lower midline pelvis. Interval decrease in size of multiloculated pelvic abscess, the largest pocket measuring approximately 2.8 by 11.3 cm . The majority of the remaining abscess is not adjacent to the drainage catheter tip. Vasculature: The visualized abdominal aorta is normal in size and caliber. Evaluation of abdominal a nd pelvic vessels is limited due to lack of intravenous contrast. Pelvic Organs: Unremarkable Musculoskeletal: No aggressive focal bony lesions, acute fractures or dislocation. IMPRESSION: 1. Drainage catheter is seen in the lower midline abdomen with tip curled in the lower midline pelvis . Interval decrease in size of multiloculated pelvic abscess, the largest pocket now measuring approx imately 2.8 x 11.3 cm . The majority of the remaining abscess is not adjacent to the drainage cathete r tip. Consider repositioning of drainage catheter. Radiation optimization: All CT scans at this facility use at least one of these dose optimization jaziel hniques: automated exposure control mA and/or kV adjustment per patient size (includes targeted exam s where dose is matched to clinical indication) or iterative reconstruction.
--- NOTE | 2024-01-03 13:31 | DVHPNRES ---
Progress Note Date Seen: Jan 03, 2024 Resident Creating Document: SHARON RAJPUT RESIDENT Has the PT tested + for MRSA If YES, has PT been informed?: No Medical Necessity Reason Pt with a Central, PICC or Fol: No Subjective Review of Systems This is a 38-year-old female with past medical history of kidney stones, who presented to the ED with a chief complaint of intermittent left lower quadrant abdominal pain and yellowish vaginal discharge for last 1 month prior to this admission. According to the patient the left lower quadrant abdominal pain is colicky in nature 9/10 localized with no specific pattern of radiation and no aggravating or relieving factors and associated with yellowish vaginal discharge. She had an IUD for 5 years and removed 1 month ago. She had no history of STD or multiple sexual partner before and her last Pap test was few months ago and was normal study according to the patient. She also mentioned she had history of kidney stone 3 years ago and passed 3 stones but no imaging or follow up was done after that. She denies fever, chills, sweating, nausea, vomiting, chest pain, dizziness or any change in the bowel and bladder habit. on my examination, the patient denies any vaginal discharge at this point. The patient is having left suprapubic abdominal tenderness rated now as 7/10 on the pain scale after pain medications were given. OBGYN was consulted which assessed and evaluated the patient. Pelvic ultrasound showed left adnexal structure, possible mass/collection. There was also a simple cyst in the right ovary. CT scan of the abdomen and pelvis showed a 5.6 x 5.1 cm thick wall multilocular lesion in the left adnexa which is suspicion for a pyosalpinx. The patient was started on IV ceftriaxone, doxycycline and IV fluids at 75 cc/hour. Patient will be admitted for further assessment and management. Patient seen and examined at bedside. Patient still feels lower abdominal discomfort but states that he is feeling better compared to previous days. Patient reports bowel movements and passing gases at this time. Patient is also ambulating without complications and working with physical therapy. Today, WBC went up to 21.4. We ordered a CT scan of the abdomen and pelvis with IV contrast to rule out any residual abscess. The patient is currently hemodynamically stable. We will continue IV doxycycline, metronidazole, ceftriaxone. We will monitor diet closely and we will advance diet accordingly. ROS Constitutional: Denies weight loss, fever and chills. HEENT: Denies changes in vision and hearing. Respiratory: Denies shortness of breath and cough Cardiovascular: Denies chest discomfort or palpitations GI: Reports mild abdominal tenderness at the hypogastric region which has improved. Denies nausea, vomiting and diarrhea. : Denies dysuria and urinary frequency. Musculoskeletal: Denies myalgias and joint pain Skin: Denies rash and pruritus. Neurological: Denies dizziness, headache, vision or hearing problems Objective vital signs Vital Sign Date Time Temp Pulse Resp B/P (MAP) Pulse Ox O2 Delivery O2 Flow Rate FiO2 01/03/24 12:33 93 16 106/66 01/03/24 12:30 97.7 97 97.7 01/02/24 20:00 Room Air* 0 21 Total Intake and Output 01/02/24 01/02/24 01/03/24 14:59 22:59 06:59 Intake Total 1113.4917 ml 600 ml Balance 1113.4917 ml 600 ml medications Current Medications Medications Dose Ordered Sig/Sadia Route Start Time Stop Time Status Last Admin Dose Admin Ondansetron HCl 4 mg Q4HP PRN IV 12/24/23 21:30 12/29/23 03:36 4 MG Hydromorphone HCl 1 mg Q2HPRN PRN IV 12/29/23 13:15 01/03/24 12:33 1 MG Amino Acids 0 ml @ 0 mls/hr PER PHARMACY IV 12/29/23 19:00 Metronidazole 100 ml @ 100 mls/hr Q8HR IV 12/30/23 14:00 01/03/24 05:47 100 MLS/HR Sodium Chloride 10 ml QSHIFT@10,22 IV 12/30/23 22:00 01/03/24 09:35 10 ML Ceftriaxone Sodium/Dextrose 50 ml @ 50 mls/hr DAILY IV 12/31/23 10:00 01/03/24 09:31 50 MLS/HR Diagnostic Test (Pha) 1 strip Q6HR 12/31/23 12:00 01/03/24 12:39 1 STRIP Insulin Human Regular FOLLOW SLIDING SCALE Q6HR SC 12/31/23 12:00 01/03/24 05:59 2 UNITS Dextrose 50 ml UD IV 12/31/23 10:30 Fat Emulsion Intravenous 150 ml/Potassium Acetate 20 meq/ Potassium Phosphate 22 meq/ Calcium Gluconate 2.3 meq/Magnesium Sulfate 12 meq/ Multivitamins 10 ml/Chromium/ Copper/Manganese/ Zinc 1 ml/Amino Acids/Dextrose 1,383.9462 ml @ 58 mls/hr [id number] IV 01/02/24 22:00 01/03/24 21:59 Cancel Fat Emulsion Intravenous 150 ml/Potassium Acetate 20 meq/ Potassium Phosphate 22 meq/ Calcium Gluconate 2.3 meq/Magnesium Sulfate 12 meq/ Multivitamins 10 ml/Chromium/ Copper/Manganese/ Zinc 1 ml/Amino Acids/Dextrose 1,383.9462 ml @ 58 mls/hr [id number] IV 01/02/24 22:00 01/03/24 21:51 01/02/24 21:14 58 MLS/HR Doxycycline Monohydrate 100 mg Q12HR PO 01/02/24 22:00 01/03/24 09:31 100 MG Fat Emulsion Intravenous 150 ml/Sodium Acetate 20 meq/Potassium Phosphate 22 meq/ Calcium Gluconate 2.3 meq/Magnesium Sulfate 12 meq/ Multivitamins 10 ml/Chromium/ Copper/Manganese/ Zinc 1 ml/Amino Acids/Dextrose 1,483.9462 ml @ 62 mls/hr [id number] IV 01/03/24 22:00 01/04/24 19:59 Examination Physical Examination General: Patient alert and oriented in person, place and time. Patient following commands. HEENT: Normocephalic, atraumatic, moist mucous membranes Respiratory/pulmonary: Clear lungs bilaterally, no associated crackles or wheezes. Cardiovascular: Normal heart sounds S1 and S2 with no associated murmurs Abdomen: Abdomen nondistended, there is mild abdominal pain at the hypogastric region. Middle line incision and sutures are closed, dry and clean with a OLU drainage draining approximately 10 cc in the last 12 hours. No palpable masses Extremities: There is no peripheral edema present at the lower extremities. Peripheral Pulses: 3+ Radial (R). 3+ Radial (L). 3+ Dorsalis pedis (R). 3+ Dorsalis pedis(L) Skin: No rashes or pruritus, there is no sacral edema present at this time. Neurological: Intact cranial nerves with no focal neurologic deficits laboratory and microbiology Laboratory Tests 01/03/24 06:27 Test 01/03/24 06:27 Range/Units Serum Glucose 119 H 74-106 mg/dL Microbiology Date/Time Source Procedure Growth Status 12/29/23 10:10 Peritoneal Fluid Gram Stain - Final Complete 12/29/23 10:10 Anaerobic Culture - Final Clostridium clostridioforme Complete 12/29/23 10:10 Peritoneal Fluid Aerobic Culture - Final Complete 12/24/23 16:12 Blood Blood Culture - Final NO GROWTH AFTER 5 DAYS OF INCUBATION. Complete Problem List/Assessment/Plan Problem List/Assessment/Plan Assessment/Plan Acute left suprapubic pain likely due to left tubo-ovarian abscess/pyosalpinx Possible pelvic inflammatory disease Sepsis likely due to tubo-ovarian abscess/pyosalpinx (PID) S/P left oophorectomy with appendectomy and bowel resection with anastomosis of the descending colon with rectum Day 5 -initial WBC was 23.8, 23.5., patient also had fever, tachycardia -Last WBC is trending down to 15.2 -patient has a history of IUD for five years that was removed one month ago -CT of the abdomen showed a 5.6 x 5.1 cm thick walled multilocular lesion in the left adnexa which is suspicious for a pyosalpinx -continue IV metronidazole -continue IV doxycycline -continue ceftriaxone -Discontinue lactate ringer -NAAT for chlamydia and gonorrhea, which both came back negative -IR attempted drainage of left tubo-ovarian abscess but patient kept septic so patient was escalated to surgery on 12/29/23 -OBGYN on board, which performed left oopherectomy with removal of appendix and part of greater omentum, as well as part of the colon with anastomosis without complications on 12/29/23. -MRI of the abdomen showed a multiloculated cystic mass in the left adnexa likely representing tubo-ovarian abscess. -Currently toleration clear liquid diet -continue TPN -infectious disease on board which recommended restarting the patient back on metronidazole, doxycycline and ceftriaxone -OLU drainage, draining aprox 10cc/12hr -continue nasogastric negative suction. Left-sided nonobstructing renal stone -Discontinue fluids -CT abdomen revealed punctating nonobstructing left sided nephrolithiasis -strain urine and monitor closely -follow-up with urology as an outpatient Normocytic hypochromic anemia -ordered iron panel, still pending -ordered ferritin which came back on normal range -last hemoglobin was 7.5 -monitor H&H closely Polysubstance abuse (cannabinoids) -urine drug screen came back positive for cannabis -relocation counselor patient on drug cessation Goals of care discussed with the patient at bedside for >23min, FULL CODE Plan discussed with Dr. Almendarez Plan discussed with: Patient My Orders My Orders Orders - SHARON RAJPUT Procedure Category Date Status Time Ct Ab Pel With Iv Con CT 01/03/24 Taken Only 11:22 Dietary Evaluation Review Comments: 1) Increase TPN to meet at least 75% of estimated needs 2) Advance pt diet when medically feasible 3) Continue current plan of care Expected Outcomes/Goals: 1) Pt diet to advance 2) F/U in 2-3 days SHARON RAJPUT RESIDENT Jan 03, 2024 13:31
--- NOTE | 2024-01-03 22:11 | DVHPN2 ---
Consult Progress Note Date Seen: Jan 03, 2024 Subjective Patient reports: Other (having bouts of diarrhea overnoght , at least 3 bowle movements in high volume, an output of additional 20ccs form OLU drain ) Objective vital signs Vital Sign Date Time Temp Pulse Resp B/P (MAP) Pulse Ox O2 Delivery O2 Flow Rate FiO2 01/03/24 21:38 107 21 112/62 01/03/24 17:00 97.9 99 97.9 01/03/24 08:00 Room Air* 0 21 Total Intake and Output 01/02/24 01/02/24 01/03/24 15:00 23:00 07:00 Intake Total 1113.4917 ml 700 ml Balance 1113.4917 ml 700 ml medications Current Medications Medications Dose Ordered Sig/Sadia Route Start Time Stop Time Status Last Admin Dose Admin Ondansetron HCl 4 mg Q4HP PRN IV 12/24/23 21:30 01/03/24 21:33 4 MG Hydromorphone HCl 1 mg Q2HPRN PRN IV 12/29/23 13:15 01/03/24 21:38 1 MG Amino Acids 0 ml @ 0 mls/hr PER PHARMACY IV 12/29/23 19:00 Metronidazole 100 ml @ 100 mls/hr Q8HR IV 12/30/23 14:00 01/03/24 14:23 100 MLS/HR Sodium Chloride 10 ml QSHIFT@10,22 IV 12/30/23 22:00 01/03/24 09:35 10 ML Diagnostic Test (Pha) 1 strip Q6HR 12/31/23 12:00 01/03/24 18:15 1 STRIP Insulin Human Regular FOLLOW SLIDING SCALE Q6HR SC 12/31/23 12:00 01/03/24 05:59 2 UNITS Dextrose 50 ml UD IV 12/31/23 10:30 Fat Emulsion Intravenous 150 ml/Potassium Acetate 20 meq/ Potassium Phosphate 22 meq/ Calcium Gluconate 2.3 meq/Magnesium Sulfate 12 meq/ Multivitamins 10 ml/Chromium/ Copper/Manganese/ Zinc 1 ml/Amino Acids/Dextrose 1,383.9462 ml @ 58 mls/hr [id number] IV 01/02/24 22:00 01/03/24 21:59 Cancel Doxycycline Monohydrate 100 mg Q12HR PO 01/02/24 22:00 01/03/24 09:31 100 MG Fat Emulsion Intravenous 150 ml/Sodium Acetate 20 meq/Potassium Phosphate 22 meq/ Calcium Gluconate 2.3 meq/Magnesium Sulfate 12 meq/ Multivitamins 10 ml/Chromium/ Copper/Manganese/ Zinc 1 ml/Amino Acids/Dextrose 1,483.9462 ml @ 62 mls/hr [id number] IV 01/03/24 22:00 01/04/24 19:59 Cefpodoxime Proxetil 200 mg BID PO 01/03/24 22:00 Physical Exam: - General: No acute distress - Neck: Supple. No masses. - HEENT: PERRL. Normal lids and conjunctiva. Moist mucous membranes. Oropharynx without lesions, exudates, or excessive erythema. Normal appearance of the external aspects of the nose and ears. - Heart: Regular rhythm, normal rate. No murmur. No lower extremity edema. - Lungs: Normal respiratory effort. Clear to auscultation bilaterally. No wheezes. No crackles. - Abdomen: Soft. Tenderness in the left lower quadrant. distended. No masses or abdominal hernia. - Musculoskeletal: No digital cyanosis. Normal strength and tone in all 4 limbs. - Skin: Warm and dry, no rashes. - Neuro: Alert. No facial droop or slurred speech. Extra-ocular movements intact. Sensation intact to soft touch in all 4 limbs. - Psych: Appropriate mood. Full affect. Oriented to person, place, time, and situation. laboratory and microbiology Laboratory Tests 01/03/24 06:27 Test 01/03/24 06:27 Range/Units Serum Glucose 119 H 74-106 mg/dL Problem List/Assessment/Plan Problems(with codes): (1) Left pyosalpinx (2) Adnexal mass (3) Leukocytosis (4) Left lower quadrant abdominal pain Problem List/Assessment/Plan ASSESSMENT AND PLAN: ID Problem List: - Pyosalpinx - Tubo-ovarian abscess - Persistent leukocytosis - Anemia - History of kidney stones - itraabdominal mass -inflammed appendix Assessment This is a 38 y.o. female with a past medical history of kidney stones (last occurrence three years ago), who presents with intermittent left lower quadrant pain and yellowish vaginal discharge for the last month. She had an intrauterine device (IUD) inserted five years ago, which was removed one month ago. She reports no multiple sexual partners and denies concern for sexually transmitted diseases. The pain is cramping in nature, rated 9 out of 10. She denies hematuria, fevers, or chills. No history of smoking or alcohol use; however, she does use marijuana occasionally. She lives with her boyfriend. Vital signs on admission revealed a temperature of 102.7F, respiratory rate of 16, blood pressure 102/68 mmHg, and oxygen saturation of 100% on room air. Physical examination was notable for tenderness in the left lower quadrant. Imaging studies include: - Pelvic ultrasound showing a left adnexal structurepossible mass or collection; infectious etiology not excluded. A simple cyst was noted in the right ovary. - CT abdomen and pelvis revealing a 5.6 x 5.1 cm thick-walled multilocular lesion of the left adnexa, suspicious for pyosalpinx; other etiologies not excluded. - Pelvic MRI demonstrating a multiloculated cystic mass in the left adnexa, likely representing a tubo-ovarian abscess; malignant lesion with necrosis not entirely excluded. On December 25, a CT-guided placement of an 8.5 mm pigtail drain was performed, yielding 25 cc of thick, foul, purulent fluid with slight green discoloration, sent for cytology and cultures. Cultures have shown no growth to date. Laboratory studies reveal a persistently elevated white blood cell count of 28,000/mm, hemoglobin of 8.2 g/dL, and platelet count of 344,000/mm. Despite drainage, the abscess remains sizable with minimal output, and the patient continues to have persistent leukocytosis. It is unclear if antibiotics alone will suffice in treating the infection. 12/29: Post op day 1 from diagnostic exploratory laparoscopy via midline incision , a left oophorectomy , a partial omentectomy, partial colon resection with primary anastomosis my Dr Strauss and an appendectomy. They found omental adhesions in the abdominal cavity , a mass in the left pelvis which could not be mobilized until the converted to an laparotomy. They found a large inflammatory mass . The greater momentum contained severely infected and indurated tissue , the momentum was divided and excised. mass was adherent to rectosigmoid and Dr Strauss was consulted. Olu drain was placed. Cultures from 12/28 and aspirated cultures from 12/25 show no growth. White count is still elevated but hemoglobin is stable 12/30: white count has gone down to 19.7, chest x-ray shows a need to advance anterior tube in the stomach about 2 cm. cultures from asprite from the IR drainage revealed anerococcus and the peritoneal fluid cultures are still pending 12/31: Aspric cultures are growing inner coccus , peritoneal fluids are growing clostridioforme 01/01: white count continues to downtrend, continue antibiotics for 14 more days 01/02: white count is elevated and multiple bowel movements and has been on antibiotics for a considerable amount of time . Plan: - agree with C diff testin g - hold off on imperic vancomycin at this time - if diarrhea continues to progress would start oral vancomycin and IV flagell - switch to oral ceftriaxone and stop IV ceftriaxone - continue antibiotics , slowly transition to oral versions of these medications and assess for tolerance . First of which would be transitioning to Oral Doxycycline - follow up on biopsy results of mass - Continue doxycycline and Flagyl (metronidazole). - Monitoring: - Monitor OLU drain output closely. - Follow up on operative cultures as well as OLU drain output - blood pressure support as needed Plan discussed with: Other Dietary Evaluation Review Comments: 1) Increase TPN to meet at least 75% of estimated needs 2) Advance pt diet when medically feasible 3) Continue current plan of care Expected Outcomes/Goals: 1) Pt diet to advance 2) F/U in 2-3 days FELICITY MEMBRENO MD Jan 03, 2024 22:11
[2024-01-03] MEDS: TPN PER PHARMACY IV NR (22:21)
[2024-01-04] VITALS (8 sets, daily range): BP systolic 98–107; BP diastolic 59–67; PULSE 90–103; RESP 16–20; TEMP 97.8–98.5; O2SAT 95–98
[2024-01-04] MEDS: CEFPODOXIME PROXETIL 200 MG TAB PO SCH (00:22)
[2024-01-04 05:12] LABS: Basophils # (auto) 0.1 10 ^3/uL (0-0.2); Eosinophils # (auto) 0.4 10 ^3/uL (0-0.8); Lymphocytes # (auto) 1.5 10 ^3/uL (0.4-5.4); Neutrophils # (auto) 15.2 10 ^3/uL (1.6-8.6); Red Cell Distribution Width 16.9 % (11.8-14.3); White Blood Cell 18.3 10^3/uL (4.4-10.8)
[2024-01-04 05:18] LABS: Basophils % (auto) 0.4 % (0.0-2.0); Eosinophils % (auto) 2.3 % (0.0-7.0); Hematocrit 23.5 % (36.0-46.0); Hemoglobin 7.8 g/dL (12.2-16.2); Lymphocytes % (auto) 8.1 % (10.0-50.0); Mean Corpuscular Hemoglobin 28.2 pg (28.0-32.0); Mean Corpuscular Volume 85.6 fL (80.0-100.0); Monocytes # (auto) 1.1 10 ^3/uL (0-1.3); Neutrophils % (auto) 83.2 % (37.0-80.0); Platelet Count (auto) 546 10^3/uL (140-450); Red Blood Cells 2.75 10^6/uL (4.0-5.20)
[2024-01-04 05:21] LABS: Alanine Aminotransferase 13 U/L (7-40); Albumin 2.9 g/dL (3.2-4.8); Alkaline Phosphatase 67 U/L (46-116); Anion Gap 5 (5-15); Aspartate Aminotransferase 18 U/L (13-40); BUN/Creatinine Ratio 13.6 (10.0-20.0); Blood Urea Nitrogen 6 mg/dL (9-23); Calcium 8.6 mg/dL (8.7-10.4); Carbon Dioxide 28 mmol/L (20-31); Chloride 106 mmol/L (98-107); Glucose 128 mg/dL (74-106); Magnesium 2.2 mg/dL (1.6-2.6); Potassium 4.1 mmol/L (3.5-5.1); Sodium 139 mmol/L (136-145); Triglycerides 97 mg/dL (< 150)
[2024-01-04 05:22] LABS: Bilirubin, Total 0.2 mg/dL (0.2-1.0); Phosphorus 4.1 mg/dL (2.4-5.1); Total Protein 6.3 g/dL (5.7-8.2)
--- NOTE | 2024-01-04 07:46 | DVHPN2 ---
Progress Note Date Seen: Jan 04, 2024 Has the PT tested + for MRSA If YES, has PT been informed?: No Medical Necessity Reason Pt with a Central, PICC or Fol: No Objective vital signs Vital Sign Date Time Temp Pulse Resp B/P (MAP) Pulse Ox O2 Delivery O2 Flow Rate FiO2 01/04/24 06:44 100 17 107/63 01/04/24 05:00 97.9 98 97.9 01/03/24 19:30 Room Air* 0 21 Total Intake and Output 01/03/24 01/03/24 01/04/24 15:00 23:00 07:00 Intake Total 50 ml 1138 ml 520 ml Output Total 200 ml 660 ml Balance -150 ml 478 ml 520 ml medications Current Medications Medications Dose Ordered Sig/Sadia Route Start Time Stop Time Status Last Admin Dose Admin Ondansetron HCl 4 mg Q4HP PRN IV 12/24/23 21:30 01/04/24 01:50 4 MG Hydromorphone HCl 1 mg Q2HPRN PRN IV 12/29/23 13:15 01/04/24 06:14 1 MG Amino Acids 0 ml @ 0 mls/hr PER PHARMACY IV 12/29/23 19:00 Metronidazole 100 ml @ 100 mls/hr Q8HR IV 12/30/23 14:00 01/04/24 06:00 100 MLS/HR Sodium Chloride 10 ml QSHIFT@10,22 IV 12/30/23 22:00 01/03/24 22:23 10 ML Diagnostic Test (Pha) 1 strip Q6HR 12/31/23 12:00 01/04/24 05:48 1 STRIP Insulin Human Regular FOLLOW SLIDING SCALE Q6HR SC 12/31/23 12:00 01/03/24 05:59 2 UNITS Dextrose 50 ml UD IV 12/31/23 10:30 Fat Emulsion Intravenous 150 ml/Potassium Acetate 20 meq/ Potassium Phosphate 22 meq/ Calcium Gluconate 2.3 meq/Magnesium Sulfate 12 meq/ Multivitamins 10 ml/Chromium/ Copper/Manganese/ Zinc 1 ml/Amino Acids/Dextrose 1,383.9462 ml @ 58 mls/hr [id number] IV 01/02/24 22:00 01/03/24 21:59 Cancel Doxycycline Monohydrate 100 mg Q12HR PO 01/02/24 22:00 01/03/24 22:23 100 MG Fat Emulsion Intravenous 150 ml/Sodium Acetate 20 meq/Potassium Phosphate 22 meq/ Calcium Gluconate 2.3 meq/Magnesium Sulfate 12 meq/ Multivitamins 10 ml/Chromium/ Copper/Manganese/ Zinc 1 ml/Amino Acids/Dextrose 1,483.9462 ml @ 62 mls/hr [id number] IV 01/03/24 22:00 01/04/24 19:59 01/03/24 22:21 62 MLS/HR Cefpodoxime Proxetil 200 mg BID PO 01/03/24 22:00 laboratory and microbiology Laboratory Tests 01/04/24 04:25 Test 01/04/24 04:25 Range/Units Serum Glucose 128 H 74-106 mg/dL Problem List/Assessment/Plan Problem List/Assessment/Plan 12/30/23 patient's mother qat bedside. operative findings explained, patient understands that colostomy is a possibility if the anastomosis does not heal properly. ngt needs to remain till patient has a bowel movement 01/01/24 PATIENT GAGGING AND RETCHING DUE TO NGT IRRITATION, WILL DC NGT BUT SHE MUST REMAIN NPO. ABDOMEN APPROPRIATELY TENDER, WOUND CLEAN AND WELL APPROXIMATED. NEEDS TO AMBULATE 01/02/24 passing flatus and had a BM, abdomen non distended, appropriately tender, drainage serosanguineous, start po clear liquids 01/04/24 DOINF WELL, NORMAL BM'S,WOUND OK, ABDOMEN APPROPRIATELY TENDER, ADVANCE DIET, HOME IN 24 TO 48 HOURS Plan discussed with: Patient Dietary Evaluation Review Comments: 1) Increase TPN to meet at least 75% of estimated needs 2) Advance pt diet when medically feasible 3) Continue current plan of care Expected Outcomes/Goals: 1) Pt diet to advance 2) F/U in 2-3 days ZAINA PEARCE MD Jan 04, 2024 07:46
--- NOTE | 2024-01-04 10:14 | DVHPNRES ---
Progress Note Date Seen: Jan 04, 2024 Resident Creating Document: MIRELLA PARRY RESIDENT Has the PT tested + for MRSA If YES, has PT been informed?: No Medical Necessity Reason Pt with a Central, PICC or Fol: No Subjective Review of Systems This is a 38-year-old female with past medical history of kidney stones, who presented to the ED with a chief complaint of intermittent left lower quadrant abdominal pain and yellowish vaginal discharge for last 1 month prior to this admission. According to the patient the left lower quadrant abdominal pain is colicky in nature 9/10 localized with no specific pattern of radiation and no aggravating or relieving factors and associated with yellowish vaginal discharge. She had an IUD for 5 years and removed 1 month ago. She had no history of STD or multiple sexual partner before and her last Pap test was few months ago and was normal study according to the patient. She also mentioned she had history of kidney stone 3 years ago and passed 3 stones but no imaging or follow up was done after that. She denies fever, chills, sweating, nausea, vomiting, chest pain, dizziness or any change in the bowel and bladder habit. on my examination, the patient denies any vaginal discharge at this point. The patient is having left suprapubic abdominal tenderness rated now as 7/10 on the pain scale after pain medications were given. OBGYN was consulted which assessed and evaluated the patient. Pelvic ultrasound showed left adnexal structure, possible mass/collection. There was also a simple cyst in the right ovary. CT scan of the abdomen and pelvis showed a 5.6 x 5.1 cm thick wall multilocular lesion in the left adnexa which is suspicion for a pyosalpinx. The patient was started on IV ceftriaxone, doxycycline and IV fluids at 75 cc/hour. Patient will be admitted for further assessment and management. Patient was seen today for clinical evaluation. Labs and chart reviewed. Patient reports having pain 7-8 out of 10. Patient reported passing gas and having bowel movement. White cell count is trending LV down, 18.3 today, hemoglobin 7.8, 2.9. CT abdomen and pelvis on 01/03/24 reviewed Drainage catheter is seen in the lower midline abdomen with tip curled in the lower midline pelvis. Interval decrease in size of multiloculated pelvic abscess, the largest pocket now measuring approximately 2.8 x 11.3 cm . The majority of the remaining abscess is not adjacent to the drainage catheter tip. Consider repositioning of drainage catheter. Patient was seen by surgery and Gynecology and Obstetrics today. Recommendation repeat in appreciated. No new recommendation noted. Gynecology and Obstetrics recommended-Consider D/C gabriel and OLU drain in next 48-72 hrs. Surgery recommended-Increase TPN to meet at least 75% of estimated needs. .Advance pt diet when medically feasible. Peritoneal fluid culture revealed Clostridium Clostrodioformi, patient tested negative for Clostridium difficile toxin. Plan is to discontinue doxycycline as per Dr. Larsen's recommendation. Patient was also seen by infectious disease and recommended- agree with C diff testin if diarrhea continues to progress would start oral vancomycin and IV flagell, switch to oral ceftriaxone and stop IV ceftriaxone, continue antibiotics , slowly transition to oral versions of these medications and assess for tolerance . First of which would be transitioning to Oral Doxycycline, follow up on biopsy results of mass ROS Constitutional: Denies weight loss, fever and chills. HEENT: Denies changes in vision and hearing. Respiratory: Denies shortness of breath and cough Cardiovascular: Denies chest discomfort or palpitations GI: Reports mild abdominal tenderness at the hypogastric region which has improved. Denies nausea, vomiting and diarrhea. : Denies dysuria and urinary frequency. Musculoskeletal: Denies myalgias and joint pain Skin: Denies rash and pruritus. Neurological: Denies dizziness, headache, vision or hearing problems Objective vital signs Vital Sign Date Time Temp Pulse Resp B/P (MAP) Pulse Ox O2 Delivery O2 Flow Rate FiO2 01/04/24 08:34 98.3 91 16 98/59 (72) 96 98.3 01/03/24 19:30 Room Air* 0 21 Total Intake and Output 01/03/24 01/03/24 01/04/24 15:00 23:00 07:00 Intake Total 50 ml 1138 ml 520 ml Output Total 200 ml 660 ml Balance -150 ml 478 ml 520 ml medications Current Medications Medications Dose Ordered Sig/Sadia Route Start Time Stop Time Status Last Admin Dose Admin Ondansetron HCl 4 mg Q4HP PRN IV 12/24/23 21:30 01/04/24 01:50 4 MG Hydromorphone HCl 1 mg Q2HPRN PRN IV 12/29/23 13:15 01/04/24 06:14 1 MG Amino Acids 0 ml @ 0 mls/hr PER PHARMACY IV 12/29/23 19:00 Metronidazole 100 ml @ 100 mls/hr Q8HR IV 12/30/23 14:00 01/04/24 06:00 100 MLS/HR Sodium Chloride 10 ml QSHIFT@10,22 IV 12/30/23 22:00 01/03/24 22:23 10 ML Diagnostic Test (Pha) 1 strip Q6HR 12/31/23 12:00 01/04/24 05:48 1 STRIP Insulin Human Regular FOLLOW SLIDING SCALE Q6HR SC 12/31/23 12:00 01/03/24 05:59 2 UNITS Dextrose 50 ml UD IV 12/31/23 10:30 Fat Emulsion Intravenous 150 ml/Potassium Acetate 20 meq/ Potassium Phosphate 22 meq/ Calcium Gluconate 2.3 meq/Magnesium Sulfate 12 meq/ Multivitamins 10 ml/Chromium/ Copper/Manganese/ Zinc 1 ml/Amino Acids/Dextrose 1,383.9462 ml @ 58 mls/hr [id number] IV 01/02/24 22:00 01/03/24 21:59 Cancel Doxycycline Monohydrate 100 mg Q12HR PO 01/02/24 22:00 01/03/24 22:23 100 MG Fat Emulsion Intravenous 150 ml/Sodium Acetate 20 meq/Potassium Phosphate 22 meq/ Calcium Gluconate 2.3 meq/Magnesium Sulfate 12 meq/ Multivitamins 10 ml/Chromium/ Copper/Manganese/ Zinc 1 ml/Amino Acids/Dextrose 1,483.9462 ml @ 62 mls/hr [id number] IV 01/03/24 22:00 01/04/24 19:59 01/03/24 22:21 62 MLS/HR Cefpodoxime Proxetil 200 mg BID PO 01/03/24 22:00 Examination Physical Examination General: Patient alert and oriented in person, place and time. Patient following commands. HEENT: Normocephalic, atraumatic, moist mucous membranes Respiratory/pulmonary: Clear lungs bilaterally, no associated crackles or wheezes. Cardiovascular: Normal heart sounds S1 and S2 with no associated murmurs Abdomen: Abdomen nondistended, there is mild abdominal pain at the hypogastric region. Middle line incision and sutures are closed, dry and clean with a OLU drainage draining approximately 10 cc in the last 12 hours. No palpable masses Extremities: There is no peripheral edema present at the lower extremities. Peripheral Pulses: 3+ Radial (R). 3+ Radial (L). 3+ Dorsalis pedis (R). 3+ Dorsalis pedis(L) Skin: No rashes or pruritus, there is no sacral edema present at this time. Neurological: Intact cranial nerves with no focal neurologic deficits laboratory and microbiology Laboratory Tests 01/04/24 04:25 Test 01/04/24 04:25 Range/Units Serum Glucose 128 H 74-106 mg/dL Microbiology Date/Time Source Procedure Growth Status 12/29/23 10:10 Peritoneal Fluid Gram Stain - Final Complete 12/29/23 10:10 Anaerobic Culture - Final Clostridium clostridioforme Complete 12/29/23 10:10 Peritoneal Fluid Aerobic Culture - Final Complete 12/24/23 16:12 Blood Blood Culture - Final NO GROWTH AFTER 5 DAYS OF INCUBATION. Complete Problem List/Assessment/Plan Problem List/Assessment/Plan Assessment/Plan Acute left suprapubic pain likely due to left tubo-ovarian abscess/pyosalpinx Possible pelvic inflammatory disease Sepsis likely due to tubo-ovarian abscess/pyosalpinx (PID) S/P left oophorectomy with appendectomy and bowel resection with anastomosis of the descending colon with rectum Day 6 -initial WBC was 23.8, 23.5., patient also had fever, tachycardia -on 01/04/24 WBC 18.3 trending down a little bit -CT abdomen and pelvis on 01/03/24 reviewed Drainage catheter is seen in the lower midline abdomen with tip curled in the lower midline pelvis. Interval decrease in size of multiloculated pelvic abscess, the largest pocket now measuring approximately 2.8 x 11.3 cm . The majority of the remaining abscess is not adjacent to the drainage catheter tip. Consider repositioning of drainage catheter. -patient has a history of IUD for five years that was removed one month ago -previous CT of the abdomen showed a 5.6 x 5.1 cm thick walled multilocular lesion in the left adnexa which is suspicious for a pyosalpinx -NAAT for chlamydia and gonorrhea, which both came back negative -IR attempted drainage of left tubo-ovarian abscess but patient kept septic so patient was escalated to surgery on 12/29/23 -OBGYN on board, which performed left oopherectomy with removal of appendix and part of greater omentum, as well as part of the colon with anastomosis without complications on 12/29/23. -MRI of the abdomen showed a multiloculated cystic mass in the left adnexa likely representing tubo-ovarian abscess. -Currently toleration clear liquid diet - on 01/04/2024 Surgery recommended-Increase TPN to meet at least 75% of estimated needs. .Advance pt diet when medically feasible. 01/04/2024 Gynecology and Obstetrics recommended-Consider D/C gabriel and OLU drain in next 48-72 hrs. -OLU drainage, draining aprox 10cc/12hr -Patient was also seen by infectious disease and recommended- agree with C diff testin if diarrhea continues to progress would start oral vancomycin and IV flagell, switch to oral ceftriaxone and stop IV ceftriaxone, continue antibiotics , slowly transition to oral versions of these medications and assess for tolerance . First of which would be transitioning to Oral Doxycycline, follow up on biopsy results of mass - Peritoneal fluid culture revealed Clostridium Clostrodioformi, patient tested negative for Clostridium difficile toxin. discontinued doxycycline as per Dr. Larsen's recommendation on 01/04/2024 -patient on cefpodoxime 200 mg p.o. b.i.d. 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 Almendarez Plan discussed with: Patient Gynecology and Obstetrics recommended-Consider D/C gabriel and OLU drain in next 48-72 hrs. Surgery recommended-Increase TPN to meet at least 75% of estimated needs. .Advance pt diet when medically feasible. Peritoneal fluid culture revealed Clostridium Clostrodioformi, patient tested negative for Clostridium difficile toxin. discontinued doxycycline as per Dr. Larsen's recommendation Plan discussed with: Patient, Other (Mother, RN) Dietary Evaluation Review Comments: 1) Increase TPN to meet at least 75% of estimated needs 2) Advance pt diet when medically feasible 3) Continue current plan of care Expected Outcomes/Goals: 1) Pt diet to advance 2) F/U in 2-3 days MIRELLA PARRY RESIDENT Jan 04, 2024 10:13
--- NOTE | 2024-01-04 11:16 | DVHPN2 ---
Subjective Progress Notes Subjective Patient doing better, Pain controlled. NO N/V or fever + Flatus and has had couple BM's Objective PHYSICAL EXAM Physical Exam: Alert, NAD Abd Soft, Non distended Ext Soft, no edema Vital Signs and I&O Vital Signs Date Time Temp Pulse Resp B/P (MAP) Pulse Ox O2 Delivery O2 Flow Rate FiO2 01/04/24 10:14 91 16 98/59 01/04/24 08:34 98.3 96 98.3 01/03/24 19:30 Room Air* 0 21 Intake and Output 01/04/24 07:00 Intake Total 1708 ml Output Total 860 ml Balance 848 ml Intake Oral 920 ml IV Total 788 ml Output Urine Total 850 ml Drainage Total 10 ml # Voids 4 # Bowel Movements 1 Lab results Laboratory Tests Test 12/24/23 13:20 12/24/23 13:50 12/24/23 15:12 12/25/23 04:19 Range/Units Lactic Acid Level 0.8 0.4-2.0 mmol/L White Blood Count 23.8 H 23.5 H 4.4-10.8 10^3/uL Red Blood Count 3.66 L 3.01 L 4.0-5.20 10^6/uL Hemoglobin 9.8 L 7.9 #L 12.2-16.2 g/dL Hematocrit 30.4 L 25.1 #L 36.0-46.0 % Mean Corpuscular Volume 82.9 83.5 80.0-100.0 fL Mean Corpuscular Hemoglobin 26.8 L 26.2 L 28.0-32.0 pg Mean Corpuscular Hemoglobin Concent 32.4 31.4 L 32.0-36.0 g/dL Red Cell Distribution Width 14.1 14.4 H 11.8-14.3 % Platelet Count 466 H 395 140-450 10^3/uL Mean Platelet Volume 7.8 7.2 6.9-10.8 fL Neutrophils (%) (Auto) 89.6 H 87.1 H 37.0-80.0 % Lymphocytes (%) (Auto) 5.4 L 7.2 L 10.0-50.0 % Monocytes (%) (Auto) 4.3 5.3 0.0-12.0 % Eosinophils (%) (Auto) 0.4 0.2 0.0-7.0 % Basophils (%) (Auto) 0.3 0.2 0.0-2.0 % Neutrophils # (Auto) 21.3 H 20.4 H 1.6-8.6 10 ^3/uL Lymphocytes # (Auto) 1.3 1.7 0.4-5.4 10 ^3/uL Monocytes # (Auto) 1.0 1.3 0-1.3 10 ^3/uL Eosinophils # (Auto) 0.1 0.1 0-0.8 10 ^3/uL Basophils # (Auto) 0.1 0 0-0.2 10 ^3/uL Nucleated Red Blood Cells 0.0 0.0 % Erythrocyte Sedimentation Rate 105 H 0-20 mm/hr Prothrombin Time 12.1 H 9.3-11.8 sec Prothrombin Time INR 1.15 0.9-1.15 Activated Partial Thromboplast Time 32.5 24.5-34.5 SEC Sodium Level 135 L 138 136-145 mmol/L Potassium Level 3.8 3.7 3.5-5.1 mmol/L Chloride Level 102 106 98-107 mmol/L Carbon Dioxide Level 27 26 20-31 mmol/L Anion Gap 6 6 5-15 Blood Urea Nitrogen 6 L < 5 L 9-23 mg/dL Creatinine 0.68 0.65 0.550-1.02 mg/dL Glomerular Filtration Rate Calc 116 117 >90 mL/min BUN/Creatinine Ratio 8.8 L 7.7 L 10.0-20.0 Serum Glucose 97 102 74-106 mg/dL Calcium Level 9.3 8.6 L 8.7-10.4 mg/dL Total Bilirubin 0.5 0.5 0.2-1.0 mg/dL Aspartate Amino Transferase (AST) 18 16 13-40 U/L Alanine Aminotransferase (ALT) 16 12 7-40 U/L Alkaline Phosphatase 101 86 46-116 U/L Total Protein 8.5 H 7.0 5.7-8.2 g/dL Albumin 3.8 3.4 3.2-4.8 g/dL Lipase 32 12-53 U/L Beta HCG, Quantitative 0.1 L 1.5-4.2 mIU/mL Plasma/Serum Blood Alcohol 3.3 <10 mg/dL Urine Color Yellow Yellow Urine Clarity Turbid H Clear Urine pH 6.5 5.0-9.0 Urine Specific [place] 1.021 1.001-1.035 Urine Protein Trace H Negative Urine Ketones Trace Negative Urine Blood Negative Negative /uL Urine Nitrite Negative Negative Urine Bilirubin Negative Negative Urine Urobilinogen 4 H Negative mg/dL Urine Leukocyte Esterase 1+ Negative /uL Urine RBC 3 0 - 4 /hpf Urine WBC 4 0 - 5 /hpf Urine Squamous Epithelial Cells Few <5 /hpf Urine Bacteria None seen None Seen /hpf Urine Mucus Few None Seen Urine Glucose Normal Normal mg/dL Urine Test Negative Negative Urine Opiates Screen Neg NEGATIVE Urine Fentanyl Screen Neg NEGATIVE Urine Barbiturates Screen Neg NEGATIVE Urine Phencyclidine Screen Neg NEGATIVE Urine Amphetamines Screen Neg NEGATIVE Urine Benzodiazepines Screen Neg NEGATIVE Urine Cocaine Screen Neg NEGATIVE Urine Cannabinoids Screen Pos NEGATIVE Chlamydia trachomatis (AYSHA) Negative Negative Neisseria gonorrhoeae (AYSHA) Negative Negative Ferritin 183.1 10-291 ng/mL Triglycerides Level 65 < 150 mg/dL Cholesterol Level 99 < 200 mg/dL LDL Cholesterol 66 < 100 mg/dL HDL Cholesterol 24 L 40-59 mg/dL Hepatitis C Antibody Negative Negative HIV (1&2) Antibody Negative Negative Test 12/25/23 13:42 12/26/23 04:40 12/27/23 05:04 12/28/23 03:28 Range/Units Rapid Plasma Reagin Non reactive Non Reactive White Blood Count 26.0 H 28.4 H 26.6 H 4.4-10.8 10^3/uL Red Blood Count 3.15 L 3.25 L 3.13 L 4.0-5.20 10^6/uL Hemoglobin 8.2 L 8.6 L 8.2 L 12.2-16.2 g/dL Hematocrit 26.2 L 26.8 L 25.9 L 36.0-46.0 % Mean Corpuscular Volume 83.1 82.5 82.8 80.0-100.0 fL Mean Corpuscular Hemoglobin 26.1 L 26.3 L 26.3 L 28.0-32.0 pg Mean Corpuscular Hemoglobin Concent 31.4 L 31.9 L 31.8 L 32.0-36.0 g/dL Red Cell Distribution Width 14.5 H 14.4 H 14.8 H 11.8-14.3 % Platelet Count 334 338 409 140-450 10^3/uL Mean Platelet Volume 7.4 7.6 7.6 6.9-10.8 fL Neutrophils (%) (Auto) 92.7 H 89.5 H 37.0-80.0 % Lymphocytes (%) (Auto) 3.4 L 6.0 L 10.0-50.0 % Monocytes (%) (Auto) 3.7 4.1 0.0-12.0 % Basophils (%) (Auto) 0.2 0.1 0.0-2.0 % Neutrophils # (Auto) 26.3 H 23.8 H 1.6-8.6 10 ^3/uL Lymphocytes # (Auto) 1.0 1.6 0.4-5.4 10 ^3/uL Monocytes # (Auto) 1.0 1.1 0-1.3 10 ^3/uL Differential Total Cells Counted 100.0 100 Neutrophils % (Manual) 90 H 37.0-80.0 Band Neutrophils % (Manual) 0 Lymphocytes % (Manual) 6 L 10.0-50.0 Monocytes % (Manual) 4 0-12 Eosinophils % (Manual) 0 0-7 Basophils % (Manual) 0 0.0-2.0 Metamyelocytes % (manual) 0 Myelocytes % (Manual) 0 Promyelocytes % (Manual) 0 Blast Cells % (Manual) 0 Reactive Lymphocytes 0 Platelet Estimate Adequate Clumped Platelets Moderate Stomatocytes Few Sodium Level 135 L 135 L 135 L 136-145 mmol/L Potassium Level 3.6 3.4 L 3.4 L 3.5-5.1 mmol/L Chloride Level 104 101 102 98-107 mmol/L Carbon Dioxide Level 26 25 25 20-31 mmol/L Anion Gap 5 9 8 5-15 Blood Urea Nitrogen < 5 L < 5 L < 5 L 9-23 mg/dL Creatinine 0.65 0.62 0.51 L 0.550-1.02 mg/dL Glomerular Filtration Rate Calc 117 118 124 >90 mL/min BUN/Creatinine Ratio 7.7 L 8.1 L 9.8 L 10.0-20.0 Serum Glucose 97 106 92 74-106 mg/dL Calcium Level 8.9 8.6 L 8.7 8.7-10.4 mg/dL Eosinophils (%) (Auto) 0.0 0.3 0.0-7.0 % Eosinophils # (Auto) 0 0.1 0-0.8 10 ^3/uL Basophils # (Auto) 0 0 0-0.2 10 ^3/uL Nucleated Red Blood Cells 0.0 0.0 % Magnesium Level 1.8 1.9 1.6-2.6 mg/dL Total Bilirubin 0.4 0.2-1.0 mg/dL Aspartate Amino Transferase (AST) 13 13-40 U/L Alanine Aminotransferase (ALT) < 9 7-40 U/L Alkaline Phosphatase 88 46-116 U/L Total Protein 6.7 5.7-8.2 g/dL Albumin 3.1 L 3.2-4.8 g/dL Test 12/29/23 10:10 12/29/23 16:01 12/30/23 05:05 12/31/23 06:40 Range/Units Body Fluid Source Pending Body Fluid pH Pending Body Fluid WBC (Manual) Pending Body Fluid RBC (Manual) Pending Body Fluid Mononuclear Cells Pending Body Fluid Polymorphonuclear Cells Pending White Blood Count 29.0 H 28.0 H 19.7 #H 4.4-10.8 10^3/uL Red Blood Count 3.34 L 3.12 L 2.86 L 4.0-5.20 10^6/uL Hemoglobin 9.2 L 8.3 L 7.9 L 12.2-16.2 g/dL Hematocrit 28.3 L 26.5 L 24.0 L 36.0-46.0 % Mean Corpuscular Volume 84.6 84.9 83.8 80.0-100.0 fL Mean Corpuscular Hemoglobin 27.6 L 26.6 L 27.5 L 28.0-32.0 pg Mean Corpuscular Hemoglobin Concent 32.6 31.4 L 32.8 32.0-36.0 g/dL Red Cell Distribution Width 15.2 H 15.4 H 15.8 H 11.8-14.3 % Platelet Count 380 433 437 140-450 10^3/uL Mean Platelet Volume 7.6 7.6 7.5 6.9-10.8 fL Neutrophils (%) (Auto) 85.6 H 37.0-80.0 % Lymphocytes (%) (Auto) 9.3 L 10.0-50.0 % Monocytes (%) (Auto) 4.6 0.0-12.0 % Basophils (%) (Auto) 0.2 0.0-2.0 % Neutrophils # (Auto) 16.8 H 1.6-8.6 10 ^3/uL Lymphocytes # (Auto) 1.8 0.4-5.4 10 ^3/uL Monocytes # (Auto) 0.9 0-1.3 10 ^3/uL Differential Total Cells Counted 100.0 100.0 100 Neutrophils % (Manual) 75 71 37.0-80.0 Band Neutrophils % (Manual) 21 25 Lymphocytes % (Manual) 1 L 3 L 10.0-50.0 Monocytes % (Manual) 1 0 0-12 Eosinophils % (Manual) 0 0 0-7 Basophils % (Manual) 0 0 0.0-2.0 Metamyelocytes % (manual) 2 1 Myelocytes % (Manual) 0 0 Promyelocytes % (Manual) 0 0 Blast Cells % (Manual) 0 0 Reactive Lymphocytes 0 0 Platelet Estimate Adequate Adequate Large Platelets Few Sodium Level 139 142 140 136-145 mmol/L Potassium Level 3.7 3.7 3.0 L 3.5-5.1 mmol/L Chloride Level 112 #H 108 H 104 98-107 mmol/L Carbon Dioxide Level 24 30 29 20-31 mmol/L Anion Gap 3 L 4 L 7 5-15 Blood Urea Nitrogen < 5 L 8 L 7 L 9-23 mg/dL Creatinine 0.38 L 0.45 L 0.35 L 0.550-1.02 mg/dL Glomerular Filtration Rate Calc 133 128 136 >90 mL/min BUN/Creatinine Ratio 13.2 17.8 20.0 10.0-20.0 Serum Glucose 141 H 140 H 135 H 74-106 mg/dL Calcium Level 7.4 L 8.3 L 8.3 L 8.7-10.4 mg/dL Prothrombin Time 12.7 H 9.3-11.8 sec Prothrombin Time INR 1.22 H 0.9-1.15 Activated Partial Thromboplast Time 31.8 24.5-34.5 SEC Phosphorus Level 4.8 2.1 L 2.4-5.1 mg/dL Magnesium Level 1.7 1.9 1.6-2.6 mg/dL Total Bilirubin 0.3 0.2 0.2-1.0 mg/dL Aspartate Amino Transferase (AST) 19 18 13-40 U/L Alanine Aminotransferase (ALT) < 9 9 7-40 U/L Alkaline Phosphatase 59 54 46-116 U/L Total Protein 5.6 L 5.8 5.7-8.2 g/dL Albumin 2.5 L 2.6 L 3.2-4.8 g/dL Triglycerides Level 81 < 150 mg/dL Eosinophils (%) (Auto) 0.3 0.0-7.0 % Eosinophils # (Auto) 0 0-0.8 10 ^3/uL Basophils # (Auto) 0 0-0.2 10 ^3/uL Nucleated Red Blood Cells 0.1 % Test 12/31/23 11:42 12/31/23 20:58 01/01/24 01:06 01/01/24 05:40 Range/Units POC Glucose 141 H 99 70-106 mg/dl Potassium Level 3.7 3.3 L 3.5-5.1 mmol/L White Blood Count 17.6 H 4.4-10.8 10^3/uL Red Blood Count 2.97 L 4.0-5.20 10^6/uL Hemoglobin 8.2 L 12.2-16.2 g/dL Hematocrit 25.2 L 36.0-46.0 % Mean Corpuscular Volume 84.9 80.0-100.0 fL Mean Corpuscular Hemoglobin 27.5 L 28.0-32.0 pg Mean Corpuscular Hemoglobin Concent 32.4 32.0-36.0 g/dL Red Cell Distribution Width 15.9 H 11.8-14.3 % Platelet Count 506 H 140-450 10^3/uL Mean Platelet Volume 7.6 6.9-10.8 fL Neutrophils (%) (Auto) 82.8 H 37.0-80.0 % Lymphocytes (%) (Auto) 10.7 10.0-50.0 % Monocytes (%) (Auto) 5.6 0.0-12.0 % Eosinophils (%) (Auto) 0.7 0.0-7.0 % Basophils (%) (Auto) 0.2 0.0-2.0 % Neutrophils # (Auto) 14.6 H 1.6-8.6 10 ^3/uL Lymphocytes # (Auto) 1.9 0.4-5.4 10 ^3/uL Monocytes # (Auto) 1.0 0-1.3 10 ^3/uL Eosinophils # (Auto) 0.1 0-0.8 10 ^3/uL Basophils # (Auto) 0 0-0.2 10 ^3/uL Nucleated Red Blood Cells 0.2 % Sodium Level 142 136-145 mmol/L Chloride Level 105 98-107 mmol/L Carbon Dioxide Level 27 20-31 mmol/L Anion Gap 10 5-15 Blood Urea Nitrogen 8 L 9-23 mg/dL Creatinine 0.37 L 0.550-1.02 mg/dL Glomerular Filtration Rate Calc 134 >90 mL/min BUN/Creatinine Ratio 21.6 H 10.0-20.0 Serum Glucose 100 74-106 mg/dL Calcium Level 8.2 L 8.7-10.4 mg/dL Phosphorus Level 3.4 2.4-5.1 mg/dL Magnesium Level 2.1 1.6-2.6 mg/dL Total Bilirubin 0.2 0.2-1.0 mg/dL Aspartate Amino Transferase (AST) 31 13-40 U/L Alanine Aminotransferase (ALT) 10 7-40 U/L Alkaline Phosphatase 71 46-116 U/L Total Protein 6.1 5.7-8.2 g/dL Albumin 2.9 L 3.2-4.8 g/dL Test 01/02/24 04:50 01/02/24 05:35 01/02/24 11:07 01/03/24 00:36 Range/Units White Blood Count 15.2 H 4.4-10.8 10^3/uL Red Blood Count 2.69 L 4.0-5.20 10^6/uL Hemoglobin 7.5 L 12.2-16.2 g/dL Hematocrit 22.8 L 36.0-46.0 % Mean Corpuscular Volume 84.7 80.0-100.0 fL Mean Corpuscular Hemoglobin 28.0 28.0-32.0 pg Mean Corpuscular Hemoglobin Concent 33.1 32.0-36.0 g/dL Red Cell Distribution Width 16.0 H 11.8-14.3 % Platelet Count 471 H 140-450 10^3/uL Mean Platelet Volume 7.3 6.9-10.8 fL Neutrophils (%) (Auto) 83.8 H 37.0-80.0 % Lymphocytes (%) (Auto) 9.7 L 10.0-50.0 % Monocytes (%) (Auto) 4.8 0.0-12.0 % Eosinophils (%) (Auto) 1.4 0.0-7.0 % Basophils (%) (Auto) 0.3 0.0-2.0 % Neutrophils # (Auto) 12.7 H 1.6-8.6 10 ^3/uL Lymphocytes # (Auto) 1.5 0.4-5.4 10 ^3/uL Monocytes # (Auto) 0.7 0-1.3 10 ^3/uL Eosinophils # (Auto) 0.2 0-0.8 10 ^3/uL Basophils # (Auto) 0 0-0.2 10 ^3/uL Nucleated Red Blood Cells 0.0 % Sodium Level 142 136-145 mmol/L Potassium Level 4.0 3.5-5.1 mmol/L Chloride Level 107 98-107 mmol/L Carbon Dioxide Level 28 20-31 mmol/L Anion Gap 7 5-15 Blood Urea Nitrogen 8 L 9-23 mg/dL Creatinine 0.41 L 0.550-1.02 mg/dL Glomerular Filtration Rate Calc 131 >90 mL/min BUN/Creatinine Ratio 19.5 10.0-20.0 Serum Glucose 111 H 74-106 mg/dL Calcium Level 8.2 L 8.7-10.4 mg/dL Phosphorus Level 3.5 2.4-5.1 mg/dL Magnesium Level 2.1 1.6-2.6 mg/dL Iron Level 17 L 50-170 ug/dL Total Iron Binding Capacity 190 L 250-425 ug/dL Percent Iron Saturation 8.9 L 15-50 % Total Bilirubin 0.2 0.2-1.0 mg/dL Aspartate Amino Transferase (AST) 35 13-40 U/L Alanine Aminotransferase (ALT) 15 7-40 U/L Alkaline Phosphatase 75 46-116 U/L Total Protein 5.8 5.7-8.2 g/dL Albumin 2.6 L 3.2-4.8 g/dL POC Glucose 112 H 97 121 H 70-106 mg/dl Test 01/03/24 05:49 01/03/24 06:27 01/03/24 12:36 01/03/24 18:08 Range/Units POC Glucose 137 H 124 H 120 H 70-106 mg/dl White Blood Count 21.4 #H 4.4-10.8 10^3/uL Red Blood Count 2.85 L 4.0-5.20 10^6/uL Hemoglobin 8.0 L 12.2-16.2 g/dL Hematocrit 24.7 L 36.0-46.0 % Mean Corpuscular Volume 86.6 80.0-100.0 fL Mean Corpuscular Hemoglobin 28.1 28.0-32.0 pg Mean Corpuscular Hemoglobin Concent 32.5 32.0-36.0 g/dL Red Cell Distribution Width 16.5 H 11.8-14.3 % Platelet Count 526 H 140-450 10^3/uL Mean Platelet Volume 7.6 6.9-10.8 fL Neutrophils (%) (Auto) 84.7 H 37.0-80.0 % Lymphocytes (%) (Auto) 7.6 L 10.0-50.0 % Monocytes (%) (Auto) 5.5 0.0-12.0 % Eosinophils (%) (Auto) 2.0 0.0-7.0 % Basophils (%) (Auto) 0.2 0.0-2.0 % Neutrophils # (Auto) 18.2 H 1.6-8.6 10 ^3/uL Lymphocytes # (Auto) 1.6 0.4-5.4 10 ^3/uL Monocytes # (Auto) 1.2 0-1.3 10 ^3/uL Eosinophils # (Auto) 0.4 0-0.8 10 ^3/uL Basophils # (Auto) 0 0-0.2 10 ^3/uL Nucleated Red Blood Cells 0.1 % Sodium Level 138 136-145 mmol/L Potassium Level 4.1 3.5-5.1 mmol/L Chloride Level 105 98-107 mmol/L Carbon Dioxide Level 26 20-31 mmol/L Anion Gap 7 5-15 Blood Urea Nitrogen 7 L 9-23 mg/dL Creatinine 0.44 L 0.550-1.02 mg/dL Glomerular Filtration Rate Calc 128 >90 mL/min BUN/Creatinine Ratio 15.9 10.0-20.0 Serum Glucose 119 H 74-106 mg/dL Calcium Level 8.6 L 8.7-10.4 mg/dL Phosphorus Level 3.6 2.4-5.1 mg/dL Magnesium Level 2.2 1.6-2.6 mg/dL Total Bilirubin 0.3 0.2-1.0 mg/dL Aspartate Amino Transferase (AST) 27 13-40 U/L Alanine Aminotransferase (ALT) 14 7-40 U/L Alkaline Phosphatase 75 46-116 U/L Total Protein 6.5 5.7-8.2 g/dL Albumin 3.0 L 3.2-4.8 g/dL Test 01/04/24 04:25 01/04/24 05:30 Range/Units White Blood Count 18.3 H 4.4-10.8 10^3/uL Red Blood Count 2.75 L 4.0-5.20 10^6/uL Hemoglobin 7.8 L 12.2-16.2 g/dL Hematocrit 23.5 L 36.0-46.0 % Mean Corpuscular Volume 85.6 80.0-100.0 fL Mean Corpuscular Hemoglobin 28.2 28.0-32.0 pg Mean Corpuscular Hemoglobin Concent 33.0 32.0-36.0 g/dL Red Cell Distribution Width 16.9 H 11.8-14.3 % Platelet Count 546 H 140-450 10^3/uL Mean Platelet Volume 7.4 6.9-10.8 fL Neutrophils (%) (Auto) 83.2 H 37.0-80.0 % Lymphocytes (%) (Auto) 8.1 L 10.0-50.0 % Monocytes (%) (Auto) 6.0 0.0-12.0 % Eosinophils (%) (Auto) 2.3 0.0-7.0 % Basophils (%) (Auto) 0.4 0.0-2.0 % Neutrophils # (Auto) 15.2 H 1.6-8.6 10 ^3/uL Lymphocytes # (Auto) 1.5 0.4-5.4 10 ^3/uL Monocytes # (Auto) 1.1 0-1.3 10 ^3/uL Eosinophils # (Auto) 0.4 0-0.8 10 ^3/uL Basophils # (Auto) 0.1 0-0.2 10 ^3/uL Nucleated Red Blood Cells 0.0 % Sodium Level 139 136-145 mmol/L Potassium Level 4.1 3.5-5.1 mmol/L Chloride Level 106 98-107 mmol/L Carbon Dioxide Level 28 20-31 mmol/L Anion Gap 5 5-15 Blood Urea Nitrogen 6 L 9-23 mg/dL Creatinine 0.44 L 0.550-1.02 mg/dL Glomerular Filtration Rate Calc 128 >90 mL/min BUN/Creatinine Ratio 13.6 10.0-20.0 Serum Glucose 128 H 74-106 mg/dL Calcium Level 8.6 L 8.7-10.4 mg/dL Phosphorus Level 4.1 2.4-5.1 mg/dL Magnesium Level 2.2 1.6-2.6 mg/dL Total Bilirubin 0.2 0.2-1.0 mg/dL Aspartate Amino Transferase (AST) 18 13-40 U/L Alanine Aminotransferase (ALT) 13 7-40 U/L Alkaline Phosphatase 67 46-116 U/L Total Protein 6.3 5.7-8.2 g/dL Albumin 2.9 L 3.2-4.8 g/dL Triglycerides Level 97 < 150 mg/dL POC Glucose 133 H 70-106 mg/dl Assessment and Plan ASSESSMENT AND PLAN Assessment and Plan 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 (12/29/23 13:06) Incentive Spirometry (12/29/23 13:06) Hydromorphone Injection (Dilaudid Inject (12/29/23 13:15) Ng/Orogastric Tube To Lis (12/29/23 13:06) * Infectious Evi- Dr. Lanre Castillo (12/29/23 13:18) Consult For Nutrition (12/29/23 18:40) Kub Abdomen Single View (12/30/23 04:00) Plan discussed with: Patient Date of Service: Jan 04, 2024 Billing Provider: ANNALISA MANCINI DO Common Visit Codes: [id number] INP/OBS CARE(MOD) ANNALISA MANCINI DO Jan 04, 2024 11:16
[2024-01-04] MEDS: KETOROLAC TROMETH 30 MG/ML 1ML VIAL IV ONE (12:45)
[2024-01-04] MEDS: TPN PER PHARMACY IV NR (21:05)
[2024-01-05] VITALS (7 sets, daily range): BP systolic 95–111; BP diastolic 51–65; PULSE 95–105; RESP 16–18; TEMP 98–98.8; O2SAT 93–98
[2024-01-05 05:50] LABS: Basophils % (auto) 0.3 % (0.0-2.0); Eosinophils # (auto) 0.4 10 ^3/uL (0-0.8); Lymphocytes # (auto) 1.3 10 ^3/uL (0.4-5.4)
[2024-01-05 05:52] LABS: Basophils # (auto) 0 10 ^3/uL (0-0.2); Eosinophils % (auto) 2.5 % (0.0-7.0); Hematocrit 24.8 % (36.0-46.0); Lymphocytes % (auto) 7.8 % (10.0-50.0); Mean Corpuscular Hemoglobin 28.1 pg (28.0-32.0); Mean Corpuscular Hgb Conc. 32.5 g/dL (32.0-36.0); Mean Corpuscular Volume 86.6 fL (80.0-100.0); Monocytes # (auto) 1.1 10 ^3/uL (0-1.3); Monocytes % (auto) 6.4 % (0.0-12.0); Neutrophils # (auto) 14.3 10 ^3/uL (1.6-8.6); Platelet Count (auto) 586 10^3/uL (140-450); Red Blood Cells 2.86 10^6/uL (4.0-5.20); Red Cell Distribution Width 17.9 % (11.8-14.3); White Blood Cell 17.3 10^3/uL (4.4-10.8)
[2024-01-05 06:09] LABS: Alanine Aminotransferase 11 U/L (7-40); Alkaline Phosphatase 67 U/L (46-116); Anion Gap 5 (5-15); Aspartate Aminotransferase 15 U/L (13-40); BUN/Creatinine Ratio 16.7 (10.0-20.0); Blood Urea Nitrogen 8 mg/dL (9-23); Calcium 8.8 mg/dL (8.7-10.4); Carbon Dioxide 29 mmol/L (20-31); Chloride 103 mmol/L (98-107); Glucose 135 mg/dL (74-106); Magnesium 2.2 mg/dL (1.6-2.6); Potassium 4.2 mmol/L (3.5-5.1); Sodium 137 mmol/L (136-145)
[2024-01-05 06:10] LABS: Bilirubin, Total 0.3 mg/dL (0.2-1.0); Phosphorus 4.2 mg/dL (2.4-5.1); Total Protein 6.7 g/dL (5.7-8.2)
--- NOTE | 2024-01-05 06:15 | DVHPN2 ---
Subjective Progress Notes Subjective No acute changes + Flatus and BM, tolerating liquid diet Denies fever/chills Objective PHYSICAL EXAM Physical Exam: Alert, NAD Abd Soft, non distended. Incision C/D/I w/ gabriel. OLU in place, minimal output Ext Soft, neg adalid sign CT scan 01/04/24 reviewed Vital Signs and I&O Vital Signs Date Time Temp Pulse Resp B/P (MAP) Pulse Ox O2 Delivery O2 Flow Rate FiO2 01/05/24 05:00 98.6 96 17 95/58 (70) 94 98.6 01/04/24 19:30 Room Air* 0 21 l Intake and Output 01/05/24 07:00 Intake Total 3360 ml Output Total 800 ml Balance 2560 ml Intake Oral 2050 ml IV Total 1310 ml Output Urine Total 800 ml # Voids 4 # Bowel Movements 2 Lab results Laboratory Tests Test 12/24/23 13:20 12/24/23 13:50 12/24/23 15:12 12/25/23 04:19 Range/Units Lactic Acid Level 0.8 0.4-2.0 mmol/L White Blood Count 23.8 H 23.5 H 4.4-10.8 10^3/uL Red Blood Count 3.66 L 3.01 L 4.0-5.20 10^6/uL Hemoglobin 9.8 L 7.9 #L 12.2-16.2 g/dL Hematocrit 30.4 L 25.1 #L 36.0-46.0 % Mean Corpuscular Volume 82.9 83.5 80.0-100.0 fL Mean Corpuscular Hemoglobin 26.8 L 26.2 L 28.0-32.0 pg Mean Corpuscular Hemoglobin Concent 32.4 31.4 L 32.0-36.0 g/dL Red Cell Distribution Width 14.1 14.4 H 11.8-14.3 % Platelet Count 466 H 395 140-450 10^3/uL Mean Platelet Volume 7.8 7.2 6.9-10.8 fL Neutrophils (%) (Auto) 89.6 H 87.1 H 37.0-80.0 % Lymphocytes (%) (Auto) 5.4 L 7.2 L 10.0-50.0 % Monocytes (%) (Auto) 4.3 5.3 0.0-12.0 % Eosinophils (%) (Auto) 0.4 0.2 0.0-7.0 % Basophils (%) (Auto) 0.3 0.2 0.0-2.0 % Neutrophils # (Auto) 21.3 H 20.4 H 1.6-8.6 10 ^3/uL Lymphocytes # (Auto) 1.3 1.7 0.4-5.4 10 ^3/uL Monocytes # (Auto) 1.0 1.3 0-1.3 10 ^3/uL Eosinophils # (Auto) 0.1 0.1 0-0.8 10 ^3/uL Basophils # (Auto) 0.1 0 0-0.2 10 ^3/uL Nucleated Red Blood Cells 0.0 0.0 % Erythrocyte Sedimentation Rate 105 H 0-20 mm/hr Prothrombin Time 12.1 H 9.3-11.8 sec Prothrombin Time INR 1.15 0.9-1.15 Activated Partial Thromboplast Time 32.5 24.5-34.5 SEC Sodium Level 135 L 138 136-145 mmol/L Potassium Level 3.8 3.7 3.5-5.1 mmol/L Chloride Level 102 106 98-107 mmol/L Carbon Dioxide Level 27 26 20-31 mmol/L Anion Gap 6 6 5-15 Blood Urea Nitrogen 6 L < 5 L 9-23 mg/dL Creatinine 0.68 0.65 0.550-1.02 mg/dL Glomerular Filtration Rate Calc 116 117 >90 mL/min BUN/Creatinine Ratio 8.8 L 7.7 L 10.0-20.0 Serum Glucose 97 102 74-106 mg/dL Calcium Level 9.3 8.6 L 8.7-10.4 mg/dL Total Bilirubin 0.5 0.5 0.2-1.0 mg/dL Aspartate Amino Transferase (AST) 18 16 13-40 U/L Alanine Aminotransferase (ALT) 16 12 7-40 U/L Alkaline Phosphatase 101 86 46-116 U/L Total Protein 8.5 H 7.0 5.7-8.2 g/dL Albumin 3.8 3.4 3.2-4.8 g/dL Lipase 32 12-53 U/L Beta HCG, Quantitative 0.1 L 1.5-4.2 mIU/mL Plasma/Serum Blood Alcohol 3.3 <10 mg/dL Urine Color Yellow Yellow Urine Clarity Turbid H Clear Urine pH 6.5 5.0-9.0 Urine Specific [place] 1.021 1.001-1.035 Urine Protein Trace H Negative Urine Ketones Trace Negative Urine Blood Negative Negative /uL Urine Nitrite Negative Negative Urine Bilirubin Negative Negative Urine Urobilinogen 4 H Negative mg/dL Urine Leukocyte Esterase 1+ Negative /uL Urine RBC 3 0 - 4 /hpf Urine WBC 4 0 - 5 /hpf Urine Squamous Epithelial Cells Few <5 /hpf Urine Bacteria None seen None Seen /hpf Urine Mucus Few None Seen Urine Glucose Normal Normal mg/dL Urine Test Negative Negative Urine Opiates Screen Neg NEGATIVE Urine Fentanyl Screen Neg NEGATIVE Urine Barbiturates Screen Neg NEGATIVE Urine Phencyclidine Screen Neg NEGATIVE Urine Amphetamines Screen Neg NEGATIVE Urine Benzodiazepines Screen Neg NEGATIVE Urine Cocaine Screen Neg NEGATIVE Urine Cannabinoids Screen Pos NEGATIVE Chlamydia trachomatis (AYSHA) Negative Negative Neisseria gonorrhoeae (AYSHA) Negative Negative Ferritin 183.1 10-291 ng/mL Triglycerides Level 65 < 150 mg/dL Cholesterol Level 99 < 200 mg/dL LDL Cholesterol 66 < 100 mg/dL HDL Cholesterol 24 L 40-59 mg/dL Hepatitis C Antibody Negative Negative HIV (1&2) Antibody Negative Negative Test 12/25/23 13:42 12/26/23 04:40 12/27/23 05:04 12/28/23 03:28 Range/Units Rapid Plasma Reagin Non reactive Non Reactive White Blood Count 26.0 H 28.4 H 26.6 H 4.4-10.8 10^3/uL Red Blood Count 3.15 L 3.25 L 3.13 L 4.0-5.20 10^6/uL Hemoglobin 8.2 L 8.6 L 8.2 L 12.2-16.2 g/dL Hematocrit 26.2 L 26.8 L 25.9 L 36.0-46.0 % Mean Corpuscular Volume 83.1 82.5 82.8 80.0-100.0 fL Mean Corpuscular Hemoglobin 26.1 L 26.3 L 26.3 L 28.0-32.0 pg Mean Corpuscular Hemoglobin Concent 31.4 L 31.9 L 31.8 L 32.0-36.0 g/dL Red Cell Distribution Width 14.5 H 14.4 H 14.8 H 11.8-14.3 % Platelet Count 334 338 409 140-450 10^3/uL Mean Platelet Volume 7.4 7.6 7.6 6.9-10.8 fL Neutrophils (%) (Auto) 92.7 H 89.5 H 37.0-80.0 % Lymphocytes (%) (Auto) 3.4 L 6.0 L 10.0-50.0 % Monocytes (%) (Auto) 3.7 4.1 0.0-12.0 % Basophils (%) (Auto) 0.2 0.1 0.0-2.0 % Neutrophils # (Auto) 26.3 H 23.8 H 1.6-8.6 10 ^3/uL Lymphocytes # (Auto) 1.0 1.6 0.4-5.4 10 ^3/uL Monocytes # (Auto) 1.0 1.1 0-1.3 10 ^3/uL Differential Total Cells Counted 100.0 100 Neutrophils % (Manual) 90 H 37.0-80.0 Band Neutrophils % (Manual) 0 Lymphocytes % (Manual) 6 L 10.0-50.0 Monocytes % (Manual) 4 0-12 Eosinophils % (Manual) 0 0-7 Basophils % (Manual) 0 0.0-2.0 Metamyelocytes % (manual) 0 Myelocytes % (Manual) 0 Promyelocytes % (Manual) 0 Blast Cells % (Manual) 0 Reactive Lymphocytes 0 Platelet Estimate Adequate Clumped Platelets Moderate Stomatocytes Few Sodium Level 135 L 135 L 135 L 136-145 mmol/L Potassium Level 3.6 3.4 L 3.4 L 3.5-5.1 mmol/L Chloride Level 104 101 102 98-107 mmol/L Carbon Dioxide Level 26 25 25 20-31 mmol/L Anion Gap 5 9 8 5-15 Blood Urea Nitrogen < 5 L < 5 L < 5 L 9-23 mg/dL Creatinine 0.65 0.62 0.51 L 0.550-1.02 mg/dL Glomerular Filtration Rate Calc 117 118 124 >90 mL/min BUN/Creatinine Ratio 7.7 L 8.1 L 9.8 L 10.0-20.0 Serum Glucose 97 106 92 74-106 mg/dL Calcium Level 8.9 8.6 L 8.7 8.7-10.4 mg/dL Eosinophils (%) (Auto) 0.0 0.3 0.0-7.0 % Eosinophils # (Auto) 0 0.1 0-0.8 10 ^3/uL Basophils # (Auto) 0 0 0-0.2 10 ^3/uL Nucleated Red Blood Cells 0.0 0.0 % Magnesium Level 1.8 1.9 1.6-2.6 mg/dL Total Bilirubin 0.4 0.2-1.0 mg/dL Aspartate Amino Transferase (AST) 13 13-40 U/L Alanine Aminotransferase (ALT) < 9 7-40 U/L Alkaline Phosphatase 88 46-116 U/L Total Protein 6.7 5.7-8.2 g/dL Albumin 3.1 L 3.2-4.8 g/dL Test 12/29/23 10:10 12/29/23 16:01 12/30/23 05:05 12/31/23 06:40 Range/Units Body Fluid Source Pending Body Fluid pH Pending Body Fluid WBC (Manual) Pending Body Fluid RBC (Manual) Pending Body Fluid Mononuclear Cells Pending Body Fluid Polymorphonuclear Cells Pending White Blood Count 29.0 H 28.0 H 19.7 #H 4.4-10.8 10^3/uL Red Blood Count 3.34 L 3.12 L 2.86 L 4.0-5.20 10^6/uL Hemoglobin 9.2 L 8.3 L 7.9 L 12.2-16.2 g/dL Hematocrit 28.3 L 26.5 L 24.0 L 36.0-46.0 % Mean Corpuscular Volume 84.6 84.9 83.8 80.0-100.0 fL Mean Corpuscular Hemoglobin 27.6 L 26.6 L 27.5 L 28.0-32.0 pg Mean Corpuscular Hemoglobin Concent 32.6 31.4 L 32.8 32.0-36.0 g/dL Red Cell Distribution Width 15.2 H 15.4 H 15.8 H 11.8-14.3 % Platelet Count 380 433 437 140-450 10^3/uL Mean Platelet Volume 7.6 7.6 7.5 6.9-10.8 fL Neutrophils (%) (Auto) 85.6 H 37.0-80.0 % Lymphocytes (%) (Auto) 9.3 L 10.0-50.0 % Monocytes (%) (Auto) 4.6 0.0-12.0 % Basophils (%) (Auto) 0.2 0.0-2.0 % Neutrophils # (Auto) 16.8 H 1.6-8.6 10 ^3/uL Lymphocytes # (Auto) 1.8 0.4-5.4 10 ^3/uL Monocytes # (Auto) 0.9 0-1.3 10 ^3/uL Differential Total Cells Counted 100.0 100.0 100 Neutrophils % (Manual) 75 71 37.0-80.0 Band Neutrophils % (Manual) 21 25 Lymphocytes % (Manual) 1 L 3 L 10.0-50.0 Monocytes % (Manual) 1 0 0-12 Eosinophils % (Manual) 0 0 0-7 Basophils % (Manual) 0 0 0.0-2.0 Metamyelocytes % (manual) 2 1 Myelocytes % (Manual) 0 0 Promyelocytes % (Manual) 0 0 Blast Cells % (Manual) 0 0 Reactive Lymphocytes 0 0 Platelet Estimate Adequate Adequate Large Platelets Few Sodium Level 139 142 140 136-145 mmol/L Potassium Level 3.7 3.7 3.0 L 3.5-5.1 mmol/L Chloride Level 112 #H 108 H 104 98-107 mmol/L Carbon Dioxide Level 24 30 29 20-31 mmol/L Anion Gap 3 L 4 L 7 5-15 Blood Urea Nitrogen < 5 L 8 L 7 L 9-23 mg/dL Creatinine 0.38 L 0.45 L 0.35 L 0.550-1.02 mg/dL Glomerular Filtration Rate Calc 133 128 136 >90 mL/min BUN/Creatinine Ratio 13.2 17.8 20.0 10.0-20.0 Serum Glucose 141 H 140 H 135 H 74-106 mg/dL Calcium Level 7.4 L 8.3 L 8.3 L 8.7-10.4 mg/dL Prothrombin Time 12.7 H 9.3-11.8 sec Prothrombin Time INR 1.22 H 0.9-1.15 Activated Partial Thromboplast Time 31.8 24.5-34.5 SEC Phosphorus Level 4.8 2.1 L 2.4-5.1 mg/dL Magnesium Level 1.7 1.9 1.6-2.6 mg/dL Total Bilirubin 0.3 0.2 0.2-1.0 mg/dL Aspartate Amino Transferase (AST) 19 18 13-40 U/L Alanine Aminotransferase (ALT) < 9 9 7-40 U/L Alkaline Phosphatase 59 54 46-116 U/L Total Protein 5.6 L 5.8 5.7-8.2 g/dL Albumin 2.5 L 2.6 L 3.2-4.8 g/dL Triglycerides Level 81 < 150 mg/dL Eosinophils (%) (Auto) 0.3 0.0-7.0 % Eosinophils # (Auto) 0 0-0.8 10 ^3/uL Basophils # (Auto) 0 0-0.2 10 ^3/uL Nucleated Red Blood Cells 0.1 % Test 12/31/23 11:42 12/31/23 20:58 01/01/24 01:06 01/01/24 05:40 Range/Units POC Glucose 141 H 99 70-106 mg/dl Potassium Level 3.7 3.3 L 3.5-5.1 mmol/L White Blood Count 17.6 H 4.4-10.8 10^3/uL Red Blood Count 2.97 L 4.0-5.20 10^6/uL Hemoglobin 8.2 L 12.2-16.2 g/dL Hematocrit 25.2 L 36.0-46.0 % Mean Corpuscular Volume 84.9 80.0-100.0 fL Mean Corpuscular Hemoglobin 27.5 L 28.0-32.0 pg Mean Corpuscular Hemoglobin Concent 32.4 32.0-36.0 g/dL Red Cell Distribution Width 15.9 H 11.8-14.3 % Platelet Count 506 H 140-450 10^3/uL Mean Platelet Volume 7.6 6.9-10.8 fL Neutrophils (%) (Auto) 82.8 H 37.0-80.0 % Lymphocytes (%) (Auto) 10.7 10.0-50.0 % Monocytes (%) (Auto) 5.6 0.0-12.0 % Eosinophils (%) (Auto) 0.7 0.0-7.0 % Basophils (%) (Auto) 0.2 0.0-2.0 % Neutrophils # (Auto) 14.6 H 1.6-8.6 10 ^3/uL Lymphocytes # (Auto) 1.9 0.4-5.4 10 ^3/uL Monocytes # (Auto) 1.0 0-1.3 10 ^3/uL Eosinophils # (Auto) 0.1 0-0.8 10 ^3/uL Basophils # (Auto) 0 0-0.2 10 ^3/uL Nucleated Red Blood Cells 0.2 % Sodium Level 142 136-145 mmol/L Chloride Level 105 98-107 mmol/L Carbon Dioxide Level 27 20-31 mmol/L Anion Gap 10 5-15 Blood Urea Nitrogen 8 L 9-23 mg/dL Creatinine 0.37 L 0.550-1.02 mg/dL Glomerular Filtration Rate Calc 134 >90 mL/min BUN/Creatinine Ratio 21.6 H 10.0-20.0 Serum Glucose 100 74-106 mg/dL Calcium Level 8.2 L 8.7-10.4 mg/dL Phosphorus Level 3.4 2.4-5.1 mg/dL Magnesium Level 2.1 1.6-2.6 mg/dL Total Bilirubin 0.2 0.2-1.0 mg/dL Aspartate Amino Transferase (AST) 31 13-40 U/L Alanine Aminotransferase (ALT) 10 7-40 U/L Alkaline Phosphatase 71 46-116 U/L Total Protein 6.1 5.7-8.2 g/dL Albumin 2.9 L 3.2-4.8 g/dL Test 01/02/24 04:50 01/02/24 05:35 01/02/24 11:07 01/03/24 00:36 Range/Units White Blood Count 15.2 H 4.4-10.8 10^3/uL Red Blood Count 2.69 L 4.0-5.20 10^6/uL Hemoglobin 7.5 L 12.2-16.2 g/dL Hematocrit 22.8 L 36.0-46.0 % Mean Corpuscular Volume 84.7 80.0-100.0 fL Mean Corpuscular Hemoglobin 28.0 28.0-32.0 pg Mean Corpuscular Hemoglobin Concent 33.1 32.0-36.0 g/dL Red Cell Distribution Width 16.0 H 11.8-14.3 % Platelet Count 471 H 140-450 10^3/uL Mean Platelet Volume 7.3 6.9-10.8 fL Neutrophils (%) (Auto) 83.8 H 37.0-80.0 % Lymphocytes (%) (Auto) 9.7 L 10.0-50.0 % Monocytes (%) (Auto) 4.8 0.0-12.0 % Eosinophils (%) (Auto) 1.4 0.0-7.0 % Basophils (%) (Auto) 0.3 0.0-2.0 % Neutrophils # (Auto) 12.7 H 1.6-8.6 10 ^3/uL Lymphocytes # (Auto) 1.5 0.4-5.4 10 ^3/uL Monocytes # (Auto) 0.7 0-1.3 10 ^3/uL Eosinophils # (Auto) 0.2 0-0.8 10 ^3/uL Basophils # (Auto) 0 0-0.2 10 ^3/uL Nucleated Red Blood Cells 0.0 % Sodium Level 142 136-145 mmol/L Potassium Level 4.0 3.5-5.1 mmol/L Chloride Level 107 98-107 mmol/L Carbon Dioxide Level 28 20-31 mmol/L Anion Gap 7 5-15 Blood Urea Nitrogen 8 L 9-23 mg/dL Creatinine 0.41 L 0.550-1.02 mg/dL Glomerular Filtration Rate Calc 131 >90 mL/min BUN/Creatinine Ratio 19.5 10.0-20.0 Serum Glucose 111 H 74-106 mg/dL Calcium Level 8.2 L 8.7-10.4 mg/dL Phosphorus Level 3.5 2.4-5.1 mg/dL Magnesium Level 2.1 1.6-2.6 mg/dL Iron Level 17 L 50-170 ug/dL Total Iron Binding Capacity 190 L 250-425 ug/dL Percent Iron Saturation 8.9 L 15-50 % Total Bilirubin 0.2 0.2-1.0 mg/dL Aspartate Amino Transferase (AST) 35 13-40 U/L Alanine Aminotransferase (ALT) 15 7-40 U/L Alkaline Phosphatase 75 46-116 U/L Total Protein 5.8 5.7-8.2 g/dL Albumin 2.6 L 3.2-4.8 g/dL POC Glucose 112 H 97 121 H 70-106 mg/dl Test 01/03/24 05:49 01/03/24 06:27 01/03/24 12:36 01/03/24 18:08 Range/Units POC Glucose 137 H 124 H 120 H 70-106 mg/dl White Blood Count 21.4 #H 4.4-10.8 10^3/uL Red Blood Count 2.85 L 4.0-5.20 10^6/uL Hemoglobin 8.0 L 12.2-16.2 g/dL Hematocrit 24.7 L 36.0-46.0 % Mean Corpuscular Volume 86.6 80.0-100.0 fL Mean Corpuscular Hemoglobin 28.1 28.0-32.0 pg Mean Corpuscular Hemoglobin Concent 32.5 32.0-36.0 g/dL Red Cell Distribution Width 16.5 H 11.8-14.3 % Platelet Count 526 H 140-450 10^3/uL Mean Platelet Volume 7.6 6.9-10.8 fL Neutrophils (%) (Auto) 84.7 H 37.0-80.0 % Lymphocytes (%) (Auto) 7.6 L 10.0-50.0 % Monocytes (%) (Auto) 5.5 0.0-12.0 % Eosinophils (%) (Auto) 2.0 0.0-7.0 % Basophils (%) (Auto) 0.2 0.0-2.0 % Neutrophils # (Auto) 18.2 H 1.6-8.6 10 ^3/uL Lymphocytes # (Auto) 1.6 0.4-5.4 10 ^3/uL Monocytes # (Auto) 1.2 0-1.3 10 ^3/uL Eosinophils # (Auto) 0.4 0-0.8 10 ^3/uL Basophils # (Auto) 0 0-0.2 10 ^3/uL Nucleated Red Blood Cells 0.1 % Sodium Level 138 136-145 mmol/L Potassium Level 4.1 3.5-5.1 mmol/L Chloride Level 105 98-107 mmol/L Carbon Dioxide Level 26 20-31 mmol/L Anion Gap 7 5-15 Blood Urea Nitrogen 7 L 9-23 mg/dL Creatinine 0.44 L 0.550-1.02 mg/dL Glomerular Filtration Rate Calc 128 >90 mL/min BUN/Creatinine Ratio 15.9 10.0-20.0 Serum Glucose 119 H 74-106 mg/dL Calcium Level 8.6 L 8.7-10.4 mg/dL Phosphorus Level 3.6 2.4-5.1 mg/dL Magnesium Level 2.2 1.6-2.6 mg/dL Total Bilirubin 0.3 0.2-1.0 mg/dL Aspartate Amino Transferase (AST) 27 13-40 U/L Alanine Aminotransferase (ALT) 14 7-40 U/L Alkaline Phosphatase 75 46-116 U/L Total Protein 6.5 5.7-8.2 g/dL Albumin 3.0 L 3.2-4.8 g/dL Test 01/04/24 04:25 01/04/24 05:30 01/04/24 11:28 01/04/24 18:27 Range/Units White Blood Count 18.3 H 4.4-10.8 10^3/uL Red Blood Count 2.75 L 4.0-5.20 10^6/uL Hemoglobin 7.8 L 12.2-16.2 g/dL Hematocrit 23.5 L 36.0-46.0 % Mean Corpuscular Volume 85.6 80.0-100.0 fL Mean Corpuscular Hemoglobin 28.2 28.0-32.0 pg Mean Corpuscular Hemoglobin Concent 33.0 32.0-36.0 g/dL Red Cell Distribution Width 16.9 H 11.8-14.3 % Platelet Count 546 H 140-450 10^3/uL Mean Platelet Volume 7.4 6.9-10.8 fL Neutrophils (%) (Auto) 83.2 H 37.0-80.0 % Lymphocytes (%) (Auto) 8.1 L 10.0-50.0 % Monocytes (%) (Auto) 6.0 0.0-12.0 % Eosinophils (%) (Auto) 2.3 0.0-7.0 % Basophils (%) (Auto) 0.4 0.0-2.0 % Neutrophils # (Auto) 15.2 H 1.6-8.6 10 ^3/uL Lymphocytes # (Auto) 1.5 0.4-5.4 10 ^3/uL Monocytes # (Auto) 1.1 0-1.3 10 ^3/uL Eosinophils # (Auto) 0.4 0-0.8 10 ^3/uL Basophils # (Auto) 0.1 0-0.2 10 ^3/uL Nucleated Red Blood Cells 0.0 % Sodium Level 139 136-145 mmol/L Potassium Level 4.1 3.5-5.1 mmol/L Chloride Level 106 98-107 mmol/L Carbon Dioxide Level 28 20-31 mmol/L Anion Gap 5 5-15 Blood Urea Nitrogen 6 L 9-23 mg/dL Creatinine 0.44 L 0.550-1.02 mg/dL Glomerular Filtration Rate Calc 128 >90 mL/min BUN/Creatinine Ratio 13.6 10.0-20.0 Serum Glucose 128 H 74-106 mg/dL Calcium Level 8.6 L 8.7-10.4 mg/dL Phosphorus Level 4.1 2.4-5.1 mg/dL Magnesium Level 2.2 1.6-2.6 mg/dL Total Bilirubin 0.2 0.2-1.0 mg/dL Aspartate Amino Transferase (AST) 18 13-40 U/L Alanine Aminotransferase (ALT) 13 7-40 U/L Alkaline Phosphatase 67 46-116 U/L Total Protein 6.3 5.7-8.2 g/dL Albumin 2.9 L 3.2-4.8 g/dL Triglycerides Level 97 < 150 mg/dL POC Glucose 133 H 151 H 124 H 70-106 mg/dl Test 01/05/24 05:06 Range/Units White Blood Count 17.3 H 4.4-10.8 10^3/uL Red Blood Count 2.86 L 4.0-5.20 10^6/uL Hemoglobin 8.0 L 12.2-16.2 g/dL Hematocrit 24.8 L 36.0-46.0 % Mean Corpuscular Volume 86.6 80.0-100.0 fL Mean Corpuscular Hemoglobin 28.1 28.0-32.0 pg Mean Corpuscular Hemoglobin Concent 32.5 32.0-36.0 g/dL Red Cell Distribution Width 17.9 H 11.8-14.3 % Platelet Count 586 H 140-450 10^3/uL Mean Platelet Volume 7.3 6.9-10.8 fL Neutrophils (%) (Auto) 83.0 H 37.0-80.0 % Lymphocytes (%) (Auto) 7.8 L 10.0-50.0 % Monocytes (%) (Auto) 6.4 0.0-12.0 % Eosinophils (%) (Auto) 2.5 0.0-7.0 % Basophils (%) (Auto) 0.3 0.0-2.0 % Neutrophils # (Auto) 14.3 H 1.6-8.6 10 ^3/uL Lymphocytes # (Auto) 1.3 0.4-5.4 10 ^3/uL Monocytes # (Auto) 1.1 0-1.3 10 ^3/uL Eosinophils # (Auto) 0.4 0-0.8 10 ^3/uL Basophils # (Auto) 0 0-0.2 10 ^3/uL Nucleated Red Blood Cells 0.0 % Sodium Level 137 136-145 mmol/L Potassium Level 4.2 3.5-5.1 mmol/L Chloride Level 103 98-107 mmol/L Carbon Dioxide Level 29 20-31 mmol/L Anion Gap 5 5-15 Blood Urea Nitrogen 8 L 9-23 mg/dL Creatinine 0.48 L 0.550-1.02 mg/dL Glomerular Filtration Rate Calc 126 >90 mL/min BUN/Creatinine Ratio 16.7 10.0-20.0 Serum Glucose 135 H 74-106 mg/dL Calcium Level 8.8 8.7-10.4 mg/dL Phosphorus Level 4.2 2.4-5.1 mg/dL Magnesium Level 2.2 1.6-2.6 mg/dL Total Bilirubin 0.3 0.2-1.0 mg/dL Aspartate Amino Transferase (AST) 15 13-40 U/L Alanine Aminotransferase (ALT) 11 7-40 U/L Alkaline Phosphatase 67 46-116 U/L Total Protein 6.7 5.7-8.2 g/dL Albumin 3.0 L 3.2-4.8 g/dL Assessment and Plan ASSESSMENT AND PLAN Assessment and Plan s/p Ex lap, bowel resection, oophorectomy for TOA CT shows decreased size of abscess? Plan: Continue current care Advance orders, ambulate Will advance to regular diet once Gen Surgery clears for that CT scan reviewed, unlikely still has a pelvic abscess, probable inflammation and edematous residual tissue seen. My orders: Orders - ANNALISA MANCINI DO * Tank Carpenter Consultation (12/25/23 07:08) Obtain Consent For Anesthesia (12/25/23 07:47) * Radiologist Consult (12/25/23 12:29) Obtain Consent For: (12/29/23 07:27) Strict I & O QSHIFT (12/29/23 13:06) Discontinue Trent Catheter (12/29/23 13:06) Notify L&D Md If: (12/29/23 13:06) Is At Bedside. (12/29/23 13:06) Incentive Spirometry (12/29/23 13:06) Hydromorphone Injection (Dilaudid Inject (12/29/23 13:15) Ng/Orogastric Tube To Lis (12/29/23 13:06) * Infectious [facility]- Dr. Lanre Castillo (12/29/23 13:18) Consult For Nutrition (12/29/23 18:40) Kub Abdomen Single View (12/30/23 04:00) Plan discussed with: Patient Date of Service: Jan 05, 2024 Billing Provider: ANNALISA MANCINI DO Common Visit Codes: [id number] INP/OBS CARE(MOD) ANNALISA MANCINI DO Jan 05, 2024 06:15
--- NOTE | 2024-01-05 13:11 | DVHPNRES ---
Progress Note Date Seen: Jan 05, 2024 Resident Creating Document: FRANCISCA SELF RESIDENT Has the PT tested + for MRSA If YES, has PT been informed?: No Medical Necessity Reason Pt with a Central, PICC or Fol: No Subjective Review of Systems A 38-year-old female with past medical history of kidney stones, who presented to the ED with a chief complaint of intermittent left lower quadrant abdominal pain and yellowish vaginal discharge for last 1 month prior to this admission. According to the patient the left lower quadrant abdominal pain is colicky in nature 9/10 localized with no specific pattern of radiation and no aggravating or relieving factors and associated with yellowish vaginal discharge. She had an IUD for 5 years and removed 1 month ago. She had no history of STD or multiple sexual partner before and her last Pap test was few months ago and was normal study according to the patient. She also mentioned she had history of kidney stone 3 years ago and passed 3 stones but no imaging or follow up was done after that. She denies fever, chills, sweating, nausea, vomiting, chest pain, dizziness or any change in the bowel and bladder habit. on my examination, the patient denies any vaginal discharge at this point. The patient is having left suprapubic abdominal tenderness rated now as 7/10 on the pain scale after pain medications were given. OBGYN was consulted which assessed and evaluated the patient. Pelvic ultrasound showed left adnexal structure, possible mass/collection. There was also a simple cyst in the right ovary. CT scan of the abdomen and pelvis showed a 5.6 x 5.1 cm thick wall multilocular lesion in the left adnexa which is suspicion for a pyosalpinx. The patient was started on IV ceftriaxone, doxycycline and IV fluids at 75 cc/hour. Patient will be admitted for further assessment and management. Pt had surgery on dec 28: drainage of abscess, oophorectomy, colon resection and appendectomy Ct scan jan 02: pt still have collection but smaller than previous one, OLU is on place and draining Pt is on cefpodoxime + metronidazole Objective vital signs Vital Sign Date Time Temp Pulse Resp B/P (MAP) Pulse Ox O2 Delivery O2 Flow Rate FiO2 01/05/24 12:34 98.6 100 16 111/65 (80) 95 98.6 01/05/24 08:00 Room Air* 0 21 Total Intake and Output 01/04/24 01/04/24 01/05/24 15:00 23:00 07:00 Intake Total 650 ml 1894 ml 916 ml Output Total 800 ml Balance 650 ml 1894 ml 116 ml medications Current Medications Medications Dose Ordered Sig/Sadia Route Start Time Stop Time Status Last Admin Dose Admin Ondansetron HCl 4 mg Q4HP PRN IV 12/24/23 21:30 01/05/24 09:56 4 MG Hydromorphone HCl 1 mg Q2HPRN PRN IV 12/29/23 13:15 01/05/24 09:49 1 MG Amino Acids 0 ml @ 0 mls/hr PER PHARMACY IV 12/29/23 19:00 Metronidazole 100 ml @ 100 mls/hr Q8HR IV 12/30/23 14:00 01/05/24 05:16 100 MLS/HR Sodium Chloride 10 ml QSHIFT@10,22 IV 12/30/23 22:00 01/05/24 09:52 10 ML Diagnostic Test (Pha) 1 strip Q6HR 12/31/23 12:00 01/05/24 12:45 1 STRIP Insulin Human Regular FOLLOW SLIDING SCALE Q6HR SC 12/31/23 12:00 01/05/24 05:22 2 UNITS Dextrose 50 ml UD IV 12/31/23 10:30 Fat Emulsion Intravenous 150 ml/Potassium Acetate 20 meq/ Potassium Phosphate 22 meq/ Calcium Gluconate 2.3 meq/Magnesium Sulfate 12 meq/ Multivitamins 10 ml/Chromium/ Copper/Manganese/ Zinc 1 ml/Amino Acids/Dextrose 1,383.9462 ml @ 58 mls/hr [id number] IV 01/02/24 22:00 01/03/24 21:59 Cancel Cefpodoxime Proxetil 200 mg BID PO 01/03/24 22:00 01/05/24 09:50 200 MG Fat Emulsion Intravenous 150 ml/Potassium Phosphate 22 meq/ Magnesium Sulfate 12 meq/ Multivitamins 10 ml/Chromium/ Copper/Manganese/ Zinc 1 ml/Amino Acids/Dextrose 1,469 ml @ 61 mls/hr [id number] IV 01/04/24 22:00 01/05/24 19:59 01/04/24 21:05 61 MLS/HR Fat Emulsion Intravenous 150 ml/Sodium Phosphate 20 meq/ Potassium Chloride 20 meq/ Magnesium Sulfate 12 meq/ Multivitamins 10 ml/Chromium/ Copper/Manganese/ Zinc 1 ml/Amino Acids/Dextrose 1,529 ml @ 63 mls/hr [id number] IV 01/05/24 22:00 01/06/24 21:59 Examination Physical Examination General: Patient alert and oriented in person, place and time. Patient following commands. HEENT: Normocephalic, atraumatic, moist mucous membranes Respiratory/pulmonary: Clear lungs bilaterally, no associated crackles or wheezes. Cardiovascular: Normal heart sounds S1 and S2 with no associated murmurs Abdomen: Abdomen nondistended, there is mild abdominal pain at the hypogastric region. Middle line incision and sutures are closed, dry and clean with a OLU drainage draining approximately 25 cc Extremities: There is no peripheral edema present at the lower extremities. Peripheral Pulses: 3+ Radial (R). 3+ Radial (L). 3+ Dorsalis pedis (R). 3+ Dorsalis pedis(L) Skin: No rashes or pruritus, there is no sacral edema present at this time. Neurological: Intact cranial nerves with no focal neurologic deficits laboratory and microbiology Laboratory Tests 01/05/24 05:06 Test 01/05/24 05:06 Range/Units Serum Glucose 135 H 74-106 mg/dL Microbiology Date/Time Source Procedure Growth Status 01/03/24 15:25 Stool Clostridium difficile Toxin Assay - Final Complete 12/29/23 10:10 Peritoneal Fluid Gram Stain - Final Complete 12/29/23 10:10 Anaerobic Culture - Final Clostridium clostridioforme Complete 12/29/23 10:10 Peritoneal Fluid Aerobic Culture - Final Complete 12/24/23 16:12 Blood Blood Culture - Final NO GROWTH AFTER 5 DAYS OF INCUBATION. Complete Problem List/Assessment/Plan Problem List/Assessment/Plan #Acute left suprapubic pain likely due to left tubo-ovarian abscess/pyosalpinx #Possible pelvic inflammatory disease #Sepsis likely due to tubo-ovarian abscess/pyosalpinx (PID) #S/P left oophorectomy with appendectomy and bowel resection with anastomosis of the descending colon with rectum 12/29/2023 -CT abdomen and pelvis on 01/03/24 reviewed Drainage catheter is seen in the lower midline abdomen with tip curled in the lower midline pelvis. Interval decrease in size of multiloculated pelvic abscess, the largest pocket now measuring approximately 2.8 x 11.3 cm . The majority of the remaining abscess is not adjacent to the drainage catheter tip. Consider repositioning of drainage catheter. -IR was consulted: PER DR. Jacinto RIZZO EXISTING DRAIN TUBE IS IN GOOD PLACEMENT AND DOES NOT NEED TO BE REPOSITIONED AT THIS TIME. NO PROCEDURE INDICATED AT THIS TIME. -patient has a history of IUD for five years that was removed one month ago -NAAT for chlamydia and gonorrhea, which both came back negative -OBGYN on board, which performed left oopherectomy with removal of appendix and part of greater omentum, as well as part of the colon with anastomosis without complications on 12/29/23. -MRI of the abdomen showed a multiloculated cystic mass in the left adnexa likely representing tubo-ovarian abscess. - on 01/04/2024 Surgery recommended-Increase TPN to meet at least 75% of estimated needs. .Advance pt diet when medically feasible. 01/04/2024 Gynecology and Obstetrics recommended-Consider D/C gabriel and OLU drain in next 48-72 hrs. -Patient was also seen by infectious disease and recommended- agree with C diff testing if diarrhea continues to progress would start oral vancomycin and IV flagell, switch to oral ceftriaxone and stop IV ceftriaxone, continue antibiotics , slowly transition to oral versions of these medications and assess for tolerance . First of which would be transitioning to Oral Doxycycline, follow up on biopsy results of mass - Peritoneal fluid culture revealed Clostridium Clostrodioformi, -patient on cefpodoxime 200 mg p.o. b.i.d. and metronidazole 500 mg iv Q 8 H # Left-sided nonobstructing renal stone -Discontinue fluids -CT abdomen revealed punctating nonobstructing left sided nephrolithiasis -strain urine and monitor closely -follow-up with urology as an outpatient #Normocytic hypochromic anemia: iron deficiency IV iron #Polysubstance abuse (cannabinoids) -urine drug screen came back positive for cannabis -general counselor patient on drug cessation Goals of care discussed with the patient at bedside for >23min, FULL CODE Plan discussed with Dr. Whitley Plan discussed with: Patient Gynecology and Obstetrics recommended-Consider D/C gabriel and OLU drain in next 48-72 hrs. Surgery recommended-Increase TPN to meet at least 75% of estimated needs. .Advance pt diet when medically feasible. Peritoneal fluid culture revealed Clostridium Clostrodioformi, patient tested negative for Clostridium difficile toxin. Plan discussed with: Patient, Other (rn) My Orders My Orders Orders - FRANCISCA SELF RESIDENT Procedure Category Date Status Time * Radiologist Consult CONS 01/05/24 Transmitted 07:29 Dietary Evaluation Review Comments: 1) Increase TPN to meet at least 75% of estimated needs 2) Advance pt diet when medically feasible 3) Continue current plan of care Expected Outcomes/Goals: 1) Pt diet to advance 2) F/U in 2-3 days Date of Service: Jan 05, 2024 Billing Provider: CORNELIUS WHITLEY MD Common Visit Codes: [id number] INP/OBS CARE(HIGH) Coding Comment Comment Attending Attestation I saw and evaluated the patient. I reviewed the residents note and agree with findings and plan as documented in the residents note except as documented below. FRANCISCA SELF RESIDENT Jan 05, 2024 13:11 CORNELIUS WHITLEY MD Jan 05, 2024 19:12
--- NOTE | 2024-01-05 15:08 | DVHPN2 ---
Progress Note Date Seen: Jan 05, 2024 Has the PT tested + for MRSA If YES, has PT been informed?: No Medical Necessity Reason Pt with a Central, PICC or Fol: No Objective vital signs Vital Sign Date Time Temp Pulse Resp B/P (MAP) Pulse Ox O2 Delivery O2 Flow Rate FiO2 01/05/24 13:57 100 16 111/65 01/05/24 12:34 98.6 95 98.6 01/05/24 08:00 Room Air* 0 21 Total Intake and Output 01/04/24 01/04/24 01/05/24 15:00 23:00 07:00 Intake Total 650 ml 1894 ml 916 ml Output Total 800 ml Balance 650 ml 1894 ml 116 ml medications Current Medications Medications Dose Ordered Sig/Sadia Route Start Time Stop Time Status Last Admin Dose Admin Ondansetron HCl 4 mg Q4HP PRN IV 12/24/23 21:30 01/05/24 14:00 4 MG Hydromorphone HCl 1 mg Q2HPRN PRN IV 12/29/23 13:15 01/05/24 13:57 1 MG Amino Acids 0 ml @ 0 mls/hr PER PHARMACY IV 12/29/23 19:00 Metronidazole 100 ml @ 100 mls/hr Q8HR IV 12/30/23 14:00 01/05/24 13:53 100 MLS/HR Sodium Chloride 10 ml QSHIFT@10,22 IV 12/30/23 22:00 01/05/24 09:52 10 ML Diagnostic Test (Pha) 1 strip Q6HR 12/31/23 12:00 01/05/24 12:45 1 STRIP Insulin Human Regular FOLLOW SLIDING SCALE Q6HR SC 12/31/23 12:00 01/05/24 05:22 2 UNITS Dextrose 50 ml UD IV 12/31/23 10:30 Fat Emulsion Intravenous 150 ml/Potassium Acetate 20 meq/ Potassium Phosphate 22 meq/ Calcium Gluconate 2.3 meq/Magnesium Sulfate 12 meq/ Multivitamins 10 ml/Chromium/ Copper/Manganese/ Zinc 1 ml/Amino Acids/Dextrose 1,383.9462 ml @ 58 mls/hr [id number] IV 01/02/24 22:00 01/03/24 21:59 Cancel Cefpodoxime Proxetil 200 mg BID PO 01/03/24 22:00 01/05/24 09:50 200 MG Fat Emulsion Intravenous 150 ml/Potassium Phosphate 22 meq/ Magnesium Sulfate 12 meq/ Multivitamins 10 ml/Chromium/ Copper/Manganese/ Zinc 1 ml/Amino Acids/Dextrose 1,469 ml @ 61 mls/hr Q24H5M IV 01/04/24 22:00 01/05/24 19:59 01/04/24 21:05 61 MLS/HR Fat Emulsion Intravenous 150 ml/Sodium Phosphate 20 meq/ Potassium Chloride 20 meq/ Magnesium Sulfate 12 meq/ Multivitamins 10 ml/Chromium/ Copper/Manganese/ Zinc 1 ml/Amino Acids/Dextrose 1,529 ml @ 63 mls/hr [id number] IV 01/05/24 22:00 01/06/24 21:59 Enoxaparin Sodium 40 mg DAILY SC 01/06/24 10:00 laboratory and microbiology Laboratory Tests 01/05/24 05:06 Test 01/05/24 05:06 Range/Units Serum Glucose 135 H 74-106 mg/dL Problem List/Assessment/Plan Problem List/Assessment/Plan 12/30/23 patient's mother qat bedside. operative findings explained, patient understands that colostomy is a possibility if the anastomosis does not heal properly. ngt needs to remain till patient has a bowel movement 01/01/24 PATIENT GAGGING AND RETCHING DUE TO NGT IRRITATION, WILL DC NGT BUT SHE MUST REMAIN NPO. ABDOMEN APPROPRIATELY TENDER, WOUND CLEAN AND WELL APPROXIMATED. NEEDS TO AMBULATE 01/02/24 passing flatus and had a BM, abdomen non distended, appropriately tender, drainage serosanguineous, start po clear liquids 01/04/24 DOINF WELL, NORMAL BM'S,WOUND OK, ABDOMEN APPROPRIATELY TENDER, ADVANCE DIET, HOME IN 24 TO 48 HOURS Plan discussed with: Patient Dietary Evaluation Review Comments: 1) Increase TPN to meet at least 75% of estimated needs 2) Advance pt diet when medically feasible 3) Continue current plan of care Expected Outcomes/Goals: 1) Pt diet to advance 2) F/U in 2-3 days ZAINA PEARCE MD Jan 05, 2024 15:08
--- NOTE | 2024-01-05 15:49 | DVHPN2 ---
Consult Progress Note Date Seen: Jan 04, 2024 Subjective Patient reports: Feels better (BMs still loose no rash) Objective vital signs Vital Sign Date Time Temp Pulse Resp B/P (MAP) Pulse Ox O2 Delivery O2 Flow Rate FiO2 01/05/24 13:57 100 16 111/65 01/05/24 12:34 98.6 95 98.6 01/05/24 08:00 Room Air* 0 21 Total Intake and Output 01/04/24 01/04/24 01/05/24 15:00 23:00 07:00 Intake Total 650 ml 1894 ml 916 ml Output Total 800 ml Balance 650 ml 1894 ml 116 ml medications Current Medications Medications Dose Ordered Sig/Sadia Route Start Time Stop Time Status Last Admin Dose Admin Ondansetron HCl 4 mg Q4HP PRN IV 12/24/23 21:30 01/05/24 14:00 4 MG Hydromorphone HCl 1 mg Q2HPRN PRN IV 12/29/23 13:15 01/05/24 13:57 1 MG Metronidazole 100 ml @ 100 mls/hr Q8HR IV 12/30/23 14:00 01/05/24 13:53 100 MLS/HR Sodium Chloride 10 ml QSHIFT@10,22 IV 12/30/23 22:00 01/05/24 09:52 10 ML Diagnostic Test (Pha) 1 strip Q6HR 12/31/23 12:00 01/05/24 12:45 1 STRIP Insulin Human Regular FOLLOW SLIDING SCALE Q6HR SC 12/31/23 12:00 01/05/24 05:22 2 UNITS Dextrose 50 ml UD IV 12/31/23 10:30 Fat Emulsion Intravenous 150 ml/Potassium Acetate 20 meq/ Potassium Phosphate 22 meq/ Calcium Gluconate 2.3 meq/Magnesium Sulfate 12 meq/ Multivitamins 10 ml/Chromium/ Copper/Manganese/ Zinc 1 ml/Amino Acids/Dextrose 1,383.9462 ml @ 58 mls/hr [id number] IV 01/02/24 22:00 01/03/24 21:59 Cancel Cefpodoxime Proxetil 200 mg BID PO 01/03/24 22:00 01/05/24 09:50 200 MG Fat Emulsion Intravenous 150 ml/Potassium Phosphate 22 meq/ Magnesium Sulfate 12 meq/ Multivitamins 10 ml/Chromium/ Copper/Manganese/ Zinc 1 ml/Amino Acids/Dextrose 1,469 ml @ 61 mls/hr Q24H5M IV 01/04/24 22:00 01/05/24 19:59 01/04/24 21:05 61 MLS/HR Fat Emulsion Intravenous 150 ml/Sodium Phosphate 20 meq/ Potassium Chloride 20 meq/ Magnesium Sulfate 12 meq/ Multivitamins 10 ml/Chromium/ Copper/Manganese/ Zinc 1 ml/Amino Acids/Dextrose 1,529 ml @ 63 mls/hr [id number] IV 01/05/24 22:00 01/06/24 21:59 Enoxaparin Sodium 40 mg DAILY SC 01/06/24 10:00 Iron Sucrose 110 ml @ 110 mls/hr DAILY@1200 IV 01/06/24 12:00 01/10/24 12:59 PHYSICAL EXAM: - GENERAL: Alert and oriented x 3. No acute distress. Well-nourished. - EYES: EOMI. Anicteric. - HENT: Moist mucous membranes. No scleral icterus. No cervical lymphadenopathy. - LUNGS: Clear to auscultation bilaterally. No accessory muscle use. - CARDIOVASCULAR: Regular rate and rhythm. No murmur. No JVD. - ABDOMEN: Soft, non-tender and non-distended. No palpable masses. - EXTREMITIES: No edema. Non-tender.?SKIN: No rashes or lesions. Warm. - NEUROLOGIC: No focal neurological deficits. CN II-XII grossly intact, but not individually tested. - PSYCHIATRIC: Cooperative. Appropriate mood and affect. laboratory and microbiology Laboratory Tests 01/05/24 05:06 Test 01/05/24 05:06 Range/Units Serum Glucose 135 H 74-106 mg/dL Problem List/Assessment/Plan Problem List/Assessment/Plan ASSESSMENT AND PLAN: ID Problem List: - Pyosalpinx - Tubo-ovarian abscess - Persistent leukocytosis - Anemia - History of kidney stones - itraabdominal mass -inflammed appendix Assessment This is a 38 y.o. female with a past medical history of kidney stones (last occurrence three years ago), who presents with intermittent left lower quadrant pain and yellowish vaginal discharge for the last month. She had an intrauterine device (IUD) inserted five years ago, which was removed one month ago. She reports no multiple sexual partners and denies concern for sexually transmitted diseases. The pain is cramping in nature, rated 9 out of 10. She denies hematuria, fevers, or chills. No history of smoking or alcohol use; however, she does use marijuana occasionally. She lives with her boyfriend. Vital signs on admission revealed a temperature of 102.7F, respiratory rate of 16, blood pressure 102/68 mmHg, and oxygen saturation of 100% on room air. Physical examination was notable for tenderness in the left lower quadrant. Imaging studies include: - Pelvic ultrasound showing a left adnexal structurepossible mass or collection; infectious etiology not excluded. A simple cyst was noted in the right ovary. - CT abdomen and pelvis revealing a 5.6 x 5.1 cm thick-walled multilocular lesion of the left adnexa, suspicious for pyosalpinx; other etiologies not excluded. - Pelvic MRI demonstrating a multiloculated cystic mass in the left adnexa, likely representing a tubo-ovarian abscess; malignant lesion with necrosis not entirely excluded. On December 25, a CT-guided placement of an 8.5 mm pigtail drain was performed, yielding 25 cc of thick, foul, purulent fluid with slight green discoloration, sent for cytology and cultures. Cultures have shown no growth to date. Laboratory studies reveal a persistently elevated white blood cell count of 28,000/mm, hemoglobin of 8.2 g/dL, and platelet count of 344,000/mm. Despite drainage, the abscess remains sizable with minimal output, and the patient continues to have persistent leukocytosis. It is unclear if antibiotics alone will suffice in treating the infection. 12/29: Post op day 1 from diagnostic exploratory laparoscopy via midline incision , a left oophorectomy , a partial omentectomy, partial colon resection with primary anastomosis my Dr Strauss and an appendectomy. They found omental adhesions in the abdominal cavity , a mass in the left pelvis which could not be mobilized until the converted to an laparotomy. They found a large inflammatory mass . The greater momentum contained severely infected and indurated tissue , the momentum was divided and excised. mass was adherent to rectosigmoid and Dr Strauss was consulted. Olu drain was placed. Cultures from 12/28 and aspirated cultures from 12/25 show no growth. White count is still elevated but hemoglobin is stable 12/30: white count has gone down to 19.7, chest x-ray shows a need to advance anterior tube in the stomach about 2 cm. cultures from asprite from the IR drainage revealed anerococcus and the peritoneal fluid cultures are still pending 12/31: Aspric cultures are growing inner coccus , peritoneal fluids are growing clostridioforme 01/01: white count continues to downtrend, continue antibiotics for 14 more days 01/02: white count is elevated and multiple bowel movements and has been on antibiotics for a considerable amount of time . Plan: - agree with C diff testing - hold off on empiric vancomycin at this time - if diarrhea progresses would start oral vancomycin - switch to oral cefpodoxime and stop IV ceftriaxone - continue antibiotics , slowly transition to oral versions of these medications and assess for tolerance . - follow up on biopsy results of mass - Continue doxycycline and Flagyl (metronidazole). - Monitoring: - Monitor OLU drain output closely. - Follow up on operative cultures as well as OLU drain output - blood pressure support as needed Plan discussed with: Patient Dietary Evaluation Review Comments: 1) Increase TPN to meet at least 75% of estimated needs 2) Advance pt diet when medically feasible 3) Continue current plan of care Expected Outcomes/Goals: 1) Pt diet to advance 2) F/U in 2-3 days FELICITY MEMBRENO MD Jan 05, 2024 15:49
[2024-01-05] MEDS: TPN PER PHARMACY IV NR (22:06)
[2024-01-06] VITALS (8 sets, daily range): BP systolic 97–104; BP diastolic 57–66; PULSE 95–109; RESP 18–20; TEMP 97.8–98.6; O2SAT 92–97
[2024-01-06] MEDS: MELATONIN 5 MG TAB PO ONE (00:43)
[2024-01-06 06:58] LABS: Mean Corpuscular Hgb Conc. 32.6 g/dL (32.0-36.0); Red Blood Cells 2.87 10^6/uL (4.0-5.20)
[2024-01-06 07:08] LABS: Hematocrit 24.5 % (36.0-46.0); Mean Corpuscular Hemoglobin 27.9 pg (28.0-32.0); Mean Corpuscular Volume 85.4 fL (80.0-100.0); Platelet Count (auto) 601 10^3/uL (140-450); Red Cell Distribution Width 17.6 % (11.8-14.3); White Blood Cell 15.9 10^3/uL (4.4-10.8)
[2024-01-06 07:28] LABS: Alanine Aminotransferase 11 U/L (7-40); Albumin 3.2 g/dL (3.2-4.8); Alkaline Phosphatase 73 U/L (46-116); Anion Gap 7 (5-15); Aspartate Aminotransferase 16 U/L (13-40); BUN/Creatinine Ratio 16.3 (10.0-20.0); Bilirubin, Total 0.3 mg/dL (0.2-1.0); Blood Urea Nitrogen 8 mg/dL (9-23); Calcium 8.9 mg/dL (8.7-10.4); Carbon Dioxide 28 mmol/L (20-31); Chloride 103 mmol/L (98-107); Glucose 96 mg/dL (74-106); Magnesium 2.2 mg/dL (1.6-2.6); Phosphorus 4.3 mg/dL (2.4-5.1); Potassium 4.1 mmol/L (3.5-5.1); Sodium 138 mmol/L (136-145); Total Protein 6.9 g/dL (5.7-8.2)
[2024-01-06 07:29] LABS: Band Neutrophils % (manual) 0; Basophils % (manual) 0 (0.0-2.0); Blast Cells 0; Promyelocytes % 0; Reactive Lymphocytes 0
[2024-01-06 08:59] LABS: Eosinophils % (manual) 2 (0-7); Lymphocytes % (manual) 9 (10.0-50.0); Metamyelocytes % 2; Monocytes % (manual) 5 (0-12); Myelocytes % 1
[2024-01-06 09:00] LABS: Platelet Estimate Increased; RBC Morphology Normal
[2024-01-06] MEDS: ENOXAPARIN SOD 40 MG/0.4 ML SYRINGE SC SCH (10:16)
[2024-01-06] MEDS: metroNIDAZOLE 500 MG TAB PO SCH (10:17)
[2024-01-06] MEDS: DOXYCYCLINE 100 MG TAB/CAP PO SCH (10:17)
--- NOTE | 2024-01-06 12:04 | DVHPN2 ---
Progress Note Date Seen: Jan 06, 2024 Has the PT tested + for MRSA If YES, has PT been informed?: No Medical Necessity Reason Pt with a Central, PICC or Fol: No Objective vital signs Vital Sign Date Time Temp Pulse Resp B/P (MAP) Pulse Ox O2 Delivery O2 Flow Rate FiO2 01/06/24 10:00 95 19 103/61 01/06/24 09:00 98.3 96 98.3 01/06/24 08:00 Room Air* 0 21 Total Intake and Output 01/05/24 01/05/24 01/06/24 15:00 23:00 07:00 Intake Total 890 ml 2050 ml 1204 ml Output Total 15 ml 1065 ml Balance 890 ml 2035 ml 139 ml medications Current Medications Medications Dose Ordered Sig/Sadia Route Start Time Stop Time Status Last Admin Dose Admin Ondansetron HCl 4 mg Q4HP PRN IV 12/24/23 21:30 01/06/24 10:00 4 MG Hydromorphone HCl 1 mg Q2HPRN PRN IV 12/29/23 13:15 01/06/24 10:00 1 MG Sodium Chloride 10 ml QSHIFT@,22 IV 12/30/23 22:00 01/06/24 10:17 10 ML Diagnostic Test (Pha) 1 strip Q6HR 12/31/23 12:00 01/06/24 05:32 1 STRIP Insulin Human Regular FOLLOW SLIDING SCALE Q6HR SC 12/31/23 12:00 01/06/24 00:01 2 UNITS Dextrose 50 ml UD IV 12/31/23 10:30 Fat Emulsion Intravenous 150 ml/Potassium Acetate 20 meq/ Potassium Phosphate 22 meq/ Calcium Gluconate 2.3 meq/Magnesium Sulfate 12 meq/ Multivitamins 10 ml/Chromium/ Copper/Manganese/ Zinc 1 ml/Amino Acids/Dextrose 1,383.9462 ml @ 58 mls/hr [id number] IV 01/02/24 22:00 01/03/24 21:59 Cancel Cefpodoxime Proxetil 200 mg BID PO 01/03/24 22:00 01/06/24 10:17 200 MG Enoxaparin Sodium 40 mg DAILY SC 01/06/24 10:00 01/06/24 10:16 40 MG Iron Sucrose 110 ml @ 110 mls/hr DAILY@1200 IV 01/06/24 12:00 01/10/24 12:59 Metronidazole 500 mg Q12HR PO 01/06/24 10:00 01/06/24 10:17 500 MG Doxycycline Monohydrate 100 mg Q12HR PO 01/06/24 10:00 01/06/24 10:17 100 MG Acetaminophen 1,000 mg Q8HR PO 01/06/24 14:00 Enteral Nutritional Formula 240 ml BIDWM PO 01/06/24 18:00 laboratory and microbiology Laboratory Tests 01/06/24 04:57 Test 01/06/24 04:57 Range/Units Serum Glucose 96 74-106 mg/dL Problem List/Assessment/Plan Problem List/Assessment/Plan 12/30/23 patient's mother qat bedside. operative findings explained, patient understands that colostomy is a possibility if the anastomosis does not heal properly. ngt needs to remain till patient has a bowel movement 01/01/24 PATIENT GAGGING AND RETCHING DUE TO NGT IRRITATION, WILL DC NGT BUT SHE MUST REMAIN NPO. ABDOMEN APPROPRIATELY TENDER, WOUND CLEAN AND WELL APPROXIMATED. NEEDS TO AMBULATE 01/02/24 passing flatus and had a BM, abdomen non distended, appropriately tender, drainage serosanguineous, start po clear liquids 01/04/24 DOINF WELL, NORMAL BM'S,WOUND OK, ABDOMEN APPROPRIATELY TENDER, ADVANCE DIET, HOME IN 24 TO 48 HOURS 01/06/24 passing flatus and BM, abdomen non distended, appropriately tender, wound clean and well approximated, drainage sero [id number], AWAIT REMOVAL P[ICC AND SEE IF wbc DECREASES Plan discussed with: Patient Dietary Evaluation Review Comments: 1) Increase TPN to meet at least 75% of estimated needs 2) Advance pt diet when medically feasible 3) Continue current plan of care Expected Outcomes/Goals: 1) Pt diet to advance 2) F/U in 2-3 days ZAINA PEARCE MD Jan 06, 2024 12:04
--- NOTE | 2024-01-06 12:47 | DVHPNRES ---
Progress Note Date Seen: Jan 06, 2024 Resident Creating Document: FRANCISCA SELF RESIDENT Has the PT tested + for MRSA If YES, has PT been informed?: No Medical Necessity Reason Pt with a Central, PICC or Fol: No Subjective Review of Systems A 38-year-old female with past medical history of kidney stones, who presented to the ED with a chief complaint of intermittent left lower quadrant abdominal pain and yellowish vaginal discharge for last 1 month prior to this admission. According to the patient the left lower quadrant abdominal pain is colicky in nature 9/10 localized with no specific pattern of radiation and no aggravating or relieving factors and associated with yellowish vaginal discharge. She had an IUD for 5 years and removed 1 month ago. She had no history of STD or multiple sexual partner before and her last Pap test was few months ago and was normal study according to the patient. She also mentioned she had history of kidney stone 3 years ago and passed 3 stones but no imaging or follow up was done after that. She denies fever, chills, sweating, nausea, vomiting, chest pain, dizziness or any change in the bowel and bladder habit. on my examination, the patient denies any vaginal discharge at this point. The patient is having left suprapubic abdominal tenderness rated now as 7/10 on the pain scale after pain medications were given. OBGYN was consulted which assessed and evaluated the patient. Pelvic ultrasound showed left adnexal structure, possible mass/collection. There was also a simple cyst in the right ovary. CT scan of the abdomen and pelvis showed a 5.6 x 5.1 cm thick wall multilocular lesion in the left adnexa which is suspicion for a pyosalpinx. The patient was started on IV ceftriaxone, doxycycline and IV fluids at 75 cc/hour. Patient will be admitted for further assessment and management. Pt had surgery on dec 28: drainage of abscess, oophorectomy, colon resection and appendectomy Ct scan jan 02: pt still have collection but smaller than previous one, OLU is on place and draining Pt is on cefpodoxime + metronidazole + doxycycline Objective vital signs Vital Sign Date Time Temp Pulse Resp B/P (MAP) Pulse Ox O2 Delivery O2 Flow Rate FiO2 01/06/24 12:21 97.8 103 20 103/66 (78) 94 97.8 01/06/24 08:00 Room Air* 0 21 Total Intake and Output 01/05/24 01/05/24 01/06/24 15:00 23:00 07:00 Intake Total 890 ml 2050 ml 1204 ml Output Total 15 ml 1065 ml Balance 890 ml 2035 ml 139 ml medications Current Medications Medications Dose Ordered Sig/Sadia Route Start Time Stop Time Status Last Admin Dose Admin Ondansetron HCl 4 mg Q4HP PRN IV 12/24/23 21:30 01/06/24 10:00 4 MG Hydromorphone HCl 1 mg Q2HPRN PRN IV 12/29/23 13:15 01/06/24 10:00 1 MG Sodium Chloride 10 ml QSHIFT@10,22 IV 12/30/23 22:00 01/06/24 10:17 10 ML Diagnostic Test (Pha) 1 strip Q6HR 12/31/23 12:00 01/06/24 12:32 1 STRIP Insulin Human Regular FOLLOW SLIDING SCALE Q6HR SC 12/31/23 12:00 01/06/24 12:31 2 UNITS Dextrose 50 ml UD IV 12/31/23 10:30 Fat Emulsion Intravenous 150 ml/Potassium Acetate 20 meq/ Potassium Phosphate 22 meq/ Calcium Gluconate 2.3 meq/Magnesium Sulfate 12 meq/ Multivitamins 10 ml/Chromium/ Copper/Manganese/ Zinc 1 ml/Amino Acids/Dextrose 1,383.9462 ml @ 58 mls/hr [id number] IV 01/02/24 22:00 01/03/24 21:59 Cancel Cefpodoxime Proxetil 200 mg BID PO 01/03/24 22:00 01/06/24 10:17 200 MG Enoxaparin Sodium 40 mg DAILY SC 01/06/24 10:00 01/06/24 10:16 40 MG Iron Sucrose 110 ml @ 110 mls/hr DAILY@1200 IV 01/06/24 12:00 01/10/24 12:59 Metronidazole 500 mg Q12HR PO 01/06/24 10:00 01/06/24 10:17 500 MG Doxycycline Monohydrate 100 mg Q12HR PO 01/06/24 10:00 01/06/24 10:17 100 MG Acetaminophen 1,000 mg Q8HR PO 01/06/24 14:00 Enteral Nutritional Formula 240 ml BIDWM PO 01/06/24 18:00 Examination Physical Examination General: Patient alert and oriented in person, place and time. Patient following commands. HEENT: Normocephalic, atraumatic, moist mucous membranes Respiratory/pulmonary: Clear lungs bilaterally, no associated crackles or wheezes. Cardiovascular: Normal heart sounds S1 and S2 with no associated murmurs Abdomen: Abdomen nondistended, there is mild abdominal pain at the hypogastric region. Middle line incision and sutures are closed, dry and clean with a OLU drainage draining approximately 25 cc Extremities: There is no peripheral edema present at the lower extremities. Peripheral Pulses: 3+ Radial (R). 3+ Radial (L). 3+ Dorsalis pedis (R). 3+ Dorsalis pedis(L) Skin: No rashes or pruritus, there is no sacral edema present at this time. Neurological: Intact cranial nerves with no focal neurologic deficits laboratory and microbiology Laboratory Tests 01/06/24 04:57 Test 01/06/24 04:57 Range/Units Serum Glucose 96 74-106 mg/dL Microbiology Date/Time Source Procedure Growth Status 01/03/24 15:25 Stool Clostridium difficile Toxin Assay - Final Complete 12/29/23 10:10 Peritoneal Fluid Gram Stain - Final Complete 12/29/23 10:10 Anaerobic Culture - Final Clostridium clostridioforme Complete 12/29/23 10:10 Peritoneal Fluid Aerobic Culture - Final Complete 12/24/23 16:12 Blood Blood Culture - Final NO GROWTH AFTER 5 DAYS OF INCUBATION. Complete Problem List/Assessment/Plan Problem List/Assessment/Plan #Acute left suprapubic pain likely due to left tubo-ovarian abscess/pyosalpinx #Possible pelvic inflammatory disease #Sepsis likely due to tubo-ovarian abscess/pyosalpinx (PID) #S/P left oophorectomy with appendectomy and bowel resection with anastomosis of the descending colon with rectum 12/29/2023 -CT abdomen and pelvis on 01/03/24 reviewed Drainage catheter is seen in the lower midline abdomen with tip curled in the lower midline pelvis. Interval decrease in size of multiloculated pelvic abscess, the largest pocket now measuring approximately 2.8 x 11.3 cm . The majority of the remaining abscess is not adjacent to the drainage catheter tip. Consider repositioning of drainage catheter. -IR was consulted: PER DR. Jacinto RIZZO EXISTING DRAIN TUBE IS IN GOOD PLACEMENT AND DOES NOT NEED TO BE REPOSITIONED AT THIS TIME. NO PROCEDURE INDICATED AT THIS TIME. -patient has a history of IUD for five years that was removed one month ago -NAAT for chlamydia and gonorrhea, which both came back negative -OBGYN on board, which performed left oopherectomy with removal of appendix and part of greater omentum, as well as part of the colon with anastomosis without complications on 12/29/23. -MRI of the abdomen showed a multiloculated cystic mass in the left adnexa likely representing tubo-ovarian abscess. - on 01/04/2024 Surgery recommended-Increase TPN to meet at least 75% of estimated needs. .Advance pt diet when medically feasible. 01/04/2024 Gynecology and Obstetrics recommended-Consider D/C gabriel and OLU drain in next 48-72 hrs. -Patient was also seen by infectious disease and recommended- agree with C diff testing if diarrhea continues to progress would start oral vancomycin and IV flagell, switch to oral ceftriaxone and stop IV ceftriaxone, continue antibiotics , slowly transition to oral versions of these medications and assess for tolerance . First of which would be transitioning to Oral Doxycycline, follow up on biopsy results of mass - Peritoneal fluid culture revealed Clostridium Clostrodioformi, -patient on doxycycline, cefpodoxime 200 mg p.o. b.i.d. 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 Whitley Plan discussed with: Patient Gynecology and Obstetrics recommended-Consider D/C gabriel and OLU drain in next 48-72 hrs. Surgery recommended-Increase TPN to meet at least 75% of estimated needs. .Advance pt diet when medically feasible. Peritoneal fluid culture revealed Clostridium Clostrodioformi, patient tested negative for Clostridium difficile toxin. Plan discussed with: Patient, Other (rn) My Orders My Orders Orders - FRANCISCA SELF RESIDENT Procedure Category Date Status Time Enoxaparin Sodium PHA 01/06/24 In Process (Lovenox) 10:00 Iron Sucrose Complex PHA 01/06/24 In Process (Venofer) 12:00 Acetaminophen Tablet PHA 01/06/24 In Process (Tylenol Tablet) 14:00 Nutritional PHA 01/06/24 In Process Supplements (Ensure 18:00 Communication Order ORDERS 01/06/24 Transmitted 12:05 Routine Bacterial KENDRA 01/06/24 Logged Culture 12:05 Dietary Evaluation Review Comments: 1) Increase TPN to meet at least 75% of estimated needs 2) Advance pt diet when medically feasible 3) Continue current plan of care Expected Outcomes/Goals: 1) Pt diet to advance 2) F/U in 2-3 days Date of Service: Jan 06, 2024 Billing Provider: CORNELIUS WHITLEY MD Common Visit Codes: [id number] INP/OBS CARE(HIGH) Coding Comment Comment Attending Attestation I saw and evaluated the patient. I reviewed the residents note and agree with findings and plan as documented in the residents note except as documented below. Discontinue TPN c/w PT encourage oral feeding supplement with ensure FRANCISCA SELF RESIDENT Jan 06, 2024 12:47 CORNELIUS WHITLEY MD Jan 06, 2024 20:00
[2024-01-06] MEDS: IRON SUCROSE COMPLEX 110 ML IV SCH (12:59)
--- NOTE | 2024-01-06 13:32 | DVHPN2 ---
Consult Progress Note Date Seen: Jan 05, 2024 Subjective Patient reports: Feels better (persistent leukocytosis, no abdominal pain tolerating diet) Objective vital signs Vital Sign Date Time Temp Pulse Resp B/P (MAP) Pulse Ox O2 Delivery O2 Flow Rate FiO2 01/06/24 12:21 97.8 103 20 103/66 (78) 94 97.8 01/06/24 08:00 Room Air* 0 21 Total Intake and Output 01/05/24 01/05/24 01/06/24 15:00 23:00 07:00 Intake Total 890 ml 2050 ml 1204 ml Output Total 15 ml 1065 ml Balance 890 ml 2035 ml 139 ml medications Current Medications Medications Dose Ordered Sig/Sadia Route Start Time Stop Time Status Last Admin Dose Admin Ondansetron HCl 4 mg Q4HP PRN IV 12/24/23 21:30 01/06/24 10:00 4 MG Hydromorphone HCl 1 mg Q2HPRN PRN IV 12/29/23 13:15 01/06/24 10:00 1 MG Sodium Chloride 10 ml QSHIFT@ IV 12/30/23 22:00 01/06/24 10:17 10 ML Diagnostic Test (Pha) 1 strip Q6HR 12/31/23 12:00 01/06/24 12:32 1 STRIP Insulin Human Regular FOLLOW SLIDING SCALE Q6HR SC 12/31/23 12:00 01/06/24 12:31 2 UNITS Dextrose 50 ml UD IV 12/31/23 10:30 Fat Emulsion Intravenous 150 ml/Potassium Acetate 20 meq/ Potassium Phosphate 22 meq/ Calcium Gluconate 2.3 meq/Magnesium Sulfate 12 meq/ Multivitamins 10 ml/Chromium/ Copper/Manganese/ Zinc 1 ml/Amino Acids/Dextrose 1,383.9462 ml @ 58 mls/hr [id number] IV 01/02/24 22:00 01/03/24 21:59 Cancel Cefpodoxime Proxetil 200 mg BID PO 01/03/24 22:00 01/06/24 10:17 200 MG Enoxaparin Sodium 40 mg DAILY SC 01/06/24 10:00 01/06/24 10:16 40 MG Iron Sucrose 110 ml @ 110 mls/hr DAILY@1200 IV 01/06/24 12:00 01/10/24 12:59 01/06/24 12:59 110 MLS/HR Metronidazole 500 mg Q12HR PO 01/06/24 10:00 01/06/24 10:17 500 MG Doxycycline Monohydrate 100 mg Q12HR PO 01/06/24 10:00 01/06/24 10:17 100 MG Acetaminophen 1,000 mg Q8HR PO 01/06/24 14:00 Enteral Nutritional Formula 240 ml BIDWM PO 01/06/24 18:00 PHYSICAL EXAM: - GENERAL: Alert and oriented x 3. No acute distress. Well-nourished. - EYES: EOMI. Anicteric. - HENT: Moist mucous membranes. No scleral icterus. No cervical lymphadenopathy. - LUNGS: Clear to auscultation bilaterally. No accessory muscle use. - CARDIOVASCULAR: Regular rate and rhythm. No murmur. No JVD. - ABDOMEN: Soft, non-tender and non-distended. No palpable masses. - EXTREMITIES: No edema. Non-tender.SKIN: No rashes or lesions. Warm. - NEUROLOGIC: No focal neurological deficits. CN II-XII grossly intact, but not individually tested. - PSYCHIATRIC: Cooperative. Appropriate mood and affect. laboratory and microbiology Laboratory Tests 01/06/24 04:57 Test 01/06/24 04:57 Range/Units Serum Glucose 96 74-106 mg/dL Problem List/Assessment/Plan Problem List/Assessment/Plan ASSESSMENT AND PLAN: ID Problem List: - Pyosalpinx - Tubo-ovarian abscess - Persistent leukocytosis - Anemia - History of kidney stones - itraabdominal mass -inflammed appendix Assessment This is a 38 y.o. female with a past medical history of kidney stones (last occurrence three years ago), who presents with intermittent left lower quadrant pain and yellowish vaginal discharge for the last month. She had an intrauterine device (IUD) inserted five years ago, which was removed one month ago. She reports no multiple sexual partners and denies concern for sexually transmitted diseases. The pain is cramping in nature, rated 9 out of 10. She denies hematuria, fevers, or chills. No history of smoking or alcohol use; however, she does use marijuana occasionally. She lives with her boyfriend. Vital signs on admission revealed a temperature of 102.7F, respiratory rate of 16, blood pressure 102/68 mmHg, and oxygen saturation of 100% on room air. Physical examination was notable for tenderness in the left lower quadrant. Imaging studies include: - Pelvic ultrasound showing a left adnexal structurepossible mass or collection; infectious etiology not excluded. A simple cyst was noted in the right ovary. - CT abdomen and pelvis revealing a 5.6 x 5.1 cm thick-walled multilocular lesion of the left adnexa, suspicious for pyosalpinx; other etiologies not excluded. - Pelvic MRI demonstrating a multiloculated cystic mass in the left adnexa, likely representing a tubo-ovarian abscess; malignant lesion with necrosis not entirely excluded. On December 25, a CT-guided placement of an 8.5 mm pigtail drain was performed, yielding 25 cc of thick, foul, purulent fluid with slight green discoloration, sent for cytology and cultures. Cultures have shown no growth to date. Laboratory studies reveal a persistently elevated white blood cell count of 28,000/mm, hemoglobin of 8.2 g/dL, and platelet count of 344,000/mm. Despite drainage, the abscess remains sizable with minimal output, and the patient continues to have persistent leukocytosis. It is unclear if antibiotics alone will suffice in treating the infection. 12/29: Post op day 1 from diagnostic exploratory laparoscopy via midline incision , a left oophorectomy , a partial omentectomy, partial colon resection with primary anastomosis my Dr Strauss and an appendectomy. They found omental adhesions in the abdominal cavity , a mass in the left pelvis which could not be mobilized until the converted to an laparotomy. They found a large inflammatory mass . The greater momentum contained severely infected and indurated tissue , the momentum was divided and excised. mass was adherent to rectosigmoid and Dr Strauss was consulted. Olu drain was placed. Cultures from 12/28 and aspirated cultures from 12/25 show no growth. White count is still elevated but hemoglobin is stable 12/30: white count has gone down to 19.7, chest x-ray shows a need to advance anterior tube in the stomach about 2 cm. cultures from asprite from the IR drainage revealed anerococcus and the peritoneal fluid cultures are still pending 12/31: Aspric cultures are growing inner coccus , peritoneal fluids are growing clostridioforme 01/01: white count continues to downtrend, continue antibiotics for 14 more days 01/02: white count is elevated and multiple bowel movements and has been on antibiotics for a considerable amount of time . Plan: - agree with C diff testing - hold off on empiric vancomycin at this time - if diarrhea progresses would start oral vancomycin - switch to oral cefpodoxime and stop IV ceftriaxone - continue antibiotics , slowly transition to oral versions of these medications and assess for tolerance . - follow up on biopsy results of mass - Continue doxycycline and Flagyl (metronidazole). - Monitoring: - Monitor OLU drain output closely. - Follow up on operative cultures as well as OLU drain output - blood pressure support as needed Plan discussed with: Patient Dietary Evaluation Review Comments: 1) Increase TPN to meet at least 75% of estimated needs 2) Advance pt diet when medically feasible 3) Continue current plan of care Expected Outcomes/Goals: 1) Pt diet to advance 2) F/U in 2-3 days FELICITY MEMBRENO MD Jan 06, 2024 13:32
[2024-01-06] MEDS: ACETAMINOPHEN 500 MG TAB PO SCH (14:00)
[2024-01-06] MEDS: Ensure HIGH Protein Chocolate 8oz Bottle PO SCH (17:56)
--- NOTE | 2024-01-06 21:57 | DVHPN2 ---
Consult Progress Note Date Seen: Jan 06, 2024 Subjective Patient reports: Feels better (tolerating diet , wound is doing well , piccline was removed ) Objective vital signs Vital Sign Date Time Temp Pulse Resp B/P (MAP) Pulse Ox O2 Delivery O2 Flow Rate FiO2 01/06/24 18:49 100 14 99/60 01/06/24 17:00 98.0 94 98.0 01/06/24 08:00 Room Air* 0 21 Total Intake and Output 01/05/24 01/05/24 01/06/24 14:59 22:59 06:59 Intake Total 890 ml 2050 ml 1204 ml Output Total 15 ml 1065 ml Balance 890 ml 2035 ml 139 ml medications Current Medications Medications Dose Ordered Sig/Sadia Route Start Time Stop Time Status Last Admin Dose Admin Ondansetron HCl 4 mg Q4HP PRN IV 12/24/23 21:30 01/06/24 14:01 4 MG Hydromorphone HCl 1 mg Q2HPRN PRN IV 12/29/23 13:15 01/06/24 18:49 1 MG Sodium Chloride 10 ml QSHIFT@,22 IV 12/30/23 22:00 01/06/24 10:17 10 ML Diagnostic Test (Pha) 1 strip Q6HR 12/31/23 12:00 01/06/24 17:54 1 STRIP Insulin Human Regular FOLLOW SLIDING SCALE Q6HR SC 12/31/23 12:00 01/06/24 12:31 2 UNITS Dextrose 50 ml UD IV 12/31/23 10:30 Fat Emulsion Intravenous 150 ml/Potassium Acetate 20 meq/ Potassium Phosphate 22 meq/ Calcium Gluconate 2.3 meq/Magnesium Sulfate 12 meq/ Multivitamins 10 ml/Chromium/ Copper/Manganese/ Zinc 1 ml/Amino Acids/Dextrose 1,383.9462 ml @ 58 mls/hr [id number] IV 01/02/24 22:00 01/03/24 21:59 Cancel Cefpodoxime Proxetil 200 mg BID PO 01/03/24 22:00 01/06/24 10:17 200 MG Enoxaparin Sodium 40 mg DAILY SC 01/06/24 10:00 01/06/24 10:16 40 MG Iron Sucrose 110 ml @ 110 mls/hr DAILY@1200 IV 01/06/24 12:00 01/10/24 12:59 01/06/24 12:59 110 MLS/HR Metronidazole 500 mg Q12HR PO 01/06/24 10:00 01/06/24 10:17 500 MG Doxycycline Monohydrate 100 mg Q12HR PO 01/06/24 10:00 01/06/24 10:17 100 MG Acetaminophen 1,000 mg Q8HR PO 01/06/24 14:00 Enteral Nutritional Formula 240 ml BIDWM PO 01/06/24 18:00 01/06/24 17:56 240 ML Acetaminophen/ Hydrocodone Bitart 1 tab Q4HP PRN PO 01/06/24 19:00 PHYSICAL EXAM: - GENERAL: Alert and oriented x 3. No acute distress. Well-nourished. - EYES: EOMI. Anicteric. - HENT: Moist mucous membranes. No scleral icterus. No cervical lymphadenopathy. - LUNGS: Clear to auscultation bilaterally. No accessory muscle use. - CARDIOVASCULAR: Regular rate and rhythm. No murmur. No JVD. - ABDOMEN: Soft, non-tender and non-distended. No palpable masses. - EXTREMITIES: No edema. Non-tender.SKIN: No rashes or lesions. Warm. - NEUROLOGIC: No focal neurological deficits. CN II-XII grossly intact, but not individually tested. - PSYCHIATRIC: Cooperative. Appropriate mood and affect. laboratory and microbiology Laboratory Tests 01/06/24 04:57 Test 01/06/24 04:57 Range/Units Serum Glucose 96 74-106 mg/dL Problem List/Assessment/Plan Problems(with codes): (1) Left pyosalpinx (2) Leukocytosis (3) Adnexal mass (4) Left lower quadrant abdominal pain Problem List/Assessment/Plan ASSESSMENT AND PLAN: ID Problem List: - Pyosalpinx - Tubo-ovarian abscess - Persistent leukocytosis - Anemia - History of kidney stones - itraabdominal mass -inflammed appendix Assessment This is a 38 y.o. female with a past medical history of kidney stones (last occurrence three years ago), who presents with intermittent left lower quadrant pain and yellowish vaginal discharge for the last month. She had an intrauterine device (IUD) inserted five years ago, which was removed one month ago. She reports no multiple sexual partners and denies concern for sexually transmitted diseases. The pain is cramping in nature, rated 9 out of 10. She denies hematuria, fevers, or chills. No history of smoking or alcohol use; however, she does use marijuana occasionally. She lives with her boyfriend. Vital signs on admission revealed a temperature of 102.7F, respiratory rate of 16, blood pressure 102/68 mmHg, and oxygen saturation of 100% on room air. Physical examination was notable for tenderness in the left lower quadrant. Imaging studies include: - Pelvic ultrasound showing a left adnexal structurepossible mass or collection; infectious etiology not excluded. A simple cyst was noted in the right ovary. - CT abdomen and pelvis revealing a 5.6 x 5.1 cm thick-walled multilocular lesion of the left adnexa, suspicious for pyosalpinx; other etiologies not excluded. - Pelvic MRI demonstrating a multiloculated cystic mass in the left adnexa, likely representing a tubo-ovarian abscess; malignant lesion with necrosis not entirely excluded. On December 25, a CT-guided placement of an 8.5 mm pigtail drain was performed, yielding 25 cc of thick, foul, purulent fluid with slight green discoloration, sent for cytology and cultures. Cultures have shown no growth to date. Laboratory studies reveal a persistently elevated white blood cell count of 28,000/mm, hemoglobin of 8.2 g/dL, and platelet count of 344,000/mm. Despite drainage, the abscess remains sizable with minimal output, and the patient continues to have persistent leukocytosis. It is unclear if antibiotics alone will suffice in treating the infection. 12/29: Post op day 1 from diagnostic exploratory laparoscopy via midline incision , a left oophorectomy , a partial omentectomy, partial colon resection with primary anastomosis my Dr Strauss and an appendectomy. They found omental adhesions in the abdominal cavity , a mass in the left pelvis which could not be mobilized until the converted to an laparotomy. They found a large inflammatory mass . The greater momentum contained severely infected and indurated tissue , the momentum was divided and excised. mass was adherent to rectosigmoid and Dr Strauss was consulted. Olu drain was placed. Cultures from 12/28 and aspirated cultures from 12/25 show no growth. White count is still elevated but hemoglobin is stable 12/30: white count has gone down to 19.7, chest x-ray shows a need to advance anterior tube in the stomach about 2 cm. cultures from asprite from the IR drainage revealed anerococcus and the peritoneal fluid cultures are still pending 12/31: Aspric cultures are growing inner coccus , peritoneal fluids are growing clostridioforme 01/01: white count continues to downtrend, continue antibiotics for 14 more days 01/02: white count is elevated and multiple bowel movements and has been on antibiotics for a considerable amount of time . 01/05: White count is down to 15.9 , at this time would transition patient to oral medication Plan: - continue antibiotics , slowly transition to oral versions of these medications and assess for tolerance . - follow up on biopsy results of mass - Continue doxycycline and Flagyl (metronidazole) and cefpodoxime - Monitoring: - Monitor LOU drain output closely. - Follow up on operative cultures as well as OLU drain output - blood pressure support as needed Plan discussed with: Other Dietary Evaluation Review Comments: 1) Increase TPN to meet at least 75% of estimated needs 2) Advance pt diet when medically feasible 3) Continue current plan of care Expected Outcomes/Goals: 1) Pt diet to advance 2) F/U in 2-3 days FELICITY MEMBRENO MD Jan 06, 2024 21:57
[2024-01-07] VITALS (8 sets, daily range): BP systolic 96–110; BP diastolic 56–71; PULSE 78–102; RESP 16–19; TEMP 98–98.3; O2SAT 95–99
[2024-01-07] MEDS: HYDROcodone-ACET 10/325MG TAB PO PRN (05:42)
--- NOTE | 2024-01-07 12:04 | DVHPN2 ---
Subjective Progress Notes Subjective Pain controlled. Tolerating regular diet without N/V, but not much appetite Having BM, soft. C. Diff toxin neg Objective PHYSICAL EXAM Physical Exam: Alert, NAD ABD: Soft, Non DIstended, mild tenderness over incision. Incision C/D/I w/ gabriel OLU in place minimal output ext soft NT Vital Signs and I&O Vital Signs Date Time Temp Pulse Resp B/P (MAP) Pulse Ox O2 Delivery O2 Flow Rate FiO2 01/07/24 08:22 98.2 95 19 96/56 (69) 97 98.2 01/06/24 20:00 Room Air* 0 21 Intake and Output 01/07/24 07:00 Intake Total 1644.5 ml Output Total 2420 ml Balance -775.5 ml Intake Oral 1440 ml IV Total 204.5 ml Output Urine Total 2400 ml Drainage Total 20 ml Lab results Laboratory Tests Test 12/24/23 13:20 12/24/23 13:50 12/24/23 15:12 12/25/23 04:19 Range/Units Lactic Acid Level 0.8 0.4-2.0 mmol/L White Blood Count 23.8 H 23.5 H 4.4-10.8 10^3/uL Red Blood Count 3.66 L 3.01 L 4.0-5.20 10^6/uL Hemoglobin 9.8 L 7.9 #L 12.2-16.2 g/dL Hematocrit 30.4 L 25.1 #L 36.0-46.0 % Mean Corpuscular Volume 82.9 83.5 80.0-100.0 fL Mean Corpuscular Hemoglobin 26.8 L 26.2 L 28.0-32.0 pg Mean Corpuscular Hemoglobin Concent 32.4 31.4 L 32.0-36.0 g/dL Red Cell Distribution Width 14.1 14.4 H 11.8-14.3 % Platelet Count 466 H 395 140-450 10^3/uL Mean Platelet Volume 7.8 7.2 6.9-10.8 fL Neutrophils (%) (Auto) 89.6 H 87.1 H 37.0-80.0 % Lymphocytes (%) (Auto) 5.4 L 7.2 L 10.0-50.0 % Monocytes (%) (Auto) 4.3 5.3 0.0-12.0 % Eosinophils (%) (Auto) 0.4 0.2 0.0-7.0 % Basophils (%) (Auto) 0.3 0.2 0.0-2.0 % Neutrophils # (Auto) 21.3 H 20.4 H 1.6-8.6 10 ^3/uL Lymphocytes # (Auto) 1.3 1.7 0.4-5.4 10 ^3/uL Monocytes # (Auto) 1.0 1.3 0-1.3 10 ^3/uL Eosinophils # (Auto) 0.1 0.1 0-0.8 10 ^3/uL Basophils # (Auto) 0.1 0 0-0.2 10 ^3/uL Nucleated Red Blood Cells 0.0 0.0 % Erythrocyte Sedimentation Rate 105 H 0-20 mm/hr Prothrombin Time 12.1 H 9.3-11.8 sec Prothrombin Time INR 1.15 0.9-1.15 Activated Partial Thromboplast Time 32.5 24.5-34.5 SEC Sodium Level 135 L 138 136-145 mmol/L Potassium Level 3.8 3.7 3.5-5.1 mmol/L Chloride Level 102 106 98-107 mmol/L Carbon Dioxide Level 27 26 20-31 mmol/L Anion Gap 6 6 5-15 Blood Urea Nitrogen 6 L < 5 L 9-23 mg/dL Creatinine 0.68 0.65 0.550-1.02 mg/dL Glomerular Filtration Rate Calc 116 117 >90 mL/min BUN/Creatinine Ratio 8.8 L 7.7 L 10.0-20.0 Serum Glucose 97 102 74-106 mg/dL Calcium Level 9.3 8.6 L 8.7-10.4 mg/dL Total Bilirubin 0.5 0.5 0.2-1.0 mg/dL Aspartate Amino Transferase (AST) 18 16 13-40 U/L Alanine Aminotransferase (ALT) 16 12 7-40 U/L Alkaline Phosphatase 101 86 46-116 U/L Total Protein 8.5 H 7.0 5.7-8.2 g/dL Albumin 3.8 3.4 3.2-4.8 g/dL Lipase 32 12-53 U/L Beta HCG, Quantitative 0.1 L 1.5-4.2 mIU/mL Plasma/Serum Blood Alcohol 3.3 <10 mg/dL Urine Color Yellow Yellow Urine Clarity Turbid H Clear Urine pH 6.5 5.0-9.0 Urine Specific Superior 1.021 1.001-1.035 Urine Protein Trace H Negative Urine Ketones Trace Negative Urine Blood Negative Negative /uL Urine Nitrite Negative Negative Urine Bilirubin Negative Negative Urine Urobilinogen 4 H Negative mg/dL Urine Leukocyte Esterase 1+ Negative /uL Urine RBC 3 0 - 4 /hpf Urine WBC 4 0 - 5 /hpf Urine Squamous Epithelial Cells Few <5 /hpf Urine Bacteria None seen None Seen /hpf Urine Mucus Few None Seen Urine Glucose Normal Normal mg/dL Urine Test Negative Negative Urine Opiates Screen Neg NEGATIVE Urine Fentanyl Screen Neg NEGATIVE Urine Barbiturates Screen Neg NEGATIVE Urine Phencyclidine Screen Neg NEGATIVE Urine Amphetamines Screen Neg NEGATIVE Urine Benzodiazepines Screen Neg NEGATIVE Urine Cocaine Screen Neg NEGATIVE Urine Cannabinoids Screen Pos NEGATIVE Chlamydia trachomatis (AYSHA) Negative Negative Neisseria gonorrhoeae (AYSHA) Negative Negative Ferritin 183.1 10-291 ng/mL Triglycerides Level 65 < 150 mg/dL Cholesterol Level 99 < 200 mg/dL LDL Cholesterol 66 < 100 mg/dL HDL Cholesterol 24 L 40-59 mg/dL Hepatitis C Antibody Negative Negative HIV (1&2) Antibody Negative Negative Test 12/25/23 13:42 12/26/23 04:40 12/27/23 05:04 12/28/23 03:28 Range/Units Rapid Plasma Reagin Non reactive Non Reactive White Blood Count 26.0 H 28.4 H 26.6 H 4.4-10.8 10^3/uL Red Blood Count 3.15 L 3.25 L 3.13 L 4.0-5.20 10^6/uL Hemoglobin 8.2 L 8.6 L 8.2 L 12.2-16.2 g/dL Hematocrit 26.2 L 26.8 L 25.9 L 36.0-46.0 % Mean Corpuscular Volume 83.1 82.5 82.8 80.0-100.0 fL Mean Corpuscular Hemoglobin 26.1 L 26.3 L 26.3 L 28.0-32.0 pg Mean Corpuscular Hemoglobin Concent 31.4 L 31.9 L 31.8 L 32.0-36.0 g/dL Red Cell Distribution Width 14.5 H 14.4 H 14.8 H 11.8-14.3 % Platelet Count 334 338 409 140-450 10^3/uL Mean Platelet Volume 7.4 7.6 7.6 6.9-10.8 fL Neutrophils (%) (Auto) 92.7 H 89.5 H 37.0-80.0 % Lymphocytes (%) (Auto) 3.4 L 6.0 L 10.0-50.0 % Monocytes (%) (Auto) 3.7 4.1 0.0-12.0 % Basophils (%) (Auto) 0.2 0.1 0.0-2.0 % Neutrophils # (Auto) 26.3 H 23.8 H 1.6-8.6 10 ^3/uL Lymphocytes # (Auto) 1.0 1.6 0.4-5.4 10 ^3/uL Monocytes # (Auto) 1.0 1.1 0-1.3 10 ^3/uL Differential Total Cells Counted 100.0 100 Neutrophils % (Manual) 90 H 37.0-80.0 Band Neutrophils % (Manual) 0 Lymphocytes % (Manual) 6 L 10.0-50.0 Monocytes % (Manual) 4 0-12 Eosinophils % (Manual) 0 0-7 Basophils % (Manual) 0 0.0-2.0 Metamyelocytes % (manual) 0 Myelocytes % (Manual) 0 Promyelocytes % (Manual) 0 Blast Cells % (Manual) 0 Reactive Lymphocytes 0 Platelet Estimate Adequate Clumped Platelets Moderate Stomatocytes Few Sodium Level 135 L 135 L 135 L 136-145 mmol/L Potassium Level 3.6 3.4 L 3.4 L 3.5-5.1 mmol/L Chloride Level 104 101 102 98-107 mmol/L Carbon Dioxide Level 26 25 25 20-31 mmol/L Anion Gap 5 9 8 5-15 Blood Urea Nitrogen < 5 L < 5 L < 5 L 9-23 mg/dL Creatinine 0.65 0.62 0.51 L 0.550-1.02 mg/dL Glomerular Filtration Rate Calc 117 118 124 >90 mL/min BUN/Creatinine Ratio 7.7 L 8.1 L 9.8 L 10.0-20.0 Serum Glucose 97 106 92 74-106 mg/dL Calcium Level 8.9 8.6 L 8.7 8.7-10.4 mg/dL Eosinophils (%) (Auto) 0.0 0.3 0.0-7.0 % Eosinophils # (Auto) 0 0.1 0-0.8 10 ^3/uL Basophils # (Auto) 0 0 0-0.2 10 ^3/uL Nucleated Red Blood Cells 0.0 0.0 % Magnesium Level 1.8 1.9 1.6-2.6 mg/dL Total Bilirubin 0.4 0.2-1.0 mg/dL Aspartate Amino Transferase (AST) 13 13-40 U/L Alanine Aminotransferase (ALT) < 9 7-40 U/L Alkaline Phosphatase 88 46-116 U/L Total Protein 6.7 5.7-8.2 g/dL Albumin 3.1 L 3.2-4.8 g/dL Test 12/29/23 10:10 12/29/23 16:01 12/30/23 05:05 12/31/23 06:40 Range/Units Body Fluid Source Pending Body Fluid pH Pending Body Fluid WBC (Manual) Pending Body Fluid RBC (Manual) Pending Body Fluid Mononuclear Cells Pending Body Fluid Polymorphonuclear Cells Pending White Blood Count 29.0 H 28.0 H 19.7 #H 4.4-10.8 10^3/uL Red Blood Count 3.34 L 3.12 L 2.86 L 4.0-5.20 10^6/uL Hemoglobin 9.2 L 8.3 L 7.9 L 12.2-16.2 g/dL Hematocrit 28.3 L 26.5 L 24.0 L 36.0-46.0 % Mean Corpuscular Volume 84.6 84.9 83.8 80.0-100.0 fL Mean Corpuscular Hemoglobin 27.6 L 26.6 L 27.5 L 28.0-32.0 pg Mean Corpuscular Hemoglobin Concent 32.6 31.4 L 32.8 32.0-36.0 g/dL Red Cell Distribution Width 15.2 H 15.4 H 15.8 H 11.8-14.3 % Platelet Count 380 433 437 140-450 10^3/uL Mean Platelet Volume 7.6 7.6 7.5 6.9-10.8 fL Neutrophils (%) (Auto) 85.6 H 37.0-80.0 % Lymphocytes (%) (Auto) 9.3 L 10.0-50.0 % Monocytes (%) (Auto) 4.6 0.0-12.0 % Basophils (%) (Auto) 0.2 0.0-2.0 % Neutrophils # (Auto) 16.8 H 1.6-8.6 10 ^3/uL Lymphocytes # (Auto) 1.8 0.4-5.4 10 ^3/uL Monocytes # (Auto) 0.9 0-1.3 10 ^3/uL Differential Total Cells Counted 100.0 100.0 100 Neutrophils % (Manual) 75 71 37.0-80.0 Band Neutrophils % (Manual) 21 25 Lymphocytes % (Manual) 1 L 3 L 10.0-50.0 Monocytes % (Manual) 1 0 0-12 Eosinophils % (Manual) 0 0 0-7 Basophils % (Manual) 0 0 0.0-2.0 Metamyelocytes % (manual) 2 1 Myelocytes % (Manual) 0 0 Promyelocytes % (Manual) 0 0 Blast Cells % (Manual) 0 0 Reactive Lymphocytes 0 0 Platelet Estimate Adequate Adequate Large Platelets Few Sodium Level 139 142 140 136-145 mmol/L Potassium Level 3.7 3.7 3.0 L 3.5-5.1 mmol/L Chloride Level 112 #H 108 H 104 98-107 mmol/L Carbon Dioxide Level 24 30 29 20-31 mmol/L Anion Gap 3 L 4 L 7 5-15 Blood Urea Nitrogen < 5 L 8 L 7 L 9-23 mg/dL Creatinine 0.38 L 0.45 L 0.35 L 0.550-1.02 mg/dL Glomerular Filtration Rate Calc 133 128 136 >90 mL/min BUN/Creatinine Ratio 13.2 17.8 20.0 10.0-20.0 Serum Glucose 141 H 140 H 135 H 74-106 mg/dL Calcium Level 7.4 L 8.3 L 8.3 L 8.7-10.4 mg/dL Prothrombin Time 12.7 H 9.3-11.8 sec Prothrombin Time INR 1.22 H 0.9-1.15 Activated Partial Thromboplast Time 31.8 24.5-34.5 SEC Phosphorus Level 4.8 2.1 L 2.4-5.1 mg/dL Magnesium Level 1.7 1.9 1.6-2.6 mg/dL Total Bilirubin 0.3 0.2 0.2-1.0 mg/dL Aspartate Amino Transferase (AST) 19 18 13-40 U/L Alanine Aminotransferase (ALT) < 9 9 7-40 U/L Alkaline Phosphatase 59 54 46-116 U/L Total Protein 5.6 L 5.8 5.7-8.2 g/dL Albumin 2.5 L 2.6 L 3.2-4.8 g/dL Triglycerides Level 81 < 150 mg/dL Eosinophils (%) (Auto) 0.3 0.0-7.0 % Eosinophils # (Auto) 0 0-0.8 10 ^3/uL Basophils # (Auto) 0 0-0.2 10 ^3/uL Nucleated Red Blood Cells 0.1 % Test 12/31/23 11:42 12/31/23 20:58 01/01/24 01:06 01/01/24 05:40 Range/Units POC Glucose 141 H 99 70-106 mg/dl Potassium Level 3.7 3.3 L 3.5-5.1 mmol/L White Blood Count 17.6 H 4.4-10.8 10^3/uL Red Blood Count 2.97 L 4.0-5.20 10^6/uL Hemoglobin 8.2 L 12.2-16.2 g/dL Hematocrit 25.2 L 36.0-46.0 % Mean Corpuscular Volume 84.9 80.0-100.0 fL Mean Corpuscular Hemoglobin 27.5 L 28.0-32.0 pg Mean Corpuscular Hemoglobin Concent 32.4 32.0-36.0 g/dL Red Cell Distribution Width 15.9 H 11.8-14.3 % Platelet Count 506 H 140-450 10^3/uL Mean Platelet Volume 7.6 6.9-10.8 fL Neutrophils (%) (Auto) 82.8 H 37.0-80.0 % Lymphocytes (%) (Auto) 10.7 10.0-50.0 % Monocytes (%) (Auto) 5.6 0.0-12.0 % Eosinophils (%) (Auto) 0.7 0.0-7.0 % Basophils (%) (Auto) 0.2 0.0-2.0 % Neutrophils # (Auto) 14.6 H 1.6-8.6 10 ^3/uL Lymphocytes # (Auto) 1.9 0.4-5.4 10 ^3/uL Monocytes # (Auto) 1.0 0-1.3 10 ^3/uL Eosinophils # (Auto) 0.1 0-0.8 10 ^3/uL Basophils # (Auto) 0 0-0.2 10 ^3/uL Nucleated Red Blood Cells 0.2 % Sodium Level 142 136-145 mmol/L Chloride Level 105 98-107 mmol/L Carbon Dioxide Level 27 20-31 mmol/L Anion Gap 10 5-15 Blood Urea Nitrogen 8 L 9-23 mg/dL Creatinine 0.37 L 0.550-1.02 mg/dL Glomerular Filtration Rate Calc 134 >90 mL/min BUN/Creatinine Ratio 21.6 H 10.0-20.0 Serum Glucose 100 74-106 mg/dL Calcium Level 8.2 L 8.7-10.4 mg/dL Phosphorus Level 3.4 2.4-5.1 mg/dL Magnesium Level 2.1 1.6-2.6 mg/dL Total Bilirubin 0.2 0.2-1.0 mg/dL Aspartate Amino Transferase (AST) 31 13-40 U/L Alanine Aminotransferase (ALT) 10 7-40 U/L Alkaline Phosphatase 71 46-116 U/L Total Protein 6.1 5.7-8.2 g/dL Albumin 2.9 L 3.2-4.8 g/dL Test 01/02/24 04:50 01/02/24 05:35 01/02/24 11:07 01/03/24 00:36 Range/Units White Blood Count 15.2 H 4.4-10.8 10^3/uL Red Blood Count 2.69 L 4.0-5.20 10^6/uL Hemoglobin 7.5 L 12.2-16.2 g/dL Hematocrit 22.8 L 36.0-46.0 % Mean Corpuscular Volume 84.7 80.0-100.0 fL Mean Corpuscular Hemoglobin 28.0 28.0-32.0 pg Mean Corpuscular Hemoglobin Concent 33.1 32.0-36.0 g/dL Red Cell Distribution Width 16.0 H 11.8-14.3 % Platelet Count 471 H 140-450 10^3/uL Mean Platelet Volume 7.3 6.9-10.8 fL Neutrophils (%) (Auto) 83.8 H 37.0-80.0 % Lymphocytes (%) (Auto) 9.7 L 10.0-50.0 % Monocytes (%) (Auto) 4.8 0.0-12.0 % Eosinophils (%) (Auto) 1.4 0.0-7.0 % Basophils (%) (Auto) 0.3 0.0-2.0 % Neutrophils # (Auto) 12.7 H 1.6-8.6 10 ^3/uL Lymphocytes # (Auto) 1.5 0.4-5.4 10 ^3/uL Monocytes # (Auto) 0.7 0-1.3 10 ^3/uL Eosinophils # (Auto) 0.2 0-0.8 10 ^3/uL Basophils # (Auto) 0 0-0.2 10 ^3/uL Nucleated Red Blood Cells 0.0 % Sodium Level 142 136-145 mmol/L Potassium Level 4.0 3.5-5.1 mmol/L Chloride Level 107 98-107 mmol/L Carbon Dioxide Level 28 20-31 mmol/L Anion Gap 7 5-15 Blood Urea Nitrogen 8 L 9-23 mg/dL Creatinine 0.41 L 0.550-1.02 mg/dL Glomerular Filtration Rate Calc 131 >90 mL/min BUN/Creatinine Ratio 19.5 10.0-20.0 Serum Glucose 111 H 74-106 mg/dL Calcium Level 8.2 L 8.7-10.4 mg/dL Phosphorus Level 3.5 2.4-5.1 mg/dL Magnesium Level 2.1 1.6-2.6 mg/dL Iron Level 17 L 50-170 ug/dL Total Iron Binding Capacity 190 L 250-425 ug/dL Percent Iron Saturation 8.9 L 15-50 % Total Bilirubin 0.2 0.2-1.0 mg/dL Aspartate Amino Transferase (AST) 35 13-40 U/L Alanine Aminotransferase (ALT) 15 7-40 U/L Alkaline Phosphatase 75 46-116 U/L Total Protein 5.8 5.7-8.2 g/dL Albumin 2.6 L 3.2-4.8 g/dL POC Glucose 112 H 97 121 H 70-106 mg/dl Test 01/03/24 05:49 01/03/24 06:27 01/03/24 12:36 01/03/24 18:08 Range/Units POC Glucose 137 H 124 H 120 H 70-106 mg/dl White Blood Count 21.4 #H 4.4-10.8 10^3/uL Red Blood Count 2.85 L 4.0-5.20 10^6/uL Hemoglobin 8.0 L 12.2-16.2 g/dL Hematocrit 24.7 L 36.0-46.0 % Mean Corpuscular Volume 86.6 80.0-100.0 fL Mean Corpuscular Hemoglobin 28.1 28.0-32.0 pg Mean Corpuscular Hemoglobin Concent 32.5 32.0-36.0 g/dL Red Cell Distribution Width 16.5 H 11.8-14.3 % Platelet Count 526 H 140-450 10^3/uL Mean Platelet Volume 7.6 6.9-10.8 fL Neutrophils (%) (Auto) 84.7 H 37.0-80.0 % Lymphocytes (%) (Auto) 7.6 L 10.0-50.0 % Monocytes (%) (Auto) 5.5 0.0-12.0 % Eosinophils (%) (Auto) 2.0 0.0-7.0 % Basophils (%) (Auto) 0.2 0.0-2.0 % Neutrophils # (Auto) 18.2 H 1.6-8.6 10 ^3/uL Lymphocytes # (Auto) 1.6 0.4-5.4 10 ^3/uL Monocytes # (Auto) 1.2 0-1.3 10 ^3/uL Eosinophils # (Auto) 0.4 0-0.8 10 ^3/uL Basophils # (Auto) 0 0-0.2 10 ^3/uL Nucleated Red Blood Cells 0.1 % Sodium Level 138 136-145 mmol/L Potassium Level 4.1 3.5-5.1 mmol/L Chloride Level 105 98-107 mmol/L Carbon Dioxide Level 26 20-31 mmol/L Anion Gap 7 5-15 Blood Urea Nitrogen 7 L 9-23 mg/dL Creatinine 0.44 L 0.550-1.02 mg/dL Glomerular Filtration Rate Calc 128 >90 mL/min BUN/Creatinine Ratio 15.9 10.0-20.0 Serum Glucose 119 H 74-106 mg/dL Calcium Level 8.6 L 8.7-10.4 mg/dL Phosphorus Level 3.6 2.4-5.1 mg/dL Magnesium Level 2.2 1.6-2.6 mg/dL Total Bilirubin 0.3 0.2-1.0 mg/dL Aspartate Amino Transferase (AST) 27 13-40 U/L Alanine Aminotransferase (ALT) 14 7-40 U/L Alkaline Phosphatase 75 46-116 U/L Total Protein 6.5 5.7-8.2 g/dL Albumin 3.0 L 3.2-4.8 g/dL Test 01/04/24 04:25 01/04/24 05:30 01/04/24 11:28 01/04/24 18:27 Range/Units White Blood Count 18.3 H 4.4-10.8 10^3/uL Red Blood Count 2.75 L 4.0-5.20 10^6/uL Hemoglobin 7.8 L 12.2-16.2 g/dL Hematocrit 23.5 L 36.0-46.0 % Mean Corpuscular Volume 85.6 80.0-100.0 fL Mean Corpuscular Hemoglobin 28.2 28.0-32.0 pg Mean Corpuscular Hemoglobin Concent 33.0 32.0-36.0 g/dL Red Cell Distribution Width 16.9 H 11.8-14.3 % Platelet Count 546 H 140-450 10^3/uL Mean Platelet Volume 7.4 6.9-10.8 fL Neutrophils (%) (Auto) 83.2 H 37.0-80.0 % Lymphocytes (%) (Auto) 8.1 L 10.0-50.0 % Monocytes (%) (Auto) 6.0 0.0-12.0 % Eosinophils (%) (Auto) 2.3 0.0-7.0 % Basophils (%) (Auto) 0.4 0.0-2.0 % Neutrophils # (Auto) 15.2 H 1.6-8.6 10 ^3/uL Lymphocytes # (Auto) 1.5 0.4-5.4 10 ^3/uL Monocytes # (Auto) 1.1 0-1.3 10 ^3/uL Eosinophils # (Auto) 0.4 0-0.8 10 ^3/uL Basophils # (Auto) 0.1 0-0.2 10 ^3/uL Nucleated Red Blood Cells 0.0 % Sodium Level 139 136-145 mmol/L Potassium Level 4.1 3.5-5.1 mmol/L Chloride Level 106 98-107 mmol/L Carbon Dioxide Level 28 20-31 mmol/L Anion Gap 5 5-15 Blood Urea Nitrogen 6 L 9-23 mg/dL Creatinine 0.44 L 0.550-1.02 mg/dL Glomerular Filtration Rate Calc 128 >90 mL/min BUN/Creatinine Ratio 13.6 10.0-20.0 Serum Glucose 128 H 74-106 mg/dL Calcium Level 8.6 L 8.7-10.4 mg/dL Phosphorus Level 4.1 2.4-5.1 mg/dL Magnesium Level 2.2 1.6-2.6 mg/dL Total Bilirubin 0.2 0.2-1.0 mg/dL Aspartate Amino Transferase (AST) 18 13-40 U/L Alanine Aminotransferase (ALT) 13 7-40 U/L Alkaline Phosphatase 67 46-116 U/L Total Protein 6.3 5.7-8.2 g/dL Albumin 2.9 L 3.2-4.8 g/dL Triglycerides Level 97 < 150 mg/dL POC Glucose 133 H 151 H 124 H 70-106 mg/dl Test 01/05/24 05:06 01/05/24 05:14 01/05/24 12:41 01/05/24 23:58 Range/Units White Blood Count 17.3 H 4.4-10.8 10^3/uL Red Blood Count 2.86 L 4.0-5.20 10^6/uL Hemoglobin 8.0 L 12.2-16.2 g/dL Hematocrit 24.8 L 36.0-46.0 % Mean Corpuscular Volume 86.6 80.0-100.0 fL Mean Corpuscular Hemoglobin 28.1 28.0-32.0 pg Mean Corpuscular Hemoglobin Concent 32.5 32.0-36.0 g/dL Red Cell Distribution Width 17.9 H 11.8-14.3 % Platelet Count 586 H 140-450 10^3/uL Mean Platelet Volume 7.3 6.9-10.8 fL Neutrophils (%) (Auto) 83.0 H 37.0-80.0 % Lymphocytes (%) (Auto) 7.8 L 10.0-50.0 % Monocytes (%) (Auto) 6.4 0.0-12.0 % Eosinophils (%) (Auto) 2.5 0.0-7.0 % Basophils (%) (Auto) 0.3 0.0-2.0 % Neutrophils # (Auto) 14.3 H 1.6-8.6 10 ^3/uL Lymphocytes # (Auto) 1.3 0.4-5.4 10 ^3/uL Monocytes # (Auto) 1.1 0-1.3 10 ^3/uL Eosinophils # (Auto) 0.4 0-0.8 10 ^3/uL Basophils # (Auto) 0 0-0.2 10 ^3/uL Nucleated Red Blood Cells 0.0 % Sodium Level 137 136-145 mmol/L Potassium Level 4.2 3.5-5.1 mmol/L Chloride Level 103 98-107 mmol/L Carbon Dioxide Level 29 20-31 mmol/L Anion Gap 5 5-15 Blood Urea Nitrogen 8 L 9-23 mg/dL Creatinine 0.48 L 0.550-1.02 mg/dL Glomerular Filtration Rate Calc 126 >90 mL/min BUN/Creatinine Ratio 16.7 10.0-20.0 Serum Glucose 135 H 74-106 mg/dL Calcium Level 8.8 8.7-10.4 mg/dL Phosphorus Level 4.2 2.4-5.1 mg/dL Magnesium Level 2.2 1.6-2.6 mg/dL Total Bilirubin 0.3 0.2-1.0 mg/dL Aspartate Amino Transferase (AST) 15 13-40 U/L Alanine Aminotransferase (ALT) 11 7-40 U/L Alkaline Phosphatase 67 46-116 U/L Total Protein 6.7 5.7-8.2 g/dL Albumin 3.0 L 3.2-4.8 g/dL POC Glucose 153 H 123 H 143 H 70-106 mg/dl Test 01/06/24 04:57 01/06/24 17:50 01/07/24 00:18 01/07/24 12:04 Range/Units White Blood Count 15.9 H Pending Red Blood Count 2.87 L Pending Hemoglobin 8.0 L Pending Hematocrit 24.5 L Pending Mean Corpuscular Volume 85.4 Pending Mean Corpuscular Hemoglobin 27.9 L Pending Mean Corpuscular Hemoglobin Concent 32.6 Pending Red Cell Distribution Width 17.6 H Pending Platelet Count 601 H Pending Mean Platelet Volume 7.5 Pending Neutrophils (%) (Auto) Pending Lymphocytes (%) (Auto) Pending Monocytes (%) (Auto) Pending Basophils (%) (Auto) Pending Neutrophils # (Auto) Pending Lymphocytes # (Auto) Pending Monocytes # (Auto) Pending Differential Total Cells Counted 100.0 100 Neutrophils % (Manual) 81 H 37.0-80.0 Band Neutrophils % (Manual) 0 Lymphocytes % (Manual) 9 L 10.0-50.0 Monocytes % (Manual) 5 0-12 Eosinophils % (Manual) 2 0-7 Basophils % (Manual) 0 0.0-2.0 Metamyelocytes % (manual) 2 Myelocytes % (Manual) 1 Promyelocytes % (Manual) 0 Blast Cells % (Manual) 0 Reactive Lymphocytes 0 Platelet Estimate Increased Red Blood Cell Morphology Normal Sodium Level 138 136-145 mmol/L Potassium Level 4.1 3.5-5.1 mmol/L Chloride Level 103 98-107 mmol/L Carbon Dioxide Level 28 20-31 mmol/L Anion Gap 7 5-15 Blood Urea Nitrogen 8 L 9-23 mg/dL Creatinine 0.49 L 0.550-1.02 mg/dL Glomerular Filtration Rate Calc 125 >90 mL/min BUN/Creatinine Ratio 16.3 10.0-20.0 Serum Glucose 96 74-106 mg/dL Calcium Level 8.9 8.7-10.4 mg/dL Phosphorus Level 4.3 2.4-5.1 mg/dL Magnesium Level 2.2 1.6-2.6 mg/dL Total Bilirubin 0.3 0.2-1.0 mg/dL Aspartate Amino Transferase (AST) 16 13-40 U/L Alanine Aminotransferase (ALT) 11 7-40 U/L Alkaline Phosphatase 73 46-116 U/L Total Protein 6.9 5.7-8.2 g/dL Albumin 3.2 3.2-4.8 g/dL POC Glucose 87 97 70-106 mg/dl Assessment and Plan ASSESSMENT AND PLAN Assessment and Plan POST OP Stable s/p Ex Lap, LSO and 1' anastomosis sigmoid colon Plan: 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 Thomas My orders: Orders - ANNALISA MANCINI DO * Assistant Women'S Basketball Coach Consultation (12/25/23 07:08) Obtain Consent For Anesthesia (12/25/23 07:47) * Radiologist Consult (12/25/23 12:29) Obtain Consent For: (12/29/23 07:27) Strict I & O QSHIFT (12/29/23 13:06) Discontinue Trent Catheter (12/29/23 13:06) Notify L&D Md If: (12/29/23 13:06) Is At Bedside. (12/29/23 13:06) Incentive Spirometry (12/29/23 13:06) Hydromorphone Injection (Dilaudid Inject (12/29/23 13:15) Ng/Orogastric Tube To Lis (12/29/23 13:06) * Infectious Evi- Dr. Lanre Castillo (12/29/23 13:18) Consult For Nutrition (12/29/23 18:40) Kub Abdomen Single View (12/30/23 04:00) Metronidazole Tablet (Flagyl Tablet) (01/06/24 10:00) Doxycycline Tablet (Vibramycin Tablet) (01/06/24 10:00) Plan discussed with: Patient Date of Service: Jan 07, 2024 Billing Provider: ANNALISA MANCINI DO Common Visit Codes: [id number] INP/OBS CARE(MOD) ANNALISA MANCINI DO Jan 07, 2024 12:03
[2024-01-07 12:16] LABS: Basophils # (auto) 0.1 10 ^3/uL (0-0.2); Mean Corpuscular Hemoglobin 27.6 pg (28.0-32.0)
[2024-01-07 12:18] LABS: Basophils % (auto) 0.5 % (0.0-2.0); Eosinophils # (auto) 0.2 10 ^3/uL (0-0.8); Eosinophils % (auto) 1.6 % (0.0-7.0); Lymphocytes # (auto) 1.6 10 ^3/uL (0.4-5.4); Lymphocytes % (auto) 11.3 % (10.0-50.0); Mean Corpuscular Hgb Conc. 32.3 g/dL (32.0-36.0); Mean Corpuscular Volume 85.4 fL (80.0-100.0); Monocytes % (auto) 7.1 % (0.0-12.0); Neutrophils # (auto) 11.3 10 ^3/uL (1.6-8.6); Neutrophils % (auto) 79.5 % (37.0-80.0); Platelet Count (auto) 714 10^3/uL (140-450); Red Blood Cells 3.28 10^6/uL (4.0-5.20); Red Cell Distribution Width 17.2 % (11.8-14.3); White Blood Cell 14.1 10^3/uL (4.4-10.8)
--- NOTE | 2024-01-07 14:09 | DVHPNRES ---
Progress Note Date Seen: Jan 07, 2024 Resident Creating Document: FRANCISCA SELF RESIDENT Has the PT tested + for MRSA If YES, has PT been informed?: No Medical Necessity Reason Pt with a Central, PICC or Fol: No Subjective Review of Systems A 38-year-old female with past medical history of kidney stones, who presented to the ED with a chief complaint of intermittent left lower quadrant abdominal pain and yellowish vaginal discharge for last 1 month prior to this admission. According to the patient the left lower quadrant abdominal pain is colicky in nature 9/10 localized with no specific pattern of radiation and no aggravating or relieving factors and associated with yellowish vaginal discharge. She had an IUD for 5 years and removed 1 month ago. She had no history of STD or multiple sexual partner before and her last Pap test was few months ago and was normal study according to the patient. She also mentioned she had history of kidney stone 3 years ago and passed 3 stones but no imaging or follow up was done after that. She denies fever, chills, sweating, nausea, vomiting, chest pain, dizziness or any change in the bowel and bladder habit. on my examination, the patient denies any vaginal discharge at this point. The patient is having left suprapubic abdominal tenderness rated now as 7/10 on the pain scale after pain medications were given. OBGYN was consulted which assessed and evaluated the patient. Pelvic ultrasound showed left adnexal structure, possible mass/collection. There was also a simple cyst in the right ovary. CT scan of the abdomen and pelvis showed a 5.6 x 5.1 cm thick wall multilocular lesion in the left adnexa which is suspicion for a pyosalpinx. The patient was started on IV ceftriaxone, doxycycline and IV fluids at 75 cc/hour. Patient will be admitted for further assessment and management. Pt had surgery on dec 28: drainage of abscess, oophorectomy, colon resection and appendectomy Ct scan jan 02: pt still have collection but smaller than previous one, OLU is on place and draining Pt is on cefpodoxime + metronidazole + doxycycline Objective vital signs Vital Sign Date Time Temp Pulse Resp B/P (MAP) Pulse Ox O2 Delivery O2 Flow Rate FiO2 01/07/24 13:00 98.2 78 18 104/62 (76) 97 98.2 01/07/24 08:00 Room Air* 0 21 Total Intake and Output 01/06/24 01/06/24 01/07/24 15:00 23:00 07:00 Intake Total 444.5 ml 600 ml 600 ml Output Total 900 ml 575 ml 945 ml Balance -455.5 ml 25 ml -345 ml medications Current Medications Medications Dose Ordered Sig/Sadia Route Start Time Stop Time Status Last Admin Dose Admin Ondansetron HCl 4 mg Q4HP PRN IV 12/24/23 21:30 01/07/24 03:48 4 MG Hydromorphone HCl 1 mg Q2HPRN PRN IV 12/29/23 13:15 01/06/24 18:49 1 MG Sodium Chloride 10 ml QSHIFT@,22 IV 12/30/23 22:00 01/07/24 10:18 10 ML Fat Emulsion Intravenous 150 ml/Potassium Acetate 20 meq/ Potassium Phosphate 22 meq/ Calcium Gluconate 2.3 meq/Magnesium Sulfate 12 meq/ Multivitamins 10 ml/Chromium/ Copper/Manganese/ Zinc 1 ml/Amino Acids/Dextrose 1,383.9462 ml @ 58 mls/hr [id number] IV 01/02/24 22:00 01/03/24 21:59 Cancel Cefpodoxime Proxetil 200 mg BID PO 01/03/24 22:00 01/07/24 10:19 200 MG Enoxaparin Sodium 40 mg DAILY SC 01/06/24 10:00 01/07/24 10:18 40 MG Iron Sucrose 110 ml @ 110 mls/hr DAILY@1200 IV 01/06/24 12:00 01/10/24 12:59 01/06/24 12:59 110 MLS/HR Metronidazole 500 mg Q12HR PO 01/06/24 10:00 01/07/24 10:17 500 MG Doxycycline Monohydrate 100 mg Q12HR PO 01/06/24 10:00 01/07/24 10:17 100 MG Acetaminophen 1,000 mg Q8HR PO 01/06/24 14:00 01/06/24 22:08 1,000 MG Enteral Nutritional Formula 240 ml BIDWM PO 01/06/24 18:00 01/06/24 17:56 240 ML Acetaminophen/ Hydrocodone Bitart 1 tab Q4HP PRN PO 01/06/24 19:00 01/07/24 12:00 1 TAB Examination General: Patient alert and oriented in person, place and time. Patient following commands. HEENT: Normocephalic, atraumatic, moist mucous membranes Respiratory/pulmonary: Clear lungs bilaterally, no associated crackles or wheezes. Cardiovascular: Normal heart sounds S1 and S2 with no associated murmurs Abdomen: Abdomen nondistended, there is mild abdominal pain at the hypogastric region. Middle line incision and sutures are closed, dry and clean with a OLU drainage draining approximately 25 cc Extremities: There is no peripheral edema present at the lower extremities. Peripheral Pulses: 3+ Radial (R). 3+ Radial (L). 3+ Dorsalis pedis (R). 3+ Dorsalis pedis(L) Skin: No rashes or pruritus, there is no sacral edema present at this time. Neurological: Intact cranial nerves with no focal neurologic deficits laboratory and microbiology Laboratory Tests 01/07/24 12:04 01/06/24 04:57 Test 01/06/24 04:57 Range/Units Serum Glucose 96 74-106 mg/dL Microbiology Date/Time Source Procedure Growth Status 01/06/24 13:23 Catheter Tip Aerobic Culture - Preliminary Resulted 01/03/24 15:25 Stool Clostridium difficile Toxin Assay - Final Complete 12/29/23 10:10 Peritoneal Fluid Gram Stain - Final Complete 12/29/23 10:10 Anaerobic Culture - Final Clostridium clostridioforme Complete 12/29/23 10:10 Peritoneal Fluid Aerobic Culture - Final Complete 12/24/23 16:12 Blood Blood Culture - Final NO GROWTH AFTER 5 DAYS OF INCUBATION. Complete Problem List/Assessment/Plan Problem List/Assessment/Plan #Acute left suprapubic pain likely due to left tubo-ovarian abscess/pyosalpinx #Possible pelvic inflammatory disease #Sepsis likely due to tubo-ovarian abscess/pyosalpinx (PID) #S/P left oophorectomy with appendectomy and bowel resection with anastomosis of the descending colon with rectum 12/29/2023 -CT abdomen and pelvis on 01/03/24 reviewed Drainage catheter is seen in the lower midline abdomen with tip curled in the lower midline pelvis. Interval decrease in size of multiloculated pelvic abscess, the largest pocket now measuring approximately 2.8 x 11.3 cm . The majority of the remaining abscess is not adjacent to the drainage catheter tip. Consider repositioning of drainage catheter. -IR was consulted: PER DR. Jacinto RIZZO EXISTING DRAIN TUBE IS IN GOOD PLACEMENT AND DOES NOT NEED TO BE REPOSITIONED AT THIS TIME. NO PROCEDURE INDICATED AT THIS TIME. -patient has a history of IUD for five years that was removed one month ago -NAAT for chlamydia and gonorrhea, which both came back negative -OBGYN on board, which performed left oopherectomy with removal of appendix and part of greater omentum, as well as part of the colon with anastomosis without complications on 12/29/23. -MRI of the abdomen showed a multiloculated cystic mass in the left adnexa likely representing tubo-ovarian abscess. - on 01/04/2024 Surgery recommended-Increase TPN to meet at least 75% of estimated needs. .Advance pt diet when medically feasible. 01/04/2024 Gynecology and Obstetrics recommended-Consider D/C gabriel and OLU drain in next 48-72 hrs. -Patient was also seen by infectious disease and recommended- agree with C diff testing if diarrhea continues to progress would start oral vancomycin and IV flagell, switch to oral ceftriaxone and stop IV ceftriaxone, continue antibiotics , slowly transition to oral versions of these medications and assess for tolerance . First of which would be transitioning to Oral Doxycycline, follow up on biopsy results of mass - Peritoneal fluid culture revealed Clostridium Clostrodioformi, -patient on doxycycline, cefpodoxime 200 mg p.o. b.i.d. 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 Gan Plan discussed with: Patient Gynecology and Obstetrics recommended-Consider D/C gabriel and OLU drain in next 48-72 hrs. Surgery recommended-Increase TPN to meet at least 75% of estimated needs. .Advance pt diet when medically feasible. Peritoneal fluid culture revealed Clostridium Clostrodioformi, patient tested negative for Clostridium difficile toxin. Plan discussed with: Patient, Other (rn) Dietary Evaluation Review Comments: 1) Increase TPN to meet at least 75% of estimated needs 2) Advance pt diet when medically feasible 3) Continue current plan of care Expected Outcomes/Goals: 1) Pt diet to advance 2) F/U in 2-3 days Date of Service: Jan 07, 2024 Billing Provider: CORNELIUS GAN MD Common Visit Codes: 82231-[id number] INP/OBS CARE(HIGH) Coding Comment Comment Attending Attestation I saw and evaluated the patient. I reviewed the residents note and agree with findings and plan as documented in the residents note except as documented below. FRANCISCA SELF RESIDENT Jan 07, 2024 14:08 CORNELIUS GAN MD Jan 07, 2024 21:01
[2024-01-07] MEDS: MELATONIN 5 MG TAB PO SCH (21:29)
--- NOTE | 2024-01-07 22:37 | DVHPN2 ---
Consult Progress Note Date Seen: Jan 07, 2024 Subjective Patient reports: Other (poor apetite , mildly distended abdomen but still having bowel movement , 25ccs of drain in DION drain , hypo active bowel sounds ) Objective vital signs Vital Sign Date Time Temp Pulse Resp B/P (MAP) Pulse Ox O2 Delivery O2 Flow Rate FiO2 01/07/24 20:40 98.3 102 16 110/68 (82) 99 98.3 01/07/24 20:00 Room Air* 0 21 Total Intake and Output 01/06/24 01/06/24 01/07/24 15:00 23:00 07:00 Intake Total 444.5 ml 600 ml 600 ml Output Total 900 ml 575 ml 945 ml Balance -455.5 ml 25 ml -345 ml medications Current Medications Medications Dose Ordered Sig/Sadia Route Start Time Stop Time Status Last Admin Dose Admin Ondansetron HCl 4 mg Q4HP PRN IV 12/24/23 21:30 01/07/24 03:48 4 MG Sodium Chloride 10 ml QSHIFT@10,22 IV 12/30/23 22:00 01/07/24 21:26 10 ML Fat Emulsion Intravenous 150 ml/Potassium Acetate 20 meq/ Potassium Phosphate 22 meq/ Calcium Gluconate 2.3 meq/Magnesium Sulfate 12 meq/ Multivitamins 10 ml/Chromium/ Copper/Manganese/ Zinc 1 ml/Amino Acids/Dextrose 1,383.9462 ml @ 58 mls/hr [id number] IV 01/02/24 22:00 01/03/24 21:59 Cancel Cefpodoxime Proxetil 200 mg BID PO 01/03/24 22:00 01/07/24 21:35 200 MG Enoxaparin Sodium 40 mg DAILY SC 01/06/24 10:00 01/07/24 10:18 40 MG Iron Sucrose 110 ml @ 110 mls/hr DAILY@1200 IV 01/06/24 12:00 01/10/24 12:59 01/07/24 15:08 110 MLS/HR Metronidazole 500 mg Q12HR PO 01/06/24 10:00 01/07/24 21:30 500 MG Doxycycline Monohydrate 100 mg Q12HR PO 01/06/24 10:00 01/07/24 21:26 100 MG Acetaminophen 1,000 mg Q8HR PO 01/06/24 14:00 01/06/24 22:08 1,000 MG Enteral Nutritional Formula 240 ml BIDWM PO 01/06/24 18:00 01/07/24 18:38 240 ML Acetaminophen/ Hydrocodone Bitart 1 tab Q4HP PRN PO 01/06/24 19:00 01/07/24 21:27 1 TAB Melatonin 5 mg HS PO 01/07/24 22:00 PHYSICAL EXAM: - GENERAL: Alert and oriented x 3. No acute distress. Well-nourished. - EYES: EOMI. Anicteric. - HENT: Moist mucous membranes. No scleral icterus. No cervical lymphadenopathy. - LUNGS: Clear to auscultation bilaterally. No accessory muscle use. - CARDIOVASCULAR: Regular rate and rhythm. No murmur. No JVD. - ABDOMEN: Soft, non-tender and non-distended. No palpable masses. - EXTREMITIES: No edema. Non-tender.SKIN: No rashes or lesions. Warm. - NEUROLOGIC: No focal neurological deficits. CN II-XII grossly intact, but not individually tested. - PSYCHIATRIC: Cooperative. Appropriate mood and affect. laboratory and microbiology Laboratory Tests 01/07/24 12:04 01/06/24 04:57 Test 01/06/24 04:57 Range/Units Serum Glucose 96 74-106 mg/dL Problem List/Assessment/Plan Problems(with codes): (1) Left lower quadrant abdominal pain (2) Adnexal mass (3) Leukocytosis (4) Left pyosalpinx Problem List/Assessment/Plan ASSESSMENT AND PLAN: ID Problem List: - Pyosalpinx - Tubo-ovarian abscess - Persistent leukocytosis - Anemia - History of kidney stones - itraabdominal mass -inflammed appendix Assessment This is a 38 y.o. female with a past medical history of kidney stones (last occurrence three years ago), who presents with intermittent left lower quadrant pain and yellowish vaginal discharge for the last month. She had an intrauterine device (IUD) inserted five years ago, which was removed one month ago. She reports no multiple sexual partners and denies concern for sexually transmitted diseases. The pain is cramping in nature, rated 9 out of 10. She denies hematuria, fevers, or chills. No history of smoking or alcohol use; however, she does use marijuana occasionally. She lives with her boyfriend. Vital signs on admission revealed a temperature of 102.7F, respiratory rate of 16, blood pressure 102/68 mmHg, and oxygen saturation of 100% on room air. Physical examination was notable for tenderness in the left lower quadrant. Imaging studies include: - Pelvic ultrasound showing a left adnexal structurepossible mass or collection; infectious etiology not excluded. A simple cyst was noted in the right ovary. - CT abdomen and pelvis revealing a 5.6 x 5.1 cm thick-walled multilocular lesion of the left adnexa, suspicious for pyosalpinx; other etiologies not excluded. - Pelvic MRI demonstrating a multiloculated cystic mass in the left adnexa, likely representing a tubo-ovarian abscess; malignant lesion with necrosis not entirely excluded. On December 25, a CT-guided placement of an 8.5 mm pigtail drain was performed, yielding 25 cc of thick, foul, purulent fluid with slight green discoloration, sent for cytology and cultures. Cultures have shown no growth to date. Laboratory studies reveal a persistently elevated white blood cell count of 28,000/mm, hemoglobin of 8.2 g/dL, and platelet count of 344,000/mm. Despite drainage, the abscess remains sizable with minimal output, and the patient continues to have persistent leukocytosis. It is unclear if antibiotics alone will suffice in treating the infection. 12/29: Post op day 1 from diagnostic exploratory laparoscopy via midline incision , a left oophorectomy , a partial omentectomy, partial colon resection with primary anastomosis my Dr Strauss and an appendectomy. They found omental adhesions in the abdominal cavity , a mass in the left pelvis which could not be mobilized until the converted to an laparotomy. They found a large inflammatory mass . The greater momentum contained severely infected and indurated tissue , the momentum was divided and excised. mass was adherent to rectosigmoid and Dr Strauss was consulted. Dion drain was placed. Cultures from 12/28 and aspirated cultures from 12/25 show no growth. White count is still elevated but hemoglobin is stable 12/30: white count has gone down to 19.7, chest x-ray shows a need to advance anterior tube in the stomach about 2 cm. cultures from asprite from the IR drainage revealed anerococcus and the peritoneal fluid cultures are still pending 12/31: Aspric cultures are growing inner coccus , peritoneal fluids are growing clostridioforme 01/01: white count continues to downtrend, continue antibiotics for 14 more days 01/02: white count is elevated and multiple bowel movements and has been on antibiotics for a considerable amount of time . 01/05: White count is down to 15.9 , at this time would transition patient to oral medication 01/06: whitecount is continuing to downtred , completley on oral antibiotic regimen and continue for another 20 dyas , defer drain management to general surgery Plan: - patient will need outpatient management of drain if shes going home on i t - follow up with infectious disease in 1 month - arlene to repeat [facility] to ensure inflammation has resolved - continue antibiotics , slowly transition to oral versions of these medications and assess for tolerance . - follow up on biopsy results of mass - Continue doxycycline and Flagyl (metronidazole) and cefpodoxime - Monitoring: - Monitor DION drain output closely. - Follow up on operative cultures as well as DION drain output - blood pressure support as needed Plan discussed with: Other Dietary Evaluation Review Comments: 1) Increase TPN to meet at least 75% of estimated needs 2) Advance pt diet when medically feasible 3) Continue current plan of care Expected Outcomes/Goals: 1) Pt diet to advance 2) F/U in 2-3 days FELICITY MEMBRENO MD Jan 07, 2024 22:37
[2024-01-08] VITALS (8 sets, daily range): BP systolic 15–117; BP diastolic 62–80; PULSE 85–102; RESP 16–18; TEMP 97.7–98.6; O2SAT 95–98
[2024-01-08 07:59] LABS: Basophils # (auto) 0.1 10 ^3/uL (0-0.2); Basophils % (auto) 0.6 % (0.0-2.0); Eosinophils # (auto) 0.2 10 ^3/uL (0-0.8); Eosinophils % (auto) 1.7 % (0.0-7.0); Hematocrit 26.5 % (36.0-46.0); Hemoglobin 8.6 g/dL (12.2-16.2); Lymphocytes # (auto) 1.6 10 ^3/uL (0.4-5.4); Lymphocytes % (auto) 13.1 % (10.0-50.0); Mean Corpuscular Hemoglobin 27.5 pg (28.0-32.0); Mean Corpuscular Hgb Conc. 32.2 g/dL (32.0-36.0); Mean Corpuscular Volume 85.3 fL (80.0-100.0); Monocytes % (auto) 8.3 % (0.0-12.0); Neutrophils # (auto) 9.2 10 ^3/uL (1.6-8.6); Neutrophils % (auto) 76.3 % (37.0-80.0); Platelet Count (auto) 621 10^3/uL (140-450); Red Blood Cells 3.11 10^6/uL (4.0-5.20); Red Cell Distribution Width 17.3 % (11.8-14.3); White Blood Cell 12.1 10^3/uL (4.4-10.8)
[2024-01-08] MEDS: LIDOCAINE 1% (LOCAL ANESTH.) PF 5ml SDV ID ONE (09:06)
--- NOTE | 2024-01-08 10:15 | DVHPN2 ---
Subjective Progress Notes Subjective Patient doing well. Pain controlled. Tolerating PO well No fever or diarrhea Objective PHYSICAL EXAM Physical Exam: Alert, NAD Abd Soft, ND, Incision intact ext: neg [place] sign Vital Signs and I&O Vital Signs Date Time Temp Pulse Resp B/P (MAP) Pulse Ox O2 Delivery O2 Flow Rate FiO2 01/08/24 08:42 98.6 85 16 105/66 (79) 96 98.6 01/08/24 08:00 Room Air* 0 21 Intake and Output 01/08/24 07:00 Intake Total 2060 ml Output Total 1356 ml Balance 704 ml Intake Oral 1950 ml IV Total 110 ml Output Urine Total 1340 ml Stool Total 1 ml Drainage Total 15 ml Lab results Laboratory Tests Test 12/24/23 13:20 12/24/23 13:50 12/24/23 15:12 12/25/23 04:19 Range/Units Lactic Acid Level 0.8 0.4-2.0 mmol/L White Blood Count 23.8 H 23.5 H 4.4-10.8 10^3/uL Red Blood Count 3.66 L 3.01 L 4.0-5.20 10^6/uL Hemoglobin 9.8 L 7.9 #L 12.2-16.2 g/dL Hematocrit 30.4 L 25.1 #L 36.0-46.0 % Mean Corpuscular Volume 82.9 83.5 80.0-100.0 fL Mean Corpuscular Hemoglobin 26.8 L 26.2 L 28.0-32.0 pg Mean Corpuscular Hemoglobin Concent 32.4 31.4 L 32.0-36.0 g/dL Red Cell Distribution Width 14.1 14.4 H 11.8-14.3 % Platelet Count 466 H 395 140-450 10^3/uL Mean Platelet Volume 7.8 7.2 6.9-10.8 fL Neutrophils (%) (Auto) 89.6 H 87.1 H 37.0-80.0 % Lymphocytes (%) (Auto) 5.4 L 7.2 L 10.0-50.0 % Monocytes (%) (Auto) 4.3 5.3 0.0-12.0 % Eosinophils (%) (Auto) 0.4 0.2 0.0-7.0 % Basophils (%) (Auto) 0.3 0.2 0.0-2.0 % Neutrophils # (Auto) 21.3 H 20.4 H 1.6-8.6 10 ^3/uL Lymphocytes # (Auto) 1.3 1.7 0.4-5.4 10 ^3/uL Monocytes # (Auto) 1.0 1.3 0-1.3 10 ^3/uL Eosinophils # (Auto) 0.1 0.1 0-0.8 10 ^3/uL Basophils # (Auto) 0.1 0 0-0.2 10 ^3/uL Nucleated Red Blood Cells 0.0 0.0 % Erythrocyte Sedimentation Rate 105 H 0-20 mm/hr Prothrombin Time 12.1 H 9.3-11.8 sec Prothrombin Time INR 1.15 0.9-1.15 Activated Partial Thromboplast Time 32.5 24.5-34.5 SEC Sodium Level 135 L 138 136-145 mmol/L Potassium Level 3.8 3.7 3.5-5.1 mmol/L Chloride Level 102 106 98-107 mmol/L Carbon Dioxide Level 27 26 20-31 mmol/L Anion Gap 6 6 5-15 Blood Urea Nitrogen 6 L < 5 L 9-23 mg/dL Creatinine 0.68 0.65 0.550-1.02 mg/dL Glomerular Filtration Rate Calc 116 117 >90 mL/min BUN/Creatinine Ratio 8.8 L 7.7 L 10.0-20.0 Serum Glucose 97 102 74-106 mg/dL Calcium Level 9.3 8.6 L 8.7-10.4 mg/dL Total Bilirubin 0.5 0.5 0.2-1.0 mg/dL Aspartate Amino Transferase (AST) 18 16 13-40 U/L Alanine Aminotransferase (ALT) 16 12 7-40 U/L Alkaline Phosphatase 101 86 46-116 U/L Total Protein 8.5 H 7.0 5.7-8.2 g/dL Albumin 3.8 3.4 3.2-4.8 g/dL Lipase 32 12-53 U/L Beta HCG, Quantitative 0.1 L 1.5-4.2 mIU/mL Plasma/Serum Blood Alcohol 3.3 <10 mg/dL Urine Color Yellow Yellow Urine Clarity Turbid H Clear Urine pH 6.5 5.0-9.0 Urine Specific [place] 1.021 1.001-1.035 Urine Protein Trace H Negative Urine Ketones Trace Negative Urine Blood Negative Negative /uL Urine Nitrite Negative Negative Urine Bilirubin Negative Negative Urine Urobilinogen 4 H Negative mg/dL Urine Leukocyte Esterase 1+ Negative /uL Urine RBC 3 0 - 4 /hpf Urine WBC 4 0 - 5 /hpf Urine Squamous Epithelial Cells Few <5 /hpf Urine Bacteria None seen None Seen /hpf Urine Mucus Few None Seen Urine Glucose Normal Normal mg/dL Urine Test Negative Negative Urine Opiates Screen Neg NEGATIVE Urine Fentanyl Screen Neg NEGATIVE Urine Barbiturates Screen Neg NEGATIVE Urine Phencyclidine Screen Neg NEGATIVE Urine Amphetamines Screen Neg NEGATIVE Urine Benzodiazepines Screen Neg NEGATIVE Urine Cocaine Screen Neg NEGATIVE Urine Cannabinoids Screen Pos NEGATIVE Chlamydia trachomatis (AYSHA) Negative Negative Neisseria gonorrhoeae (AYSHA) Negative Negative Ferritin 183.1 10-291 ng/mL Triglycerides Level 65 < 150 mg/dL Cholesterol Level 99 < 200 mg/dL LDL Cholesterol 66 < 100 mg/dL HDL Cholesterol 24 L 40-59 mg/dL Hepatitis C Antibody Negative Negative HIV (1&2) Antibody Negative Negative Test 12/25/23 13:42 12/26/23 04:40 12/27/23 05:04 12/28/23 03:28 Range/Units Rapid Plasma Reagin Non reactive Non Reactive White Blood Count 26.0 H 28.4 H 26.6 H 4.4-10.8 10^3/uL Red Blood Count 3.15 L 3.25 L 3.13 L 4.0-5.20 10^6/uL Hemoglobin 8.2 L 8.6 L 8.2 L 12.2-16.2 g/dL Hematocrit 26.2 L 26.8 L 25.9 L 36.0-46.0 % Mean Corpuscular Volume 83.1 82.5 82.8 80.0-100.0 fL Mean Corpuscular Hemoglobin 26.1 L 26.3 L 26.3 L 28.0-32.0 pg Mean Corpuscular Hemoglobin Concent 31.4 L 31.9 L 31.8 L 32.0-36.0 g/dL Red Cell Distribution Width 14.5 H 14.4 H 14.8 H 11.8-14.3 % Platelet Count 334 338 409 140-450 10^3/uL Mean Platelet Volume 7.4 7.6 7.6 6.9-10.8 fL Neutrophils (%) (Auto) 92.7 H 89.5 H 37.0-80.0 % Lymphocytes (%) (Auto) 3.4 L 6.0 L 10.0-50.0 % Monocytes (%) (Auto) 3.7 4.1 0.0-12.0 % Basophils (%) (Auto) 0.2 0.1 0.0-2.0 % Neutrophils # (Auto) 26.3 H 23.8 H 1.6-8.6 10 ^3/uL Lymphocytes # (Auto) 1.0 1.6 0.4-5.4 10 ^3/uL Monocytes # (Auto) 1.0 1.1 0-1.3 10 ^3/uL Differential Total Cells Counted 100.0 100 Neutrophils % (Manual) 90 H 37.0-80.0 Band Neutrophils % (Manual) 0 Lymphocytes % (Manual) 6 L 10.0-50.0 Monocytes % (Manual) 4 0-12 Eosinophils % (Manual) 0 0-7 Basophils % (Manual) 0 0.0-2.0 Metamyelocytes % (manual) 0 Myelocytes % (Manual) 0 Promyelocytes % (Manual) 0 Blast Cells % (Manual) 0 Reactive Lymphocytes 0 Platelet Estimate Adequate Clumped Platelets Moderate Stomatocytes Few Sodium Level 135 L 135 L 135 L 136-145 mmol/L Potassium Level 3.6 3.4 L 3.4 L 3.5-5.1 mmol/L Chloride Level 104 101 102 98-107 mmol/L Carbon Dioxide Level 26 25 25 20-31 mmol/L Anion Gap 5 9 8 5-15 Blood Urea Nitrogen < 5 L < 5 L < 5 L 9-23 mg/dL Creatinine 0.65 0.62 0.51 L 0.550-1.02 mg/dL Glomerular Filtration Rate Calc 117 118 124 >90 mL/min BUN/Creatinine Ratio 7.7 L 8.1 L 9.8 L 10.0-20.0 Serum Glucose 97 106 92 74-106 mg/dL Calcium Level 8.9 8.6 L 8.7 8.7-10.4 mg/dL Eosinophils (%) (Auto) 0.0 0.3 0.0-7.0 % Eosinophils # (Auto) 0 0.1 0-0.8 10 ^3/uL Basophils # (Auto) 0 0 0-0.2 10 ^3/uL Nucleated Red Blood Cells 0.0 0.0 % Magnesium Level 1.8 1.9 1.6-2.6 mg/dL Total Bilirubin 0.4 0.2-1.0 mg/dL Aspartate Amino Transferase (AST) 13 13-40 U/L Alanine Aminotransferase (ALT) < 9 7-40 U/L Alkaline Phosphatase 88 46-116 U/L Total Protein 6.7 5.7-8.2 g/dL Albumin 3.1 L 3.2-4.8 g/dL Test 12/29/23 10:10 12/29/23 16:01 12/30/23 05:05 12/31/23 06:40 Range/Units Body Fluid Source Pending Body Fluid pH Pending Body Fluid WBC (Manual) Pending Body Fluid RBC (Manual) Pending Body Fluid Mononuclear Cells Pending Body Fluid Polymorphonuclear Cells Pending White Blood Count 29.0 H 28.0 H 19.7 #H 4.4-10.8 10^3/uL Red Blood Count 3.34 L 3.12 L 2.86 L 4.0-5.20 10^6/uL Hemoglobin 9.2 L 8.3 L 7.9 L 12.2-16.2 g/dL Hematocrit 28.3 L 26.5 L 24.0 L 36.0-46.0 % Mean Corpuscular Volume 84.6 84.9 83.8 80.0-100.0 fL Mean Corpuscular Hemoglobin 27.6 L 26.6 L 27.5 L 28.0-32.0 pg Mean Corpuscular Hemoglobin Concent 32.6 31.4 L 32.8 32.0-36.0 g/dL Red Cell Distribution Width 15.2 H 15.4 H 15.8 H 11.8-14.3 % Platelet Count 380 433 437 140-450 10^3/uL Mean Platelet Volume 7.6 7.6 7.5 6.9-10.8 fL Neutrophils (%) (Auto) 85.6 H 37.0-80.0 % Lymphocytes (%) (Auto) 9.3 L 10.0-50.0 % Monocytes (%) (Auto) 4.6 0.0-12.0 % Basophils (%) (Auto) 0.2 0.0-2.0 % Neutrophils # (Auto) 16.8 H 1.6-8.6 10 ^3/uL Lymphocytes # (Auto) 1.8 0.4-5.4 10 ^3/uL Monocytes # (Auto) 0.9 0-1.3 10 ^3/uL Differential Total Cells Counted 100.0 100.0 100 Neutrophils % (Manual) 75 71 37.0-80.0 Band Neutrophils % (Manual) 21 25 Lymphocytes % (Manual) 1 L 3 L 10.0-50.0 Monocytes % (Manual) 1 0 0-12 Eosinophils % (Manual) 0 0 0-7 Basophils % (Manual) 0 0 0.0-2.0 Metamyelocytes % (manual) 2 1 Myelocytes % (Manual) 0 0 Promyelocytes % (Manual) 0 0 Blast Cells % (Manual) 0 0 Reactive Lymphocytes 0 0 Platelet Estimate Adequate Adequate Large Platelets Few Sodium Level 139 142 140 136-145 mmol/L Potassium Level 3.7 3.7 3.0 L 3.5-5.1 mmol/L Chloride Level 112 #H 108 H 104 98-107 mmol/L Carbon Dioxide Level 24 30 29 20-31 mmol/L Anion Gap 3 L 4 L 7 5-15 Blood Urea Nitrogen < 5 L 8 L 7 L 9-23 mg/dL Creatinine 0.38 L 0.45 L 0.35 L 0.550-1.02 mg/dL Glomerular Filtration Rate Calc 133 128 136 >90 mL/min BUN/Creatinine Ratio 13.2 17.8 20.0 10.0-20.0 Serum Glucose 141 H 140 H 135 H 74-106 mg/dL Calcium Level 7.4 L 8.3 L 8.3 L 8.7-10.4 mg/dL Prothrombin Time 12.7 H 9.3-11.8 sec Prothrombin Time INR 1.22 H 0.9-1.15 Activated Partial Thromboplast Time 31.8 24.5-34.5 SEC Phosphorus Level 4.8 2.1 L 2.4-5.1 mg/dL Magnesium Level 1.7 1.9 1.6-2.6 mg/dL Total Bilirubin 0.3 0.2 0.2-1.0 mg/dL Aspartate Amino Transferase (AST) 19 18 13-40 U/L Alanine Aminotransferase (ALT) < 9 9 7-40 U/L Alkaline Phosphatase 59 54 46-116 U/L Total Protein 5.6 L 5.8 5.7-8.2 g/dL Albumin 2.5 L 2.6 L 3.2-4.8 g/dL Triglycerides Level 81 < 150 mg/dL Eosinophils (%) (Auto) 0.3 0.0-7.0 % Eosinophils # (Auto) 0 0-0.8 10 ^3/uL Basophils # (Auto) 0 0-0.2 10 ^3/uL Nucleated Red Blood Cells 0.1 % Test 12/31/23 11:42 12/31/23 20:58 01/01/24 01:06 01/01/24 05:40 Range/Units POC Glucose 141 H 99 70-106 mg/dl Potassium Level 3.7 3.3 L 3.5-5.1 mmol/L White Blood Count 17.6 H 4.4-10.8 10^3/uL Red Blood Count 2.97 L 4.0-5.20 10^6/uL Hemoglobin 8.2 L 12.2-16.2 g/dL Hematocrit 25.2 L 36.0-46.0 % Mean Corpuscular Volume 84.9 80.0-100.0 fL Mean Corpuscular Hemoglobin 27.5 L 28.0-32.0 pg Mean Corpuscular Hemoglobin Concent 32.4 32.0-36.0 g/dL Red Cell Distribution Width 15.9 H 11.8-14.3 % Platelet Count 506 H 140-450 10^3/uL Mean Platelet Volume 7.6 6.9-10.8 fL Neutrophils (%) (Auto) 82.8 H 37.0-80.0 % Lymphocytes (%) (Auto) 10.7 10.0-50.0 % Monocytes (%) (Auto) 5.6 0.0-12.0 % Eosinophils (%) (Auto) 0.7 0.0-7.0 % Basophils (%) (Auto) 0.2 0.0-2.0 % Neutrophils # (Auto) 14.6 H 1.6-8.6 10 ^3/uL Lymphocytes # (Auto) 1.9 0.4-5.4 10 ^3/uL Monocytes # (Auto) 1.0 0-1.3 10 ^3/uL Eosinophils # (Auto) 0.1 0-0.8 10 ^3/uL Basophils # (Auto) 0 0-0.2 10 ^3/uL Nucleated Red Blood Cells 0.2 % Sodium Level 142 136-145 mmol/L Chloride Level 105 98-107 mmol/L Carbon Dioxide Level 27 20-31 mmol/L Anion Gap 10 5-15 Blood Urea Nitrogen 8 L 9-23 mg/dL Creatinine 0.37 L 0.550-1.02 mg/dL Glomerular Filtration Rate Calc 134 >90 mL/min BUN/Creatinine Ratio 21.6 H 10.0-20.0 Serum Glucose 100 74-106 mg/dL Calcium Level 8.2 L 8.7-10.4 mg/dL Phosphorus Level 3.4 2.4-5.1 mg/dL Magnesium Level 2.1 1.6-2.6 mg/dL Total Bilirubin 0.2 0.2-1.0 mg/dL Aspartate Amino Transferase (AST) 31 13-40 U/L Alanine Aminotransferase (ALT) 10 7-40 U/L Alkaline Phosphatase 71 46-116 U/L Total Protein 6.1 5.7-8.2 g/dL Albumin 2.9 L 3.2-4.8 g/dL Test 01/02/24 04:50 01/02/24 05:35 01/02/24 11:07 01/03/24 00:36 Range/Units White Blood Count 15.2 H 4.4-10.8 10^3/uL Red Blood Count 2.69 L 4.0-5.20 10^6/uL Hemoglobin 7.5 L 12.2-16.2 g/dL Hematocrit 22.8 L 36.0-46.0 % Mean Corpuscular Volume 84.7 80.0-100.0 fL Mean Corpuscular Hemoglobin 28.0 28.0-32.0 pg Mean Corpuscular Hemoglobin Concent 33.1 32.0-36.0 g/dL Red Cell Distribution Width 16.0 H 11.8-14.3 % Platelet Count 471 H 140-450 10^3/uL Mean Platelet Volume 7.3 6.9-10.8 fL Neutrophils (%) (Auto) 83.8 H 37.0-80.0 % Lymphocytes (%) (Auto) 9.7 L 10.0-50.0 % Monocytes (%) (Auto) 4.8 0.0-12.0 % Eosinophils (%) (Auto) 1.4 0.0-7.0 % Basophils (%) (Auto) 0.3 0.0-2.0 % Neutrophils # (Auto) 12.7 H 1.6-8.6 10 ^3/uL Lymphocytes # (Auto) 1.5 0.4-5.4 10 ^3/uL Monocytes # (Auto) 0.7 0-1.3 10 ^3/uL Eosinophils # (Auto) 0.2 0-0.8 10 ^3/uL Basophils # (Auto) 0 0-0.2 10 ^3/uL Nucleated Red Blood Cells 0.0 % Sodium Level 142 136-145 mmol/L Potassium Level 4.0 3.5-5.1 mmol/L Chloride Level 107 98-107 mmol/L Carbon Dioxide Level 28 20-31 mmol/L Anion Gap 7 5-15 Blood Urea Nitrogen 8 L 9-23 mg/dL Creatinine 0.41 L 0.550-1.02 mg/dL Glomerular Filtration Rate Calc 131 >90 mL/min BUN/Creatinine Ratio 19.5 10.0-20.0 Serum Glucose 111 H 74-106 mg/dL Calcium Level 8.2 L 8.7-10.4 mg/dL Phosphorus Level 3.5 2.4-5.1 mg/dL Magnesium Level 2.1 1.6-2.6 mg/dL Iron Level 17 L 50-170 ug/dL Total Iron Binding Capacity 190 L 250-425 ug/dL Percent Iron Saturation 8.9 L 15-50 % Total Bilirubin 0.2 0.2-1.0 mg/dL Aspartate Amino Transferase (AST) 35 13-40 U/L Alanine Aminotransferase (ALT) 15 7-40 U/L Alkaline Phosphatase 75 46-116 U/L Total Protein 5.8 5.7-8.2 g/dL Albumin 2.6 L 3.2-4.8 g/dL POC Glucose 112 H 97 121 H 70-106 mg/dl Test 01/03/24 05:49 01/03/24 06:27 01/03/24 12:36 01/03/24 18:08 Range/Units POC Glucose 137 H 124 H 120 H 70-106 mg/dl White Blood Count 21.4 #H 4.4-10.8 10^3/uL Red Blood Count 2.85 L 4.0-5.20 10^6/uL Hemoglobin 8.0 L 12.2-16.2 g/dL Hematocrit 24.7 L 36.0-46.0 % Mean Corpuscular Volume 86.6 80.0-100.0 fL Mean Corpuscular Hemoglobin 28.1 28.0-32.0 pg Mean Corpuscular Hemoglobin Concent 32.5 32.0-36.0 g/dL Red Cell Distribution Width 16.5 H 11.8-14.3 % Platelet Count 526 H 140-450 10^3/uL Mean Platelet Volume 7.6 6.9-10.8 fL Neutrophils (%) (Auto) 84.7 H 37.0-80.0 % Lymphocytes (%) (Auto) 7.6 L 10.0-50.0 % Monocytes (%) (Auto) 5.5 0.0-12.0 % Eosinophils (%) (Auto) 2.0 0.0-7.0 % Basophils (%) (Auto) 0.2 0.0-2.0 % Neutrophils # (Auto) 18.2 H 1.6-8.6 10 ^3/uL Lymphocytes # (Auto) 1.6 0.4-5.4 10 ^3/uL Monocytes # (Auto) 1.2 0-1.3 10 ^3/uL Eosinophils # (Auto) 0.4 0-0.8 10 ^3/uL Basophils # (Auto) 0 0-0.2 10 ^3/uL Nucleated Red Blood Cells 0.1 % Sodium Level 138 136-145 mmol/L Potassium Level 4.1 3.5-5.1 mmol/L Chloride Level 105 98-107 mmol/L Carbon Dioxide Level 26 20-31 mmol/L Anion Gap 7 5-15 Blood Urea Nitrogen 7 L 9-23 mg/dL Creatinine 0.44 L 0.550-1.02 mg/dL Glomerular Filtration Rate Calc 128 >90 mL/min BUN/Creatinine Ratio 15.9 10.0-20.0 Serum Glucose 119 H 74-106 mg/dL Calcium Level 8.6 L 8.7-10.4 mg/dL Phosphorus Level 3.6 2.4-5.1 mg/dL Magnesium Level 2.2 1.6-2.6 mg/dL Total Bilirubin 0.3 0.2-1.0 mg/dL Aspartate Amino Transferase (AST) 27 13-40 U/L Alanine Aminotransferase (ALT) 14 7-40 U/L Alkaline Phosphatase 75 46-116 U/L Total Protein 6.5 5.7-8.2 g/dL Albumin 3.0 L 3.2-4.8 g/dL Test 01/04/24 04:25 01/04/24 05:30 01/04/24 11:28 01/04/24 18:27 Range/Units White Blood Count 18.3 H 4.4-10.8 10^3/uL Red Blood Count 2.75 L 4.0-5.20 10^6/uL Hemoglobin 7.8 L 12.2-16.2 g/dL Hematocrit 23.5 L 36.0-46.0 % Mean Corpuscular Volume 85.6 80.0-100.0 fL Mean Corpuscular Hemoglobin 28.2 28.0-32.0 pg Mean Corpuscular Hemoglobin Concent 33.0 32.0-36.0 g/dL Red Cell Distribution Width 16.9 H 11.8-14.3 % Platelet Count 546 H 140-450 10^3/uL Mean Platelet Volume 7.4 6.9-10.8 fL Neutrophils (%) (Auto) 83.2 H 37.0-80.0 % Lymphocytes (%) (Auto) 8.1 L 10.0-50.0 % Monocytes (%) (Auto) 6.0 0.0-12.0 % Eosinophils (%) (Auto) 2.3 0.0-7.0 % Basophils (%) (Auto) 0.4 0.0-2.0 % Neutrophils # (Auto) 15.2 H 1.6-8.6 10 ^3/uL Lymphocytes # (Auto) 1.5 0.4-5.4 10 ^3/uL Monocytes # (Auto) 1.1 0-1.3 10 ^3/uL Eosinophils # (Auto) 0.4 0-0.8 10 ^3/uL Basophils # (Auto) 0.1 0-0.2 10 ^3/uL Nucleated Red Blood Cells 0.0 % Sodium Level 139 136-145 mmol/L Potassium Level 4.1 3.5-5.1 mmol/L Chloride Level 106 98-107 mmol/L Carbon Dioxide Level 28 20-31 mmol/L Anion Gap 5 5-15 Blood Urea Nitrogen 6 L 9-23 mg/dL Creatinine 0.44 L 0.550-1.02 mg/dL Glomerular Filtration Rate Calc 128 >90 mL/min BUN/Creatinine Ratio 13.6 10.0-20.0 Serum Glucose 128 H 74-106 mg/dL Calcium Level 8.6 L 8.7-10.4 mg/dL Phosphorus Level 4.1 2.4-5.1 mg/dL Magnesium Level 2.2 1.6-2.6 mg/dL Total Bilirubin 0.2 0.2-1.0 mg/dL Aspartate Amino Transferase (AST) 18 13-40 U/L Alanine Aminotransferase (ALT) 13 7-40 U/L Alkaline Phosphatase 67 46-116 U/L Total Protein 6.3 5.7-8.2 g/dL Albumin 2.9 L 3.2-4.8 g/dL Triglycerides Level 97 < 150 mg/dL POC Glucose 133 H 151 H 124 H 70-106 mg/dl Test 01/05/24 05:06 01/05/24 05:14 01/05/24 12:41 01/05/24 23:58 Range/Units White Blood Count 17.3 H 4.4-10.8 10^3/uL Red Blood Count 2.86 L 4.0-5.20 10^6/uL Hemoglobin 8.0 L 12.2-16.2 g/dL Hematocrit 24.8 L 36.0-46.0 % Mean Corpuscular Volume 86.6 80.0-100.0 fL Mean Corpuscular Hemoglobin 28.1 28.0-32.0 pg Mean Corpuscular Hemoglobin Concent 32.5 32.0-36.0 g/dL Red Cell Distribution Width 17.9 H 11.8-14.3 % Platelet Count 586 H 140-450 10^3/uL Mean Platelet Volume 7.3 6.9-10.8 fL Neutrophils (%) (Auto) 83.0 H 37.0-80.0 % Lymphocytes (%) (Auto) 7.8 L 10.0-50.0 % Monocytes (%) (Auto) 6.4 0.0-12.0 % Eosinophils (%) (Auto) 2.5 0.0-7.0 % Basophils (%) (Auto) 0.3 0.0-2.0 % Neutrophils # (Auto) 14.3 H 1.6-8.6 10 ^3/uL Lymphocytes # (Auto) 1.3 0.4-5.4 10 ^3/uL Monocytes # (Auto) 1.1 0-1.3 10 ^3/uL Eosinophils # (Auto) 0.4 0-0.8 10 ^3/uL Basophils # (Auto) 0 0-0.2 10 ^3/uL Nucleated Red Blood Cells 0.0 % Sodium Level 137 136-145 mmol/L Potassium Level 4.2 3.5-5.1 mmol/L Chloride Level 103 98-107 mmol/L Carbon Dioxide Level 29 20-31 mmol/L Anion Gap 5 5-15 Blood Urea Nitrogen 8 L 9-23 mg/dL Creatinine 0.48 L 0.550-1.02 mg/dL Glomerular Filtration Rate Calc 126 >90 mL/min BUN/Creatinine Ratio 16.7 10.0-20.0 Serum Glucose 135 H 74-106 mg/dL Calcium Level 8.8 8.7-10.4 mg/dL Phosphorus Level 4.2 2.4-5.1 mg/dL Magnesium Level 2.2 1.6-2.6 mg/dL Total Bilirubin 0.3 0.2-1.0 mg/dL Aspartate Amino Transferase (AST) 15 13-40 U/L Alanine Aminotransferase (ALT) 11 7-40 U/L Alkaline Phosphatase 67 46-116 U/L Total Protein 6.7 5.7-8.2 g/dL Albumin 3.0 L 3.2-4.8 g/dL POC Glucose 153 H 123 H 143 H 70-106 mg/dl Test 01/06/24 04:57 01/06/24 17:50 01/07/24 00:18 01/07/24 12:04 Range/Units White Blood Count 15.9 H 14.1 H 4.4-10.8 10^3/uL Red Blood Count 2.87 L 3.28 L 4.0-5.20 10^6/uL Hemoglobin 8.0 L 9.0 L 12.2-16.2 g/dL Hematocrit 24.5 L 28.0 #L 36.0-46.0 % Mean Corpuscular Volume 85.4 85.4 80.0-100.0 fL Mean Corpuscular Hemoglobin 27.9 L 27.6 L 28.0-32.0 pg Mean Corpuscular Hemoglobin Concent 32.6 32.3 32.0-36.0 g/dL Red Cell Distribution Width 17.6 H 17.2 H 11.8-14.3 % Platelet Count 601 H 714 H 140-450 10^3/uL Mean Platelet Volume 7.5 7.0 6.9-10.8 fL Neutrophils (%) (Auto) 79.5 37.0-80.0 % Lymphocytes (%) (Auto) 11.3 10.0-50.0 % Monocytes (%) (Auto) 7.1 0.0-12.0 % Basophils (%) (Auto) 0.5 0.0-2.0 % Neutrophils # (Auto) 11.3 H 1.6-8.6 10 ^3/uL Lymphocytes # (Auto) 1.6 0.4-5.4 10 ^3/uL Monocytes # (Auto) 1.0 0-1.3 10 ^3/uL Differential Total Cells Counted 100.0 100 Neutrophils % (Manual) 81 H 37.0-80.0 Band Neutrophils % (Manual) 0 Lymphocytes % (Manual) 9 L 10.0-50.0 Monocytes % (Manual) 5 0-12 Eosinophils % (Manual) 2 0-7 Basophils % (Manual) 0 0.0-2.0 Metamyelocytes % (manual) 2 Myelocytes % (Manual) 1 Promyelocytes % (Manual) 0 Blast Cells % (Manual) 0 Reactive Lymphocytes 0 Platelet Estimate Increased Red Blood Cell Morphology Normal Sodium Level 138 136-145 mmol/L Potassium Level 4.1 3.5-5.1 mmol/L Chloride Level 103 98-107 mmol/L Carbon Dioxide Level 28 20-31 mmol/L Anion Gap 7 5-15 Blood Urea Nitrogen 8 L 9-23 mg/dL Creatinine 0.49 L 0.550-1.02 mg/dL Glomerular Filtration Rate Calc 125 >90 mL/min BUN/Creatinine Ratio 16.3 10.0-20.0 Serum Glucose 96 74-106 mg/dL Calcium Level 8.9 8.7-10.4 mg/dL Phosphorus Level 4.3 2.4-5.1 mg/dL Magnesium Level 2.2 1.6-2.6 mg/dL Total Bilirubin 0.3 0.2-1.0 mg/dL Aspartate Amino Transferase (AST) 16 13-40 U/L Alanine Aminotransferase (ALT) 11 7-40 U/L Alkaline Phosphatase 73 46-116 U/L Total Protein 6.9 5.7-8.2 g/dL Albumin 3.2 3.2-4.8 g/dL POC Glucose 87 97 70-106 mg/dl Eosinophils (%) (Auto) 1.6 0.0-7.0 % Eosinophils # (Auto) 0.2 0-0.8 10 ^3/uL Basophils # (Auto) 0.1 0-0.2 10 ^3/uL Nucleated Red Blood Cells 0.0 % Test 01/08/24 07:12 Range/Units White Blood Count 12.1 H 4.4-10.8 10^3/uL Red Blood Count 3.11 L 4.0-5.20 10^6/uL Hemoglobin 8.6 L 12.2-16.2 g/dL Hematocrit 26.5 L 36.0-46.0 % Mean Corpuscular Volume 85.3 80.0-100.0 fL Mean Corpuscular Hemoglobin 27.5 L 28.0-32.0 pg Mean Corpuscular Hemoglobin Concent 32.2 32.0-36.0 g/dL Red Cell Distribution Width 17.3 H 11.8-14.3 % Platelet Count 621 H 140-450 10^3/uL Mean Platelet Volume 7.0 6.9-10.8 fL Neutrophils (%) (Auto) 76.3 37.0-80.0 % Lymphocytes (%) (Auto) 13.1 10.0-50.0 % Monocytes (%) (Auto) 8.3 0.0-12.0 % Eosinophils (%) (Auto) 1.7 0.0-7.0 % Basophils (%) (Auto) 0.6 0.0-2.0 % Neutrophils # (Auto) 9.2 H 1.6-8.6 10 ^3/uL Lymphocytes # (Auto) 1.6 0.4-5.4 10 ^3/uL Monocytes # (Auto) 1.0 0-1.3 10 ^3/uL Eosinophils # (Auto) 0.2 0-0.8 10 ^3/uL Basophils # (Auto) 0.1 0-0.2 10 ^3/uL Nucleated Red Blood Cells 0.0 % Assessment and Plan ASSESSMENT AND PLAN Assessment and Plan s/p Ex Lap w/ bowel resection and left oophorectomy Leukocytosis improving Plan: Per ID, continue PO antibiotics for 20 days outpatient and F/U w/ ID in 1 months per General surgery, one more day in hospital, possible D/C home tomorrow with OLU drain and Staple removal in office Repeat CBC in am tomorrow Continue regular diet and pain control ambulate. My orders: Orders - ANNALISA MANCINI DO * Contracting Engineer Consultation (12/25/23 07:08) Obtain Consent For Anesthesia (12/25/23 07:47) * Radiologist Consult (12/25/23 12:29) Obtain Consent For: (12/29/23 07:27) Strict I & O QSHIFT (12/29/23 13:06) Discontinue Trent Catheter (12/29/23 13:06) Notify L&D Md If: (12/29/23 13:06) Is At Bedside. (12/29/23 13:06) Incentive Spirometry (12/29/23 13:06) Ng/Orogastric Tube To Lis (12/29/23 13:06) * Infectious Evi- Dr. Lanre Castillo (12/29/23 13:18) Consult For Nutrition (12/29/23 18:40) Kub Abdomen Single View (12/30/23 04:00) Metronidazole Tablet (Flagyl Tablet) (01/06/24 10:00) Doxycycline Tablet (Vibramycin Tablet) (01/06/24 10:00) Plan discussed with: Patient Date of Service: Jan 08, 2024 Billing Provider: ANNALISA MANCINI DO Common Visit Codes: [id number] INP/OBS CARE(MOD) ANNALISA MANCINI DO Jan 08, 2024 10:15
--- NOTE | 2024-01-08 11:13 | DVHPN2 ---
Progress Note Date Seen: Jan 08, 2024 Has the PT tested + for MRSA If YES, has PT been informed?: No Medical Necessity Reason Pt with a Central, PICC or Fol: No Objective vital signs Vital Sign Date Time Temp Pulse Resp B/P (MAP) Pulse Ox O2 Delivery O2 Flow Rate FiO2 01/08/24 08:42 98.6 85 16 105/66 (79) 96 98.6 01/08/24 08:00 Room Air* 0 21 Total Intake and Output 01/07/24 01/07/24 01/08/24 15:00 23:00 07:00 Intake Total 910 ml 1150 ml Output Total 565 ml 791 ml Balance 345 ml 359 ml medications Current Medications Medications Dose Ordered Sig/Sadia Route Start Time Stop Time Status Last Admin Dose Admin Ondansetron HCl 4 mg Q4HP PRN IV 12/24/23 21:30 01/07/24 03:48 4 MG Sodium Chloride 10 ml QSHIFT@10,22 IV 12/30/23 22:00 01/08/24 09:07 10 ML Fat Emulsion Intravenous 150 ml/Potassium Acetate 20 meq/ Potassium Phosphate 22 meq/ Calcium Gluconate 2.3 meq/Magnesium Sulfate 12 meq/ Multivitamins 10 ml/Chromium/ Copper/Manganese/ Zinc 1 ml/Amino Acids/Dextrose 1,383.9462 ml @ 58 mls/hr [id number] IV 01/02/24 22:00 01/03/24 21:59 Cancel Cefpodoxime Proxetil 200 mg BID PO 01/03/24 22:00 01/08/24 09:07 200 MG Enoxaparin Sodium 40 mg DAILY SC 01/06/24 10:00 01/08/24 09:07 40 MG Iron Sucrose 110 ml @ 110 mls/hr DAILY@1200 IV 01/06/24 12:00 01/10/24 12:59 01/07/24 15:08 110 MLS/HR Metronidazole 500 mg Q12HR PO 01/06/24 10:00 01/08/24 09:07 500 MG Doxycycline Monohydrate 100 mg Q12HR PO 01/06/24 10:00 01/08/24 09:07 100 MG Acetaminophen 1,000 mg Q8HR PO 01/06/24 14:00 01/08/24 05:09 1,000 MG Enteral Nutritional Formula 240 ml BIDWM PO 01/06/24 18:00 01/08/24 08:00 240 ML Acetaminophen/ Hydrocodone Bitart 1 tab Q4HP PRN PO 01/06/24 19:00 01/07/24 21:27 1 TAB Melatonin 5 mg HS PO 01/07/24 22:00 laboratory and microbiology Laboratory Tests 01/08/24 07:12 01/06/24 04:57 Test 01/06/24 04:57 Range/Units Serum Glucose 96 74-106 mg/dL Problem List/Assessment/Plan Problem List/Assessment/Plan 12/30/23 patient's mother qat bedside. operative findings explained, patient understands that colostomy is a possibility if the anastomosis does not heal properly. ngt needs to remain till patient has a bowel movement 01/01/24 PATIENT GAGGING AND RETCHING DUE TO NGT IRRITATION, WILL DC NGT BUT SHE MUST REMAIN NPO. ABDOMEN APPROPRIATELY TENDER, WOUND CLEAN AND WELL APPROXIMATED. NEEDS TO AMBULATE 01/02/24 passing flatus and had a BM, abdomen non distended, appropriately tender, drainage serosanguineous, start po clear liquids 01/04/24 DOINF WELL, NORMAL BM'S,WOUND OK, ABDOMEN APPROPRIATELY TENDER, ADVANCE DIET, HOME IN 24 TO 48 HOURS 01/06/24 passing flatus and BM, abdomen non distended, appropriately tender, wound clean and well approximated, drainage sero saNGUINEOPUS, AWAIT REMOVAL P[ICC AND SEE IF wbc DECREASES 01/08/24 feels better, wbc decreasing, afebrile, abdomen soft, non distended, having normal bowel activity, will wait till tomorrow and if wbc with further decrease will dc in am Plan discussed with: Patient Dietary Evaluation Review Comments: 1) Increase TPN to meet at least 75% of estimated needs 2) Advance pt diet when medically feasible 3) Continue current plan of care Expected Outcomes/Goals: 1) Pt diet to advance 2) F/U in 2-3 days ZAINA PEARCE MD Jan 08, 2024 11:13
--- NOTE | 2024-01-08 18:08 | DVHPNRES ---
Progress Note Date Seen: Jan 08, 2024 Resident Creating Document: FRANCISCA SELF RESIDENT Has the PT tested + for MRSA If YES, has PT been informed?: No Medical Necessity Reason Pt with a Central, PICC or Fol: No Subjective Review of Systems A 38-year-old female with past medical history of kidney stones, who presented to the ED with a chief complaint of intermittent left lower quadrant abdominal pain and yellowish vaginal discharge for last 1 month prior to this admission. According to the patient the left lower quadrant abdominal pain is colicky in nature 9/10 localized with no specific pattern of radiation and no aggravating or relieving factors and associated with yellowish vaginal discharge. She had an IUD for 5 years and removed 1 month ago. She had no history of STD or multiple sexual partner before and her last Pap test was few months ago and was normal study according to the patient. She also mentioned she had history of kidney stone 3 years ago and passed 3 stones but no imaging or follow up was done after that. She denies fever, chills, sweating, nausea, vomiting, chest pain, dizziness or any change in the bowel and bladder habit. on my examination, the patient denies any vaginal discharge at this point. The patient is having left suprapubic abdominal tenderness rated now as 7/10 on the pain scale after pain medications were given. OBGYN was consulted which assessed and evaluated the patient. Pelvic ultrasound showed left adnexal structure, possible mass/collection. There was also a simple cyst in the right ovary. CT scan of the abdomen and pelvis showed a 5.6 x 5.1 cm thick wall multilocular lesion in the left adnexa which is suspicion for a pyosalpinx. The patient was started on IV ceftriaxone, doxycycline and IV fluids at 75 cc/hour. Patient will be admitted for further assessment and management. Pt had surgery on dec 28: drainage of abscess, oophorectomy, colon resection and appendectomy Ct scan jan 02: pt still have collection but smaller than previous one, OLU is on place and draining Pt is on cefpodoxime + metronidazole + doxycycline Objective vital signs Vital Sign Date Time Temp Pulse Resp B/P (MAP) Pulse Ox O2 Delivery O2 Flow Rate FiO2 01/08/24 17:19 98.5 98 16 15/66 (49) 95 98.5 01/08/24 08:00 Room Air* 0 21 Total Intake and Output 01/07/24 01/07/24 01/08/24 14:59 22:59 06:59 Intake Total 910 ml 1150 ml Output Total 565 ml 791 ml Balance 345 ml 359 ml medications Current Medications Medications Dose Ordered Sig/Sadia Route Start Time Stop Time Status Last Admin Dose Admin Ondansetron HCl 4 mg Q4HP PRN IV 12/24/23 21:30 01/07/24 03:48 4 MG Sodium Chloride 10 ml QSHIFT@10,22 IV 12/30/23 22:00 01/08/24 09:07 10 ML Fat Emulsion Intravenous 150 ml/Potassium Acetate 20 meq/ Potassium Phosphate 22 meq/ Calcium Gluconate 2.3 meq/Magnesium Sulfate 12 meq/ Multivitamins 10 ml/Chromium/ Copper/Manganese/ Zinc 1 ml/Amino Acids/Dextrose 1,383.9462 ml @ 58 mls/hr [id number] IV 01/02/24 22:00 01/03/24 21:59 Cancel Cefpodoxime Proxetil 200 mg BID PO 01/03/24 22:00 01/08/24 09:07 200 MG Enoxaparin Sodium 40 mg DAILY SC 01/06/24 10:00 01/08/24 09:07 40 MG Iron Sucrose 110 ml @ 110 mls/hr DAILY@1200 IV 01/06/24 12:00 01/10/24 12:59 01/08/24 12:05 110 MLS/HR Metronidazole 500 mg Q12HR PO 01/06/24 10:00 01/08/24 09:07 500 MG Doxycycline Monohydrate 100 mg Q12HR PO 01/06/24 10:00 01/08/24 09:07 100 MG Acetaminophen 1,000 mg Q8HR PO 01/06/24 14:00 01/08/24 05:09 1,000 MG Enteral Nutritional Formula 240 ml BIDWM PO 01/06/24 18:00 01/08/24 17:24 240 ML Acetaminophen/ Hydrocodone Bitart 1 tab Q4HP PRN PO 01/06/24 19:00 01/08/24 12:14 1 TAB Melatonin 5 mg HS PO 01/07/24 22:00 Examination General: Patient alert and oriented in person, place and time. Patient following commands. HEENT: Normocephalic, atraumatic, moist mucous membranes Respiratory/pulmonary: Clear lungs bilaterally, no associated crackles or wheezes. Cardiovascular: Normal heart sounds S1 and S2 with no associated murmurs Abdomen: Abdomen nondistended, there is mild abdominal pain at the hypogastric region. Middle line incision and sutures are closed, dry and clean with a OLU drainage draining approximately 25 cc Extremities: There is no peripheral edema present at the lower extremities. Peripheral Pulses: 3+ Radial (R). 3+ Radial (L). 3+ Dorsalis pedis (R). 3+ Dorsalis pedis(L) Skin: No rashes or pruritus, there is no sacral edema present at this time. Neurological: Intact cranial nerves with no focal neurologic deficits laboratory and microbiology Laboratory Tests 01/08/24 07:12 01/06/24 04:57 Test 01/06/24 04:57 Range/Units Serum Glucose 96 74-106 mg/dL Microbiology Date/Time Source Procedure Growth Status 01/06/24 13:23 Catheter Tip Aerobic Culture - Preliminary Resulted 01/03/24 15:25 Stool Clostridium difficile Toxin Assay - Final Complete 12/29/23 10:10 Peritoneal Fluid Gram Stain - Final Complete 12/29/23 10:10 Anaerobic Culture - Final Clostridium clostridioforme Complete 12/29/23 10:10 Peritoneal Fluid Aerobic Culture - Final Complete 12/24/23 16:12 Blood Blood Culture - Final NO GROWTH AFTER 5 DAYS OF INCUBATION. Complete Problem List/Assessment/Plan Problem List/Assessment/Plan #Acute left suprapubic pain likely due to left tubo-ovarian abscess/pyosalpinx #Possible pelvic inflammatory disease #Sepsis likely due to tubo-ovarian abscess/pyosalpinx (PID) #S/P left oophorectomy with appendectomy and bowel resection with anastomosis of the descending colon with rectum 12/29/2023 -CT abdomen and pelvis on 01/03/24 reviewed Drainage catheter is seen in the lower midline abdomen with tip curled in the lower midline pelvis. Interval decrease in size of multiloculated pelvic abscess, the largest pocket now measuring approximately 2.8 x 11.3 cm . The majority of the remaining abscess is not adjacent to the drainage catheter tip. Consider repositioning of drainage catheter. -IR was consulted: PER DR. Jacinto RIZZO EXISTING DRAIN TUBE IS IN GOOD PLACEMENT AND DOES NOT NEED TO BE REPOSITIONED AT THIS TIME. NO PROCEDURE INDICATED AT THIS TIME. -patient has a history of IUD for five years that was removed one month ago -NAAT for chlamydia and gonorrhea, which both came back negative -OBGYN on board, which performed left oopherectomy with removal of appendix and part of greater omentum, as well as part of the colon with anastomosis without complications on 12/29/23. -MRI of the abdomen showed a multiloculated cystic mass in the left adnexa likely representing tubo-ovarian abscess. - on 01/04/2024 Surgery recommended-Increase TPN to meet at least 75% of estimated needs. .Advance pt diet when medically feasible. 01/04/2024 Gynecology and Obstetrics recommended-Consider D/C gabriel and OLU drain in next 48-72 hrs. -Patient was also seen by infectious disease and recommended- agree with C diff testing if diarrhea continues to progress would start oral vancomycin and IV flagell, switch to oral ceftriaxone and stop IV ceftriaxone, continue antibiotics , slowly transition to oral versions of these medications and assess for tolerance . First of which would be transitioning to Oral Doxycycline, follow up on biopsy results of mass - Peritoneal fluid culture revealed Clostridium Clostrodioformi, -patient on doxycycline, cefpodoxime 200 mg p.o. b.i.d. and metronidazole 500 mg PO -preliminary culture of the tip: negative ensure supplement Dr Thomas wants to f/u the patient 1 more day # Left-sided nonobstructing renal stone -Discontinue fluids -CT abdomen revealed punctating nonobstructing left sided nephrolithiasis -strain urine and monitor closely -follow-up with urology as an outpatient #Normocytic hypochromic anemia: iron deficiency IV iron #Polysubstance abuse (cannabinoids) -urine drug screen came back positive for cannabis -executive assistant to general counsel patient on drug cessation Goals of care discussed with the patient at bedside for >23min, FULL CODE Plan discussed with Dr. Gan Plan discussed with: Patient Plan discussed with: Patient, Other (rn) My Orders My Orders Orders - FRANCISCA SELF RESIDENT Procedure Category Date Status Time Communication Order ORDERS 01/08/24 Transmitted 12:08 Dietary Evaluation Review Comments: 1) Increase TPN to meet at least 75% of estimated needs 2) Advance pt diet when medically feasible 3) Continue current plan of care Expected Outcomes/Goals: 1) Pt diet to advance 2) F/U in 2-3 days Date of Service: Jan 08, 2024 Billing Provider: CORNELIUS GAN MD Common Visit Codes: [id number] INP/OBS CARE(MOD) Coding Comment Comment Attending Attestation I saw and evaluated the patient. I reviewed the residents note and agree with findings and plan as documented in the residents note except as documented below. FRANCISCA SELF RESIDENT Jan 08, 2024 18:07 CORNELIUS GAN MD Jan 08, 2024 21:08
[2024-01-09 05:00] VITALS: BP 106/68; PULSE 94; RESP 17; TEMP 96.6; O2SAT 96
[2024-01-09 06:04] LABS: Basophils # (auto) 0.1 10 ^3/uL (0-0.2); Eosinophils # (auto) 0.2 10 ^3/uL (0-0.8); Eosinophils % (auto) 1.5 % (0.0-7.0); Mean Corpuscular Volume 85.1 fL (80.0-100.0); Monocytes # (auto) 0.9 10 ^3/uL (0-1.3); White Blood Cell 11.4 10^3/uL (4.4-10.8)
[2024-01-09 06:07] LABS: Basophils % (auto) 0.5 % (0.0-2.0); Hematocrit 27.7 % (36.0-46.0); Lymphocytes # (auto) 1.7 10 ^3/uL (0.4-5.4); Lymphocytes % (auto) 14.9 % (10.0-50.0); Mean Corpuscular Hemoglobin 27.7 pg (28.0-32.0); Mean Corpuscular Hgb Conc. 32.5 g/dL (32.0-36.0); Monocytes % (auto) 7.9 % (0.0-12.0); Neutrophils # (auto) 8.6 10 ^3/uL (1.6-8.6); Neutrophils % (auto) 75.2 % (37.0-80.0); Platelet Count (auto) 643 10^3/uL (140-450); Red Blood Cells 3.25 10^6/uL (4.0-5.20); Red Cell Distribution Width 17.6 % (11.8-14.3)
[2024-01-09 06:26] LABS: Albumin 3.3 g/dL (3.2-4.8); Alkaline Phosphatase 68 U/L (46-116); Anion Gap 7 (5-15); Aspartate Aminotransferase 17 U/L (13-40); BUN/Creatinine Ratio 8.9 (10.0-20.0); Bilirubin, Total 0.3 mg/dL (0.2-1.0); Blood Urea Nitrogen 5 mg/dL (9-23); Calcium 9.5 mg/dL (8.7-10.4); Carbon Dioxide 29 mmol/L (20-31); Chloride 102 mmol/L (98-107); Glucose 98 mg/dL (74-106); Potassium 3.9 mmol/L (3.5-5.1); Sodium 138 mmol/L (136-145); Total Protein 7.3 g/dL (5.7-8.2)
[2024-01-09 06:29] LABS: Alanine Aminotransferase < 9 U/L (7-40)
[2024-01-09 09:00] VITALS: BP 107/62; PULSE 104; RESP 17; TEMP 97.9; O2SAT 97
--- NOTE | 2024-01-09 09:41 | CODING ---
Date of Service: Dec 24, 2023 Billing Provider: NATALIE HERRERA MD Common Visit Codes: [id number] INP/OBS CARE (HIGH) NATALIE HERRERA MD Jan 09, 2024 09:41
--- NOTE | 2024-01-09 11:26 | DVHPN2 ---
Progress Note Date Seen: Jan 09, 2024 Has the PT tested + for MRSA If YES, has PT been informed?: No Medical Necessity Reason Pt with a Central, PICC or Fol: No Objective vital signs Vital Sign Date Time Temp Pulse Resp B/P (MAP) Pulse Ox O2 Delivery O2 Flow Rate FiO2 01/09/24 05:00 96.6 94 17 106/68 (81) 96 96.6 01/08/24 20:00 Room Air* 0 21 Total Intake and Output 01/08/24 01/08/24 01/09/24 15:00 23:00 07:00 Intake Total 650 ml 300 ml Output Total 805 ml 700 ml Balance -155 ml -400 ml medications Current Medications Medications Dose Ordered Sig/Sadia Route Start Time Stop Time Status Last Admin Dose Admin Ondansetron HCl 4 mg Q4HP PRN IV 12/24/23 21:30 01/07/24 03:48 4 MG Sodium Chloride 10 ml QSHIFT@10,22 IV 12/30/23 22:00 01/09/24 10:12 10 ML Fat Emulsion Intravenous 150 ml/Potassium Acetate 20 meq/ Potassium Phosphate 22 meq/ Calcium Gluconate 2.3 meq/Magnesium Sulfate 12 meq/ Multivitamins 10 ml/Chromium/ Copper/Manganese/ Zinc 1 ml/Amino Acids/Dextrose 1,383.9462 ml @ 58 mls/hr [id number] IV 01/02/24 22:00 01/03/24 21:59 Cancel Cefpodoxime Proxetil 200 mg BID PO 01/03/24 22:00 01/09/24 10:12 200 MG Enoxaparin Sodium 40 mg DAILY SC 01/06/24 10:00 01/09/24 10:12 40 MG Iron Sucrose 110 ml @ 110 mls/hr DAILY@1200 IV 01/06/24 12:00 01/10/24 12:59 01/08/24 12:05 110 MLS/HR Metronidazole 500 mg Q12HR PO 01/06/24 10:00 01/09/24 10:12 500 MG Doxycycline Monohydrate 100 mg Q12HR PO 01/06/24 10:00 01/09/24 10:12 100 MG Acetaminophen 1,000 mg Q8HR PO 01/06/24 14:00 01/08/24 21:56 1,000 MG Enteral Nutritional Formula 240 ml BIDWM PO 01/06/24 18:00 01/09/24 08:00 240 ML Acetaminophen/ Hydrocodone Bitart 1 tab Q4HP PRN PO 01/06/24 19:00 01/09/24 05:51 1 TAB Melatonin 5 mg HS PO 01/07/24 22:00 laboratory and microbiology Laboratory Tests 01/09/24 05:34 Test 01/09/24 05:34 Range/Units Serum Glucose 98 74-106 mg/dL Problem List/Assessment/Plan Problem List/Assessment/Plan 12/30/23 patient's mother qat bedside. operative findings explained, patient understands that colostomy is a possibility if the anastomosis does not heal properly. ngt needs to remain till patient has a bowel movement 01/01/24 PATIENT GAGGING AND RETCHING DUE TO NGT IRRITATION, WILL DC NGT BUT SHE MUST REMAIN NPO. ABDOMEN APPROPRIATELY TENDER, WOUND CLEAN AND WELL APPROXIMATED. NEEDS TO AMBULATE 01/02/24 passing flatus and had a BM, abdomen non distended, appropriately tender, drainage serosanguineous, start po clear liquids 01/04/24 DOINF WELL, NORMAL BM'S,WOUND OK, ABDOMEN APPROPRIATELY TENDER, ADVANCE DIET, HOME IN 24 TO 48 HOURS 01/06/24 passing flatus and BM, abdomen non distended, appropriately tender, wound clean and well approximated, drainage sero saNGUINEOPUS, AWAIT REMOVAL P[ICC AND SEE IF wbc DECREASES 01/08/24 feels better, wbc decreasing, afebrile, abdomen soft, non distended, having normal bowel activity, will wait till tomorrow and if wbc with further decrease will dc in am 01/09/24 WBC continues to decline, abdomen non tender, drainage non purulent, cleared for discharge with po antibiotics and drain in place, return to [facility] [place] 10 [place] for drain and gabriel removal Plan discussed with: Patient Dietary Evaluation Review Comments: 1) Increase TPN to meet at least 75% of estimated needs 2) Advance pt diet when medically feasible 3) Continue current plan of care Expected Outcomes/Goals: 1) Pt diet to advance 2) F/U in 2-3 days ZAINA PEARCE MD Jan 09, 2024 11:26
--- NOTE | 2024-01-09 12:16 | DVHPN2 ---
Consult Progress Note Date Seen: Jan 09, 2024 Subjective Patient reports: No new complaints (tolerating diet, daily bowel movements a bit tachycardic ) Objective vital signs Vital Sign Date Time Temp Pulse Resp B/P (MAP) Pulse Ox O2 Delivery O2 Flow Rate FiO2 01/09/24 09:00 97.9 104 17 107/62 (77) 97 97.9 01/08/24 20:00 Room Air* 0 21 Total Intake and Output 01/08/24 01/08/24 01/09/24 15:00 23:00 07:00 Intake Total 650 ml 300 ml Output Total 805 ml 700 ml Balance -155 ml -400 ml medications Current Medications Medications Dose Ordered Sig/Sadia Route Start Time Stop Time Status Last Admin Dose Admin Ondansetron HCl 4 mg Q4HP PRN IV 12/24/23 21:30 01/07/24 03:48 4 MG Sodium Chloride 10 ml QSHIFT@10,22 IV 12/30/23 22:00 01/09/24 10:12 10 ML Fat Emulsion Intravenous 150 ml/Potassium Acetate 20 meq/ Potassium Phosphate 22 meq/ Calcium Gluconate 2.3 meq/Magnesium Sulfate 12 meq/ Multivitamins 10 ml/Chromium/ Copper/Manganese/ Zinc 1 ml/Amino Acids/Dextrose 1,383.9462 ml @ 58 mls/hr [id number] IV 01/02/24 22:00 01/03/24 21:59 Cancel Cefpodoxime Proxetil 200 mg BID PO 01/03/24 22:00 01/09/24 10:12 200 MG Enoxaparin Sodium 40 mg DAILY SC 01/06/24 10:00 01/09/24 10:12 40 MG Iron Sucrose 110 ml @ 110 mls/hr DAILY@1200 IV 01/06/24 12:00 01/10/24 12:59 01/08/24 12:05 110 MLS/HR Metronidazole 500 mg Q12HR PO 01/06/24 10:00 01/09/24 10:12 500 MG Doxycycline Monohydrate 100 mg Q12HR PO 01/06/24 10:00 01/09/24 10:12 100 MG Acetaminophen 1,000 mg Q8HR PO 01/06/24 14:00 01/08/24 21:56 1,000 MG Enteral Nutritional Formula 240 ml BIDWM PO 01/06/24 18:00 01/09/24 08:00 240 ML Acetaminophen/ Hydrocodone Bitart 1 tab Q4HP PRN PO 01/06/24 19:00 01/09/24 05:51 1 TAB Melatonin 5 mg HS PO 01/07/24 22:00 PHYSICAL EXAM: - GENERAL: Alert and oriented x 3. No acute distress. Well-nourished. - EYES: EOMI. Anicteric. - HENT: Moist mucous membranes. No scleral icterus. No cervical lymphadenopathy. - LUNGS: Clear to auscultation bilaterally. No accessory muscle use. - CARDIOVASCULAR: Regular rate and rhythm. No murmur. No JVD. - ABDOMEN: Soft, non-tender and non-distended. No palpable masses. - EXTREMITIES: No edema. Non-tender.SKIN: No rashes or lesions. Warm. - NEUROLOGIC: No focal neurological deficits. CN II-XII grossly intact, but not individually tested. - PSYCHIATRIC: Cooperative. Appropriate mood and affect. laboratory and microbiology Laboratory Tests 01/09/24 05:34 Test 01/09/24 05:34 Range/Units Serum Glucose 98 74-106 mg/dL Problem List/Assessment/Plan Problems(with codes): (1) Left lower quadrant abdominal pain (2) Adnexal mass (3) Leukocytosis (4) Left pyosalpinx Problem List/Assessment/Plan ASSESSMENT AND PLAN: ID Problem List: - Pyosalpinx - Tubo-ovarian abscess - Persistent leukocytosis - Anemia - History of kidney stones - itraabdominal mass -inflammed appendix Assessment This is a 38 y.o. female with a past medical history of kidney stones (last occurrence three years ago), who presents with intermittent left lower quadrant pain and yellowish vaginal discharge for the last month. She had an intrauterine device (IUD) inserted five years ago, which was removed one month ago. She reports no multiple sexual partners and denies concern for sexually transmitted diseases. The pain is cramping in nature, rated 9 out of 10. She denies hematuria, fevers, or chills. No history of smoking or alcohol use; however, she does use marijuana occasionally. She lives with her boyfriend. Vital signs on admission revealed a temperature of 102.7F, respiratory rate of 16, blood pressure 102/68 mmHg, and oxygen saturation of 100% on room air. Physical examination was notable for tenderness in the left lower quadrant. Imaging studies include: - Pelvic ultrasound showing a left adnexal structurepossible mass or collection; infectious etiology not excluded. A simple cyst was noted in the right ovary. - CT abdomen and pelvis revealing a 5.6 x 5.1 cm thick-walled multilocular lesion of the left adnexa, suspicious for pyosalpinx; other etiologies not excluded. - Pelvic MRI demonstrating a multiloculated cystic mass in the left adnexa, likely representing a tubo-ovarian abscess; malignant lesion with necrosis not entirely excluded. On December 25, a CT-guided placement of an 8.5 mm pigtail drain was performed, yielding 25 cc of thick, foul, purulent fluid with slight green discoloration, sent for cytology and cultures. Cultures have shown no growth to date. Laboratory studies reveal a persistently elevated white blood cell count of 28,000/mm, hemoglobin of 8.2 g/dL, and platelet count of 344,000/mm. Despite drainage, the abscess remains sizable with minimal output, and the patient continues to have persistent leukocytosis. It is unclear if antibiotics alone will suffice in treating the infection. 12/29: Post op day 1 from diagnostic exploratory laparoscopy via midline incision , a left oophorectomy , a partial omentectomy, partial colon resection with primary anastomosis my Dr Strauss and an appendectomy. They found omental adhesions in the abdominal cavity , a mass in the left pelvis which could not be mobilized until the converted to an laparotomy. They found a large inflammatory mass . The greater momentum contained severely infected and indurated tissue , the momentum was divided and excised. mass was adherent to rectosigmoid and Dr Strauss was consulted. Olu drain was placed. Cultures from 12/28 and aspirated cultures from 12/25 show no growth. White count is still elevated but hemoglobin is stable 12/30: white count has gone down to 19.7, chest x-ray shows a need to advance anterior tube in the stomach about 2 cm. cultures from asprite from the IR drainage revealed anerococcus and the peritoneal fluid cultures are still pending 12/31: Aspric cultures are growing inner coccus , peritoneal fluids are growing clostridioforme 01/01: white count continues to downtrend, continue antibiotics for 14 more days 01/02: white count is elevated and multiple bowel movements and has been on antibiotics for a considerable amount of time . 01/05: White count is down to 15.9 , at this time would transition patient to oral medication 01/06: whitecount is continuing to downtred , completley on oral antibiotic regimen and continue for another 20 dyas , defer drain management to general surgery 01/07: white count contines to downtred , no longer has a picc line and cultures are no growth to date Plan: - patient will need outpatient management of drain if shes going home on i t - follow up with infectious disease in 1 month - plan to repeat CT abd pelvis to ensure inflammation has resolved - follow up on biopsy results of mass - Continue doxycycline and Flagyl (metronidazole) and cefpodoxime - Monitoring: - Monitor OLU drain output closely. - Follow up on operative cultures as well as OLU drain output - blood pressure support as needed Plan discussed with: Other Dietary Evaluation Review Comments: 1) Increase TPN to meet at least 75% of estimated needs 2) Advance pt diet when medically feasible 3) Continue current plan of care Expected Outcomes/Goals: 1) Pt diet to advance 2) F/U in 2-3 days FELICITY MEMBRENO MD Jan 09, 2024 12:16
[2024-01-09 13:00] VITALS: BP 101/64; PULSE 99; RESP 17; TEMP 97.6; O2SAT 94
[2024-01-09] MEDS ORDERED: ACET1CAP14 PO (15:13)
[2024-01-09] MEDS ORDERED: MELA5TAB16 PO (15:13)
[2024-01-09] MEDS ORDERED: CEFP200T15 PO (15:13)
[2024-01-09] MEDS ORDERED: DOX100T PO (15:13)
[2024-01-09] MEDS ORDERED: NUTR-559 PO (15:13)
[2024-01-09] MEDS ORDERED: MET500T PO (15:13)
--- NOTE | 2024-01-09 16:30 | DVHDSRES ---
Discharge Summary Date of Admission Resident Creating Document: FRANCISCA SELF RESIDENT Dec 24, 2023 at 21:29 Date of Discharge: Jan 09, 2024 Admitting Diagnosis pelvic abscess Labs/Diagnostic Data: Laboratory Results Test 01/09/24 05:34 01/07/24 00:18 01/06/24 04:57 01/04/24 04:25 White Blood Count 11.4 10^3/uL (4.4-10.8) Red Blood Count 3.25 10^6/uL (4.0-5.20) Hemoglobin 9.0 g/dL (12.2-16.2) Hematocrit 27.7 % (36.0-46.0) Mean Corpuscular Volume 85.1 fL (80.0-100.0) Mean Corpuscular Hemoglobin 27.7 pg (28.0-32.0) Mean Corpuscular Hemoglobin Concent 32.5 g/dL (32.0-36.0) Red Cell Distribution Width 17.6 % (11.8-14.3) Platelet Count 643 10^3/uL (140-450) Mean Platelet Volume 6.9 fL (6.9-10.8) Neutrophils (%) (Auto) 75.2 % (37.0-80.0) Lymphocytes (%) (Auto) 14.9 % (10.0-50.0) Monocytes (%) (Auto) 7.9 % (0.0-12.0) Eosinophils (%) (Auto) 1.5 % (0.0-7.0) Basophils (%) (Auto) 0.5 % (0.0-2.0) Neutrophils # (Auto) 8.6 10 ^3/uL (1.6-8.6) Lymphocytes # (Auto) 1.7 10 ^3/uL (0.4-5.4) Monocytes # (Auto) 0.9 10 ^3/uL (0-1.3) Eosinophils # (Auto) 0.2 10 ^3/uL (0-0.8) Basophils # (Auto) 0.1 10 ^3/uL (0-0.2) Nucleated Red Blood Cells 0.0 % Sodium Level 138 mmol/L (136-145) Potassium Level 3.9 mmol/L (3.5-5.1) Chloride Level 102 mmol/L (98-107) Carbon Dioxide Level 29 mmol/L (20-31) Anion Gap 7 (5-15) Blood Urea Nitrogen 5 mg/dL (9-23) Creatinine 0.56 mg/dL (0.550-1.02) Glomerular Filtration Rate Calc 121 mL/min (>90) BUN/Creatinine Ratio 8.9 (10.0-20.0) Serum Glucose 98 mg/dL (74-106) Calcium Level 9.5 mg/dL (8.7-10.4) Total Bilirubin 0.3 mg/dL (0.2-1.0) Aspartate Amino Transferase (AST) 17 U/L (13-40) Alanine Aminotransferase (ALT) < 9 U/L (7-40) Alkaline Phosphatase 68 U/L (46-116) Total Protein 7.3 g/dL (5.7-8.2) Albumin 3.3 g/dL (3.2-4.8) POC Glucose 97 mg/dl (70-106) Differential Total Cells Counted 100.0 (100) Neutrophils % (Manual) 81 (37.0-80.0) Band Neutrophils % (Manual) 0 Lymphocytes % (Manual) 9 (10.0-50.0) Monocytes % (Manual) 5 (0-12) Eosinophils % (Manual) 2 (0-7) Basophils % (Manual) 0 (0.0-2.0) Metamyelocytes % (manual) 2 Myelocytes % (Manual) 1 Promyelocytes % (Manual) 0 Blast Cells % (Manual) 0 Reactive Lymphocytes 0 Platelet Estimate Increased Red Blood Cell Morphology Normal Phosphorus Level 4.3 mg/dL (2.4-5.1) Magnesium Level 2.2 mg/dL (1.6-2.6) Triglycerides Level 97 mg/dL (< 150) Test 01/02/24 04:50 12/30/23 05:05 12/29/23 16:01 12/29/23 10:10 Iron Level 17 ug/dL (50-170) Total Iron Binding Capacity 190 ug/dL (250-425) Percent Iron Saturation 8.9 % (15-50) Prothrombin Time 12.7 sec (9.3-11.8) Prothrombin Time INR 1.22 (0.9-1.15) Activated Partial Thromboplast Time 31.8 SEC (24.5-34.5) Large Platelets Few Test 12/26/23 04:40 12/25/23 13:42 12/25/23 04:19 12/24/23 15:12 Clumped Platelets Moderate Stomatocytes Few Rapid Plasma Reagin Non reactive (Non Reactive) Ferritin 183.1 ng/mL (10-291) Cholesterol Level 99 mg/dL (< 200) LDL Cholesterol 66 mg/dL (< 100) HDL Cholesterol 24 mg/dL (40-59) Hepatitis C Antibody Negative (Negative) HIV (1&2) Antibody Negative (Negative) Urine Color Yellow (Yellow) Urine Clarity Turbid (Clear) Urine pH 6.5 (5.0-9.0) Urine Specific [place] 1.021 (1.001-1.035) Urine Protein Trace (Negative) Urine Ketones Trace (Negative) Urine Blood Negative /uL (Negative) Urine Nitrite Negative (Negative) Urine Bilirubin Negative (Negative) Urine Urobilinogen 4 mg/dL (Negative) Urine Leukocyte Esterase 1+ /uL (Negative) Urine RBC 3 /hpf (0 - 4) Urine WBC 4 /hpf (0 - 5) Urine Squamous Epithelial Cells Few /hpf (<5) Urine Bacteria None seen /hpf (None Seen) Urine Mucus Few (None Seen) Urine Glucose Normal mg/dL (Normal) Urine Test Negative (Negative) Urine Opiates Screen Neg (NEGATIVE) Urine Fentanyl Screen Neg (NEGATIVE) Urine Barbiturates Screen Neg (NEGATIVE) Urine Phencyclidine Screen Neg (NEGATIVE) Urine Amphetamines Screen Neg (NEGATIVE) Urine Benzodiazepines Screen Neg (NEGATIVE) Urine Cocaine Screen Neg (NEGATIVE) Urine Cannabinoids Screen Pos (NEGATIVE) Chlamydia trachomatis (AYSHA) Negative (Negative) Neisseria gonorrhoeae (AYSHA) Negative (Negative) Test 12/24/23 13:50 12/24/23 13:20 Erythrocyte Sedimentation Rate 105 mm/hr (0-20) Lipase 32 U/L (12-53) Beta HCG, Quantitative 0.1 mIU/mL (1.5-4.2) Plasma/Serum Blood Alcohol 3.3 mg/dL (<10) Lactic Acid Level 0.8 mmol/L (0.4-2.0) Other Laboratory Tests 01/09/24 05:34 Brief Hx & Hospital Course: A 38-year-old female with past medical history of kidney stones, who presented to the ED with a chief complaint of intermittent left lower quadrant abdominal pain and yellowish vaginal discharge for last 1 month prior to this admission. According to the patient the left lower quadrant abdominal pain is colicky in nature 9/10 localized with no specific pattern of radiation and no aggravating or relieving factors and associated with yellowish vaginal discharge. She had an IUD for 5 years and removed 1 month ago. She had no history of STD or multiple sexual partner before and her last Pap test was few months ago and was normal study according to the patient. She also mentioned she had history of kidney stone 3 years ago and passed 3 stones but no imaging or follow up was done after that. She denies fever, chills, sweating, nausea, vomiting, chest pain, dizziness or any change in the bowel and bladder habit. on my examination, the patient denies any vaginal discharge at this point. The patient is having left suprapubic abdominal tenderness rated now as 7/10 on the pain scale after pain medications were given. OBGYN was consulted which assessed and evaluated the patient. Pelvic ultrasound showed left adnexal structure, possible mass/collection. There was also a simple cyst in the right ovary. CT scan of the abdomen and pelvis showed a 5.6 x 5.1 cm thick wall multilocular lesion in the left adnexa which is suspicion for a pyosalpinx. The patient was started on IV ceftriaxone, doxycycline and IV fluids at 75 cc/hour. Patient had a percutaneos drainage of the abscess but she didnt improved which required surgery on dec 28: drainage of abscess, oophorectomy, colon resection and appendectomy. Also OLU drainage was left on cavity. Culture came positive for Clostridium Clostrodioformi, ID was consulted and patient was placed in AB Ct scan jan 02: pt still have collection but smaller than previous one, OLU is on place and draining. WBC started to trending down, the patient started to eat and feeling better and was discharge on jan 08 with oral AB for 20 days more Consults/Reason for consult riveter automobile brakes due to pelvic abscess surgery due to intrabadominal abscess Operations or Procedures Exam: CT CT AB PEL WITH IV CON ONLY History: R/O RESIDUAL INTRA ABD ABSCESS Comparison Study: CT CT AB PEL WITH ORAL CON ONLY on DOS: 12/26/23, CT CT AB PEL WO CON-NO ORAL OR IV on DOS: 12/24/23 Technique: Multidetector spiral CT of the abdomen was performed from lung bases to pubic symphysis. Imaging was performed without IV contrast. Axial, coronal and sagittal multiplanar reformats were obtained from the axial data set by the technologist. Radiation Dose : 1. Abdomen/Pelvis: CTDIvol 22 mGy, DLP 1227.8 mGy*cm. Findings: Evaluation of solid organs is limited due to lack of intravenous contrast use. Lung Bases: No acute or significant lung base finding. Normal heart size. No pleural or pericardial effusion. Liver: The liver is normal in size. No focal lesions. Gallbladder and Biliary Tree: Gallbladder is surgically absent. Spleen: Unremarkable Pancreas: The pancreas is grossly normal in appearance. Adrenal Glands: Unremarkable Kidneys: Kidneys are grossly normal without hydronephrosis. Stable punctate left nephrolithiasis. Bladder: Grossly unremarkable for degree of distention. Bowel: The stomach is grossly normal in appearance. Small bowel and colon are normal in caliber and distribution. The appendix is not visualized; however, no secondary findings of acute appendicitis identified. Ascites: Absent Lymphadenopathy: No mesenteric, retroperitoneal or periportal lymphadenopathy. Abdominal Wall and Mesentery: Drainage catheter is seen in the lower midline abdomen with tip curled in the lower midline pelvis. Interval decrease in size of multiloculated pelvic abscess, the largest pocket measuring approximately 2.8 by 11.3 cm . The majority of the remaining abscess is not adjacent to the drainage catheter tip. Vasculature: The visualized abdominal aorta is normal in size and caliber. Evaluation of abdominal and pelvic vessels is limited due to lack of intravenous contrast. Pelvic Organs: Unremarkable Musculoskeletal: No aggressive focal bony lesions, acute fractures or dislocation. IMPRESSION: 1. Drainage catheter is seen in the lower midline abdomen with tip curled in the lower midline pelvis. Interval decrease in size of multiloculated pelvic abscess, the largest pocket now measuring approximately 2.8 x 11.3 cm . The majority of the remaining abscess is not adjacent to the drainage catheter tip. Consider repositioning of drainage catheter. Radiation optimization: All CT scans at this facility use at least one of these dose optimization techniques: automated exposure control mA and/or kV adjustment per patient size (includes targeted exams where dose is matched to clinical indication) or iterative reconstruction. Patient: ANTON BONILLA Acct: [id number] : 1985 Loc: [facility] Age/Sex: 38/F Room: 0206 / Bed: A Attending Phy: FRANCISCA SELF DATE OF SURGERY: 12/29/2023 SURGICAL PROCEDURE PREOPERATIVE INDICATIONS: The patient is a 38-year-old female being operated on for tubo-ovarian abscess of the left adnexa by Dr. Mancini and Dr. Mancini called me and requested my assistance care home through the procedure. DESCRIPTION OF PROCEDURE: When I reached the operating room, the patient had a laparotomy incision and there was a complete transection of the rectosigmoid colon. The distal part of the colon was inseparable from a mass that apparently is the tubo-ovarian abscess, an attempt at these structures, was unsuccessful. The pelvis was "frozen" due to much inflammatory tissue. The patient's lysis of adhesions was accomplished and the distal rectosigmoid colon was mobilized. The patient's rectosigmoid colon was placed on tension and the sigmoid colon, which was densely adherent to the colon and to the abscess mass was transected above a right angle bowel clamp, which was placed at the rectus bowel clamp, which was placed distal to this mass. The proximal bowel was mobilized. The entire length of the bowel was inspected. It appeared that the small bowel was intact. The ileocecal junction was intact. The appendix was scarred and it was removed and appendicectomy was performed. The appendiceal stump mucosa was cauterized. The appendix was amputated above ligature and removed from the field. At this point, the colon was palpated and inspected. It appeared to collapse. There was no fecal matter in the descending colon. The patient's descending sigmoid colon was then anastomosed to the remaining rectal stump with a 2-layered handsewn anastomosis utilizing 3-0 Monocryl and 3-0 Prolene sutures for the inner and outer layer respectively. The mesenteric defect was approximated using 2-0 Monocryl suture. The pelvis and abdomen were profusely irrigated, irrigant was aspirated. Hemostasis was meticulously accomplished and a size 10 mm Miky-Botello drain was placed to the vicinity, but not abutting against the suture line. A diverting colostomy was considered; however, due to the empty nature of the colon with no fecal material and to the fact that the patient had not been previously consented for colostomy. I decided to proceed with just primary anastomosis and asked Dr. Mancini to explain to the patient after the operation that there is a potential for a second operation needed in order to establish diversion should there be a leak from this anastomosis. The patient is to remain n.p.o. with an NG tube in place and we placed on TPN until she resumes normal bowel movements. I will follow the patient postoperatively. Zaina Burton MD PF TID: [id number] RECEIPT: [id number] DICTATED BY:ZAINA BURTON MD DICTATED DATE/TIME:12/29/23 1043 ELECTRONICALLY SIGNED BY:ZAINA BURTON MD 01/06/24 1011 ELECTRONICALLY CO-SIGNED BY: Patient: ANTON BONILLA Acct: [id number] : 1985 Loc: [place] Age/Sex: 38/F Room: [facility] / Bed: A Attending Phy: SHARON RAJPUT DATE OF SURGERY: 12/29/2023 PREOPERATIVE DIAGNOSES: * Acute pelvic pain. * Left Tubo-ovarian abscess, unresponsive to IV Antibiotics and percutaneous drainage. FINAL DIAGNOSES: * Acute pelvic pain. * Left Tubo-ovarian abscess, unresponsive to IV Antibiotics and percutaneous drainage. PROCEDURES PERFORMED: * Diagnostic laparoscopy. * Exploratory laparotomy via midline incision. * Left oophorectomy. * Partial omentectomy. * Partial colon resection with primary anastomosis by Dr. Burton, general surgeon. * Appendectomy by General Surgery. DESCRIPTION OF FINDINGS: A frozen pelvis. A large 8cm inflammatory mass in the left lower quadrant. Omental adhesions to the anterior abdominal wall. Unable to access the pelvis through laparoscopy, therefore converted to laparotomy. Involvement of the rectosigmoid colon to the inflammatory mass, necessitating partial bowel resection with primary anastomosis. Please refer to the general surgeon's dictation for that portion of the surgery. The right fallopian tube was edematous. The right ovary appeared normal. The uterus appeared normal. TECHNICAL PROCEDURE: After informed consent was obtained, the patient was taken to the operating room where she underwent smooth induction with general anesthesia. The patient was placed in dorsal lithotomy position in Dimitrios stirrups. The vagina, perineum and abdomen were thoroughly prepped and the patient sterilely draped in the usual fashion. A pelvic exam was performed under anesthesia with the above-noted findings. A weighted speculum was placed into the patient's vagina. The anterior lip of the cervix was grasped with a single-tooth tenaculum. Uterine cavity sounded to 8 cm. A HUMI uterine manipulator was placed transcervically and the balloon inflated. A transurethral Trent was placed. All instrumentation was removed from the patient's vagina. Attention was then placed to the patient's abdomen, where a 5 mm incision was made at Rodriges's point in the left upper quadrant. A 5 mm Optiview trocar was inserted through the abdominal wall, visualizing every layer of the abdomen until entry into the peritoneal cavity was confirmed directly with the laparoscope. Carbon dioxide gas was infused and pneumoperitoneum obtained. Survey of the abdomen and pelvis revealed the above-noted findings. Two additional 5mm ports were placed in the midline and to the right of midline under direct visualization. The clinical laboratory assistant and I performed sharp and blunt adhesiolysis. We removed most of the omental adhesions that was attached to the anterior abdominal wall in the left upper quadrant. However, the mass in the lower left pelvis could not be mobilized sufficiently enough to get access to the pelvis. Therefore, decision was made to convert to a laparotomy. A midline incision was made with the scalpel. The incision was carried down to the underlying fascia and peritoneum. The peritoneal incision was extended superiorly and inferiorly with good visualization of underlying organs. Upon entering the abdomen, there was a large inflammatory mass. The greater omentum contained severely infected and indurated tissue. The omentum was divided and excised using the LigaSure device, obtaining excellent hemostasis. Next, the small bowel was inspected and it appeared to be intact; There was a large inflammatory mass in the left lower quadrant. Through blunt and sharp dissection, the mass was freed. It was densely adherent to the rectosigmoid. Division of the mass with the LigaSure device demonstrated entry into the large bowel lumen. The general surgeon, Dr. Burton was consulted and he performed a resection of the inflammatory mass in the left lower quadrant including resection of the rectosigmoid colon that was involved in the inflammatory mass. He performed a primary anastomosis, please refer to that dictation. General surgeon also performed an appendectomy, please refer to that dictation separately. We then irrigated the abdomen copiously. The abdomen was inspected for hemostasis. A OLU drain was placed in pelvis. The specimen containing the sigmoid, part of the left fallopian tube and ovary were submitted to pathology. Next, the peritoneum was closed with 2-0 Monocryl in running fashion. The rectus fascia was closed with double loop #1 PDS in continuous running fashion with good tissue approximation. The subcutaneous tissue was irrigated. Bleeding points controlled with cautery. The subcutaneous tissue was approximated with 2-0 plain gut in continuous running fashion. Next, the midline incision was closed vertically with gabriel. The OLU drain was anchored with the 2-0 Prolene stitch. The 3 laparoscopy skin incisions were closed with 3-0 Monocryl and dermabond. The incision was injected with 0.25% Marcaine, approximately 20 mL used. Finally, the uterine manipulator was removed from the patient's cervix with no bleeding noted. The patient was then taken out of lithotomy position, awakened, and taken to recovery room in stable condition. INTRAOPERATIVE COMPLICATIONS: None. ESTIMATED BLOOD LOSS: 300 mL. POSTOPERATIVE CONDITION: Guarded. SPECIMENS: * Left ovary with abscess and part of colon. * Appendix. * Part of greater omentum. * Cultures of the peritoneal fluid and abscess. Saad Mancini DO CG/[facility] TID: [id number] RECEIPT: [id number] DICTATED BY:SAAD MANCINI DO DICTATED DATE/TIME:12/29/23 1129 ELECTRONICALLY SIGNED BY:SAAD MANCINI DO 12/29/23 1646 Condition at Discharge: Stable Final Diagnosis/Problems List #Acute left suprapubic pain likely due to left tubo-ovarian abscess/pyosalpinx #Possible pelvic inflammatory disease #Sepsis likely due to tubo-ovarian abscess/pyosalpinx (PID) #S/P left oophorectomy with appendectomy and bowel resection with anastomosis of the descending colon with rectum 12/29/2023 # Left-sided nonobstructing renal stone #Normocytic hypochromic anemia: iron deficiency #Polysubstance abuse (cannabinoids) Discharge Disposition: Home Discharge Instruct/Medications Diet: See Comment Diet comment: high protein diet Activity: Light activity Follow Up/Referral: fu with pcp, dr burton, dr mancini Medications: see prescription Discharge Statement: "Patient was advised to return to the ER or call 911 if any headaches, dizziness, shortness of breath, chest pain, abdominal pain, bleeding, fevers, or worsening of medical condition. Patient was counseled about treatment plan, medications, possible side effects, patientverbalized understanding. All questions were answered to the best of my ability. This discharge took greater then 30 minutes in planning, reviewing documentation, counseling the patient, and discussing with other team members." ASSESSMENT ASSESSMENT Assessment s/p colectomy + pelvic abscess Date of Service: Jan 11, 2024 Billing Provider: CORNELIUS WHITLEY MD Common Visit Codes: 17437-PIW/OBS DISCH DAY >30min FRANCISCA SELF RESIDENT Jan 09, 2024 16:30 CORNELIUS WHITLEY MD Jan 11, 2024 22:17
[2024-01-09] MEDS ORDERED: HYDR1TAB97 PO (18:37)
--- NOTE | 2024-01-09 18:43 | DVHPN2 ---
Subjective Progress Notes Subjective Doing much better. Pain controlled Denies fever/chills. Tolerating regular diet, but not much appetite still Objective PHYSICAL EXAM Physical Exam: Alert, NAD Abd Soft, NT, Non distended [place] removed and steri strips placed OLU drain removed, no significant output over last 48hr Vital Signs and I&O Vital Signs Date Time Temp Pulse Resp B/P (MAP) Pulse Ox O2 Delivery O2 Flow Rate FiO2 01/09/24 13:00 97.6 99 17 101/64 (76) 94 97.6 01/09/24 08:00 Room Air* 0 21 Intake and Output 01/09/24 07:00 Intake Total 950 ml Output Total 1505 ml Balance -555 ml Intake Oral 950 ml Output Urine Total 1500 ml Drainage Total 5 ml # Voids 4 # Bowel Movements 1 Lab results Laboratory Tests Test 12/24/23 13:20 12/24/23 13:50 12/24/23 15:12 12/25/23 04:19 Range/Units Lactic Acid Level 0.8 0.4-2.0 mmol/L White Blood Count 23.8 H 23.5 H 4.4-10.8 10^3/uL Red Blood Count 3.66 L 3.01 L 4.0-5.20 10^6/uL Hemoglobin 9.8 L 7.9 #L 12.2-16.2 g/dL Hematocrit 30.4 L 25.1 #L 36.0-46.0 % Mean Corpuscular Volume 82.9 83.5 80.0-100.0 fL Mean Corpuscular Hemoglobin 26.8 L 26.2 L 28.0-32.0 pg Mean Corpuscular Hemoglobin Concent 32.4 31.4 L 32.0-36.0 g/dL Red Cell Distribution Width 14.1 14.4 H 11.8-14.3 % Platelet Count 466 H 395 140-450 10^3/uL Mean Platelet Volume 7.8 7.2 6.9-10.8 fL Neutrophils (%) (Auto) 89.6 H 87.1 H 37.0-80.0 % Lymphocytes (%) (Auto) 5.4 L 7.2 L 10.0-50.0 % Monocytes (%) (Auto) 4.3 5.3 0.0-12.0 % Eosinophils (%) (Auto) 0.4 0.2 0.0-7.0 % Basophils (%) (Auto) 0.3 0.2 0.0-2.0 % Neutrophils # (Auto) 21.3 H 20.4 H 1.6-8.6 10 ^3/uL Lymphocytes # (Auto) 1.3 1.7 0.4-5.4 10 ^3/uL Monocytes # (Auto) 1.0 1.3 0-1.3 10 ^3/uL Eosinophils # (Auto) 0.1 0.1 0-0.8 10 ^3/uL Basophils # (Auto) 0.1 0 0-0.2 10 ^3/uL Nucleated Red Blood Cells 0.0 0.0 % Erythrocyte Sedimentation Rate 105 H 0-20 mm/hr Prothrombin Time 12.1 H 9.3-11.8 sec Prothrombin Time INR 1.15 0.9-1.15 Activated Partial Thromboplast Time 32.5 24.5-34.5 SEC Sodium Level 135 L 138 136-145 mmol/L Potassium Level 3.8 3.7 3.5-5.1 mmol/L Chloride Level 102 106 98-107 mmol/L Carbon Dioxide Level 27 26 20-31 mmol/L Anion Gap 6 6 5-15 Blood Urea Nitrogen 6 L < 5 L 9-23 mg/dL Creatinine 0.68 0.65 0.550-1.02 mg/dL Glomerular Filtration Rate Calc 116 117 >90 mL/min BUN/Creatinine Ratio 8.8 L 7.7 L 10.0-20.0 Serum Glucose 97 102 74-106 mg/dL Calcium Level 9.3 8.6 L 8.7-10.4 mg/dL Total Bilirubin 0.5 0.5 0.2-1.0 mg/dL Aspartate Amino Transferase (AST) 18 16 13-40 U/L Alanine Aminotransferase (ALT) 16 12 7-40 U/L Alkaline Phosphatase 101 86 46-116 U/L Total Protein 8.5 H 7.0 5.7-8.2 g/dL Albumin 3.8 3.4 3.2-4.8 g/dL Lipase 32 12-53 U/L Beta HCG, Quantitative 0.1 L 1.5-4.2 mIU/mL Plasma/Serum Blood Alcohol 3.3 <10 mg/dL Urine Color Yellow Yellow Urine Clarity Turbid H Clear Urine pH 6.5 5.0-9.0 Urine Specific [place] 1.021 1.001-1.035 Urine Protein Trace H Negative Urine Ketones Trace Negative Urine Blood Negative Negative /uL Urine Nitrite Negative Negative Urine Bilirubin Negative Negative Urine Urobilinogen 4 H Negative mg/dL Urine Leukocyte Esterase 1+ Negative /uL Urine RBC 3 0 - 4 /hpf Urine WBC 4 0 - 5 /hpf Urine Squamous Epithelial Cells Few <5 /hpf Urine Bacteria None seen None Seen /hpf Urine Mucus Few None Seen Urine Glucose Normal Normal mg/dL Urine Test Negative Negative Urine Opiates Screen Neg NEGATIVE Urine Fentanyl Screen Neg NEGATIVE Urine Barbiturates Screen Neg NEGATIVE Urine Phencyclidine Screen Neg NEGATIVE Urine Amphetamines Screen Neg NEGATIVE Urine Benzodiazepines Screen Neg NEGATIVE Urine Cocaine Screen Neg NEGATIVE Urine Cannabinoids Screen Pos NEGATIVE Chlamydia trachomatis (AYSHA) Negative Negative Neisseria gonorrhoeae (AYSHA) Negative Negative Ferritin 183.1 10-291 ng/mL Triglycerides Level 65 < 150 mg/dL Cholesterol Level 99 < 200 mg/dL LDL Cholesterol 66 < 100 mg/dL HDL Cholesterol 24 L 40-59 mg/dL Hepatitis C Antibody Negative Negative HIV (1&2) Antibody Negative Negative Test 12/25/23 13:42 12/26/23 04:40 12/27/23 05:04 12/28/23 03:28 Range/Units Rapid Plasma Reagin Non reactive Non Reactive White Blood Count 26.0 H 28.4 H 26.6 H 4.4-10.8 10^3/uL Red Blood Count 3.15 L 3.25 L 3.13 L 4.0-5.20 10^6/uL Hemoglobin 8.2 L 8.6 L 8.2 L 12.2-16.2 g/dL Hematocrit 26.2 L 26.8 L 25.9 L 36.0-46.0 % Mean Corpuscular Volume 83.1 82.5 82.8 80.0-100.0 fL Mean Corpuscular Hemoglobin 26.1 L 26.3 L 26.3 L 28.0-32.0 pg Mean Corpuscular Hemoglobin Concent 31.4 L 31.9 L 31.8 L 32.0-36.0 g/dL Red Cell Distribution Width 14.5 H 14.4 H 14.8 H 11.8-14.3 % Platelet Count 334 338 409 140-450 10^3/uL Mean Platelet Volume 7.4 7.6 7.6 6.9-10.8 fL Neutrophils (%) (Auto) 92.7 H 89.5 H 37.0-80.0 % Lymphocytes (%) (Auto) 3.4 L 6.0 L 10.0-50.0 % Monocytes (%) (Auto) 3.7 4.1 0.0-12.0 % Basophils (%) (Auto) 0.2 0.1 0.0-2.0 % Neutrophils # (Auto) 26.3 H 23.8 H 1.6-8.6 10 ^3/uL Lymphocytes # (Auto) 1.0 1.6 0.4-5.4 10 ^3/uL Monocytes # (Auto) 1.0 1.1 0-1.3 10 ^3/uL Differential Total Cells Counted 100.0 100 Neutrophils % (Manual) 90 H 37.0-80.0 Band Neutrophils % (Manual) 0 Lymphocytes % (Manual) 6 L 10.0-50.0 Monocytes % (Manual) 4 0-12 Eosinophils % (Manual) 0 0-7 Basophils % (Manual) 0 0.0-2.0 Metamyelocytes % (manual) 0 Myelocytes % (Manual) 0 Promyelocytes % (Manual) 0 Blast Cells % (Manual) 0 Reactive Lymphocytes 0 Platelet Estimate Adequate Clumped Platelets Moderate Stomatocytes Few Sodium Level 135 L 135 L 135 L 136-145 mmol/L Potassium Level 3.6 3.4 L 3.4 L 3.5-5.1 mmol/L Chloride Level 104 101 102 98-107 mmol/L Carbon Dioxide Level 26 25 25 20-31 mmol/L Anion Gap 5 9 8 5-15 Blood Urea Nitrogen < 5 L < 5 L < 5 L 9-23 mg/dL Creatinine 0.65 0.62 0.51 L 0.550-1.02 mg/dL Glomerular Filtration Rate Calc 117 118 124 >90 mL/min BUN/Creatinine Ratio 7.7 L 8.1 L 9.8 L 10.0-20.0 Serum Glucose 97 106 92 74-106 mg/dL Calcium Level 8.9 8.6 L 8.7 8.7-10.4 mg/dL Eosinophils (%) (Auto) 0.0 0.3 0.0-7.0 % Eosinophils # (Auto) 0 0.1 0-0.8 10 ^3/uL Basophils # (Auto) 0 0 0-0.2 10 ^3/uL Nucleated Red Blood Cells 0.0 0.0 % Magnesium Level 1.8 1.9 1.6-2.6 mg/dL Total Bilirubin 0.4 0.2-1.0 mg/dL Aspartate Amino Transferase (AST) 13 13-40 U/L Alanine Aminotransferase (ALT) < 9 7-40 U/L Alkaline Phosphatase 88 46-116 U/L Total Protein 6.7 5.7-8.2 g/dL Albumin 3.1 L 3.2-4.8 g/dL Test 12/29/23 10:10 12/29/23 16:01 12/30/23 05:05 12/31/23 06:40 Range/Units Body Fluid Source Pending Body Fluid pH Pending Body Fluid WBC (Manual) Pending Body Fluid RBC (Manual) Pending Body Fluid Mononuclear Cells Pending Body Fluid Polymorphonuclear Cells Pending White Blood Count 29.0 H 28.0 H 19.7 #H 4.4-10.8 10^3/uL Red Blood Count 3.34 L 3.12 L 2.86 L 4.0-5.20 10^6/uL Hemoglobin 9.2 L 8.3 L 7.9 L 12.2-16.2 g/dL Hematocrit 28.3 L 26.5 L 24.0 L 36.0-46.0 % Mean Corpuscular Volume 84.6 84.9 83.8 80.0-100.0 fL Mean Corpuscular Hemoglobin 27.6 L 26.6 L 27.5 L 28.0-32.0 pg Mean Corpuscular Hemoglobin Concent 32.6 31.4 L 32.8 32.0-36.0 g/dL Red Cell Distribution Width 15.2 H 15.4 H 15.8 H 11.8-14.3 % Platelet Count 380 433 437 140-450 10^3/uL Mean Platelet Volume 7.6 7.6 7.5 6.9-10.8 fL Neutrophils (%) (Auto) 85.6 H 37.0-80.0 % Lymphocytes (%) (Auto) 9.3 L 10.0-50.0 % Monocytes (%) (Auto) 4.6 0.0-12.0 % Basophils (%) (Auto) 0.2 0.0-2.0 % Neutrophils # (Auto) 16.8 H 1.6-8.6 10 ^3/uL Lymphocytes # (Auto) 1.8 0.4-5.4 10 ^3/uL Monocytes # (Auto) 0.9 0-1.3 10 ^3/uL Differential Total Cells Counted 100.0 100.0 100 Neutrophils % (Manual) 75 71 37.0-80.0 Band Neutrophils % (Manual) 21 25 Lymphocytes % (Manual) 1 L 3 L 10.0-50.0 Monocytes % (Manual) 1 0 0-12 Eosinophils % (Manual) 0 0 0-7 Basophils % (Manual) 0 0 0.0-2.0 Metamyelocytes % (manual) 2 1 Myelocytes % (Manual) 0 0 Promyelocytes % (Manual) 0 0 Blast Cells % (Manual) 0 0 Reactive Lymphocytes 0 0 Platelet Estimate Adequate Adequate Large Platelets Few Sodium Level 139 142 140 136-145 mmol/L Potassium Level 3.7 3.7 3.0 L 3.5-5.1 mmol/L Chloride Level 112 #H 108 H 104 98-107 mmol/L Carbon Dioxide Level 24 30 29 20-31 mmol/L Anion Gap 3 L 4 L 7 5-15 Blood Urea Nitrogen < 5 L 8 L 7 L 9-23 mg/dL Creatinine 0.38 L 0.45 L 0.35 L 0.550-1.02 mg/dL Glomerular Filtration Rate Calc 133 128 136 >90 mL/min BUN/Creatinine Ratio 13.2 17.8 20.0 10.0-20.0 Serum Glucose 141 H 140 H 135 H 74-106 mg/dL Calcium Level 7.4 L 8.3 L 8.3 L 8.7-10.4 mg/dL Prothrombin Time 12.7 H 9.3-11.8 sec Prothrombin Time INR 1.22 H 0.9-1.15 Activated Partial Thromboplast Time 31.8 24.5-34.5 SEC Phosphorus Level 4.8 2.1 L 2.4-5.1 mg/dL Magnesium Level 1.7 1.9 1.6-2.6 mg/dL Total Bilirubin 0.3 0.2 0.2-1.0 mg/dL Aspartate Amino Transferase (AST) 19 18 13-40 U/L Alanine Aminotransferase (ALT) < 9 9 7-40 U/L Alkaline Phosphatase 59 54 46-116 U/L Total Protein 5.6 L 5.8 5.7-8.2 g/dL Albumin 2.5 L 2.6 L 3.2-4.8 g/dL Triglycerides Level 81 < 150 mg/dL Eosinophils (%) (Auto) 0.3 0.0-7.0 % Eosinophils # (Auto) 0 0-0.8 10 ^3/uL Basophils # (Auto) 0 0-0.2 10 ^3/uL Nucleated Red Blood Cells 0.1 % Test 12/31/23 11:42 12/31/23 20:58 01/01/24 01:06 01/01/24 05:40 Range/Units POC Glucose 141 H 99 70-106 mg/dl Potassium Level 3.7 3.3 L 3.5-5.1 mmol/L White Blood Count 17.6 H 4.4-10.8 10^3/uL Red Blood Count 2.97 L 4.0-5.20 10^6/uL Hemoglobin 8.2 L 12.2-16.2 g/dL Hematocrit 25.2 L 36.0-46.0 % Mean Corpuscular Volume 84.9 80.0-100.0 fL Mean Corpuscular Hemoglobin 27.5 L 28.0-32.0 pg Mean Corpuscular Hemoglobin Concent 32.4 32.0-36.0 g/dL Red Cell Distribution Width 15.9 H 11.8-14.3 % Platelet Count 506 H 140-450 10^3/uL Mean Platelet Volume 7.6 6.9-10.8 fL Neutrophils (%) (Auto) 82.8 H 37.0-80.0 % Lymphocytes (%) (Auto) 10.7 10.0-50.0 % Monocytes (%) (Auto) 5.6 0.0-12.0 % Eosinophils (%) (Auto) 0.7 0.0-7.0 % Basophils (%) (Auto) 0.2 0.0-2.0 % Neutrophils # (Auto) 14.6 H 1.6-8.6 10 ^3/uL Lymphocytes # (Auto) 1.9 0.4-5.4 10 ^3/uL Monocytes # (Auto) 1.0 0-1.3 10 ^3/uL Eosinophils # (Auto) 0.1 0-0.8 10 ^3/uL Basophils # (Auto) 0 0-0.2 10 ^3/uL Nucleated Red Blood Cells 0.2 % Sodium Level 142 136-145 mmol/L Chloride Level 105 98-107 mmol/L Carbon Dioxide Level 27 20-31 mmol/L Anion Gap 10 5-15 Blood Urea Nitrogen 8 L 9-23 mg/dL Creatinine 0.37 L 0.550-1.02 mg/dL Glomerular Filtration Rate Calc 134 >90 mL/min BUN/Creatinine Ratio 21.6 H 10.0-20.0 Serum Glucose 100 74-106 mg/dL Calcium Level 8.2 L 8.7-10.4 mg/dL Phosphorus Level 3.4 2.4-5.1 mg/dL Magnesium Level 2.1 1.6-2.6 mg/dL Total Bilirubin 0.2 0.2-1.0 mg/dL Aspartate Amino Transferase (AST) 31 13-40 U/L Alanine Aminotransferase (ALT) 10 7-40 U/L Alkaline Phosphatase 71 46-116 U/L Total Protein 6.1 5.7-8.2 g/dL Albumin 2.9 L 3.2-4.8 g/dL Test 01/02/24 04:50 01/02/24 05:35 01/02/24 11:07 01/03/24 00:36 Range/Units White Blood Count 15.2 H 4.4-10.8 10^3/uL Red Blood Count 2.69 L 4.0-5.20 10^6/uL Hemoglobin 7.5 L 12.2-16.2 g/dL Hematocrit 22.8 L 36.0-46.0 % Mean Corpuscular Volume 84.7 80.0-100.0 fL Mean Corpuscular Hemoglobin 28.0 28.0-32.0 pg Mean Corpuscular Hemoglobin Concent 33.1 32.0-36.0 g/dL Red Cell Distribution Width 16.0 H 11.8-14.3 % Platelet Count 471 H 140-450 10^3/uL Mean Platelet Volume 7.3 6.9-10.8 fL Neutrophils (%) (Auto) 83.8 H 37.0-80.0 % Lymphocytes (%) (Auto) 9.7 L 10.0-50.0 % Monocytes (%) (Auto) 4.8 0.0-12.0 % Eosinophils (%) (Auto) 1.4 0.0-7.0 % Basophils (%) (Auto) 0.3 0.0-2.0 % Neutrophils # (Auto) 12.7 H 1.6-8.6 10 ^3/uL Lymphocytes # (Auto) 1.5 0.4-5.4 10 ^3/uL Monocytes # (Auto) 0.7 0-1.3 10 ^3/uL Eosinophils # (Auto) 0.2 0-0.8 10 ^3/uL Basophils # (Auto) 0 0-0.2 10 ^3/uL Nucleated Red Blood Cells 0.0 % Sodium Level 142 136-145 mmol/L Potassium Level 4.0 3.5-5.1 mmol/L Chloride Level 107 98-107 mmol/L Carbon Dioxide Level 28 20-31 mmol/L Anion Gap 7 5-15 Blood Urea Nitrogen 8 L 9-23 mg/dL Creatinine 0.41 L 0.550-1.02 mg/dL Glomerular Filtration Rate Calc 131 >90 mL/min BUN/Creatinine Ratio 19.5 10.0-20.0 Serum Glucose 111 H 74-106 mg/dL Calcium Level 8.2 L 8.7-10.4 mg/dL Phosphorus Level 3.5 2.4-5.1 mg/dL Magnesium Level 2.1 1.6-2.6 mg/dL Iron Level 17 L 50-170 ug/dL Total Iron Binding Capacity 190 L 250-425 ug/dL Percent Iron Saturation 8.9 L 15-50 % Total Bilirubin 0.2 0.2-1.0 mg/dL Aspartate Amino Transferase (AST) 35 13-40 U/L Alanine Aminotransferase (ALT) 15 7-40 U/L Alkaline Phosphatase 75 46-116 U/L Total Protein 5.8 5.7-8.2 g/dL Albumin 2.6 L 3.2-4.8 g/dL POC Glucose 112 H 97 121 H 70-106 mg/dl Test 01/03/24 05:49 01/03/24 06:27 01/03/24 12:36 01/03/24 18:08 Range/Units POC Glucose 137 H 124 H 120 H 70-106 mg/dl White Blood Count 21.4 #H 4.4-10.8 10^3/uL Red Blood Count 2.85 L 4.0-5.20 10^6/uL Hemoglobin 8.0 L 12.2-16.2 g/dL Hematocrit 24.7 L 36.0-46.0 % Mean Corpuscular Volume 86.6 80.0-100.0 fL Mean Corpuscular Hemoglobin 28.1 28.0-32.0 pg Mean Corpuscular Hemoglobin Concent 32.5 32.0-36.0 g/dL Red Cell Distribution Width 16.5 H 11.8-14.3 % Platelet Count 526 H 140-450 10^3/uL Mean Platelet Volume 7.6 6.9-10.8 fL Neutrophils (%) (Auto) 84.7 H 37.0-80.0 % Lymphocytes (%) (Auto) 7.6 L 10.0-50.0 % Monocytes (%) (Auto) 5.5 0.0-12.0 % Eosinophils (%) (Auto) 2.0 0.0-7.0 % Basophils (%) (Auto) 0.2 0.0-2.0 % Neutrophils # (Auto) 18.2 H 1.6-8.6 10 ^3/uL Lymphocytes # (Auto) 1.6 0.4-5.4 10 ^3/uL Monocytes # (Auto) 1.2 0-1.3 10 ^3/uL Eosinophils # (Auto) 0.4 0-0.8 10 ^3/uL Basophils # (Auto) 0 0-0.2 10 ^3/uL Nucleated Red Blood Cells 0.1 % Sodium Level 138 136-145 mmol/L Potassium Level 4.1 3.5-5.1 mmol/L Chloride Level 105 98-107 mmol/L Carbon Dioxide Level 26 20-31 mmol/L Anion Gap 7 5-15 Blood Urea Nitrogen 7 L 9-23 mg/dL Creatinine 0.44 L 0.550-1.02 mg/dL Glomerular Filtration Rate Calc 128 >90 mL/min BUN/Creatinine Ratio 15.9 10.0-20.0 Serum Glucose 119 H 74-106 mg/dL Calcium Level 8.6 L 8.7-10.4 mg/dL Phosphorus Level 3.6 2.4-5.1 mg/dL Magnesium Level 2.2 1.6-2.6 mg/dL Total Bilirubin 0.3 0.2-1.0 mg/dL Aspartate Amino Transferase (AST) 27 13-40 U/L Alanine Aminotransferase (ALT) 14 7-40 U/L Alkaline Phosphatase 75 46-116 U/L Total Protein 6.5 5.7-8.2 g/dL Albumin 3.0 L 3.2-4.8 g/dL Test 01/04/24 04:25 01/04/24 05:30 01/04/24 11:28 01/04/24 18:27 Range/Units White Blood Count 18.3 H 4.4-10.8 10^3/uL Red Blood Count 2.75 L 4.0-5.20 10^6/uL Hemoglobin 7.8 L 12.2-16.2 g/dL Hematocrit 23.5 L 36.0-46.0 % Mean Corpuscular Volume 85.6 80.0-100.0 fL Mean Corpuscular Hemoglobin 28.2 28.0-32.0 pg Mean Corpuscular Hemoglobin Concent 33.0 32.0-36.0 g/dL Red Cell Distribution Width 16.9 H 11.8-14.3 % Platelet Count 546 H 140-450 10^3/uL Mean Platelet Volume 7.4 6.9-10.8 fL Neutrophils (%) (Auto) 83.2 H 37.0-80.0 % Lymphocytes (%) (Auto) 8.1 L 10.0-50.0 % Monocytes (%) (Auto) 6.0 0.0-12.0 % Eosinophils (%) (Auto) 2.3 0.0-7.0 % Basophils (%) (Auto) 0.4 0.0-2.0 % Neutrophils # (Auto) 15.2 H 1.6-8.6 10 ^3/uL Lymphocytes # (Auto) 1.5 0.4-5.4 10 ^3/uL Monocytes # (Auto) 1.1 0-1.3 10 ^3/uL Eosinophils # (Auto) 0.4 0-0.8 10 ^3/uL Basophils # (Auto) 0.1 0-0.2 10 ^3/uL Nucleated Red Blood Cells 0.0 % Sodium Level 139 136-145 mmol/L Potassium Level 4.1 3.5-5.1 mmol/L Chloride Level 106 98-107 mmol/L Carbon Dioxide Level 28 20-31 mmol/L Anion Gap 5 5-15 Blood Urea Nitrogen 6 L 9-23 mg/dL Creatinine 0.44 L 0.550-1.02 mg/dL Glomerular Filtration Rate Calc 128 >90 mL/min BUN/Creatinine Ratio 13.6 10.0-20.0 Serum Glucose 128 H 74-106 mg/dL Calcium Level 8.6 L 8.7-10.4 mg/dL Phosphorus Level 4.1 2.4-5.1 mg/dL Magnesium Level 2.2 1.6-2.6 mg/dL Total Bilirubin 0.2 0.2-1.0 mg/dL Aspartate Amino Transferase (AST) 18 13-40 U/L Alanine Aminotransferase (ALT) 13 7-40 U/L Alkaline Phosphatase 67 46-116 U/L Total Protein 6.3 5.7-8.2 g/dL Albumin 2.9 L 3.2-4.8 g/dL Triglycerides Level 97 < 150 mg/dL POC Glucose 133 H 151 H 124 H 70-106 mg/dl Test 01/05/24 05:06 01/05/24 05:14 01/05/24 12:41 01/05/24 23:58 Range/Units White Blood Count 17.3 H 4.4-10.8 10^3/uL Red Blood Count 2.86 L 4.0-5.20 10^6/uL Hemoglobin 8.0 L 12.2-16.2 g/dL Hematocrit 24.8 L 36.0-46.0 % Mean Corpuscular Volume 86.6 80.0-100.0 fL Mean Corpuscular Hemoglobin 28.1 28.0-32.0 pg Mean Corpuscular Hemoglobin Concent 32.5 32.0-36.0 g/dL Red Cell Distribution Width 17.9 H 11.8-14.3 % Platelet Count 586 H 140-450 10^3/uL Mean Platelet Volume 7.3 6.9-10.8 fL Neutrophils (%) (Auto) 83.0 H 37.0-80.0 % Lymphocytes (%) (Auto) 7.8 L 10.0-50.0 % Monocytes (%) (Auto) 6.4 0.0-12.0 % Eosinophils (%) (Auto) 2.5 0.0-7.0 % Basophils (%) (Auto) 0.3 0.0-2.0 % Neutrophils # (Auto) 14.3 H 1.6-8.6 10 ^3/uL Lymphocytes # (Auto) 1.3 0.4-5.4 10 ^3/uL Monocytes # (Auto) 1.1 0-1.3 10 ^3/uL Eosinophils # (Auto) 0.4 0-0.8 10 ^3/uL Basophils # (Auto) 0 0-0.2 10 ^3/uL Nucleated Red Blood Cells 0.0 % Sodium Level 137 136-145 mmol/L Potassium Level 4.2 3.5-5.1 mmol/L Chloride Level 103 98-107 mmol/L Carbon Dioxide Level 29 20-31 mmol/L Anion Gap 5 5-15 Blood Urea Nitrogen 8 L 9-23 mg/dL Creatinine 0.48 L 0.550-1.02 mg/dL Glomerular Filtration Rate Calc 126 >90 mL/min BUN/Creatinine Ratio 16.7 10.0-20.0 Serum Glucose 135 H 74-106 mg/dL Calcium Level 8.8 8.7-10.4 mg/dL Phosphorus Level 4.2 2.4-5.1 mg/dL Magnesium Level 2.2 1.6-2.6 mg/dL Total Bilirubin 0.3 0.2-1.0 mg/dL Aspartate Amino Transferase (AST) 15 13-40 U/L Alanine Aminotransferase (ALT) 11 7-40 U/L Alkaline Phosphatase 67 46-116 U/L Total Protein 6.7 5.7-8.2 g/dL Albumin 3.0 L 3.2-4.8 g/dL POC Glucose 153 H 123 H 143 H 70-106 mg/dl Test 01/06/24 04:57 01/06/24 17:50 01/07/24 00:18 01/07/24 12:04 Range/Units White Blood Count 15.9 H 14.1 H 4.4-10.8 10^3/uL Red Blood Count 2.87 L 3.28 L 4.0-5.20 10^6/uL Hemoglobin 8.0 L 9.0 L 12.2-16.2 g/dL Hematocrit 24.5 L 28.0 #L 36.0-46.0 % Mean Corpuscular Volume 85.4 85.4 80.0-100.0 fL Mean Corpuscular Hemoglobin 27.9 L 27.6 L 28.0-32.0 pg Mean Corpuscular Hemoglobin Concent 32.6 32.3 32.0-36.0 g/dL Red Cell Distribution Width 17.6 H 17.2 H 11.8-14.3 % Platelet Count 601 H 714 H 140-450 10^3/uL Mean Platelet Volume 7.5 7.0 6.9-10.8 fL Neutrophils (%) (Auto) 79.5 37.0-80.0 % Lymphocytes (%) (Auto) 11.3 10.0-50.0 % Monocytes (%) (Auto) 7.1 0.0-12.0 % Basophils (%) (Auto) 0.5 0.0-2.0 % Neutrophils # (Auto) 11.3 H 1.6-8.6 10 ^3/uL Lymphocytes # (Auto) 1.6 0.4-5.4 10 ^3/uL Monocytes # (Auto) 1.0 0-1.3 10 ^3/uL Differential Total Cells Counted 100.0 100 Neutrophils % (Manual) 81 H 37.0-80.0 Band Neutrophils % (Manual) 0 Lymphocytes % (Manual) 9 L 10.0-50.0 Monocytes % (Manual) 5 0-12 Eosinophils % (Manual) 2 0-7 Basophils % (Manual) 0 0.0-2.0 Metamyelocytes % (manual) 2 Myelocytes % (Manual) 1 Promyelocytes % (Manual) 0 Blast Cells % (Manual) 0 Reactive Lymphocytes 0 Platelet Estimate Increased Red Blood Cell Morphology Normal Sodium Level 138 136-145 mmol/L Potassium Level 4.1 3.5-5.1 mmol/L Chloride Level 103 98-107 mmol/L Carbon Dioxide Level 28 20-31 mmol/L Anion Gap 7 5-15 Blood Urea Nitrogen 8 L 9-23 mg/dL Creatinine 0.49 L 0.550-1.02 mg/dL Glomerular Filtration Rate Calc 125 >90 mL/min BUN/Creatinine Ratio 16.3 10.0-20.0 Serum Glucose 96 74-106 mg/dL Calcium Level 8.9 8.7-10.4 mg/dL Phosphorus Level 4.3 2.4-5.1 mg/dL Magnesium Level 2.2 1.6-2.6 mg/dL Total Bilirubin 0.3 0.2-1.0 mg/dL Aspartate Amino Transferase (AST) 16 13-40 U/L Alanine Aminotransferase (ALT) 11 7-40 U/L Alkaline Phosphatase 73 46-116 U/L Total Protein 6.9 5.7-8.2 g/dL Albumin 3.2 3.2-4.8 g/dL POC Glucose 87 97 70-106 mg/dl Eosinophils (%) (Auto) 1.6 0.0-7.0 % Eosinophils # (Auto) 0.2 0-0.8 10 ^3/uL Basophils # (Auto) 0.1 0-0.2 10 ^3/uL Nucleated Red Blood Cells 0.0 % Test 01/08/24 07:12 01/09/24 05:34 Range/Units White Blood Count 12.1 H 11.4 H 4.4-10.8 10^3/uL Red Blood Count 3.11 L 3.25 L 4.0-5.20 10^6/uL Hemoglobin 8.6 L 9.0 L 12.2-16.2 g/dL Hematocrit 26.5 L 27.7 L 36.0-46.0 % Mean Corpuscular Volume 85.3 85.1 80.0-100.0 fL Mean Corpuscular Hemoglobin 27.5 L 27.7 L 28.0-32.0 pg Mean Corpuscular Hemoglobin Concent 32.2 32.5 32.0-36.0 g/dL Red Cell Distribution Width 17.3 H 17.6 H 11.8-14.3 % Platelet Count 621 H 643 H 140-450 10^3/uL Mean Platelet Volume 7.0 6.9 6.9-10.8 fL Neutrophils (%) (Auto) 76.3 75.2 37.0-80.0 % Lymphocytes (%) (Auto) 13.1 14.9 10.0-50.0 % Monocytes (%) (Auto) 8.3 7.9 0.0-12.0 % Eosinophils (%) (Auto) 1.7 1.5 0.0-7.0 % Basophils (%) (Auto) 0.6 0.5 0.0-2.0 % Neutrophils # (Auto) 9.2 H 8.6 1.6-8.6 10 ^3/uL Lymphocytes # (Auto) 1.6 1.7 0.4-5.4 10 ^3/uL Monocytes # (Auto) 1.0 0.9 0-1.3 10 ^3/uL Eosinophils # (Auto) 0.2 0.2 0-0.8 10 ^3/uL Basophils # (Auto) 0.1 0.1 0-0.2 10 ^3/uL Nucleated Red Blood Cells 0.0 0.0 % Sodium Level 138 136-145 mmol/L Potassium Level 3.9 3.5-5.1 mmol/L Chloride Level 102 98-107 mmol/L Carbon Dioxide Level 29 20-31 mmol/L Anion Gap 7 5-15 Blood Urea Nitrogen 5 L 9-23 mg/dL Creatinine 0.56 0.550-1.02 mg/dL Glomerular Filtration Rate Calc 121 >90 mL/min BUN/Creatinine Ratio 8.9 L 10.0-20.0 Serum Glucose 98 74-106 mg/dL Calcium Level 9.5 8.7-10.4 mg/dL Total Bilirubin 0.3 0.2-1.0 mg/dL Aspartate Amino Transferase (AST) 17 13-40 U/L Alanine Aminotransferase (ALT) < 9 7-40 U/L Alkaline Phosphatase 68 46-116 U/L Total Protein 7.3 5.7-8.2 g/dL Albumin 3.3 3.2-4.8 g/dL Assessment and Plan ASSESSMENT AND PLAN Assessment and Plan s/p Ex Lap LSO and Partial sigmoid colon resection w/ anastamosis, improved D/C home with PO antibiotics F/U with me in 3 days, and with general surgeon in 7-10 days My orders: Orders - ANNALISA MANCINI DO * Podiatric Medicine Doctor Consultation (12/25/23 07:08) * Radiologist Consult (12/25/23 12:29) Obtain Consent For: (12/29/23 07:27) Incentive Spirometry (12/29/23 13:06) * Infectious Evi- Dr. Lanre Castillo (12/29/23 13:18) Consult For Nutrition (12/29/23 18:40) Kub Abdomen Single View (12/30/23 04:00) Plan discussed with: Patient Date of Service: Jan 09, 2024 Billing Provider: GARIBALDI,ANNALISA G DO Common Visit Codes: [id number] INP/OBS CARE(MOD) ANNALISA MANCINI DO Jan 09, 2024 18:43
--- NOTE | 2024-01-09 22:14 | DVHPN2 ---
Consult Progress Note Date Seen: Jan 09, 2024 Subjective Patient reports: Other (tolerating diet and having bowel movements, no pain, DION drain was removed as well as gabriel ) Objective vital signs Vital Sign Date Time Temp Pulse Resp B/P (MAP) Pulse Ox O2 Delivery O2 Flow Rate FiO2 01/09/24 13:00 97.6 99 17 101/64 (76) 94 97.6 01/09/24 08:00 Room Air* 0 21 Total Intake and Output 01/08/24 01/08/24 01/09/24 15:00 23:00 07:00 Intake Total 650 ml 300 ml Output Total 805 ml 700 ml Balance -155 ml -400 ml medications Current Medications Medications Dose Ordered Sig/Sadia Route Start Time Stop Time Status Last Admin Dose Admin Fat Emulsion Intravenous 150 ml/Potassium Acetate 20 meq/ Potassium Phosphate 22 meq/ Calcium Gluconate 2.3 meq/Magnesium Sulfate 12 meq/ Multivitamins 10 ml/Chromium/ Copper/Manganese/ Zinc 1 ml/Amino Acids/Dextrose 1,383.9462 ml @ 58 mls/hr [id number] IV 01/02/24 22:00 01/03/24 21:59 Cancel PHYSICAL EXAM: - GENERAL: Alert and oriented x 3. No acute distress. Well-nourished. - EYES: EOMI. Anicteric. - HENT: Moist mucous membranes. No scleral icterus. No cervical lymphadenopathy. - LUNGS: Clear to auscultation bilaterally. No accessory muscle use. - CARDIOVASCULAR: Regular rate and rhythm. No murmur. No JVD. - ABDOMEN: Soft, non-tender and non-distended. No palpable masses. - EXTREMITIES: No edema. Non-tender.SKIN: No rashes or lesions. Warm. - NEUROLOGIC: No focal neurological deficits. CN II-XII grossly intact, but not individually tested. - PSYCHIATRIC: Cooperative. Appropriate mood and affect. laboratory and microbiology Laboratory Tests 01/09/24 05:34 Test 01/09/24 05:34 Range/Units Serum Glucose 98 74-106 mg/dL Problem List/Assessment/Plan Problems(with codes): (1) Left pyosalpinx (2) Leukocytosis (3) Adnexal mass (4) Left lower quadrant abdominal pain Problem List/Assessment/Plan ASSESSMENT AND PLAN: ID Problem List: - Pyosalpinx - Tubo-ovarian abscess - Persistent leukocytosis - Anemia - History of kidney stones - itraabdominal mass -inflammed appendix Assessment This is a 38 y.o. female with a past medical history of kidney stones (last occurrence three years ago), who presents with intermittent left lower quadrant pain and yellowish vaginal discharge for the last month. She had an intrauterine device (IUD) inserted five years ago, which was removed one month ago. She reports no multiple sexual partners and denies concern for sexually transmitted diseases. The pain is cramping in nature, rated 9 out of 10. She denies hematuria, fevers, or chills. No history of smoking or alcohol use; however, she does use marijuana occasionally. She lives with her boyfriend. Vital signs on admission revealed a temperature of 102.7F, respiratory rate of 16, blood pressure 102/68 mmHg, and oxygen saturation of 100% on room air. Physical examination was notable for tenderness in the left lower quadrant. Imaging studies include: - Pelvic ultrasound showing a left adnexal structurepossible mass or collection; infectious etiology not excluded. A simple cyst was noted in the right ovary. - CT abdomen and pelvis revealing a 5.6 x 5.1 cm thick-walled multilocular lesion of the left adnexa, suspicious for pyosalpinx; other etiologies not excluded. - Pelvic MRI demonstrating a multiloculated cystic mass in the left adnexa, likely representing a tubo-ovarian abscess; malignant lesion with necrosis not entirely excluded. On December 25, a CT-guided placement of an 8.5 mm pigtail drain was performed, yielding 25 cc of thick, foul, purulent fluid with slight green discoloration, sent for cytology and cultures. Cultures have shown no growth to date. Laboratory studies reveal a persistently elevated white blood cell count of 28,000/mm, hemoglobin of 8.2 g/dL, and platelet count of 344,000/mm. Despite drainage, the abscess remains sizable with minimal output, and the patient continues to have persistent leukocytosis. It is unclear if antibiotics alone will suffice in treating the infection. 12/29: Post op day 1 from diagnostic exploratory laparoscopy via midline incision , a left oophorectomy , a partial omentectomy, partial colon resection with primary anastomosis my Dr Strauss and an appendectomy. They found omental adhesions in the abdominal cavity , a mass in the left pelvis which could not be mobilized until the converted to an laparotomy. They found a large inflammatory mass . The greater momentum contained severely infected and indurated tissue , the momentum was divided and excised. mass was adherent to rectosigmoid and Dr Strauss was consulted. Dion drain was placed. Cultures from 12/28 and aspirated cultures from 12/25 show no growth. White count is still elevated but hemoglobin is stable 12/30: white count has gone down to 19.7, chest x-ray shows a need to advance anterior tube in the stomach about 2 cm. cultures from asprite from the IR drainage revealed anerococcus and the peritoneal fluid cultures are still pending 12/31: Aspric cultures are growing inner coccus , peritoneal fluids are growing clostridioforme 01/01: white count continues to downtrend, continue antibiotics for 14 more days 01/02: white count is elevated and multiple bowel movements and has been on antibiotics for a considerable amount of time . 01/05: White count is down to 15.9 , at this time would transition patient to oral medication 01/06: whitecount is continuing to downtred , completley on oral antibiotic regimen and continue for another 20 dyas , defer drain management to general surgery 01/07: white count contines to downtred , no longer has a picc line and cultures are no growth to date 01/08: Patient is now without gabriel and DION drain, whitecount is continuing to downtred and current course of antibiotics will likely be sufficient Plan: - recommend follow up with gynecology as outpatient to further manage pelvic inflammatory diease as well as fertility needs - follow up with infectious disease in 1 month - plan to repeat CT abdomen and pelvis to ensure inflammation has resolved - follow up on biopsy results of mass - Continue doxycycline and Flagyl (metronidazole) and cefpodoxime Plan discussed with: Other Dietary Evaluation Review Comments: 1) Increase TPN to meet at least 75% of estimated needs 2) Advance pt diet when medically feasible 3) Continue current plan of care Expected Outcomes/Goals: 1) Pt diet to advance 2) F/U in 2-3 days FELICITY MEMBRENO MD Jan 09, 2024 22:14
== END 2024-01-09 16:10 | disposition home or self-care (01) | DRG 855 ==
LOC: ER 13:05 → OVERFLOW 21:29 → CENTRAL 12-25 07:46
PROVIDERS: ADMIT Student in an Organized Health Care Education/Training Program; ATTEND Student in an Organized Health Care Education/Training Program
PROC: 0U913ZZ Drainage of Left Ovary, Percutaneous Approach (ICD-10-PCS; 2023-12-26)
PROC: 0DBN0ZZ Excision of Sigmoid Colon, Open Approach (ICD-10-PCS; 2023-12-29)
PROC: 0DTJ0ZZ Resection of Appendix, Open Approach (ICD-10-PCS; 2023-12-29)
PROC: 0WJG4ZZ Inspection of Peritoneal Cavity, Percutaneous Endoscopic Approach (ICD-10-PCS; 2023-12-29)
PROC: 0UB10ZZ Excision of Left Ovary, Open Approach (ICD-10-PCS; 2023-12-29)
PROC: 0DNN0ZZ Release Sigmoid Colon, Open Approach (ICD-10-PCS; 2023-12-29)
PROC: 0W9J0ZZ Drainage of Pelvic Cavity, Open Approach (ICD-10-PCS; 2023-12-29)
PROC: 30233N1 Transfusion of Nonautologous Red Blood Cells into Peripheral Vein, Percutaneous Approach (ICD-10-PCS; 2023-12-29)
PROC: 0DBU0ZZ Excision of Omentum, Open Approach (ICD-10-PCS; principal; 2023-12-29 09:33)
PROC: 02HV33Z Insertion of Infusion Device into Superior Vena Cava, Percutaneous Approach (ICD-10-PCS; 2023-12-30)
PROC: B548ZZA Ultrasonography of Superior Vena Cava, Guidance (ICD-10-PCS; 2023-12-30)
DX: A41.9 Sepsis, unspecified organism (principal); N73.9 Female pelvic inflammatory disease, unspecified; N70.93 Salpingitis and oophoritis, unspecified; R82.81 Pyuria; N20.0 Calculus of kidney; F19.10 Other psychoactive substance abuse, uncomplicated; K66.0 Peritoneal adhesions (postprocedural) (postinfection); Z90.49 Acquired absence of other specified parts of digestive tract; Z87.442 Personal history of urinary calculi; Z53.31 Laparoscopic surgical procedure converted to open procedure; D50.8 Other iron deficiency anemias
CPT/HCPCS: 36415; 36569; 71045; 73723; 74018; 74176; 74177; 75989; 76856; 80048; 80053; 80061; 80307; 80320; 81001; 81025; 82728; 82962; 83540; 83550; 83605; 83690; 83735; 84100; 84132; 84478; 84702; 85007; 85025; 85027; 85610; 85652; 85730; 86592; 86703; 86803; 86850; 86900; 86901; 86920; 87040; 87070; 87075; 87076; 87205; 87493; 96365; 96375; 97110; 97116; 97163; 97530; 99291; C1729; G0378; J1100; J1756; J1815; J1885; J2250; J2405; J2543; J2704; J3480; J3490; J7060

== ENCOUNTER → 2024-01-23 | Outpatient (CLI) | payer OTHER ==
[~2024-01-23] MED LIST: ACET1CAP14 PO; CEFP200T15 PO; DOX100T PO; HYDR1TAB97 PO; IBUP-1456 PO; MELA5TAB16 PO; MET500T PO; NUTR-559 PO
[2024-01-23 12:58] LABS: Basophils # (auto) 0 10 ^3/uL (0-0.2); Basophils % (auto) 0.6 % (0.0-2.0); Eosinophils # (auto) 0.2 10 ^3/uL (0-0.8); Eosinophils % (auto) 2.8 % (0.0-7.0); Hematocrit 36.7 % (36.0-46.0); Hemoglobin 11.6 g/dL (12.2-16.2); Lymphocytes # (auto) 1.4 10 ^3/uL (0.4-5.4); Mean Corpuscular Hemoglobin 27.9 pg (28.0-32.0); Mean Corpuscular Hgb Conc. 31.6 g/dL (32.0-36.0); Mean Corpuscular Volume 88.3 fL (80.0-100.0); Monocytes # (auto) 0.5 10 ^3/uL (0-1.3); Monocytes % (auto) 7.3 % (0.0-12.0); Neutrophils # (auto) 4.7 10 ^3/uL (1.6-8.6); Neutrophils % (auto) 68.3 % (37.0-80.0); Platelet Count (auto) 309 10^3/uL (140-450); Red Blood Cells 4.16 10^6/uL (4.0-5.20); Red Cell Distribution Width 18.6 % (11.8-14.3); White Blood Cell 6.8 10^3/uL (4.4-10.8)
[2024-01-23 13:28] LABS: Alanine Aminotransferase 24 U/L (7-40); Albumin 3.9 g/dL (3.2-4.8); Alkaline Phosphatase 66 U/L (46-116); Anion Gap 4 (5-15); Aspartate Aminotransferase 29 U/L (13-40); BUN/Creatinine Ratio 12.5 (10.0-20.0); Bilirubin, Total 0.2 mg/dL (0.2-1.0); Blood Urea Nitrogen 8 mg/dL (9-23); Calcium 9.7 mg/dL (8.7-10.4); Carbon Dioxide 29 mmol/L (20-31); Chloride 107 mmol/L (98-107); Glucose 95 mg/dL (74-106); Potassium 4.8 mmol/L (3.5-5.1); Sodium 140 mmol/L (136-145); Total Protein 7.6 g/dL (5.7-8.2)
== END | disposition home or self-care (01) ==
LOC: LAB 12:20
PROVIDERS: ATTEND Obstetrics & Gynecology
DX: Z01.419 Encounter for gynecological examination (general) (routine) without abnormal findings (principal)
CPT/HCPCS: 36415; 80053; 85025